=== PATIENT | female | born 1950 | race Caucasian/White ===

== ENCOUNTER → 2017-06-06 10:07 | Outpatient (CLI) | payer MEDICARE, SELFPAY ==
[2017-06-06 12:24] LABS: Absolute Lymphocyte Count 1.12 X10^3/ul (0.83-4.51); Absolute Neutrophil Count 3.4 X10^3/uL (2.0-7.7); Basophil# 0.03 X10^3/uL; Basophil% 0.6 % (0-1); Eosinophil# 0.23 X10^3/uL; Eosinophils% 4.4 % (0-5); Hemoglobin 13.5 g/dl (12.0-15.0); Lymphocyte # 1.12 X10^3/ul (4.0); Lymphocyte % 21.6 % (19-41); Mean Corp Hgb Conc 32.1 g/gl (32-36); Mean Corpuscular Hgb 30.5 pg (27.0-32.0); Mean Corpuscular Volume 94.8 fL (81-99); Mean Platelet Vol. 10.4 fl (6.2-12.0); Monocyte# 0.42 X10^3/uL; Monocyte% 8.1 % (0-10); Neutrophil # 3.38 X10^3/uL (2.7-7.7); Neutrophil % 65.1 % (47-70); Platelet Count 282 K/mm3 (150-450); RBC Distribution Width CV 14.2 % (11.6-14.6); RBC Distribution Width SD 48.2 fl (35.1-43.9); Red Blood Count 4.43 M/mm3 (4.2-5.4); White Blood Count 5.2 K/mm3 (4.4-11.0)
[2017-06-06 12:29] LABS: POSITIVE COUNT NO; POSITIVE DIFFERENTIAL NO; POSITIVE MORPHOLOGY NO
[2017-06-06 14:41] LABS: ALB/GLOB Ratio 1.1 RATIO (0.9-2.4); AST(SGOT) 15 U/L (15-37); Alanine Aminotransfer ALT/SGPT 28 U/L (12-78); Albumin, Serum 4.1 g/dL (3.4-5.0); Alkaline Phosphatase 67 U/L (45-117); Anion Gap 8 (5-15); BUN 17 mg/dL (7-18); BUN/Creat Ratio 16.3 RATIO (10-20); Calcium,Total 9.2 mg/dL (8.5-10.1); Chloride 102 mmol/L (98-107); Creatinine, Serum 1.04 mg/dL (0.55-1.02); EST Glomerular Filtration Rate 56 mL/min (>60); Est Glom Filt Rate - Afr Amer 68 mL/min (>60); Globulin 3.7 g/dL (2.2-4.2); Glucose 127 mg/dL (70-110); Potassium 4.5 mmol/L (3.5-5.1); Protein, Total 7.8 g/dL (6.4-8.2); Sodium Level 139 mmol/L (136-145)
== END ==
PROVIDERS: Family Provider Family Medicine; PCP Family Medicine; Visit Provider Internal Medicine Rheumatology
DX: L40.59 Other psoriatic arthropathy (principal); E03.9 Hypothyroidism, unspecified; G25.81 Restless legs syndrome; C43.62 Malignant melanoma of left upper limb, including shoulder; F32.89 Other specified depressive episodes; Z79.899 Other long term (current) drug therapy
CPT/HCPCS: 36415; 80053; 85025

== ENCOUNTER → 2017-08-29 11:18 | Outpatient (CLI) | payer MEDICARE, SELFPAY ==
[2017-08-29 14:18] LABS: Absolute Lymphocyte Count 1.59 X10^3/ul (0.83-4.51); Absolute Neutrophil Count 3.3 X10^3/uL (2.0-7.7); Basophil# 0.02 X10^3/uL; Basophil% 0.4 % (0-1); Eosinophil# 0.28 X10^3/uL; Eosinophils% 4.9 % (0-5); Hematocrit 42.6 % (37-47); Lymphocyte # 1.59 X10^3/ul (4.0); Lymphocyte % 27.8 % (19-41); Mean Corp Hgb Conc 32.9 g/gl (32-36); Mean Corpuscular Hgb 30.5 pg (27.0-32.0); Mean Corpuscular Volume 92.8 fL (81-99); Mean Platelet Vol. 10.3 fl (6.2-12.0); Monocyte# 0.48 X10^3/uL; Monocyte% 8.4 % (0-10); Neutrophil # 3.33 X10^3/uL (2.7-7.7); Neutrophil % 58.3 % (47-70); POSITIVE COUNT NO; POSITIVE DIFFERENTIAL NO; POSITIVE MORPHOLOGY NO; Platelet Count 290 K/mm3 (150-450); RBC Distribution Width CV 14.1 % (11.6-14.6); RBC Distribution Width SD 47.3 fl (35.1-43.9); Red Blood Count 4.59 M/mm3 (4.2-5.4); White Blood Count 5.7 K/mm3 (4.4-11.0)
[2017-08-29 14:38] LABS: ALB/GLOB Ratio 1.1 RATIO (0.9-2.4); AST(SGOT) 13 U/L (15-37); Alanine Aminotransfer ALT/SGPT 28 U/L (13-56); Albumin, Serum 4.2 g/dL (3.2-5.0); Alkaline Phosphatase 66 U/L (45-117); Anion Gap 6 (5-15); BUN 20 mg/dL (7-18); BUN/Creat Ratio 19.8 RATIO (10-20); Calcium,Total 9.3 mg/dL (8.5-10.1); Chloride 103 mmol/L (98-107); Creatinine, Serum 1.01 mg/dL (0.55-1.02); EST Glomerular Filtration Rate 58 mL/min (>60); Est Glom Filt Rate - Afr Amer 70 mL/min (>60); Globulin 3.9 g/dL (2.2-4.2); Glucose 72 mg/dL (74-106); Potassium 4.3 mmol/L (3.5-5.1); Protein, Total 8.1 g/dL (6.4-8.2); Sodium Level 139 mmol/L (136-145)
== END ==
PROVIDERS: Family Provider Family Medicine; PCP Family Medicine; Visit Provider Internal Medicine Rheumatology
DX: L40.59 Other psoriatic arthropathy (principal); G25.81 Restless legs syndrome; E03.9 Hypothyroidism, unspecified; C43.62 Malignant melanoma of left upper limb, including shoulder; F32.89 Other specified depressive episodes; Z79.899 Other long term (current) drug therapy
CPT/HCPCS: 36415; 80053; 85025

== ENCOUNTER → 2017-09-25 10:21 | Outpatient (CLI) | payer MEDICARE, SELFPAY ==
[2017-09-25 12:25] LABS: Vitamin D,25 Hydroxy 23.8 ng/mL (29.95-100.01)
[2017-09-25 12:37] LABS: Anion Gap 7 (5-15); BUN 22 mg/dL (7-18); BUN/Creat Ratio 22.2 RATIO (10-20); Chloride 104 mmol/L (98-107); Creatinine, Serum 0.99 mg/dL (0.55-1.02); EST Glomerular Filtration Rate 59 mL/min (>60); Est Glom Filt Rate - Afr Amer 72 mL/min (>60); Glucose 122 mg/dL (74-106); Potassium 4.1 mmol/L (3.5-5.1); Sodium Level 139 mmol/L (136-145); T4 Free Direct 1.11 ng/dL (0.76-1.46); Thyroid Stim Hormone (TSH) 1.64 uIU/mL (0.358-3.74)
== END ==
PROVIDERS: Family Provider Family Medicine; PCP Family Medicine; Visit Provider Family Medicine
DX: E03.9 Hypothyroidism, unspecified (principal); E55.9 Vitamin D deficiency, unspecified; R73.01 Impaired fasting glucose
CPT/HCPCS: 36415; 80048; 82306; 84439; 84443

== ENCOUNTER → 2017-12-24 16:45 | Outpatient (CLI) | payer MEDICARE, SELFPAY | PROVIDERS: Family Provider Family Medicine; PCP Family Medicine; Visit Provider Obstetrics & Gynecology | DX: Z12.31 Encounter for screening mammogram for malignant neoplasm of breast (principal) | CPT/HCPCS: 77063; 77067 ==

== ENCOUNTER → 2017-12-26 13:24 | Outpatient (CLI) | payer MEDICARE, SELFPAY ==
[2017-12-26 14:11] LABS: Absolute Lymphocyte Count 1.53 X10^3/ul (0.83-4.51); Absolute Neutrophil Count 2.7 X10^3/uL (2.0-7.7); Basophil# 0.03 X10^3/uL; Basophil% 0.6 % (0-1); Eosinophil# 0.18 X10^3/uL; Eosinophils% 3.7 % (0-5); Hemoglobin 12.9 g/dl (12.0-15.0); Lymphocyte # 1.53 X10^3/ul (4.0); Lymphocyte % 31.8 % (19-41); Mean Corp Hgb Conc 31.5 g/gl (32-36); Mean Corpuscular Hgb 29.9 pg (27.0-32.0); Mean Corpuscular Volume 95.1 fL (81-99); Mean Platelet Vol. 9.8 fl (6.2-12.0); Monocyte% 8.3 % (0-10); Neutrophil # 2.66 X10^3/uL (2.7-7.7); Neutrophil % 55.4 % (47-70); Platelet Count 258 K/mm3 (150-450); RBC Distribution Width CV 14.8 % (11.6-14.6); RBC Distribution Width SD 50.8 fl (35.1-43.9); Red Blood Count 4.31 M/mm3 (4.2-5.4); White Blood Count 4.8 K/mm3 (4.4-11.0)
[2017-12-26 14:14] LABS: POSITIVE COUNT NO; POSITIVE DIFFERENTIAL NO; POSITIVE MORPHOLOGY NO
[2017-12-26 14:39] LABS: ALB/GLOB Ratio 1.1 RATIO (0.9-2.4); AST(SGOT) 16 U/L (15-37); Alanine Aminotransfer ALT/SGPT 28 U/L (13-56); Alkaline Phosphatase 56 U/L (45-117); Anion Gap 5 (5-15); BUN 15 mg/dL (7-18); BUN/Creat Ratio 16.9 RATIO (10-20); Calcium,Total 9.1 mg/dL (8.5-10.1); Chloride 102 mmol/L (98-107); Creatinine, Serum 0.89 mg/dL (0.55-1.02); EST Glomerular Filtration Rate 67 mL/min (>60); Est Glom Filt Rate - Afr Amer 82 mL/min (>60); Globulin 3.6 g/dL (2.2-4.2); Glucose 89 mg/dL (74-106); Protein, Total 7.6 g/dL (6.4-8.2); Sodium Level 140 mmol/L (136-145)
== END ==
PROVIDERS: Family Provider Family Medicine; PCP Family Medicine; Visit Provider Internal Medicine Rheumatology
DX: L40.59 Other psoriatic arthropathy (principal); G25.81 Restless legs syndrome; E03.9 Hypothyroidism, unspecified; C43.62 Malignant melanoma of left upper limb, including shoulder; F32.89 Other specified depressive episodes; Z79.899 Other long term (current) drug therapy
CPT/HCPCS: 36415; 80053; 85025

== ENCOUNTER → 2018-03-20 14:32 | Outpatient (CLI) | payer MEDICARE, SELFPAY ==
[2018-03-20 16:06] LABS: Absolute Lymphocyte Count 1.38 X10^3/ul (0.83-4.51); Basophil# 0.01 X10^3/uL; Basophil% 0.2 % (0-1); Eosinophils% 3.9 % (0-5); Hematocrit 37.8 % (37-47); Hemoglobin 12.5 g/dl (12.0-15.0); Lymphocyte # 1.38 X10^3/ul (4.0); Lymphocyte % 27.1 % (19-41); Mean Corp Hgb Conc 33.1 g/gl (32-36); Mean Corpuscular Hgb 31.4 pg (27.0-32.0); Mean Platelet Vol. 10.4 fl (6.2-12.0); Monocyte# 0.48 X10^3/uL; Monocyte% 9.4 % (0-10); Neutrophil # 3.03 X10^3/uL (2.7-7.7); Neutrophil % 59.4 % (47-70); Platelet Count 256 K/mm3 (150-450); RBC Distribution Width CV 13.9 % (11.6-14.6); RBC Distribution Width SD 45.9 fl (35.1-43.9); Red Blood Count 3.98 M/mm3 (4.2-5.4); White Blood Count 5.1 K/mm3 (4.4-11.0)
[2018-03-20 16:17] LABS: ALB/GLOB Ratio 1.1 RATIO (0.9-2.4); AST(SGOT) 13 U/L (15-37); Alanine Aminotransfer ALT/SGPT 29 U/L (13-56); Albumin, Serum 3.8 g/dL (3.2-5.0); Alkaline Phosphatase 57 U/L (45-117); Anion Gap 6 (5-15); BUN 21 mg/dL (7-18); BUN/Creat Ratio 23.3 RATIO (10-20); Chloride 105 mmol/L (98-107); EST Glomerular Filtration Rate 66 mL/min (>60); Est Glom Filt Rate - Afr Amer 80 mL/min (>60); Globulin 3.6 g/dL (2.2-4.2); Glucose 88 mg/dL (74-106); Potassium 4.2 mmol/L (3.5-5.1); Protein, Total 7.4 g/dL (6.4-8.2); Sodium Level 141 mmol/L (136-145)
[2018-03-20 16:21] LABS: POSITIVE COUNT NO; POSITIVE DIFFERENTIAL NO; POSITIVE MORPHOLOGY NO
== END ==
PROVIDERS: Family Provider Family Medicine; PCP Family Medicine; Referring Provider Internal Medicine Rheumatology; Visit Provider Internal Medicine Rheumatology
DX: L40.59 Other psoriatic arthropathy (principal); C43.62 Malignant melanoma of left upper limb, including shoulder; E03.9 Hypothyroidism, unspecified; G25.81 Restless legs syndrome; M15.9 Polyosteoarthritis, unspecified; F32.89 Other specified depressive episodes; Z79.899 Other long term (current) drug therapy
CPT/HCPCS: 36415; 80053; 85025

== ENCOUNTER → 2018-04-01 11:33 | Outpatient (CLI) | payer MEDICARE, SELFPAY ==
[2018-04-01 16:07] LABS: Vitamin D,25 Hydroxy 34.5 ng/mL (29.95-100.01)
[2018-04-01 16:08] LABS: T4 Free Direct 0.99 ng/dL (0.76-1.46); Thyroid Stim Hormone (TSH) 1.39 uIU/mL (0.358-3.74)
== END ==
PROVIDERS: Family Provider Family Medicine; PCP Family Medicine; Visit Provider Family Medicine
DX: G25.0 Essential tremor (principal); E03.9 Hypothyroidism, unspecified; E55.9 Vitamin D deficiency, unspecified
CPT/HCPCS: 36415; 82306; 84439; 84443

== ENCOUNTER → 2018-06-19 13:32 | Outpatient (CLI) | payer MEDICARE, SELFPAY ==
[2018-06-19 15:48] LABS: Absolute Lymphocyte Count 1.17 X10^3/ul (0.83-4.51); Absolute Neutrophil Count 2.2 X10^3/uL (2.0-7.7); Basophil# 0.01 X10^3/uL; Basophil% 0.3 % (0-1); Eosinophil# 0.18 X10^3/uL; Eosinophils% 4.6 % (0-5); Hematocrit 39.1 % (37-47); Hemoglobin 12.6 g/dl (12.0-15.0); Lymphocyte # 1.17 X10^3/ul (4.0); Lymphocyte % 29.8 % (19-41); Mean Corp Hgb Conc 32.2 g/gl (32-36); Mean Corpuscular Hgb 30.4 pg (27.0-32.0); Mean Corpuscular Volume 94.4 fL (81-99); Mean Platelet Vol. 9.8 fl (6.2-12.0); Monocyte# 0.38 X10^3/uL; Monocyte% 9.7 % (0-10); Neutrophil # 2.18 X10^3/uL (2.7-7.7); Neutrophil % 55.3 % (47-70); Platelet Count 303 K/mm3 (150-450); RBC Distribution Width CV 14.7 % (11.6-14.6); RBC Distribution Width SD 49.8 fl (35.1-43.9); Red Blood Count 4.14 M/mm3 (4.2-5.4); White Blood Count 3.9 K/mm3 (4.4-11.0)
[2018-06-19 15:51] LABS: POSITIVE COUNT NO; POSITIVE DIFFERENTIAL NO; POSITIVE MORPHOLOGY NO
[2018-06-19 16:01] LABS: AST(SGOT) 13 U/L (15-37); Alanine Aminotransfer ALT/SGPT 24 U/L (13-56); Albumin, Serum 3.8 g/dL (3.2-5.0); Alkaline Phosphatase 59 U/L (45-117); Anion Gap 10 (5-15); BUN 17 mg/dL (7-18); BUN/Creat Ratio 19.2 RATIO (10-20); Calcium,Total 9.4 mg/dL (8.5-10.1); Chloride 102 mmol/L (98-107); Creatinine, Serum 0.89 mg/dL (0.55-1.02); EST Glomerular Filtration Rate 67 mL/min (>60); Est Glom Filt Rate - Afr Amer 81 mL/min (>60); Globulin 3.8 g/dL (2.2-4.2); Glucose 60 mg/dL (74-106); Protein, Total 7.6 g/dL (6.4-8.2); Sodium Level 142 mmol/L (136-145)
== END ==
PROVIDERS: Family Provider Family Medicine; PCP Family Medicine; Referring Provider Internal Medicine Rheumatology; Visit Provider Internal Medicine Rheumatology
DX: L40.59 Other psoriatic arthropathy (principal); C43.62 Malignant melanoma of left upper limb, including shoulder; E03.9 Hypothyroidism, unspecified; G25.81 Restless legs syndrome; F32.89 Other specified depressive episodes; Z79.899 Other long term (current) drug therapy; M15.9 Polyosteoarthritis, unspecified
CPT/HCPCS: 36415; 80053; 85025

== ENCOUNTER → 2018-09-16 09:58 | Outpatient (CLI) | payer MEDICARE, SELFPAY ==
[2018-01-08 09:57] VITALS: BMI 28.0
[2018-09-16 12:35] LABS: Absolute Lymphocyte Count 1.17 X10^3/ul (0.83-4.51); Absolute Neutrophil Count 2.2 X10^3/uL (2.0-7.7); Basophil# 0.01 X10^3/uL; Basophil% 0.3 % (0-1); Eosinophil# 0.17 X10^3/uL; Eosinophils% 4.3 % (0-5); Hematocrit 38.7 % (37-47); Hemoglobin 12.5 g/dl (12.0-15.0); Lymphocyte # 1.17 X10^3/ul (4.0); Lymphocyte % 29.5 % (19-41); Mean Corp Hgb Conc 32.3 g/gl (32-36); Mean Corpuscular Volume 92.8 fL (81-99); Mean Platelet Vol. 10.8 fl (6.2-12.0); Monocyte# 0.39 X10^3/uL; Monocyte% 9.8 % (0-10); Neutrophil # 2.22 X10^3/uL (2.7-7.7); Neutrophil % 56.1 % (47-70); Platelet Count 268 K/mm3 (150-450); RBC Distribution Width CV 14.1 % (11.6-14.6); RBC Distribution Width SD 47.2 fl (35.1-43.9); Red Blood Count 4.17 M/mm3 (4.2-5.4)
[2018-09-16 12:42] LABS: POSITIVE COUNT NO; POSITIVE DIFFERENTIAL NO; POSITIVE MORPHOLOGY NO
[2018-09-16 12:57] LABS: ALB/GLOB Ratio 1.2 RATIO (0.9-2.4); AST(SGOT) 16 U/L (15-37); Alanine Aminotransfer ALT/SGPT 24 U/L (13-56); Alkaline Phosphatase 60 U/L (45-117); Anion Gap 7 (5-15); BUN 23 mg/dL (7-18); BUN/Creat Ratio 25.3 RATIO (10-20); Calcium,Total 9.1 mg/dL (8.5-10.1); Chloride 103 mmol/L (98-107); Creatinine, Serum 0.91 mg/dL (0.55-1.02); EST Glomerular Filtration Rate 65 mL/min (>60); Est Glom Filt Rate - Afr Amer 79 mL/min (>60); Globulin 3.3 g/dL (2.2-4.2); Glucose 83 mg/dL (74-106); Protein, Total 7.3 g/dL (6.4-8.2); Sodium Level 140 mmol/L (136-145)
== END ==
PROVIDERS: Family Provider Family Medicine; PCP Family Medicine; Referring Provider Internal Medicine Rheumatology; Visit Provider Internal Medicine Rheumatology
DX: L40.59 Other psoriatic arthropathy (principal); G25.81 Restless legs syndrome; E03.9 Hypothyroidism, unspecified; C43.62 Malignant melanoma of left upper limb, including shoulder; M15.9 Polyosteoarthritis, unspecified; F32.89 Other specified depressive episodes; Z79.899 Other long term (current) drug therapy
CPT/HCPCS: 36415; 80053; 85025

== ENCOUNTER → 2018-10-21 15:09 | Outpatient (CLI) | payer MEDICARE, SELFPAY ==
[2018-10-21 12:05] VITALS: BMI 26.2
[2018-10-21 16:36] LABS: Mucous, Urine 0 SEEN /hpf (<or=2+)
[2018-10-21 17:23] LABS: Color, Urine Yellow (Yellow); Glucose, Dipstick Normal (Normal); Ketone-Dipstick Negative (Negative); Leukocyte Esterase-Dipstick 500 /ul (Negative); Nitrite-Dipstick Negative (Negative); Occult Blood-Urine 250 /ul (Negative); Protein-Dipstick 30 mg/dl (Negative); Urine Bilirubin Dipstick Negative (Negative); Urine Clarity Sl. Cloudy (Clear); Urine Urobilinogen Normal (Normal)
[2018-10-21 17:38] LABS: Bacteria 1+ /hpf (None Seen); Red Blood Cells-Urine 0-5 SEEN /hpf (0-5); Squamous Epithelial Cells - UA 0-5 SEEN /hpf (5-10); White Blood Cells 25-50 SEEN /hpf (0-5)
== END ==
PROVIDERS: Family Provider Family Medicine; PCP Family Medicine; Referring Provider Physician Assistant Surgical; Visit Provider Physician Assistant Surgical
DX: R30.0 Dysuria (principal)
CPT/HCPCS: 81001; 87077; 87086; 87088; 87186

== ENCOUNTER → 2018-12-13 09:24 | Outpatient (CLI) | payer MEDICARE, SELFPAY ==
[2018-10-21 12:05] VITALS: BMI 26.2
[2018-12-13 10:12] LABS: Absolute Lymphocyte Count 1.08 X10^3/uL (0.83-4.51); Absolute Neutrophil Count 2.7 X10^3/uL (2.0-7.7); Basophil# 0.03 X10^3/uL; Basophil% 0.7 % (0-1); Eosinophil# 0.22 X10^3/uL; Eosinophils% 5.1 % (0-5); Hematocrit 41.1 % (37-47); Hemoglobin 13.3 g/dL (12.0-15.0); Lymphocyte # 1.08 X10^3/ul (4.0); Lymphocyte % 24.9 % (19-41); Mean Corp Hgb Conc 32.4 g/dL (32-36); Mean Corpuscular Hgb 30.4 pg (27.0-32.0); Mean Corpuscular Volume 94.1 fL (81-99); Mean Platelet Vol. 9.9 fl (6.2-12.0); Monocyte% 6.9 % (0-10); NRBC Flagged by Analyzer 0 % (0-5); Neutrophil # 2.69 X10^3/uL (2.7-7.7); Neutrophil % 62.2 % (47-70); Platelet Count 227 K/mm3 (150-450); RBC Distribution Width CV 13.6 % (11.6-14.6); RBC Distribution Width SD 46.2 fl (35.1-43.9); Red Blood Count 4.37 M/mm3 (4.2-5.4); White Blood Count 4.3 K/mm3 (4.4-11.0)
[2018-12-13 10:41] LABS: ALB/GLOB Ratio 1.1 RATIO (0.9-2.4); AST(SGOT) 13 U/L (15-37); Alanine Aminotransfer ALT/SGPT 23 U/L (13-56); Albumin, Serum 3.8 g/dL (3.2-5.0); Alkaline Phosphatase 59 U/L (45-117); Anion Gap 4 (5-15); BUN 28 mg/dL (7-18); BUN/Creat Ratio 26.9 RATIO (10-20); Chloride 106 mmol/L (98-107); Creatinine, Serum 1.04 mg/dL (0.55-1.02); EST Glomerular Filtration Rate 56 mL/min (>60); Est Glom Filt Rate - Afr Amer 68 mL/min (>60); Globulin 3.5 g/dL (2.2-4.2); Glucose 119 mg/dL (74-106); Potassium 4.1 mmol/L (3.5-5.1); Protein, Total 7.3 g/dL (6.4-8.2); Sodium Level 140 mmol/L (136-145)
== END ==
PROVIDERS: Family Provider Family Medicine; PCP Family Medicine; Referring Provider Internal Medicine Rheumatology; Visit Provider Internal Medicine Rheumatology
DX: L40.59 Other psoriatic arthropathy (principal); G25.81 Restless legs syndrome; E03.9 Hypothyroidism, unspecified; C43.62 Malignant melanoma of left upper limb, including shoulder; M15.9 Polyosteoarthritis, unspecified; F32.89 Other specified depressive episodes; Z79.899 Other long term (current) drug therapy
CPT/HCPCS: 36415; 80053; 85025

== ENCOUNTER → 2018-12-17 14:04 | Outpatient (CLI) | payer MEDICARE, SELFPAY ==
[2018-12-17 10:02] VITALS: BMI 26.2
== END ==
PROVIDERS: Family Provider Family Medicine; PCP Family Medicine; Referring Provider Nurse Practitioner Family; Visit Provider Nurse Practitioner Family
DX: J02.9 Acute pharyngitis, unspecified (principal)
CPT/HCPCS: 87081

== ENCOUNTER → 2019-01-06 10:13 | Outpatient (CLI) | payer MEDICARE, SELFPAY ==
[2018-12-17 10:02] VITALS: BMI 26.2
--- NOTE | 2019-01-06 10:17 | BI_ITS ---
REPORT MAMMOGRAPHY - BILATERAL SCREENING REASON FOR EXAM: Female, 68 years old. Routine annual screening examination. PERTINENT HISTORY: Non-contributory. TECHNIQUE: Digital bilateral breast sriram (3D mammographic acquisition) in the CC and MLO projections. 2-D mediolateral oblique (MLO) and craniocaudad (CC) views of both breasts were obtained. CAD: Full Field Digital Mammography with Computer Added Detection was performed. COMPARISON: Comparison is made with prior study dated December 24, 2017 and outside examination dated October 29, 2016. FINDINGS: Breast Composition: The breasts are extremely dense, which lowers the sensitivity of mammography. There are no dominant masses or suspicious calcifications. Stable scattered calcifications in both breasts. Stable small benign-appearing bilateral axillary lymph nodes. No other significant abnormalities are identified. There has been no significant change since the prior study. BI/SCREEN MAMM (CAD) W/SRIRAM BILAT IMPRESSION: Stable bilateral screening mammogram. Yearly follow-up mammogram recommended. (A) ASSESSMENT CATEGORY: BIRADS Category 2: Benign. A letter regarding these results will be sent to the patient by the facility within 30 days. Approximately 10% of breast cancers are not detected by mammography. A normal mammogram should not delay biopsy of a clinically suspicious abnormality. [id number] Electronically Signed: Uday Delgado, at 11:23 EDT , Service support ,
== END ==
PROVIDERS: Family Provider Family Medicine; PCP Family Medicine; Referring Provider Nurse Practitioner Women's Health; Visit Provider Nurse Practitioner Women's Health
DX: Z12.31 Encounter for screening mammogram for malignant neoplasm of breast (principal)
CPT/HCPCS: 77063; 77067

== ENCOUNTER → 2019-01-08 10:48 | Outpatient (CLI) | payer MEDICARE, SELFPAY ==
[2018-12-17 10:02] VITALS: BMI 26.2
--- NOTE | 2019-01-08 10:55 | BD_ITS ---
STUDY: DUAL ENERGY X-RAY ABSORPTIOMETRY / DXA REASON FOR EXAM: Female, 68 years old. The patient is postmenopausal. Loss of height. TECHNIQUE: Bone Mineral Density (BMD) measurements of lumbar spine and bilateral hips were obtained. COMPARISON: Comparison is made with prior study dated September 22, 1998. FINDINGS: Lumbar Spine (L1-L4): g/cm2 (1.038) / T-score (-1.2) / Z-score (0.5) Findings are suggestive of osteopenia with a low fracture risk. Left Femur Total: g/cm2 (0.950) / T-score (-0.5) / Z-score (1.0) Left Femoral Neck: g/cm2 (0.921) / T-score (-0.8) / Z-score (0.8) Right Femur Total: g/cm2 (0.935) / T-score (-0.6) / Z-score (0.8) Right Femoral Neck: g/cm2 (0.876) / T-score (-1.2) / Z-score (0.5) The T-Scores on the most recent prior examination were: Lumbar Spine (L1-L4): There has been worsening of bone density since the previous examination. Left Femur Total: which represents a worsening of 6.4%. BD/Dexa Bone Density Study IMPRESSION: The patient is considered osteopenic as outlined below according to World [employer] Organization (WHO) criteria with a low fracture risk. There has been worsening of bone density since the previous examination. Reference Information: The T-score is the number of standard deviations above or below the standard which is normal for young adults at their peak bone mineral density. The World Health Organization (WHO) interprets the T-scores as follows: Above -1 Normal bone density Between -1 and -2.5 Osteopenia Equal to / or below -2.5 Osteoporosis As a practical clinical guideline, osteopenia may be graded as follows: Mild -1 through -1.5 Moderate -1.6 through -2.0 Severe -2.1 through -2.4 The Z-score is the number of standard deviations above or below age-matched controls. A Z-score of less than -1.5 would be considered abnormal. References: 1. NIH Osteoporosis and Related Bone Diseases http://www.osteo.org 2. International Society for Clinical Densitometry http://www.iscd.org 3. National Osteoporosis Foundation http://www.nof.org Electronically Signed: Uday Delgado, at 15:48 EDT , Service support ,
== END ==
PROVIDERS: Family Provider Family Medicine; PCP Family Medicine; Referring Provider Nurse Practitioner Women's Health; Visit Provider Nurse Practitioner Women's Health
DX: Z78.0 Asymptomatic menopausal state (principal); M81.0 Age-related osteoporosis without current pathological fracture
CPT/HCPCS: 77080

== ENCOUNTER → 2019-03-12 12:35 | Outpatient (CLI) | payer MEDICARE, SELFPAY ==
[2019-01-13 13:09] VITALS: BMI 26.2
[2019-03-12 13:56] LABS: Absolute Lymphocyte Count 1.43 X10^3/uL (0.83-4.51); Absolute Neutrophil Count 3.7 X10^3/uL (2.0-7.7); Basophil# 0.04 X10^3/uL; Basophil% 0.7 % (0-1); Eosinophil# 0.21 X10^3/uL; Eosinophils% 3.6 % (0-5); Hematocrit 40.1 % (37-47); Lymphocyte # 1.43 X10^3/ul (4.0); Lymphocyte % 24.7 % (19-41); Mean Corp Hgb Conc 32.4 g/dL (32-36); Mean Corpuscular Hgb 30.9 pg (27.0-32.0); Mean Corpuscular Volume 95.2 fL (81-99); Mean Platelet Vol. 9.9 fl (6.2-12.0); Monocyte# 0.37 X10^3/uL; Monocyte% 6.4 % (0-10); NRBC Flagged by Analyzer 0 % (0-5); Neutrophil # 3.73 X10^3/uL (2.7-7.7); Neutrophil % 64.3 % (47-70); Platelet Count 259 K/mm3 (150-450); RBC Distribution Width CV 14.6 % (11.6-14.6); RBC Distribution Width SD 50.4 fl (35.1-43.9); Red Blood Count 4.21 M/mm3 (4.2-5.4); White Blood Count 5.8 K/mm3 (4.4-11.0)
[2019-03-12 14:13] LABS: ALB/GLOB Ratio 1.1 RATIO (0.9-2.4); AST(SGOT) 15 U/L (15-37); Alanine Aminotransfer ALT/SGPT 27 U/L (13-56); Alkaline Phosphatase 60 U/L (45-117); Anion Gap 7 (5-15); BUN 26 mg/dL (7-18); Calcium,Total 9.4 mg/dL (8.5-10.1); Chloride 103 mmol/L (98-107); Creatinine, Serum 1.04 mg/dL (0.55-1.02); EST Glomerular Filtration Rate 56 mL/min (>60); Est Glom Filt Rate - Afr Amer 68 mL/min (>60); Globulin 3.5 g/dL (2.2-4.2); Glucose 101 mg/dL (74-106); Potassium 4.1 mmol/L (3.5-5.1); Protein, Total 7.5 g/dL (6.4-8.2); Sodium Level 140 mmol/L (136-145)
== END ==
PROVIDERS: Family Provider Family Medicine; PCP Family Medicine; Referring Provider Internal Medicine Rheumatology; Visit Provider Internal Medicine Rheumatology
DX: L40.59 Other psoriatic arthropathy (principal); C43.62 Malignant melanoma of left upper limb, including shoulder; E03.9 Hypothyroidism, unspecified; G25.81 Restless legs syndrome; M15.9 Polyosteoarthritis, unspecified; F32.89 Other specified depressive episodes; Z79.899 Other long term (current) drug therapy
CPT/HCPCS: 36415; 80053; 85025

== ENCOUNTER → 2019-06-11 12:33 | Outpatient (CLI) | payer MEDICARE, SELFPAY ==
[2019-01-13 13:09] VITALS: BMI 26.2
[2019-06-11 14:15] LABS: Absolute Lymphocyte Count 1.34 X10^3/uL (0.83-4.51); Absolute Neutrophil Count 2.4 X10^3/uL (2.0-7.7); Basophil# 0.02 X10^3/uL; Basophil% 0.5 % (0-1); Eosinophils% 4.7 % (0-5); Hematocrit 42.8 % (37-47); Hemoglobin 13.9 g/dL (12.0-15.0); Lymphocyte # 1.34 X10^3/ul (4.0); Lymphocyte % 31.5 % (19-41); Mean Corp Hgb Conc 32.5 g/dL (32-36); Mean Corpuscular Hgb 30.7 pg (27.0-32.0); Mean Corpuscular Volume 94.5 fL (81-99); Mean Platelet Vol. 10.2 fl (6.2-12.0); Monocyte# 0.33 X10^3/uL; Monocyte% 7.8 % (0-10); NRBC Flagged by Analyzer 0 % (0-5); Neutrophil # 2.35 X10^3/uL (2.7-7.7); Neutrophil % 55.3 % (47-70); Platelet Count 258 K/mm3 (150-450); RBC Distribution Width CV 14.5 % (11.6-14.6); RBC Distribution Width SD 49.6 fl (35.1-43.9); Red Blood Count 4.53 M/mm3 (4.2-5.4); White Blood Count 4.3 K/mm3 (4.4-11.0)
[2019-06-11 14:41] LABS: Albumin, Serum 4.1 g/dL (3.2-5.0); BUN 22 mg/dL (7-18); BUN/Creat Ratio 21.4 RATIO (10-20); Creatinine, Serum 1.03 mg/dL (0.55-1.02); EST Glomerular Filtration Rate 56 mL/min (>60); Est Glom Filt Rate - Afr Amer 68 mL/min (>60); Globulin 3.6 g/dL (2.2-4.2); Glucose 85 mg/dL (74-106); Protein, Total 7.7 g/dL (6.4-8.2)
[2019-06-11 14:42] LABS: ALB/GLOB Ratio 1.1 RATIO (0.9-2.4); AST(SGOT) 13 U/L (15-37); Alanine Aminotransfer ALT/SGPT 25 U/L (13-56); Alkaline Phosphatase 59 U/L (45-117); Anion Gap 6 (5-15); Calcium,Total 9.7 mg/dL (8.5-10.1); Chloride 104 mmol/L (98-107); Potassium 3.9 mmol/L (3.5-5.1); Sodium Level 139 mmol/L (136-145); T4 Free Direct 1.04 ng/dL (0.76-1.46); Thyroid Stim Hormone (TSH) 1.52 uIU/mL (0.358-3.74)
== END ==
PROVIDERS: PCP Family Medicine; Referring Provider Family Medicine; Visit Provider Family Medicine
DX: E03.9 Hypothyroidism, unspecified (principal); L40.59 Other psoriatic arthropathy; G25.81 Restless legs syndrome; F32.89 Other specified depressive episodes; C43.62 Malignant melanoma of left upper limb, including shoulder; M15.9 Polyosteoarthritis, unspecified; Z79.899 Other long term (current) drug therapy
CPT/HCPCS: 36415; 80053; 84439; 84443; 85025

== ENCOUNTER → 2019-09-03 12:00 | Outpatient (CLI) | payer MEDICARE, SELFPAY ==
[2019-01-13 13:09] VITALS: BMI 26.2
[2019-09-03 15:22] LABS: Absolute Lymphocyte Count 0.77 X10^3/uL (0.83-4.51); Absolute Neutrophil Count 2.4 X10^3/uL (2.0-7.7); Basophil# 0.03 X10^3/uL; Basophil% 0.8 % (0-1); Eosinophil# 0.26 X10^3/uL; Eosinophils% 6.6 % (0-5); Hematocrit 40.3 % (37-47); Lymphocyte # 0.77 X10^3/ul (4.0); Lymphocyte % 19.5 % (19-41); Mean Corp Hgb Conc 32.3 g/dL (32-36); Mean Corpuscular Hgb 31.2 pg (27.0-32.0); Mean Corpuscular Volume 96.6 fL (81-99); Mean Platelet Vol. 10.4 fl (6.2-12.0); Monocyte# 0.52 X10^3/uL; Monocyte% 13.2 % (0-10); NRBC Flagged by Analyzer 0 % (0-5); Neutrophil # 2.35 X10^3/uL (2.7-7.7); Neutrophil % 59.6 % (47-70); Platelet Count 283 K/mm3 (150-450); RBC Distribution Width CV 14.3 % (11.6-14.6); RBC Distribution Width SD 49.8 fl (35.1-43.9); Red Blood Count 4.17 M/mm3 (4.2-5.4); White Blood Count 3.9 K/mm3 (4.4-11.0)
[2019-09-03 15:48] LABS: ALB/GLOB Ratio 1.1 RATIO (0.9-2.4); AST(SGOT) 16 U/L (15-37); Alanine Aminotransfer ALT/SGPT 30 U/L (13-56); Albumin, Serum 3.9 g/dL (3.2-5.0); Alkaline Phosphatase 61 U/L (45-117); Anion Gap 7 (5-15); BUN 27 mg/dL (7-18); BUN/Creat Ratio 29.9 RATIO (10-20); Calcium,Total 9.3 mg/dL (8.5-10.1); Chloride 104 mmol/L (98-107); EST Glomerular Filtration Rate 66 mL/min (>60); Est Glom Filt Rate - Afr Amer 79 mL/min (>60); Globulin 3.5 g/dL (2.2-4.2); Glucose 86 mg/dL (74-106); Potassium 4.1 mmol/L (3.5-5.1); Protein, Total 7.4 g/dL (6.4-8.2); Sodium Level 137 mmol/L (136-145)
== END ==
PROVIDERS: PCP Family Medicine; Referring Provider Internal Medicine Rheumatology; Visit Provider Internal Medicine Rheumatology
DX: L40.59 Other psoriatic arthropathy (principal); Z79.899 Other long term (current) drug therapy; L40.9 Psoriasis, unspecified; G25.81 Restless legs syndrome; F32.89 Other specified depressive episodes; E03.9 Hypothyroidism, unspecified; C43.62 Malignant melanoma of left upper limb, including shoulder; M15.9 Polyosteoarthritis, unspecified
CPT/HCPCS: 36415; 80053; 85025

== ENCOUNTER → 2019-09-18 11:09 | Outpatient (CLI) | payer MEDICARE, SELFPAY ==
[2019-01-13 13:09] VITALS: BMI 26.2
[2019-09-18 13:07] LABS: Cholesterol 265 mg/dL (200); Glucose 97 mg/dL (74-106); High Density Lipoprotein 83 mg/dL; Triglycerides 101 mg/dL; Very Low Density Lipoprotein 20 mg/dL (5-40)
== END ==
PROVIDERS: PCP Family Medicine; Referring Provider Family Medicine; Visit Provider Family Medicine
DX: R73.01 Impaired fasting glucose (principal); E78.5 Hyperlipidemia, unspecified
CPT/HCPCS: 36415; 80061; 82947; 83036

== ENCOUNTER → 2019-11-24 11:18 | Outpatient (CLI) | payer MEDICARE, SELFPAY ==
[2019-01-13 13:09] VITALS: BMI 26.2
[2019-11-24 15:12] LABS: Absolute Lymphocyte Count 1.12 X10^3/uL (0.83-4.51); Absolute Neutrophil Count 2.2 X10^3/uL (2.0-7.7); Basophil# 0.04 X10^3/uL; Eosinophil# 0.19 X10^3/uL; Eosinophils% 4.9 % (0-5); Hematocrit 39.9 % (37-47); Hemoglobin 12.8 g/dL (12.0-15.0); Lymphocyte # 1.12 X10^3/ul (4.0); Lymphocyte % 28.7 % (19-41); Mean Corp Hgb Conc 32.1 g/dL (32-36); Mean Corpuscular Volume 96.6 fL (81-99); Monocyte# 0.37 X10^3/uL; Monocyte% 9.5 % (0-10); NRBC Flagged by Analyzer 0 % (0-5); Neutrophil # 2.17 X10^3/uL (2.7-7.7); Neutrophil % 55.6 % (47-70); Platelet Count 271 K/mm3 (150-450); RBC Distribution Width CV 13.8 % (11.6-14.6); RBC Distribution Width SD 48.2 fl (35.1-43.9); Red Blood Count 4.13 M/mm3 (4.2-5.4); White Blood Count 3.9 K/mm3 (4.4-11.0)
[2019-11-24 15:41] LABS: ALB/GLOB Ratio 1.2 RATIO (0.9-2.4); AST(SGOT) 18 U/L (15-37); Alanine Aminotransfer ALT/SGPT 31 U/L (13-56); Albumin, Serum 4.1 g/dL (3.2-5.0); Alkaline Phosphatase 58 U/L (45-117); Anion Gap 6 (5-15); BUN 18 mg/dL (7-18); BUN/Creat Ratio 19.4 RATIO (10-20); Calcium,Total 9.1 mg/dL (8.5-10.1); Chloride 100 mmol/L (98-107); Creatinine, Serum 0.93 mg/dL (0.55-1.02); EST Glomerular Filtration Rate 64 mL/min (>60); Est Glom Filt Rate - Afr Amer 77 mL/min (>60); Globulin 3.4 g/dL (2.2-4.2); Glucose 99 mg/dL (74-106); Potassium 4.3 mmol/L (3.5-5.1); Protein, Total 7.5 g/dL (6.4-8.2); Sodium Level 135 mmol/L (136-145)
== END ==
PROVIDERS: PCP Family Medicine; Referring Provider Internal Medicine Rheumatology; Visit Provider Internal Medicine Rheumatology
DX: L40.59 Other psoriatic arthropathy (principal); G25.81 Restless legs syndrome; F32.89 Other specified depressive episodes; E03.9 Hypothyroidism, unspecified; C43.62 Malignant melanoma of left upper limb, including shoulder; M15.9 Polyosteoarthritis, unspecified; Z79.899 Other long term (current) drug therapy
CPT/HCPCS: 36415; 80053; 85025

== ENCOUNTER → 2020-01-11 09:54 | Outpatient (CLI) | payer MEDICARE, SELFPAY ==
[2019-01-13 13:09] VITALS: BMI 26.2
--- NOTE | 2020-01-11 09:55 | BI_ITS ---
MAMMOGRAPHY - BILATERAL SCREENING REASON FOR EXAM: Female, 69 years old. Routine annual screening examination. PERTINENT HISTORY: Non-contributory. TECHNIQUE: Digital bilateral breast sriram (3D mammographic acquisition) in the CC and MLO projections. 2-D mediolateral oblique (MLO) and craniocaudad (CC) views of both breasts were obtained. CAD: Full Field Digital Mammography with Computer Added Detection was performed. COMPARISON: Comparison is made with prior examination dated 01/06/2019 and 12/24/2017. FINDINGS: Breast Composition: The breasts are extremely dense, which lowers the sensitivity of mammography. There are no dominant masses or suspicious calcifications. Stable scattered calcifications in both breasts. No other significant abnormalities are identified. There has been no significant change since the prior study. BI/SCREEN MAMM (CAD) W/SRIRAM BILAT IMPRESSION: Stable bilateral screening mammogram. Yearly follow-up mammogram recommended. (A) ASSESSMENT CATEGORY: BIRADS Category 2: Benign. A letter regarding these results will be sent to the patient by the facility within 30 days. Approximately 10% of breast cancers are not detected by mammography. A normal mammogram should not delay biopsy of a clinically suspicious abnormality. [id number] Electronically Signed: Uday Delgado, at 10:47 EDT , Service support ,
== END ==
PROVIDERS: PCP Family Medicine; Referring Provider Obstetrics & Gynecology; Visit Provider Obstetrics & Gynecology
DX: Z12.31 Encounter for screening mammogram for malignant neoplasm of breast (principal)
CPT/HCPCS: 77063; 77067

== ENCOUNTER → 2020-02-29 07:23 | Outpatient (CLI) | payer MEDICARE, SELFPAY ==
[2020-02-18 10:42] VITALS: BMI 26.2
[2020-02-29 09:48] LABS: Absolute Lymphocyte Count 1.29 X10^3/uL (0.83-4.51); Absolute Neutrophil Count 2.1 X10^3/uL (2.0-7.7); Basophil# 0.03 X10^3/uL; Basophil% 0.7 % (0-1); Eosinophil# 0.24 X10^3/uL; Eosinophils% 5.9 % (0-5); Hematocrit 38.7 % (37-47); Hemoglobin 12.4 g/dL (12.0-15.0); Lymphocyte # 1.29 X10^3/ul (4.0); Lymphocyte % 31.9 % (19-41); Mean Corpuscular Hgb 30.5 pg (27.0-32.0); Mean Corpuscular Volume 95.3 fL (81-99); Mean Platelet Vol. 9.4 fl (6.2-12.0); Monocyte# 0.35 X10^3/uL; Monocyte% 8.6 % (0-10); NRBC Flagged by Analyzer 0 % (0-5); Neutrophil # 2.13 X10^3/uL (2.7-7.7); Neutrophil % 52.7 % (47-70); Platelet Count 226 K/mm3 (150-450); RBC Distribution Width CV 13.9 % (11.6-14.6); RBC Distribution Width SD 49.1 fl (35.1-43.9); Red Blood Count 4.06 M/mm3 (4.2-5.4); White Blood Count 4.1 K/mm3 (4.4-11.0)
[2020-02-29 10:14] LABS: ALB/GLOB Ratio 1.1 RATIO (0.9-2.4); AST(SGOT) 13 U/L (15-37); Alanine Aminotransfer ALT/SGPT 33 U/L (13-56); Albumin, Serum 3.8 g/dL (3.2-5.0); Alkaline Phosphatase 70 U/L (45-117); Anion Gap 7 (5-15); BUN 16 mg/dL (7-18); BUN/Creat Ratio 18.6 RATIO (10-20); Calcium,Total 8.7 mg/dL (8.5-10.1); Chloride 105 mmol/L (98-107); Creatinine, Serum 0.86 mg/dL (0.55-1.02); EST Glomerular Filtration Rate 69 mL/min (>60); Est Glom Filt Rate - Afr Amer 84 mL/min (>60); Globulin 3.4 g/dL (2.2-4.2); Glucose 101 mg/dL (74-106); Potassium 4.1 mmol/L (3.5-5.1); Protein, Total 7.2 g/dL (6.4-8.2); Sodium Level 140 mmol/L (136-145)
== END ==
PROVIDERS: PCP Family Medicine; Referring Provider Internal Medicine Rheumatology; Visit Provider Internal Medicine Rheumatology
DX: L40.59 Other psoriatic arthropathy (principal); M19.041 Primary osteoarthritis, right hand; G25.81 Restless legs syndrome; F32.89 Other specified depressive episodes; E03.9 Hypothyroidism, unspecified; C43.62 Malignant melanoma of left upper limb, including shoulder; Z79.899 Other long term (current) drug therapy
CPT/HCPCS: 36415; 80053; 85025

== ENCOUNTER → 2020-05-24 10:41 | Outpatient (CLI) | payer MEDICARE, SELFPAY ==
[2020-02-18 10:42] VITALS: BMI 26.2
[2020-05-24 12:58] LABS: Vitamin D,25 Hydroxy 41.5 ng/mL
[2020-05-24 13:06] LABS: Cholesterol 264 mg/dL (200); High Density Lipoprotein 92 mg/dL; T4 Free Direct 0.98 ng/dL (0.76-1.46); Triglycerides 105 mg/dL; Very Low Density Lipoprotein 21 mg/dL (5-40)
== END ==
PROVIDERS: PCP Family Medicine; Visit Provider Family Medicine
DX: E03.9 Hypothyroidism, unspecified (principal); E78.5 Hyperlipidemia, unspecified; E55.9 Vitamin D deficiency, unspecified
CPT/HCPCS: 36415; 80061; 82306; 84439; 84443

== ENCOUNTER → 2020-05-26 10:24 | Outpatient (CLI) | payer MEDICARE, SELFPAY ==
[2020-02-18 10:42] VITALS: BMI 26.2
[2020-05-26 12:17] LABS: Absolute Lymphocyte Count 0.99 X10^3/uL (0.83-4.51); Absolute Neutrophil Count 1.9 X10^3/uL (2.0-7.7); Basophil# 0.03 X10^3/uL; Basophil% 0.9 % (0-1); Eosinophil# 0.15 X10^3/uL; Eosinophils% 4.5 % (0-5); Hematocrit 39.3 % (37-47); Hemoglobin 13.1 g/dL (12.0-15.0); Lymphocyte # 0.99 X10^3/ul (4.0); Lymphocyte % 29.6 % (19-41); Mean Corp Hgb Conc 33.3 g/dL (32-36); Mean Corpuscular Hgb 31.2 pg (27.0-32.0); Mean Corpuscular Volume 93.6 fL (81-99); Mean Platelet Vol. 10.5 fl (6.2-12.0); Monocyte# 0.32 X10^3/uL; Monocyte% 9.6 % (0-10); NRBC Flagged by Analyzer 0 % (0-5); Neutrophil # 1.85 X10^3/uL (2.7-7.7); Neutrophil % 55.1 % (47-70); Platelet Count 273 K/mm3 (150-450); RBC Distribution Width CV 13.4 % (11.6-14.6); RBC Distribution Width SD 45.6 fl (35.1-43.9); White Blood Count 3.4 K/mm3 (4.4-11.0)
[2020-05-26 12:31] LABS: ALB/GLOB Ratio 1.2 RATIO (0.9-2.4); AST(SGOT) 17 U/L (15-37); Alanine Aminotransfer ALT/SGPT 35 U/L (13-56); Alkaline Phosphatase 75 U/L (45-117); Anion Gap 3 (5-15); BUN 17 mg/dL (7-18); BUN/Creat Ratio 18.5 RATIO (10-20); Calcium,Total 8.9 mg/dL (8.5-10.1); Chloride 104 mmol/L (98-107); Creatinine, Serum 0.92 mg/dL (0.55-1.02); EST Glomerular Filtration Rate 64 mL/min (>60); Est Glom Filt Rate - Afr Amer 78 mL/min (>60); Globulin 3.3 g/dL (2.2-4.2); Glucose 97 mg/dL (74-106); Protein, Total 7.3 g/dL (6.4-8.2); Sodium Level 136 mmol/L (136-145)
== END ==
PROVIDERS: PCP Family Medicine; Referring Provider Internal Medicine Rheumatology; Visit Provider Internal Medicine Rheumatology
DX: L40.59 Other psoriatic arthropathy (principal); M19.041 Primary osteoarthritis, right hand; G25.81 Restless legs syndrome; E03.9 Hypothyroidism, unspecified; C43.62 Malignant melanoma of left upper limb, including shoulder; F32.89 Other specified depressive episodes; Z79.899 Other long term (current) drug therapy
CPT/HCPCS: 36415; 80053; 85025

== ENCOUNTER → 2020-07-15 16:35 | Outpatient (CLI) | payer MEDICARE, SELFPAY ==
[2020-02-18 10:42] VITALS: BMI 26.2
[2020-07-15 18:09] LABS: ALB/GLOB Ratio 1.3 RATIO (0.9-2.4); AST(SGOT) 19 U/L (15-37); Alanine Aminotransfer ALT/SGPT 41 U/L (13-56); Albumin, Serum 3.9 g/dL (3.2-5.0); Alkaline Phosphatase 72 U/L (45-117); Anion Gap 7 (5-15); BUN 24 mg/dL (7-18); BUN/Creat Ratio 27.1 RATIO (10-20); Calcium,Total 8.9 mg/dL (8.5-10.1); Chloride 105 mmol/L (98-107); Creatinine, Serum 0.89 mg/dL (0.55-1.02); EST Glomerular Filtration Rate 67 mL/min (>60); Est Glom Filt Rate - Afr Amer 81 mL/min (>60); Globulin 3.1 g/dL (2.2-4.2); Glucose 97 mg/dL (74-106); Potassium 3.8 mmol/L (3.5-5.1); Sodium Level 140 mmol/L (136-145)
[2020-07-19 04:07] LABS: Ceruloplasmin 23.5 mg/dL (19.0-39.0)
[2020-07-19 15:11] LABS: Copper, Serum or Plasma 117 ug/dL (80-158)
== END ==
PROVIDERS: PCP Family Medicine; Referring Provider Psychiatry & Neurology Neurology; Visit Provider Psychiatry & Neurology Neurology
DX: G25.0 Essential tremor (principal)
CPT/HCPCS: 36415; 80053; 82140; 82390; 82525

== ENCOUNTER → 2020-08-09 12:48 | Outpatient (CLI) | payer MEDICARE, SELFPAY ==
[2020-02-18 10:42] VITALS: BMI 26.2
[2020-08-09 15:14] LABS: Absolute Lymphocyte Count 0.99 X10^3/uL (0.83-4.51); Absolute Neutrophil Count 2.5 X10^3/uL (2.0-7.7); Basophil# 0.03 X10^3/uL; Basophil% 0.8 % (0-1); Eosinophil# 0.18 X10^3/uL; Eosinophils% 4.5 % (0-5); Hematocrit 39.7 % (37-47); Hemoglobin 12.8 g/dL (12.0-15.0); Lymphocyte # 0.99 X10^3/ul (4.0); Mean Corp Hgb Conc 32.2 g/dL (32-36); Mean Corpuscular Hgb 30.5 pg (27.0-32.0); Mean Corpuscular Volume 94.7 fL (81-99); Mean Platelet Vol. 10.8 fl (6.2-12.0); Monocyte# 0.29 X10^3/uL; Monocyte% 7.3 % (0-10); NRBC Flagged by Analyzer 0 % (0-5); Neutrophil # 2.46 X10^3/uL (2.7-7.7); Neutrophil % 62.1 % (47-70); Platelet Count 270 K/mm3 (150-450); RBC Distribution Width CV 14.2 % (11.6-14.6); RBC Distribution Width SD 48.5 fl (35.1-43.9); Red Blood Count 4.19 M/mm3 (4.2-5.4)
[2020-08-09 15:40] LABS: ALB/GLOB Ratio 1.1 RATIO (0.9-2.4); AST(SGOT) 15 U/L (15-37); Alanine Aminotransfer ALT/SGPT 33 U/L (13-56); Alkaline Phosphatase 80 U/L (45-117); Anion Gap 3 (5-15); BUN 14 mg/dL (7-18); BUN/Creat Ratio 16.4 RATIO (10-20); Chloride 106 mmol/L (98-107); Creatinine, Serum 0.86 mg/dL (0.55-1.02); EST Glomerular Filtration Rate 70 mL/min (>60); Est Glom Filt Rate - Afr Amer 84 mL/min (>60); Globulin 3.5 g/dL (2.2-4.2); Glucose 100 mg/dL (74-106); Potassium 4.1 mmol/L (3.5-5.1); Protein, Total 7.5 g/dL (6.4-8.2); Sodium Level 138 mmol/L (136-145)
== END ==
PROVIDERS: PCP Family Medicine; Referring Provider Internal Medicine Rheumatology; Visit Provider Internal Medicine Rheumatology
DX: L40.59 Other psoriatic arthropathy (principal); L40.9 Psoriasis, unspecified; M19.041 Primary osteoarthritis, right hand; G25.81 Restless legs syndrome; E03.9 Hypothyroidism, unspecified; C43.62 Malignant melanoma of left upper limb, including shoulder; Z79.899 Other long term (current) drug therapy
CPT/HCPCS: 36415; 80053; 85025

== ENCOUNTER → 2020-10-25 13:19 | Outpatient (CLI) | payer MEDICARE, SELFPAY ==
[2020-02-18 10:42] VITALS: BMI 26.2
--- NOTE | 2020-10-25 13:24 | CT_ITS ---
STUDY: CTA OF THE BRAIN REASON FOR EXAM: Female, 70 years old. TINNITIS LEFT EAR RADIATION DOSAGE (If Supplied By Facility): CTDIvol = ( 26.65 ) mGy, DLP = ( 1171.18 ) mGycm TECHNIQUE: CT angiography was performed with a multi-detector CT scanner. Data acquisition was obtained from the skull base through the vertex following intravenous administration of IV 100mL Isovue-370. MIP images were reconstructed from the axial data set. Post-processing of the angiographic images was performed, with multiplanar reformation and 3D reconstruction. Individualized dose optimization techniques were used for this CT. COMPARISON: None. FINDINGS: Normal bilateral petrous carotid arteries. Normal right cavernous carotid artery with a normal supraclinoid bifurcation. Normal left cavernous carotid artery with a normal supraclinoid bifurcation. Normal right A1 segments of the anterior cerebral artery. Normal left A1 segments of the anterior cerebral artery. Normal intact anterior communicating artery (ACOM). Normal bilateral A2 segments of the anterior cerebral arteries. Normal right M1 and M2 segments of the middle cerebral arteries, with a normal M1 bifurcation. Normal left M1 and M2 segments of the middle cerebral arteries, with a normal M1 bifurcation. Normal right posterior communicating artery (PCOM). Normal left posterior communicating artery (PCOM). Normal bilateral vertebral arteries. Normal basilar artery with a normal basilar bifurcation. The visualized bilateral superior cerebellar (SCA) arteries are normal. Normal bilateral P1, P2 and visualized P3 segments of the posterior cerebral arteries. There is no demonstrated aneurysm of the hoh of [place]. There is no demonstrated abnormality of the visualized brain. CT/CTA Head W/WO Contrast IMPRESSION: Normal hoh of [place] without a demonstrated aneurysm or hemodynamically significant stenosis. Electronically Signed: Uday Delgado MD at 14:57 EDT , Service support ,
[2020-10-25 13:41] LABS: CREATININE FINGERSTICK 0.7 mg/dL (0.55-1.02); EGFR FINGERSTICK > 60.0000 mL/min (>60)
== END ==
PROVIDERS: PCP Family Medicine; Referring Provider Otolaryngology; Visit Provider Otolaryngology
DX: H93.A2 Pulsatile tinnitus, left ear (principal)
CPT/HCPCS: 70496; Q9967

== ENCOUNTER → 2020-11-08 13:29 | Outpatient (CLI) | payer MEDICARE, SELFPAY ==
[2020-02-18 10:42] VITALS: BMI 26.2
[2020-11-08 15:28] LABS: Absolute Lymphocyte Count 1.13 X10^3/uL (0.83-4.51); Absolute Neutrophil Count 2.2 X10^3/uL (2.0-7.7); Basophil# 0.02 X10^3/uL; Basophil% 0.5 % (0-1); Eosinophil# 0.07 X10^3/uL; Eosinophils% 1.8 % (0-5); Hematocrit 37.3 % (37-47); Hemoglobin 12.4 g/dL (12.0-15.0); Lymphocyte # 1.13 X10^3/ul (0.83-4.51); Lymphocyte % 29.7 % (19-41); Mean Corp Hgb Conc 33.2 g/dL (32-36); Mean Corpuscular Hgb 31.2 pg (27.0-32.0); Monocyte# 0.35 X10^3/uL; Monocyte% 9.2 % (0-10); NRBC Flagged by Analyzer 0 % (0-5); Neutrophil # 2.23 X10^3/uL (2.7-7.7); Neutrophil % 58.5 % (47-70); Platelet Count 257 K/mm3 (150-450); RBC Distribution Width CV 13.9 % (11.6-14.6); Red Blood Count 3.97 M/mm3 (4.2-5.4); White Blood Count 3.8 K/mm3 (4.4-11.0)
[2020-11-08 15:54] LABS: ALB/GLOB Ratio 1.3 RATIO (0.9-2.4); AST(SGOT) 16 U/L (15-37); Alanine Aminotransfer ALT/SGPT 22 U/L (13-56); Albumin, Serum 4.2 g/dL (3.2-5.0); Alkaline Phosphatase 70 U/L (45-117); Anion Gap 7 (5-15); BUN 19 mg/dL (7-18); BUN/Creat Ratio 20.1 RATIO (10-20); Calcium,Total 9.1 mg/dL (8.5-10.1); Chloride 102 mmol/L (98-107); Creatinine, Serum 0.95 mg/dL (0.55-1.02); EST Glomerular Filtration Rate 62 mL/min (>60); Est Glom Filt Rate - Afr Amer 75 mL/min (>60); Globulin 3.2 g/dL (2.2-4.2); Glucose 123 mg/dL (74-106); Potassium 3.7 mmol/L (3.5-5.1); Protein, Total 7.4 g/dL (6.4-8.2); Sodium Level 136 mmol/L (136-145)
== END ==
PROVIDERS: PCP Family Medicine; Referring Provider Internal Medicine Rheumatology; Visit Provider Internal Medicine Rheumatology
DX: L40.59 Other psoriatic arthropathy (principal); M19.041 Primary osteoarthritis, right hand; M19.042 Primary osteoarthritis, left hand; G25.81 Restless legs syndrome; F32.89 Other specified depressive episodes; E03.9 Hypothyroidism, unspecified; C43.62 Malignant melanoma of left upper limb, including shoulder; Z79.899 Other long term (current) drug therapy
CPT/HCPCS: 36415; 80053; 85025

== ENCOUNTER → 2021-02-01 11:00 | Outpatient (CLI) | payer MEDICARE, SELFPAY ==
[2021-02-01 12:09] LABS: Absolute Lymphocyte Count 1.19 X10^3/uL (0.83-4.51); Absolute Neutrophil Count 2.5 X10^3/uL (2.0-7.7); Basophil# 0.03 X10^3/uL; Basophil% 0.7 % (0-1); Eosinophil# 0.17 X10^3/uL; Hematocrit 40.4 % (37-47); Hemoglobin 13.2 g/dL (12.0-15.0); Lymphocyte # 1.19 X10^3/ul (0.83-4.51); Lymphocyte % 28.1 % (19-41); Mean Corp Hgb Conc 32.7 g/dL (32-36); Mean Corpuscular Hgb 31.2 pg (27.0-32.0); Mean Corpuscular Volume 95.5 fL (81-99); Mean Platelet Vol. 9.9 fl (6.2-12.0); Monocyte# 0.31 X10^3/uL; Monocyte% 7.3 % (0-10); NRBC Flagged by Analyzer 0 % (0-5); Neutrophil # 2.52 X10^3/uL (2.7-7.7); Neutrophil % 59.7 % (47-70); Platelet Count 273 K/mm3 (150-450); RBC Distribution Width CV 14.1 % (11.6-14.6); RBC Distribution Width SD 48.4 fl (35.1-43.9); Red Blood Count 4.23 M/mm3 (4.2-5.4); White Blood Count 4.2 K/mm3 (4.4-11.0)
[2021-02-01 12:46] LABS: ALB/GLOB Ratio 1.1 RATIO (0.9-2.4); AST(SGOT) 13 U/L (15-37); Alanine Aminotransfer ALT/SGPT 24 U/L (13-56); Alkaline Phosphatase 64 U/L (45-117); Anion Gap 3 (5-15); BUN 16 mg/dL (7-18); BUN/Creat Ratio 19.4 RATIO (10-20); Calcium,Total 9.3 mg/dL (8.5-10.1); Chloride 103 mmol/L (98-107); Creatinine, Serum 0.82 mg/dL (0.55-1.02); EST Glomerular Filtration Rate 73 mL/min (>60); Est Glom Filt Rate - Afr Amer 88 mL/min (>60); Globulin 3.6 g/dL (2.2-4.2); Glucose 106 mg/dL (74-106); Protein, Total 7.6 g/dL (6.4-8.2); Sodium Level 136 mmol/L (136-145)
== END ==
PROVIDERS: PCP Family Medicine; Referring Provider Internal Medicine Rheumatology; Visit Provider Internal Medicine Rheumatology
DX: L40.59 Other psoriatic arthropathy (principal); R27.0 Ataxia, unspecified; M19.041 Primary osteoarthritis, right hand; E03.9 Hypothyroidism, unspecified; C43.62 Malignant melanoma of left upper limb, including shoulder; G25.81 Restless legs syndrome; G25.0 Essential tremor; F32.89 Other specified depressive episodes; Z79.899 Other long term (current) drug therapy
CPT/HCPCS: 36415; 80053; 85025

== ENCOUNTER → 2021-02-20 07:38 | Outpatient (CLI) | payer MEDICARE, SELFPAY ==
--- NOTE | 2021-02-20 07:40 | BI_ITS ---
MAMMOGRAPHY - BILATERAL SCREENING REASON FOR EXAM: Female, 70 years old. Routine annual screening examination. PERTINENT HISTORY: Non-contributory. TECHNIQUE: Digital bilateral breast sriram (3D mammographic acquisition) in the CC and MLO projections. 2-D mediolateral oblique (MLO) and craniocaudad (CC) views of both breasts were obtained. CAD: Full Field Digital Mammography with Computer Added Detection was performed. COMPARISON: Comparison is made with prior study 01/11/2020 and 01/06/2019. FINDINGS: Breast Composition: The breasts are extremely dense, which lowers the sensitivity of mammography. There are no dominant masses or suspicious calcifications. Stable scattered bilateral macrocalcifications. No other significant abnormalities are identified. There has been no significant change since the prior study. BI/SCRN MAMM (CAD)W/SRIRAM BILAT IMPRESSION: Stable bilateral screening mammogram. Yearly follow-up mammogram recommended. (A) ASSESSMENT CATEGORY: BIRADS Category 2: Benign. A letter regarding these results will be sent to the patient by the facility within 30 days. Approximately 10% of breast cancers are not detected by mammography. A normal mammogram should not delay biopsy of a clinically suspicious abnormality. [id number] Electronically Signed: Uday Delgado MD at 9:09 EDT , Service support ,
== END ==
PROVIDERS: PCP Family Medicine; Referring Provider Obstetrics & Gynecology; Visit Provider Obstetrics & Gynecology
DX: Z12.31 Encounter for screening mammogram for malignant neoplasm of breast (principal)
CPT/HCPCS: 77063; 77067

== ENCOUNTER → 2021-03-16 09:21 | Outpatient (CLI) | payer MEDICARE, SELFPAY ==
--- NOTE | 2021-03-16 09:26 | BD_ITS ---
STUDY: DUAL ENERGY X-RAY ABSORPTIOMETRY / DXA REASON FOR EXAM: Female, 70 years old. Estrogen deficiency TECHNIQUE: Bone Mineral Density (BMD) measurements of lumbar spine and bilateral hips were obtained. COMPARISON: Comparison is made with prior examination of 01/08/2019. FINDINGS: Lumbar Spine (L1-L4): g/cm2 (0.862) / T-score (-1.7) / Z-score (0.5) Findings are suggestive of osteopenia with a moderate fracture risk. Left Femur Total: g/cm2 (0.824) / T-score (-1.0) / Z-score (0.6) Left Femoral Neck: g/cm2 (0.715) / T-score (-1.2) / Z-score (0.7) Right Femur Total: g/cm2 (0.815) / T-score (-1.0) / Z-score (0.5) Right Femoral Neck: g/cm2 (0.670) / T-score (-1.5) / Z-score (0.3) The T-Scores on the most recent prior examination were: Lumbar Spine (L1-L4): There has been worsening of bone density since the previous examination. Left Femur Total: which represents a worsening of 6.9%. Right Femur Total: which represents a worsening of 6.5%. BD/Dexa Bone Density Study IMPRESSION: The patient is considered osteopenic as outlined below according to World [employer] Organization (WHO) criteria with a moderate fracture risk. There has been worsening of bone density since the previous examination. Reference Information: The T-score is the number of standard deviations above or below the standard which is normal for young adults at their peak bone mineral density. The World Health Organization (WHO) interprets the T-scores as follows: Above -1 Normal bone density Between -1 and -2.5 Osteopenia Equal to / or below -2.5 Osteoporosis As a practical clinical guideline, osteopenia may be graded as follows: Mild -1 through -1.5 Moderate -1.6 through -2.0 Severe -2.1 through -2.4 The Z-score is the number of standard deviations above or below age-matched controls. A Z-score of less than -1.5 would be considered abnormal. References: 1. NIH Osteoporosis and Related Bone Diseases www osteo.org 2. International Society for Clinical Densitometry www iscd.org 3. National Osteoporosis Foundation www nof.org Electronically Signed: Uday Delgado MD at 15:51 EDT , Service support ,
== END ==
PROVIDERS: PCP Family Medicine; Referring Provider Obstetrics & Gynecology; Visit Provider Obstetrics & Gynecology
DX: E28.39 Other primary ovarian failure (principal); M85.80 Other specified disorders of bone density and structure, unspecified site
CPT/HCPCS: 77080

== ENCOUNTER → 2021-05-03 10:54 | Outpatient (CLI) | payer MEDICARE, SELFPAY ==
[2021-05-03 12:14] LABS: Absolute Lymphocyte Count 1.07 X10^3/uL (0.83-4.51); Absolute Neutrophil Count 3.1 X10^3/uL (2.0-7.7); Basophil# 0.04 X10^3/uL; Basophil% 0.8 % (0-1); Eosinophils% 4.1 % (0-5); Hematocrit 38.9 % (37-47); Hemoglobin 13.3 g/dL (12.0-15.0); Lymphocyte # 1.07 X10^3/ul (0.83-4.51); Lymphocyte % 21.8 % (19-41); Mean Corp Hgb Conc 34.2 g/dL (32-36); Mean Corpuscular Volume 93.5 fL (81-99); Monocyte# 0.47 X10^3/uL; Monocyte% 9.6 % (0-10); NRBC Flagged by Analyzer 0 % (0-5); Neutrophil # 3.12 X10^3/uL (2.7-7.7); Neutrophil % 63.5 % (47-70); Platelet Count 272 K/mm3 (150-450); RBC Distribution Width SD 47.8 fl (35.1-43.9); Red Blood Count 4.16 M/mm3 (4.2-5.4); White Blood Count 4.9 K/mm3 (4.4-11.0)
[2021-05-03 12:33] LABS: ALB/GLOB Ratio 1.1 RATIO (0.9-2.4); AST(SGOT) 14 U/L (15-37); Alanine Aminotransfer ALT/SGPT 21 U/L (13-56); Alkaline Phosphatase 68 U/L (45-117); Anion Gap 5 (5-15); BUN 17 mg/dL (7-18); BUN/Creat Ratio 18.1 RATIO (10-20); Calcium,Total 9.3 mg/dL (8.5-10.1); Chloride 104 mmol/L (98-107); Creatinine, Serum 0.94 mg/dL (0.55-1.02); EST Glomerular Filtration Rate 62 mL/min (>60); Est Glom Filt Rate - Afr Amer 75 mL/min (>60); Globulin 3.8 g/dL (2.2-4.2); Glucose 112 mg/dL (74-106); Potassium 4.2 mmol/L (3.5-5.1); Protein, Total 7.8 g/dL (6.4-8.2); Sodium Level 138 mmol/L (136-145)
== END ==
PROVIDERS: PCP Family Medicine; Referring Provider Internal Medicine Rheumatology; Visit Provider Internal Medicine Rheumatology
DX: L40.59 Other psoriatic arthropathy (principal); M19.041 Primary osteoarthritis, right hand; M19.042 Primary osteoarthritis, left hand; G25.81 Restless legs syndrome; F32.89 Other specified depressive episodes; E03.9 Hypothyroidism, unspecified; C43.62 Malignant melanoma of left upper limb, including shoulder; G25.0 Essential tremor; Z79.899 Other long term (current) drug therapy
CPT/HCPCS: 36415; 80053; 85025

== ENCOUNTER 2021-07-27 09:31 | Outpatient (CLI) | payer MEDICARE, SELFPAY ==
[2021-07-27 12:20] LABS: Absolute Lymphocyte Count 0.97 X10^3/uL (0.83-4.51); Absolute Neutrophil Count 1.8 X10^3/uL (2.0-7.7); Basophil# 0.02 X10^3/uL; Basophil% 0.6 % (0-1); Eosinophil# 0.16 X10^3/uL; Hematocrit 38.4 % (37-47); Lymphocyte # 0.97 X10^3/ul (0.83-4.51); Lymphocyte % 30.6 % (19-41); Mean Corp Hgb Conc 33.9 g/dL (32-36); Mean Corpuscular Volume 94.6 fL (81-99); Monocyte# 0.25 X10^3/uL; Monocyte% 7.9 % (0-10); NRBC Flagged by Analyzer 0 % (0-5); Neutrophil # 1.76 X10^3/uL (2.7-7.7); Neutrophil % 55.6 % (47-70); Platelet Count 272 K/mm3 (150-450); RBC Distribution Width CV 13.5 % (11.6-14.6); RBC Distribution Width SD 47.1 fl (35.1-43.9); Red Blood Count 4.06 M/mm3 (4.2-5.4); White Blood Count 3.2 K/mm3 (4.4-11.0)
[2021-07-27 12:46] LABS: ALB/GLOB Ratio 1.2 RATIO (0.9-2.4); AST(SGOT) 13 U/L (15-37); Alanine Aminotransfer ALT/SGPT 23 U/L (13-56); Albumin, Serum 3.8 g/dL (3.2-5.0); Alkaline Phosphatase 57 U/L (45-117); Anion Gap 5 (5-15); BUN 14 mg/dL (7-18); Calcium,Total 9.4 mg/dL (8.5-10.1); Chloride 103 mmol/L (98-107); Creatinine, Serum 0.93 mg/dL (0.55-1.02); EST Glomerular Filtration Rate 63 mL/min (>60); Est Glom Filt Rate - Afr Amer 76 mL/min (>60); Globulin 3.3 g/dL (2.2-4.2); Glucose 102 mg/dL (74-106); Potassium 4.3 mmol/L (3.5-5.1); Protein, Total 7.1 g/dL (6.4-8.2); Sodium Level 137 mmol/L (136-145)
== END 2021-07-27 23:59 | disposition home or self-care (01) ==
PROVIDERS: PCP Family Medicine; Referring Provider Internal Medicine Rheumatology; Visit Provider Internal Medicine Rheumatology
DX: L40.59 Other psoriatic arthropathy (principal); C43.62 Malignant melanoma of left upper limb, including shoulder; M19.041 Primary osteoarthritis, right hand; G25.81 Restless legs syndrome; F32.89 Other specified depressive episodes; E03.9 Hypothyroidism, unspecified; G25.0 Essential tremor; Z79.899 Other long term (current) drug therapy
CPT/HCPCS: 36415; 80053; 85025

== ENCOUNTER → 2021-10-16 | Outpatient (CLI) | payer MEDICARE, SELFPAY ==
[2021-10-16 12:29] LABS: Absolute Lymphocyte Count 0.98 X10^3/uL (0.83-4.51); Absolute Neutrophil Count 1.9 X10^3/uL (2.0-7.7); Basophil# 0.02 X10^3/uL; Basophil% 0.6 % (0-1); Eosinophil# 0.13 X10^3/uL; Eosinophils% 3.9 % (0-5); Hematocrit 38.8 % (37-47); Hemoglobin 12.8 g/dL (12.0-15.0); Lymphocyte # 0.98 X10^3/ul (0.83-4.51); Lymphocyte % 29.3 % (19-41); Mean Corpuscular Hgb 31.4 pg (27.0-32.0); Mean Corpuscular Volume 95.3 fL (81-99); Mean Platelet Vol. 10.2 fl (6.2-12.0); NRBC Flagged by Analyzer 0 % (0-5); Neutrophil % 56.9 % (47-70); Platelet Count 246 K/mm3 (150-450); RBC Distribution Width CV 14.9 % (11.6-14.6); RBC Distribution Width SD 51.6 fl (35.1-43.9); Red Blood Count 4.07 M/mm3 (4.2-5.4); White Blood Count 3.3 K/mm3 (4.4-11.0)
[2021-10-16 12:36] LABS: ALB/GLOB Ratio 1.2 RATIO (0.9-2.4); AST(SGOT) 13 U/L (15-37); Alanine Aminotransfer ALT/SGPT 26 U/L (13-56); Alkaline Phosphatase 52 U/L (45-117); Anion Gap 6 (5-15); BUN 22 mg/dL (7-18); BUN/Creat Ratio 23.5 RATIO (10-20); Calcium,Total 9.2 mg/dL (8.5-10.1); Chloride 101 mmol/L (98-107); Creatinine, Serum 0.94 mg/dL (0.55-1.02); EST Glomerular Filtration Rate 63 mL/min (>60); Est Glom Filt Rate - Afr Amer 76 mL/min (>60); Globulin 3.4 g/dL (2.2-4.2); Glucose 108 mg/dL (74-106); Potassium 4.2 mmol/L (3.5-5.1); Protein, Total 7.4 g/dL (6.4-8.2); Sodium Level 136 mmol/L (136-145)
== END | disposition home or self-care (01) ==
LOC: LAB 09:47 → MTLAB 10:19
PROVIDERS: PCP Family Medicine; Referring Provider Internal Medicine Rheumatology; Visit Provider Internal Medicine Rheumatology
DX: L40.59 Other psoriatic arthropathy (principal); C43.62 Malignant melanoma of left upper limb, including shoulder; L40.9 Psoriasis, unspecified; M19.041 Primary osteoarthritis, right hand; M19.042 Primary osteoarthritis, left hand; G25.81 Restless legs syndrome; F32.89 Other specified depressive episodes; E03.9 Hypothyroidism, unspecified; G25.0 Essential tremor; Z79.899 Other long term (current) drug therapy
CPT/HCPCS: 36415; 80053; 85025

== ENCOUNTER → 2021-12-29 | Outpatient (CLI) | payer MEDICARE, SELFPAY ==
[2021-12-29 12:34] LABS: Absolute Lymphocyte Count 1.09 X10^3/uL (0.83-4.51); Absolute Neutrophil Count 2.5 X10^3/uL (2.0-7.7); Basophil# 0.04 X10^3/uL; Basophil% 0.9 % (0-1); Eosinophil# 0.21 X10^3/uL; Eosinophils% 4.9 % (0-5); Hematocrit 38.1 % (37-47); Hemoglobin 12.7 g/dL (12.0-15.0); Lymphocyte # 1.09 X10^3/ul (0.83-4.51); Lymphocyte % 25.6 % (19-41); Mean Corp Hgb Conc 33.3 g/dL (32-36); Mean Corpuscular Hgb 32.2 pg (27.0-32.0); Mean Corpuscular Volume 96.5 fL (81-99); Mean Platelet Vol. 10.2 fl (6.2-12.0); Monocyte# 0.44 X10^3/uL; Monocyte% 10.3 % (0-10); NRBC Flagged by Analyzer 0 % (0-5); Neutrophil # 2.46 X10^3/uL (2.7-7.7); Neutrophil % 57.8 % (47-70); Platelet Count 243 K/mm3 (150-450); RBC Distribution Width SD 49.1 fl (35.1-43.9); Red Blood Count 3.95 M/mm3 (4.2-5.4); White Blood Count 4.3 K/mm3 (4.4-11.0)
[2021-12-29 13:10] LABS: ALB/GLOB Ratio 1.1 RATIO (0.9-2.4); AST(SGOT) 18 U/L (15-37); Alanine Aminotransfer ALT/SGPT 27 U/L (13-56); Albumin, Serum 3.8 g/dL (3.2-5.0); Alkaline Phosphatase 58 U/L (45-117); Anion Gap 4 (5-15); BUN 17 mg/dL (7-18); BUN/Creat Ratio 21.2 RATIO (10-20); Calcium,Total 9.2 mg/dL (8.5-10.1); Chloride 101 mmol/L (98-107); EST Glomerular Filtration Rate 75 mL/min (>60); Est Glom Filt Rate - Afr Amer 90 mL/min (>60); Globulin 3.6 g/dL (2.2-4.2); Glucose 94 mg/dL (74-106); Potassium 4.3 mmol/L (3.5-5.1); Protein, Total 7.4 g/dL (6.4-8.2); Sodium Level 137 mmol/L (136-145)
== END | disposition home or self-care (01) ==
LOC: MTLAB 10:52
PROVIDERS: PCP Family Medicine; Referring Provider Internal Medicine Rheumatology; Visit Provider Internal Medicine Rheumatology
DX: L40.59 Other psoriatic arthropathy (principal); C43.62 Malignant melanoma of left upper limb, including shoulder; M19.041 Primary osteoarthritis, right hand; G25.81 Restless legs syndrome; F32.89 Other specified depressive episodes; E03.9 Hypothyroidism, unspecified; G25.0 Essential tremor; Z79.899 Other long term (current) drug therapy
CPT/HCPCS: 36415; 80053; 85025

== ENCOUNTER → 2022-02-22 | Outpatient (CLI) | payer MEDICARE, SELFPAY ==
--- NOTE | 2022-02-22 08:35 | BI_ITS ---
MAMMOGRAPHY - BILATERAL SCREENING REASON FOR EXAM: Female, 71 years old. Routine annual screening examination. PERTINENT HISTORY: Sister with breast cancer. TECHNIQUE: Digital bilateral breast sriram (3D mammographic acquisition) in the CC and MLO projections. 2-D mediolateral oblique (MLO) and craniocaudad (CC) views of both breasts were obtained. CAD: Full Field Digital Mammography with Computer Added Detection was performed. COMPARISON: Comparison is made with prior examination dated 02/20/2021 and 01/11/2020. FINDINGS: Breast Composition: The breasts are extremely dense, which lowers the sensitivity of mammography. There are no dominant masses or suspicious calcifications. Stable scattered bilateral calcifications. No other significant abnormalities are identified. There has been no significant change since the prior study. BI/SCRN MAMM (CAD)W/SRIRAM BILAT IMPRESSION: Stable bilateral screening mammogram. Yearly follow-up mammogram recommended. (A) ASSESSMENT CATEGORY: BIRADS Category 2: Benign. A letter regarding these results will be sent to the patient by the facility within 30 days. Approximately 10% of breast cancers are not detected by mammography. A normal mammogram should not delay biopsy of a clinically suspicious abnormality. [id number] Electronically Signed: Uday Delgado MD at 9:12 EDT ,
== END | disposition home or self-care (01) ==
LOC: OPBI 08:34
PROVIDERS: PCP Family Medicine; Visit Provider Obstetrics & Gynecology
DX: Z12.31 Encounter for screening mammogram for malignant neoplasm of breast (principal); Z80.3 Family history of malignant neoplasm of breast
CPT/HCPCS: 77063; 77067

== ENCOUNTER → 2022-03-19 | Outpatient (CLI) | payer MEDICARE, SELFPAY ==
[2022-03-19 13:19] LABS: Vitamin D,25 Hydroxy 49.2 ng/mL
== END | disposition home or self-care (01) ==
LOC: BFHLAB 09:58
PROVIDERS: PCP Family Medicine; Visit Provider Family Medicine
DX: E55.9 Vitamin D deficiency, unspecified (principal)
CPT/HCPCS: 36415; 82306

== ENCOUNTER → 2022-03-23 | Outpatient (CLI) | payer MEDICARE, SELFPAY ==
[2022-03-23 11:56] LABS: Absolute Lymphocyte Count 1.11 X10^3/uL (0.83-4.51); Basophil# 0.03 X10^3/uL; Basophil% 0.4 % (0-1); Eosinophil# 0.21 X10^3/uL; Eosinophils% 3.1 % (0-5); Hematocrit 39.7 % (37-47); Hemoglobin 13.3 g/dL (12.0-15.0); Lymphocyte # 1.11 X10^3/ul (0.83-4.51); Lymphocyte % 16.2 % (19-41); Mean Corp Hgb Conc 33.5 g/dL (32-36); Mean Corpuscular Hgb 31.7 pg (27.0-32.0); Mean Corpuscular Volume 94.7 fL (81-99); Mean Platelet Vol. 9.9 fl (6.2-12.0); Monocyte# 0.53 X10^3/uL; Monocyte% 7.7 % (0-10); NRBC Flagged by Analyzer 0 % (0-5); Neutrophil # 4.98 X10^3/uL (2.7-7.7); Neutrophil % 72.5 % (47-70); Platelet Count 237 K/mm3 (150-450); RBC Distribution Width CV 14.3 % (11.6-14.6); RBC Distribution Width SD 49.1 fl (35.1-43.9); Red Blood Count 4.19 M/mm3 (4.2-5.4); White Blood Count 6.9 K/mm3 (4.4-11.0)
[2022-03-23 12:30] LABS: ALB/GLOB Ratio 1.1 RATIO (0.9-2.4); AST(SGOT) 18 U/L (15-37); Alanine Aminotransfer ALT/SGPT 23 U/L (13-56); Albumin, Serum 4.1 g/dL (3.2-5.0); Alkaline Phosphatase 68 U/L (45-117); Anion Gap 6 (5-15); BUN 20 mg/dL (7-18); BUN/Creat Ratio 21.6 RATIO (10-20); Calcium,Total 9.8 mg/dL (8.5-10.1); Chloride 102 mmol/L (98-107); Creatinine, Serum 0.93 mg/dL (0.55-1.02); EST Glomerular Filtration Rate 63 mL/min (>60); Est Glom Filt Rate - Afr Amer 76 mL/min (>60); Globulin 3.6 g/dL (2.2-4.2); Glucose 111 mg/dL (74-106); Potassium 4.4 mmol/L (3.5-5.1); Protein, Total 7.7 g/dL (6.4-8.2); Sodium Level 138 mmol/L (136-145)
== END | disposition home or self-care (01) ==
LOC: MTLAB 09:36
PROVIDERS: PCP Family Medicine; Referring Provider Internal Medicine Rheumatology; Visit Provider Internal Medicine Rheumatology
DX: L40.59 Other psoriatic arthropathy (principal); C43.62 Malignant melanoma of left upper limb, including shoulder; M19.041 Primary osteoarthritis, right hand; G25.81 Restless legs syndrome; F32.89 Other specified depressive episodes; E03.9 Hypothyroidism, unspecified; G25.0 Essential tremor; Z79.899 Other long term (current) drug therapy
CPT/HCPCS: 36415; 80053; 85025

== ENCOUNTER → 2022-06-15 | Outpatient (CLI) | payer MEDICARE, SELFPAY ==
[2022-06-15 15:14] LABS: Absolute Neutrophil Count 3.1 X10^3/uL (2.0-7.7); Basophil# 0.02 X10^3/uL; Basophil% 0.4 % (0-1); Eosinophil# 0.18 X10^3/uL; Hematocrit 37.9 % (37-47); Hemoglobin 12.3 g/dL (12.0-15.0); Lymphocyte % 19.8 % (19-41); Mean Corp Hgb Conc 32.5 g/dL (32-36); Mean Corpuscular Hgb 31.1 pg (27.0-32.0); Mean Corpuscular Volume 95.7 fL (81-99); Mean Platelet Vol. 11.2 fl (6.2-12.0); Monocyte# 0.34 X10^3/uL; Monocyte% 7.5 % (0-10); NRBC Flagged by Analyzer 0 % (0-5); Neutrophil % 68.1 % (47-70); Platelet Count 260 K/mm3 (150-450); RBC Distribution Width CV 14.5 % (11.6-14.6); RBC Distribution Width SD 50.4 fl (35.1-43.9); Red Blood Count 3.96 M/mm3 (4.2-5.4); White Blood Count 4.6 K/mm3 (4.4-11.0)
[2022-06-15 15:52] LABS: ALB/GLOB Ratio 1.3 RATIO (0.9-2.4); AST(SGOT) 16 U/L (15-37); Alanine Aminotransfer ALT/SGPT 17 U/L (13-56); Albumin, Serum 4.2 g/dL (3.2-5.0); Alkaline Phosphatase 65 U/L (45-117); Anion Gap 7 (5-15); BUN 20 mg/dL (7-18); BUN/Creat Ratio 21.4 RATIO (10-20); Calcium,Total 9.3 mg/dL (8.5-10.1); Chloride 102 mmol/L (98-107); Creatinine, Serum 0.94 mg/dL (0.55-1.02); EST Glomerular Filtration Rate 63 mL/min (>60); Est Glom Filt Rate - Afr Amer 76 mL/min (>60); Globulin 3.2 g/dL (2.2-4.2); Glucose 114 mg/dL (74-106); Potassium 4.5 mmol/L (3.5-5.1); Protein, Total 7.4 g/dL (6.4-8.2); Sodium Level 138 mmol/L (136-145)
== END | disposition home or self-care (01) ==
PROVIDERS: PCP Internal Medicine; Referring Provider Internal Medicine Rheumatology; Visit Provider Internal Medicine Rheumatology
DX: L40.59 Other psoriatic arthropathy (principal); C43.62 Malignant melanoma of left upper limb, including shoulder; M19.041 Primary osteoarthritis, right hand; G25.81 Restless legs syndrome; F32.89 Other specified depressive episodes; E03.9 Hypothyroidism, unspecified; G25.0 Essential tremor; Z79.899 Other long term (current) drug therapy
CPT/HCPCS: 36415; 80053; 85025

== ENCOUNTER → 2022-08-09 | Outpatient (CLI) | payer MEDICARE, SELFPAY ==
[2022-08-09 13:08] LABS: Cholesterol 260 mg/dL (200); High Density Lipoprotein 87 mg/dL; Thyroid Stim Hormone (TSH) 3.01 uIU/mL (0.358-3.74); Triglycerides 139 mg/dL; Very Low Density Lipoprotein 28 mg/dL (5-40)
[2022-08-09 13:20] LABS: Hemoglobin A1c 5.5 % (3.8-5.6)
== END | disposition home or self-care (01) ==
LOC: BIMLAB 09:41
PROVIDERS: PCP Internal Medicine; Visit Provider Internal Medicine
DX: R73.03 Prediabetes (principal); E03.9 Hypothyroidism, unspecified
CPT/HCPCS: 36415; 80061; 83036; 84443

== ENCOUNTER → 2022-09-04 | Outpatient (CLI) | payer MEDICARE, SELFPAY ==
[2022-09-04 15:43] LABS: Absolute Lymphocyte Count 1.16 X10^3/uL (0.83-4.51); Absolute Neutrophil Count 3.4 X10^3/uL (2.0-7.7); Basophil# 0.03 X10^3/uL; Basophil% 0.6 % (0-1); Eosinophil# 0.22 X10^3/uL; Eosinophils% 4.3 % (0-5); Hematocrit 38.9 % (37-47); Hemoglobin 12.8 g/dL (12.0-15.0); Lymphocyte # 1.16 X10^3/ul (0.83-4.51); Lymphocyte % 22.5 % (19-41); Mean Corp Hgb Conc 32.9 g/dL (32-36); Mean Corpuscular Hgb 31.9 pg (27.0-32.0); Mean Platelet Vol. 10.4 fl (6.2-12.0); Monocyte% 5.8 % (0-10); NRBC Flagged by Analyzer 0 % (0-5); Neutrophil # 3.42 X10^3/uL (2.7-7.7); Neutrophil % 66.4 % (47-70); Platelet Count 278 K/mm3 (150-450); RBC Distribution Width CV 14.5 % (11.6-14.6); RBC Distribution Width SD 50.6 fl (35.1-43.9); Red Blood Count 4.01 M/mm3 (4.2-5.4); White Blood Count 5.2 K/mm3 (4.4-11.0)
[2022-09-04 16:31] LABS: ALB/GLOB Ratio 1.2 RATIO (0.9-2.4); AST(SGOT) 17 U/L (15-37); Alanine Aminotransfer ALT/SGPT 31 U/L (13-56); Albumin, Serum 4.1 g/dL (3.2-5.0); Alkaline Phosphatase 70 U/L (45-117); Anion Gap 4 (5-15); BUN 20 mg/dL (7-18); BUN/Creat Ratio 21.2 RATIO (10-20); Calcium,Total 9.6 mg/dL (8.5-10.1); Chloride 100 mmol/L (98-107); Creatinine, Serum 0.94 mg/dL (0.55-1.02); EST Glomerular Filtration Rate 62 mL/min (>60); Est Glom Filt Rate - Afr Amer 75 mL/min (>60); Globulin 3.4 g/dL (2.2-4.2); Glucose 149 mg/dL (74-106); Potassium 3.7 mmol/L (3.5-5.1); Protein, Total 7.5 g/dL (6.4-8.2); Sodium Level 134 mmol/L (136-145)
== END | disposition home or self-care (01) ==
LOC: MTLAB 12:51
PROVIDERS: PCP Internal Medicine; Referring Provider Internal Medicine Rheumatology; Visit Provider Internal Medicine Rheumatology
DX: L40.59 Other psoriatic arthropathy (principal); Z79.891 Long term (current) use of opiate analgesic
CPT/HCPCS: 36415; 80053; 85025

== ENCOUNTER → 2022-11-29 | Outpatient (CLI) | payer MEDICARE, SELFPAY ==
[2022-11-29 12:34] LABS: Absolute Lymphocyte Count 0.91 X10^3/uL (0.83-4.51); Absolute Neutrophil Count 3.1 X10^3/uL (2.0-7.7); Basophil# 0.02 X10^3/uL; Basophil% 0.4 % (0-1); Eosinophil# 0.16 X10^3/uL; Eosinophils% 3.5 % (0-5); Hematocrit 37.7 % (37-47); Hemoglobin 12.5 g/dL (12.0-15.0); Lymphocyte # 0.91 X10^3/ul (0.83-4.51); Lymphocyte % 19.9 % (19-41); Mean Corp Hgb Conc 33.2 g/dL (32-36); Mean Corpuscular Hgb 32.2 pg (27.0-32.0); Mean Corpuscular Volume 97.2 fL (81-99); Mean Platelet Vol. 10.1 fl (6.2-12.0); Monocyte# 0.38 X10^3/uL; Monocyte% 8.3 % (0-10); NRBC Flagged by Analyzer 0 % (0-5); Neutrophil # 3.08 X10^3/uL (2.7-7.7); Neutrophil % 67.5 % (47-70); Platelet Count 271 K/mm3 (150-450); RBC Distribution Width SD 49.4 fl (35.1-43.9); Red Blood Count 3.88 M/mm3 (4.2-5.4); White Blood Count 4.6 K/mm3 (4.4-11.0)
[2022-11-29 13:15] LABS: ALB/GLOB Ratio 1.1 RATIO (0.9-2.4); AST(SGOT) 18 U/L (15-37); Alanine Aminotransfer ALT/SGPT 30 U/L (13-56); Albumin, Serum 3.8 g/dL (3.2-5.0); Alkaline Phosphatase 65 U/L (45-117); Anion Gap 5 (5-15); BUN 21 mg/dL (7-18); BUN/Creat Ratio 21.3 RATIO (10-20); Calcium,Total 9.1 mg/dL (8.5-10.1); Chloride 100 mmol/L (98-107); Creatinine, Serum 0.99 mg/dL (0.55-1.02); EST Glomerular Filtration Rate 59 mL/min (>60); Est Glom Filt Rate - Afr Amer 71 mL/min (>60); Globulin 3.6 g/dL (2.2-4.2); Glucose 120 mg/dL (74-106); Potassium 4.4 mmol/L (3.5-5.1); Protein, Total 7.4 g/dL (6.4-8.2); Sodium Level 132 mmol/L (136-145)
== END | disposition home or self-care (01) ==
LOC: MTLAB 10:05
PROVIDERS: PCP Internal Medicine; Visit Provider Internal Medicine Rheumatology
DX: L40.59 Other psoriatic arthropathy (principal); Z79.899 Other long term (current) drug therapy
CPT/HCPCS: 36415; 80053; 85025

== ENCOUNTER → 2023-02-14 | Outpatient (CLI) | payer MEDICARE, SELFPAY ==
[2023-02-14 12:36] LABS: Absolute Neutrophil Count 2.7 X10^3/uL (2.0-7.7); Basophil# 0.02 X10^3/uL; Basophil% 0.4 % (0-1); Eosinophil# 0.22 X10^3/uL; Eosinophils% 4.9 % (0-5); Hematocrit 39.7 % (37-47); Hemoglobin 13.1 g/dL (12.0-15.0); Lymphocyte % 24.7 % (19-41); Mean Corpuscular Hgb 32.1 pg (27.0-32.0); Mean Corpuscular Volume 97.3 fL (81-99); Mean Platelet Vol. 10.4 fl (6.2-12.0); Monocyte# 0.38 X10^3/uL; Monocyte% 8.5 % (0-10); NRBC Flagged by Analyzer 0 % (0-5); Neutrophil # 2.72 X10^3/uL (2.7-7.7); Neutrophil % 61.3 % (47-70); Platelet Count 267 K/mm3 (150-450); RBC Distribution Width CV 13.6 % (11.6-14.6); RBC Distribution Width SD 48.1 fl (35.1-43.9); Red Blood Count 4.08 M/mm3 (4.2-5.4); White Blood Count 4.5 K/mm3 (4.4-11.0)
[2023-02-14 13:43] LABS: ALB/GLOB Ratio 1.2 RATIO (0.9-2.4); AST(SGOT) 18 U/L (15-37); Alanine Aminotransfer ALT/SGPT 30 U/L (13-56); Albumin, Serum 4.1 g/dL (3.2-5.0); Alkaline Phosphatase 68 U/L (45-117); Anion Gap 5 (5-15); BUN 19 mg/dL (7-18); BUN/Creat Ratio 19.8 RATIO (10-20); Calcium,Total 9.2 mg/dL (8.5-10.1); Chloride 102 mmol/L (98-107); Cholesterol 209 mg/dL (200); Creatinine, Serum 0.96 mg/dL (0.55-1.02); EST Glomerular Filtration Rate 60 mL/min (>60); Est Glom Filt Rate - Afr Amer 73 mL/min (>60); Globulin 3.4 g/dL (2.2-4.2); Glucose 114 mg/dL (74-106); High Density Lipoprotein 105 mg/dL; Protein, Total 7.5 g/dL (6.4-8.2); Sodium Level 135 mmol/L (136-145); Thyroid Stim Hormone (TSH) 3.35 uIU/mL (0.358-3.74); Triglycerides 113 mg/dL; Very Low Density Lipoprotein 23 mg/dL (5-40)
[2023-02-14 19:35] LABS: Vitamin D,25 Hydroxy 47.1 ng/mL
== END | disposition home or self-care (01) ==
LOC: BIMLAB 10:25
PROVIDERS: PCP Internal Medicine; Visit Provider Internal Medicine
DX: L40.50 Arthropathic psoriasis, unspecified (principal); E03.9 Hypothyroidism, unspecified; E78.2 Mixed hyperlipidemia; M85.80 Other specified disorders of bone density and structure, unspecified site; F41.9 Anxiety disorder, unspecified; F32.A Depression, unspecified
CPT/HCPCS: 36415; 80053; 80061; 82306; 84443; 85025

== ENCOUNTER → 2023-02-22 | Outpatient (CLI) | payer MEDICARE, SELFPAY ==
[2023-02-22 12:14] LABS: Absolute Lymphocyte Count 1.05 X10^3/uL (0.83-4.51); Absolute Neutrophil Count 2.1 X10^3/uL (2.0-7.7); Basophil# 0.02 X10^3/uL; Basophil% 0.5 % (0-1); Eosinophil# 0.23 X10^3/uL; Eosinophils% 6.1 % (0-5); Hematocrit 38.1 % (37-47); Hemoglobin 12.2 g/dL (12.0-15.0); Lymphocyte # 1.05 X10^3/ul (0.83-4.51); Lymphocyte % 27.6 % (19-41); Mean Corpuscular Hgb 31.2 pg (27.0-32.0); Mean Corpuscular Volume 97.4 fL (81-99); Mean Platelet Vol. 10.5 fl (6.2-12.0); Monocyte# 0.42 X10^3/uL; Monocyte% 11.1 % (0-10); NRBC Flagged by Analyzer 0 % (0-5); Neutrophil # 2.07 X10^3/uL (2.7-7.7); Neutrophil % 54.4 % (47-70); Platelet Count 228 K/mm3 (150-450); RBC Distribution Width CV 13.9 % (11.6-14.6); RBC Distribution Width SD 48.7 fl (35.1-43.9); Red Blood Count 3.91 M/mm3 (4.2-5.4); White Blood Count 3.8 K/mm3 (4.4-11.0)
[2023-02-22 12:49] LABS: ALB/GLOB Ratio 1.2 RATIO (0.9-2.4); AST(SGOT) 15 U/L (15-37); Alanine Aminotransfer ALT/SGPT 26 U/L (13-56); Albumin, Serum 3.8 g/dL (3.2-5.0); Alkaline Phosphatase 63 U/L (45-117); Anion Gap 4 (5-15); BUN 16 mg/dL (7-18); BUN/Creat Ratio 18.6 RATIO (10-20); Calcium,Total 9.1 mg/dL (8.5-10.1); Chloride 105 mmol/L (98-107); Creatinine, Serum 0.86 mg/dL (0.55-1.02); EST Glomerular Filtration Rate 69 mL/min (>60); Est Glom Filt Rate - Afr Amer 83 mL/min (>60); Globulin 3.1 g/dL (2.2-4.2); Glucose 103 mg/dL (74-106); Potassium 4.6 mmol/L (3.5-5.1); Protein, Total 6.9 g/dL (6.4-8.2); Sodium Level 138 mmol/L (136-145)
== END | disposition home or self-care (01) ==
LOC: MTLAB 10:05
PROVIDERS: PCP Internal Medicine; Referring Provider Internal Medicine Rheumatology; Visit Provider Internal Medicine Rheumatology
DX: L40.59 Other psoriatic arthropathy (principal); Z79.899 Other long term (current) drug therapy
CPT/HCPCS: 36415; 80053; 85025

== ENCOUNTER → 2023-03-19 | Outpatient (CLI) | payer MEDICARE, SELFPAY ==
--- NOTE | 2023-03-19 09:45 | BI_ITS ---
MAMMOGRAPHY - BILATERAL SCREENING REASON FOR EXAM: Female, 72 years old. Routine annual screening examination. PERTINENT HISTORY: Sister with breast cancer. TECHNIQUE: Digital bilateral breast sriram (3D mammographic acquisition) in the CC and MLO projections. 2-D mediolateral oblique (MLO) and craniocaudad (CC) views of both breasts were obtained. CAD: Full Field Digital Mammography with Computer Added Detection was performed. COMPARISON: Comparison is made with prior examination dated February 22, 2022 and February 20, 2021. FINDINGS: Breast Composition: The breasts are extremely dense, which lowers the sensitivity of mammography. There are no dominant masses or suspicious calcifications. Stable scattered bilateral calcifications. No other significant abnormalities are identified. There has been no significant change since the prior study. BI/SCRN MAMM (CAD)W/SRIRAM BILAT IMPRESSION: Stable bilateral screening mammogram. Yearly follow-up mammogram recommended. (A) ASSESSMENT CATEGORY: BIRADS Category 2: Benign. A letter regarding these results will be sent to the patient by the facility within 30 days. Approximately 10% of breast cancers are not detected by mammography. A normal mammogram should not delay biopsy of a clinically suspicious abnormality. [id number] Electronically Signed: Uday Delgado MD at 11:02 EST ,
--- NOTE | 2023-03-19 10:03 | BD_ITS ---
STUDY: DUAL ENERGY X-RAY ABSORPTIOMETRY / DXA REASON FOR EXAM: Female, 72 years old. Estrogen deficiency TECHNIQUE: Bone Mineral Density (BMD) measurements of lumbar spine and bilateral hips were obtained. COMPARISON: Comparison is made with prior study March 16, 2021. FINDINGS: Lumbar Spine (L1-L4): g/cm2 (0.834) / T-score (-1.9) / Z-score (0.4) Findings are suggestive of osteopenia with a moderate fracture risk. Left Femur Total: g/cm2 (0.836) / T-score (-0.9) / Z-score (0.8) Left Femoral Neck: g/cm2 (0.730) / T-score (-1.1) / Z-score (0.9) Right Femur Total: g/cm2 (0.795) / T-score (-1.2) / Z-score (0.5) Right Femoral Neck: g/cm2 (0.681) / T-score (-1.5) / Z-score (0.5) The T-Scores on the most recent prior examination were: Lumbar Spine (L1-L4): There has been worsening of bone density since the previous examination. Left Femur Total: which represents an improvement of 1.4%. Right Femur Total: which represents a worsening of 2.5%. BD/Dexa Bone Density Study IMPRESSION: The patient is considered osteopenic as outlined below according to World [employer] Organization (WHO) criteria with a moderate fracture risk. There has been worsening of bone density since the previous examination. Reference Information: The T-score is the number of standard deviations above or below the standard which is normal for young adults at their peak bone mineral density. The World Health Organization (WHO) interprets the T-scores as follows: Above -1 Normal bone density Between -1 and -2.5 Osteopenia Equal to / or below -2.5 Osteoporosis As a practical clinical guideline, osteopenia may be graded as follows: Mild -1 through -1.5 Moderate -1.6 through -2.0 Severe -2.1 through -2.4 The Z-score is the number of standard deviations above or below age-matched controls. A Z-score of less than -1.5 would be considered abnormal. References: 1. NIH Osteoporosis and Related Bone Diseases www osteo.org 2. International Society for Clinical Densitometry www iscd.org 3. National Osteoporosis Foundation www nof.org Electronically Signed: Uday Delgado MD at 9:57 EST ,
== END | disposition home or self-care (01) ==
LOC: OPBD 09:44
PROVIDERS: PCP Internal Medicine; Referring Provider Nurse Practitioner Women's Health; Visit Provider Nurse Practitioner Women's Health
DX: Z12.31 Encounter for screening mammogram for malignant neoplasm of breast (principal); M85.89 Other specified disorders of bone density and structure, multiple sites
CPT/HCPCS: 77063; 77067; 77080

== ENCOUNTER → 2023-05-16 | Outpatient (CLI) | payer MEDICARE, SELFPAY ==
[2023-05-16 12:33] LABS: Absolute Lymphocyte Count 0.98 X10^3/uL (0.83-4.51); Absolute Neutrophil Count 3.2 X10^3/uL (2.0-7.7); Basophil# 0.04 X10^3/uL; Basophil% 0.8 % (0-1); Eosinophils% 4.1 % (0-5); Hemoglobin 12.9 g/dL (12.0-15.0); Lymphocyte # 0.98 X10^3/ul (0.83-4.51); Lymphocyte % 20.3 % (19-41); Mean Corp Hgb Conc 32.3 g/dL (32-36); Mean Corpuscular Hgb 31.3 pg (27.0-32.0); Mean Corpuscular Volume 97.1 fL (81-99); Monocyte# 0.39 X10^3/uL; Monocyte% 8.1 % (0-10); NRBC Flagged by Analyzer 0 % (0-5); Neutrophil % 66.5 % (47-70); Platelet Count 274 K/mm3 (150-450); RBC Distribution Width CV 14.2 % (11.6-14.6); RBC Distribution Width SD 50.4 fl (35.1-43.9); Red Blood Count 4.12 M/mm3 (4.2-5.4); White Blood Count 4.8 K/mm3 (4.4-11.0)
[2023-05-16 12:51] LABS: ALB/GLOB Ratio 1.2 RATIO (0.9-2.4); AST(SGOT) 19 U/L (15-37); Alanine Aminotransfer ALT/SGPT 26 U/L (13-56); Albumin, Serum 4.1 g/dL (3.2-5.0); Alkaline Phosphatase 76 U/L (45-117); Anion Gap 5 (5-15); BUN 20 mg/dL (7-18); BUN/Creat Ratio 20.4 RATIO (10-20); Calcium,Total 8.3 mg/dL (8.5-10.1); Chloride 107 mmol/L (98-107); Creatinine, Serum 0.98 mg/dL (0.55-1.02); EST Glomerular Filtration Rate 59 mL/min (>60); Est Glom Filt Rate - Afr Amer 72 mL/min (>60); Globulin 3.5 g/dL (2.2-4.2); Glucose 120 mg/dL (74-106); Potassium 4.5 mmol/L (3.5-5.1); Protein, Total 7.6 g/dL (6.4-8.2); Sodium Level 138 mmol/L (136-145)
== END | disposition home or self-care (01) ==
LOC: MTLAB 10:07
PROVIDERS: PCP Internal Medicine; Referring Provider Internal Medicine Rheumatology; Visit Provider Internal Medicine Rheumatology
DX: L40.59 Other psoriatic arthropathy (principal); M19.041 Primary osteoarthritis, right hand; Z79.899 Other long term (current) drug therapy
CPT/HCPCS: 36415; 80053; 85025

== ENCOUNTER → 2023-08-06 | Outpatient (CLI) | payer MEDICARE, SELFPAY ==
[2023-08-06 12:31] LABS: Absolute Lymphocyte Count 1.07 X10^3/uL (0.83-4.51); Absolute Neutrophil Count 2.3 X10^3/uL (2.0-7.7); Basophil# 0.02 X10^3/uL; Basophil% 0.5 % (0-1); Eosinophil# 0.15 X10^3/uL; Eosinophils% 3.9 % (0-5); Hematocrit 38.6 % (37-47); Lymphocyte # 1.07 X10^3/ul (0.83-4.51); Lymphocyte % 27.9 % (19-41); Mean Corp Hgb Conc 33.7 g/dL (32-36); Mean Corpuscular Hgb 31.8 pg (27.0-32.0); Mean Corpuscular Volume 94.4 fL (81-99); Monocyte# 0.32 X10^3/uL; Monocyte% 8.3 % (0-10); NRBC Flagged by Analyzer 0 % (0-5); Neutrophil # 2.27 X10^3/uL (2.7-7.7); Neutrophil % 59.1 % (47-70); Platelet Count 269 K/mm3 (150-450); RBC Distribution Width SD 47.2 fl (35.1-43.9); Red Blood Count 4.09 M/mm3 (4.2-5.4); White Blood Count 3.8 K/mm3 (4.4-11.0)
[2023-08-06 12:54] LABS: ALB/GLOB Ratio 1.2 RATIO (0.9-2.4); AST(SGOT) 17 U/L (15-37); Alanine Aminotransfer ALT/SGPT 27 U/L (13-56); Albumin, Serum 4.2 g/dL (3.2-5.0); Alkaline Phosphatase 42 U/L (45-117); Anion Gap 6 (5-15); BUN 18 mg/dL (7-18); BUN/Creat Ratio 18.8 RATIO (10-20); Calcium,Total 9.1 mg/dL (8.5-10.1); Chloride 103 mmol/L (98-107); Creatinine, Serum 0.96 mg/dL (0.55-1.02); EST Glomerular Filtration Rate 61 mL/min (>60); Est Glom Filt Rate - Afr Amer 73 mL/min (>60); Globulin 3.4 g/dL (2.2-4.2); Glucose 121 mg/dL (74-106); Potassium 4.5 mmol/L (3.5-5.1); Protein, Total 7.6 g/dL (6.4-8.2); Sodium Level 136 mmol/L (136-145)
== END | disposition home or self-care (01) ==
LOC: MTLAB 10:05
PROVIDERS: PCP Internal Medicine; Referring Provider Internal Medicine Rheumatology; Visit Provider Internal Medicine Rheumatology
DX: L40.59 Other psoriatic arthropathy (principal); Z79.899 Other long term (current) drug therapy
CPT/HCPCS: 36415; 80053; 85025

== ENCOUNTER → 2023-10-31 | Outpatient (CLI) | payer MEDICARE, SELFPAY ==
[2023-10-31 15:24] LABS: Absolute Lymphocyte Count 1.06 X10^3/uL (0.83-4.51); Absolute Neutrophil Count 2.4 X10^3/uL (2.0-7.7); Basophil# 0.04 X10^3/uL; Eosinophil# 0.15 X10^3/uL; Eosinophils% 3.7 % (0-5); Hematocrit 38.8 % (37-47); Hemoglobin 12.6 g/dL (12.0-15.0); Lymphocyte # 1.06 X10^3/ul (0.83-4.51); Lymphocyte % 26.1 % (19-41); Mean Corp Hgb Conc 32.5 g/dL (32-36); Mean Corpuscular Volume 98.5 fL (81-99); Mean Platelet Vol. 10.3 fl (6.2-12.0); Monocyte# 0.37 X10^3/uL; Monocyte% 9.1 % (0-10); NRBC Flagged by Analyzer 0 % (0-5); Neutrophil # 2.44 X10^3/uL (2.7-7.7); Neutrophil % 60.1 % (47-70); Platelet Count 250 K/mm3 (150-450); RBC Distribution Width CV 14.4 % (11.6-14.6); RBC Distribution Width SD 51.6 fl (35.1-43.9); Red Blood Count 3.94 M/mm3 (4.2-5.4); White Blood Count 4.1 K/mm3 (4.4-11.0)
[2023-10-31 16:00] LABS: ALB/GLOB Ratio 1.2 RATIO (0.9-2.4); AST(SGOT) 21 U/L (15-37); Alanine Aminotransfer ALT/SGPT 27 U/L (13-56); Albumin, Serum 4.1 g/dL (3.2-5.0); Alkaline Phosphatase 43 U/L (45-117); Anion Gap 6 (5-15); BUN 16 mg/dL (7-18); BUN/Creat Ratio 16.6 RATIO (10-20); Calcium,Total 9.4 mg/dL (8.5-10.1); Chloride 103 mmol/L (98-107); Creatinine, Serum 0.96 mg/dL (0.55-1.02); EST Glomerular Filtration Rate 60 mL/min (>60); Est Glom Filt Rate - Afr Amer 73 mL/min (>60); Globulin 3.5 g/dL (2.2-4.2); Glucose 99 mg/dL (74-106); Potassium 4.1 mmol/L (3.5-5.1); Protein, Total 7.6 g/dL (6.4-8.2); Sodium Level 137 mmol/L (136-145)
== END | disposition home or self-care (01) ==
LOC: BIMLAB 13:27
PROVIDERS: PCP Internal Medicine; Referring Provider Internal Medicine Rheumatology; Visit Provider Internal Medicine
DX: L40.59 Other psoriatic arthropathy (principal); Z79.899 Other long term (current) drug therapy
CPT/HCPCS: 36415; 80053; 85025

== ENCOUNTER → 2024-01-30 | Outpatient (CLI) | payer MEDICARE, SELFPAY ==
[2024-01-30 12:38] LABS: Absolute Lymphocyte Count 0.86 X10^3/uL (0.83-4.51); Absolute Neutrophil Count 2.8 X10^3/uL (2.0-7.7); Basophil# 0.03 X10^3/uL; Basophil% 0.7 % (0-1); Eosinophils% 4.7 % (0-5); Hematocrit 35.7 % (37-47); Hemoglobin 11.7 g/dL (12.0-15.0); Lymphocyte # 0.86 X10^3/ul (0.83-4.51); Mean Corp Hgb Conc 32.8 g/dL (32-36); Mean Corpuscular Hgb 32.1 pg (27.0-32.0); Mean Corpuscular Volume 97.8 fL (81-99); Mean Platelet Vol. 10.1 fl (6.2-12.0); Monocyte# 0.38 X10^3/uL; Monocyte% 8.8 % (0-10); NRBC Flagged by Analyzer 0 % (0-5); Neutrophil # 2.81 X10^3/uL (2.7-7.7); Neutrophil % 65.3 % (47-70); Platelet Count 244 K/mm3 (150-450); RBC Distribution Width CV 14.9 % (11.6-14.6); RBC Distribution Width SD 53.1 fl (35.1-43.9); Red Blood Count 3.65 M/mm3 (4.2-5.4); White Blood Count 4.3 K/mm3 (4.4-11.0)
[2024-01-30 13:00] LABS: ALB/GLOB Ratio 1.1 RATIO (0.9-2.4); AST(SGOT) 18 U/L (15-37); Alanine Aminotransfer ALT/SGPT 17 U/L (13-56); Albumin, Serum 3.9 g/dL (3.2-5.0); Alkaline Phosphatase 42 U/L (45-117); Anion Gap 4 (5-15); BUN 14 mg/dL (7-18); BUN/Creat Ratio 14.8 RATIO (10-20); Calcium,Total 9.2 mg/dL (8.5-10.1); Chloride 103 mmol/L (98-107); Creatinine, Serum 0.95 mg/dL (0.55-1.02); EST Glomerular Filtration Rate 61 mL/min (>60); Est Glom Filt Rate - Afr Amer 74 mL/min (>60); Globulin 3.4 g/dL (2.2-4.2); Glucose 109 mg/dL (74-106); Potassium 4.1 mmol/L (3.5-5.1); Protein, Total 7.3 g/dL (6.4-8.2); Sodium Level 136 mmol/L (136-145)
== END | disposition home or self-care (01) ==
LOC: MTLAB 10:11
PROVIDERS: PCP Internal Medicine; Referring Provider Internal Medicine Rheumatology; Visit Provider Internal Medicine Rheumatology
DX: L40.59 Other psoriatic arthropathy (principal); M19.041 Primary osteoarthritis, right hand; Z79.899 Other long term (current) drug therapy
CPT/HCPCS: 36415; 80053; 85025

== ENCOUNTER → 2024-03-10 | Outpatient (CLI) | payer MEDICARE, SELFPAY ==
[2024-03-10 12:54] LABS: Vitamin D,25 Hydroxy 44.6 ng/mL
[2024-03-10 13:14] LABS: Cholesterol 215 mg/dL (200); High Density Lipoprotein 116 mg/dL; Triglycerides 112 mg/dL; Very Low Density Lipoprotein 22 mg/dL (5-40)
== END | disposition home or self-care (01) ==
LOC: BIMLAB 09:33
PROVIDERS: PCP Internal Medicine; Referring Provider Internal Medicine; Visit Provider Internal Medicine
DX: E78.2 Mixed hyperlipidemia (principal); E03.9 Hypothyroidism, unspecified; M85.80 Other specified disorders of bone density and structure, unspecified site
CPT/HCPCS: 36415; 80061; 82306; 84443

== ENCOUNTER → 2024-03-20 | Outpatient (CLI) | payer MEDICARE, SELFPAY | END | disposition home or self-care (01) | LOC: OPBI 09:07 | PROVIDERS: PCP Internal Medicine; Referring Provider Obstetrics & Gynecology; Visit Provider Obstetrics & Gynecology | DX: Z12.31 Encounter for screening mammogram for malignant neoplasm of breast (principal) | CPT/HCPCS: 77063; 77067 ==

== ENCOUNTER → 2024-04-21 | Outpatient (CLI) | payer MEDICARE, SELFPAY ==
[2024-04-21 12:18] LABS: Absolute Lymphocyte Count 0.81 X10^3/uL (0.83-4.51); Basophil# 0.01 X10^3/uL; Basophil% 0.2 % (0-1); Eosinophil# 0.13 X10^3/uL; Eosinophils% 3.1 % (0-5); Hematocrit 36.7 % (37-47); Hemoglobin 12.2 g/dL (12.0-15.0); Lymphocyte # 0.81 X10^3/ul (0.83-4.51); Lymphocyte % 19.3 % (19-41); Mean Corp Hgb Conc 33.2 g/dL (32-36); Mean Corpuscular Hgb 32.7 pg (27.0-32.0); Mean Corpuscular Volume 98.4 fL (81-99); Mean Platelet Vol. 9.7 fl (6.2-12.0); Monocyte# 0.26 X10^3/uL; Monocyte% 6.2 % (0-10); NRBC Flagged by Analyzer 0 % (0-5); Neutrophil # 2.97 X10^3/uL (2.7-7.7); Platelet Count 237 K/mm3 (150-450); RBC Distribution Width CV 14.2 % (11.6-14.6); RBC Distribution Width SD 51.3 fl (35.1-43.9); Red Blood Count 3.73 M/mm3 (4.2-5.4); White Blood Count 4.2 K/mm3 (4.4-11.0)
[2024-04-21 13:18] LABS: ALB/GLOB Ratio 1.4 RATIO (0.9-2.4); AST(SGOT) 15 U/L (15-37); Alanine Aminotransfer ALT/SGPT 20 U/L (13-56); Albumin, Serum 4.1 g/dL (3.2-5.0); Alkaline Phosphatase 44 U/L (45-117); Anion Gap 8 (5-15); BUN 13 mg/dL (7-18); BUN/Creat Ratio 13.6 RATIO (10-20); Calcium,Total 9.1 mg/dL (8.5-10.1); Chloride 103 mmol/L (98-107); Creatinine, Serum 0.96 mg/dL (0.55-1.02); EST Glomerular Filtration Rate 61 mL/min (>60); Est Glom Filt Rate - Afr Amer 73 mL/min (>60); Glucose 123 mg/dL (74-106); Potassium 4.2 mmol/L (3.5-5.1); Protein, Total 7.1 g/dL (6.4-8.2); Sodium Level 136 mmol/L (136-145)
== END | disposition home or self-care (01) ==
LOC: MTLAB 10:06
PROVIDERS: PCP Internal Medicine; Referring Provider Internal Medicine Rheumatology; Visit Provider Internal Medicine Rheumatology
DX: L40.59 Other psoriatic arthropathy (principal); M19.041 Primary osteoarthritis, right hand; Z79.899 Other long term (current) drug therapy
CPT/HCPCS: 36415; 80053; 85025

== ENCOUNTER → 2024-07-23 | Outpatient (CLI) | payer MEDICARE, SELFPAY ==
[2024-07-23 17:41] LABS: Absolute Lymphocyte Count 1.07 X10^3/uL (0.83-4.51); Absolute Neutrophil Count 3.1 X10^3/uL (2.0-7.7); Basophil# 0.02 X10^3/uL; Basophil% 0.4 % (0-1); Eosinophils% 4.3 % (0-5); Hemoglobin 12.9 g/dL (12.0-15.0); Lymphocyte # 1.07 X10^3/ul (0.83-4.51); Lymphocyte % 22.8 % (19-41); Mean Corp Hgb Conc 33.9 g/dL (32-36); Mean Corpuscular Hgb 32.7 pg (27.0-32.0); Mean Corpuscular Volume 96.4 fL (81-99); Mean Platelet Vol. 9.4 fl (6.2-12.0); Monocyte# 0.34 X10^3/uL; Monocyte% 7.2 % (0-10); NRBC Flagged by Analyzer 0 % (0-5); Neutrophil # 3.05 X10^3/uL (2.7-7.7); Neutrophil % 64.9 % (47-70); Platelet Count 265 K/mm3 (150-450); RBC Distribution Width CV 14.5 % (11.6-14.6); RBC Distribution Width SD 50.7 fl (35.1-43.9); Red Blood Count 3.94 M/mm3 (4.2-5.4); White Blood Count 4.7 K/mm3 (4.4-11.0)
[2024-07-23 20:14] LABS: ALB/GLOB Ratio 1.6 RATIO (0.9-2.4); AST(SGOT) 20 U/L (<=31); Alanine Aminotransfer ALT/SGPT 20 U/L (<=34); Albumin, Serum 4.6 g/dL (3.4-4.8); Alkaline Phosphatase 48 U/L (35-104); Anion Gap 16 (5-15); BUN 22 mg/dL (4-19); BUN/Creat Ratio 26.4 RATIO (10-20); Calcium,Total 9.9 mg/dL (7.6-11.0); Carbon Dioxide 23.4 mmol/L (21.0-32.0); Chloride 99 mmol/L (98-108); Creatinine, Serum 0.84 mg/dL (0.70-1.20); EST Glomerular Filtration Rate 73 (>60); Globulin 2.8 g/dL (2.2-4.2); Glucose 113 mg/dL (70-99); Potassium 3.7 mmol/L (3.3-5.1); Protein, Total 7.3 g/dL (5.9-8.4); Sodium Level 137 mmol/L (133-145); Total Bilirubin 0.19 mg/dL (0.00-1.30)
== END | disposition home or self-care (01) ==
LOC: MTLAB 14:32
PROVIDERS: PCP Internal Medicine; Referring Provider Internal Medicine Rheumatology; Visit Provider Internal Medicine Rheumatology
DX: L40.59 Other psoriatic arthropathy (principal); Z79.899 Other long term (current) drug therapy
CPT/HCPCS: 36415; 80053; 85025

== ENCOUNTER → 2024-10-21 | Outpatient (CLI) | payer MEDICARE, SELFPAY ==
[2024-10-21 16:00] LABS: Absolute Lymphocyte Count 1.06 X10^3/uL (0.83-4.51); Absolute Neutrophil Count 2.5 X10^3/uL (2.0-7.7); Basophil# 0.03 X10^3/uL; Basophil% 0.8 % (0-1); Eosinophil# 0.12 X10^3/uL; Hematocrit 37.5 % (37-47); Hemoglobin 12.5 g/dL (12.0-15.0); Lymphocyte # 1.06 X10^3/ul (0.83-4.51); Lymphocyte % 26.8 % (19-41); Mean Corp Hgb Conc 33.3 g/dL (32-36); Mean Corpuscular Hgb 32.7 pg (27.0-32.0); Mean Corpuscular Volume 98.2 fL (81-99); Mean Platelet Vol. 10.7 fl (6.2-12.0); Monocyte# 0.29 X10^3/uL; Monocyte% 7.3 % (0-10); NRBC Flagged by Analyzer 0.5 % (0-5); Neutrophil # 2.45 X10^3/uL (2.7-7.7); Neutrophil % 61.8 % (47-70); Platelet Count 260 K/mm3 (150-450); RBC Distribution Width CV 14.5 % (11.6-14.6); RBC Distribution Width SD 51.8 fl (35.1-43.9); Red Blood Count 3.82 M/mm3 (4.2-5.4)
[2024-10-21 17:30] LABS: ALB/GLOB Ratio 1.8 RATIO (0.9-2.4); AST(SGOT) 18 U/L (<=31); Alanine Aminotransfer ALT/SGPT 10 U/L (<=34); Albumin, Serum 4.6 g/dL (3.4-4.8); Alkaline Phosphatase 42 U/L (35-104); Anion Gap 12 (5-15); BUN 19 mg/dL (4-19); BUN/Creat Ratio 19.5 RATIO (10-20); Calcium,Total 9.7 mg/dL (7.6-11.0); Carbon Dioxide 24.8 mmol/L (21.0-32.0); Chloride 98 mmol/L (98-108); Creatinine, Serum 0.98 mg/dL (0.70-1.20); EST Glomerular Filtration Rate 60 (>60); Globulin 2.6 g/dL (2.2-4.2); Glucose 122 mg/dL (70-99); Potassium 4.2 mmol/L (3.3-5.1); Protein, Total 7.1 g/dL (5.9-8.4); Sodium Level 136 mmol/L (133-145); Total Bilirubin 0.23 mg/dL (0.00-1.30)
--- OUTSIDE RECORDS SUMMARY | 2024-10-21 21:24 | XMS RPT_ITS | CCD ---
Author Organization [facility] Care Team Providers Care Display And Banner Designer Name Role Phone Talat Forrester MD Unavailable Issac ARROYO, Lynn Concepcion Unavailable System, Provider Not In Primary Care Provider Un available ARIES BARRIOS Attending Un available SYSTEM, PROVIDER NOT IN Primary Care Unavaila Eamon Lopez Primary Care Provider Dr. Eamon Kelly Primary Care Provider Dr. Eamon Kelly Referring Provider Dr. Kiana Giraldo Attending Provider [phone] Dr. Eamon Kelly Referring Provider Dr. Kelley Maldonado Primary Care Provider Dr. Kelley Maldonado Attending Provider [phone] Dr. Kelley Maldonado Referring Provider [phone] Kelley Maldonado MD Primary Care Provider Kelley Maldonado MD Primary Care Provider [phone] Dr. Kelley Maldonado Primary Care Provider Dr. Kelley Maldonado Attending Provider [phone] Dr. Kelley Maldonado Referring Provider [phone] Dr. Kiana Giraldo Attending Provider [phone] Joel MONROY, Kelley Toscano Primary Care Provider Dr. Kelley Maldonado Primary Care Provider Dr. Kelley Maldonado Attending Provider [phone] Dr. Kelley Maldonado Referring Provider [phone] Creola, Kelley Primary Care Unavailable Vellanki, Trudy Attending Unavailable Vellanki, Trudy Referring Unavailable Joel, Kelley Primary Care Unavailable Vellanki, Trudy Referring Unavailable Vellanki, Trudy Attending Unavailable Vellanki, Trudy Referring Unavailable Vellanki, Trudy Attending Unavailable Joel, Kelley Primary Care Unavailable Joel, Kelley Primary Care Unavailable Joel, Kelley Attending Unavailable Joel, Kelley Referring Unavailable MarcanthonyKiana Attending Unavailable Marcanthony, Kiana Referring Unavailable Creola, Kelley Primary Care Unavailable Joel, Kelley Primary Care Unavailable Creola, Kelley Attending Unavailable Joel, Kelley Referring Unavailable Joel, Kelley Primary Care Unavailable Creola, Kelley Attending Unavailable Joel, Kelley Referring Unavailable Richard Moore Attending Unavailable Joel, Kelley Referring Unavailable Creola, Kelley Primary Care Unavailable Creola, Kelley Primary Care Unavailable Creola, Kelley Attending Unavailable Joel, Kelley Referring Unavailable Creola, Kelley Primary Care Unavailable Marcanthony, Kiana Attending Unavailable Joel, Kelley Referring Unavailable Creola, Kelley Primary Care Unavailable Joel, Kelley Attending Unavailable Joel, Kelley Referring Unavailable Creola, Kelley Primary Care Unavailable Vellanki, Trudy Attending Unavailable Vellanki, Trudy Referring Unavailable Joel, Kelley Primary Care Unavailable Creola, Kelley Attending Unavailable Vellanki, Trudy Referring Unavailable Joel MONROY, Dr. Falk Primary Care Provider [phone] Dr. Kelley Maldonado MD Attending Provider Joel MONROY, Dr. Falk Referring Provider Maya MONROY, Dr. Yates Attending Provider Maya MONROY, Dr. Yates Referring Provider Teresa MONROY, Dr. Ramos Attending Provider [phone] OG JOHNSON Attending Unavailable KELLEY MALDONADO Primary Care Unavailable KELLEY MALDONADO Primary Care Unavailable OG JOHNSON Attending Unavailable RYAN CHRISTOPHER Attending Unavailable JOELKELLEY Jackson Primary Care Unavailable OG JOHNSON Attending Unavailable KELLEY MALDONADO Primary Care Unavailable Allergies Allergy Classification Reported Allergen(s) Allergy Type Date of Onset Reaction(s) Facility (12 sources) rOPINIRole Drug Allergy 11-06-2022 Nausea Only [facility] Medications Current Medications Medication Drug Class(es) Dates Sig (Normalized) Sig (Original) atorvastatin 10 mg oral tablet (20 sources) HMG-CoA Reductase Inhibitor Start: 08-09-2022 End: 03-10-2024 take 1 tablet by mouth at bedtime atorvastatin (Lipitor) 10 MG tablet 10 MG ORALLY AT BEDTIME 08/09/2022 Active 12 hr buPROPion hydrochloride 150 mg extended release oral tablet (20 sources) Aminoketone Start: 08-09-2022 End: 08-09-2022 take 1 tablet by mouth twice daily Bupropion Hcl (Wellbutrin Xl) 150 mg tablet extended release 24 hr Discontinued 150 mg PO TWICE A DAY 180 August 09, 2022 9:18am August 09, 2022 1:42pm Start: 08-09-2022 End: 04-14-2024 take 1 tablet by mouth twice daily Bupropion Hcl (Wellbutrin Sr) 150 mg tablet sustained-release 12 hr Active 150 mg PO TWICE A DAY 180 April 14, 2024 11:21am Start: 07-05-2022 End: 08-09-2022 take 1 tablet by mouth once daily Bupropion Hcl (Wellbutrin Xl) 150 mg tablet extended release 24 hr Discontinued 150 mg PO DAILY July 05, 2022 1:00am August 09, 2022 8:59am Start: 02-26-2022 End: 07-05-2022 take 1 tablet by mouth once daily Bupropion Hcl 75 mg tablet Discontinued 75 mg PO DAILY February 26, 2022 12:00am July 05, 2022 10:54am Start: 01-08-2018 End: 02-26-2022 take 1 tablet by mouth once daily in the morning Bupropion Hcl 150 mg tablet extended release 24 hr Discontinued 150 mg PO EVERY MORNING January 08, 2018 12:00am February 26, 2022 8:40am Start: 01-01-2017 take 1 tablet by osiris th once daily WELLBUTRIN SR 150 MG [id number] One tablet by mouth daily BUPROPION HCL [id number] Talat Forrester MD Start: 01-01-2017 take 1 tablet by osiris th once daily WELLBUTRIN SR 150 MG [id number] One tablet by mouth daily BUPROPION HCL [id number] Talat Forrester MD calcium carbonate 1250 mg / cholecalciferol 200 unt oral tablet (9 sources) Vitamin D take 1 tablet by mouth once in the morning, then take 1 tablet by mouth once at mealtime Calcium Carbonate-Vitamin D (Oyster Shell Calcium/D) 500-5 MG-MCG tablet Take 1 tablet by mouth in the morning and 1 tablet in the evening. Take with meals. Active carbidopa 25 mg / levodopa 100 mg oral tablet (16 sources) Aromatic Amino Acid Decarboxylation Inhibitor, Aromatic Amino Acid Start: 2024 End: 2024 carbidopa-levodopa (Sinemet) 25-100 MG tablet Take 1 tablet 4 times daily 360 tablet 1 09/30/2024 Active Start: 03-10-2024 Carbidopa-Levo dopa 25-100 mg tablet Active {tbl} PO March 10, 2024 12:00am Start: 02-06-2024 End: 07-03-2024 carbidopa-levodopa (Sinemet) 25-100 MG tablet Take 1-2 tabs in the evening 60 tablet 2 04/21/2024 07/03/2024 Discontinued (Reorder) Start: 01-28-2023 End: 02-06-2024 take 1 tablet by mouth once daily carbidopa-levodopa (Sinemet) 25-100 MG tablet Indications: Restless legs syndrome Take 1 tablet by mouth Nightly. 30 tablet 3 01/28/2023 02/06/2024 Discontinued chlorhexidine gluconate 1.2 mg/ml mouthwash (1 source) Start: 04-14-2024 take 15 mL by mouth twice daily chlorhexidine (Peridex) 0.12 % solution Use 15 mL in the mouth or throat 2 times daily. 04/14/2024 Active Chlorhexidine Gluconate 0.12 % mouthwash (1 source) Start: 04-14-2024 Chlorhexidine Gluconate 0.12 % mouthwash Active 15 mL BUCCAL TWICE A DAY 300 April 14, 2024 1:00am cholecalciferol 0.125 mg oral capsule (4 sources) Vitamin D Start: 02-14-2023 take 1 capsule by mouth once daily Cholecalciferol (Vitamin D3) 125 mcg (5,000 unit) capsule Active 125 ug PO DAILY February 14, 2023 12:00am 1 ml denosumab 60 mg/ml prefilled syringe (9 sources) RANK Ligand Inhibitor Start: 04-08-2023 denosumab (Prolia) 60 MG/ML solution prefilled syringe 60 mg. 04/08/2023 Active folic acid 1 mg oral tablet (20 sources) Start: 02-21-2021 take 1 tablet by mouth twice daily Folic Acid 1 mg tablet Active 1 mg PO TWICE A DAY February 21, 2021 1:17pm Start: 01-08-2018 End: 02-21-2021 take 1 tablet by mouth once daily Folic Acid 1 mg tablet Discontinued 1 mg PO DAILY January 08, 2018 12:00am February 21, 2021 1:19pm folic acid (FOLV ITE) 1 MG tablet Take 2 mg by mouth daily . 0 Active methotrexate 2.5 mg oral tablet (20 sources) Folate Analog Metabolic Inhibitor Start: 02-21-2021 take 1 tablet by mouth every week Methotrexate Sodium 2.5 mg tablet Active 2.5 mg PO EVERY WEEK February 21, 2021 12:00am 8 tablets Start: 01-08-2018 End: 02-21-2021 Methotrexate 2.5 mg/mL solut ion Discontinued PO January 08, 2018 12:00am February 21, 2021 1:18pm Start: 01-08-2018 End: 02-21-2021 Methotrexate Discontinued PO January 08, 2018 12:00am February 21, 2021 1:18pm Start: 01-01-2017 METHOTREXATE T ABS 2.5mg tabs 7 tabs weekly METHOTREXATE SODIUM TABS [id number] Talat Forrester MD Start: 01-01-2017 METHOTREXATE T ABS 2.5mg tabs 7 tabs weekly METHOTREXATE SODIUM TABS [id number] Talat Forrester MD take 8 tablets by [facility] every week methotrexate (RHEUMATREX) 2.5 MG chemo tablet Take by mouth once a week 8 tab weeekly 0 Active methotrexate (TR EXALL) 2.5 MG tablet Take 20 mg by mouth once a week . 0 Active predniSONE 10 mg oral tablet (20 sources) Start: 01-08-2018 End: 07-03-2024 take 1 tablet by mouth once daily as needed Prednisone 10 mg tablet Active 10 mg PO DAILY as needed January 13, 2019 12:59pm primidone 50 mg oral tablet (20 sources) Anti-epileptic Agent Start: 11-07-2023 End: 12-29-2024 take 4 tablets by mouth twice daily primidone (Mysoline) 50 MG tablet Indications: Essential tremor Take 4 tablets (200 mg) by mouth 2 times daily. 720 tablet 3 09/30/2024 12/29/2024 Active Start: 09-09-2023 End: 12-07-2023 take 2 tablets by mouth once daily in the morning, then take 3 tablets by mouth once daily in the evening primidone (Mysoline) 50 MG tablet Indications: Essential tremor Take 2 or 3 tabs po QAM and take 3 tabs po QPM 540 tablet 3 09/09/2023 11/07/2023 Discontinued (Reorder) Start: 09-05-2022 End: 02-04-2023 take 2 tablets by mouth once daily in the morning, then take 3 tablets by mouth once daily in the evening primidone (Mysoline) 50 MG tablet Indications: Essential tremor Take 2 tabs po QAM and take 3 tabs po QPM 450 tablet 11 09/05/2022 11/06/2022 Discontinued (Reorder) Start: 07-05-2022 take 2 tablets by [facility] twice daily in the morning, then take 3 tablets by mouth in the evening Primidone 50 mg tablet Active 100 mg PO TWICE A DAY July 05, 2022 9:49am 100 in the a.m / 150mg. in evening Start: 02-26-2022 End: 11-06-2022 primidone (Mysoline) 50 MG t ablet Start: 02-26-2022 End: 07-05-2022 take 100 mg by mouth twice daily in the morning, then take 150 mg by mouth in the evening Primidone Active 100 MG PO TWICE A DAY July 05, 2022 9:49am 100 in the a.m / 150mg. in evening Start: 08-21-2021 End: 11-19-2021 take 2 tablets by mouth twice daily primidone (MYSOLINE) 50 MG tablet Take 2 tablets by mouth 2 times daily 360 tablet 3 08/21/2021 11/19/2021 Active Start: 02-21-2021 End: 02-26-2022 take 150 mg by mouth at bedtime Primidone Discontinued 150 MG PO AT BEDTIME February 21, 2021 1:18pm February 26, 2022 8:43am Start: 11-10-2020 take 3 tablets by mo uth twice daily, then take 3 tablets by mouth twice daily primidone (MYSOLINE) 50 MG tablet Take 3 tablets by mouth 2 times daily 3 tab bid 540 tablet 3 11/10/2020 Active Start: 02-18-2020 End: 02-26-2022 take 1 tablet by mouth at bedtime Primidone 250 mg tablet Discontinued 150 mg PO AT BEDTIME February 21, 2021 1:18pm February 26, 2022 8:43am take 3 tablets by mo [facility] twice daily primidone (MYSOLINE) 50 MG tablet Take 150 mg by mouth 2 (two) times a day . 0 Active sertraline 50 mg oral tablet (20 sources) Serotonin Reuptake Inhibitor Start: 09-29-2024 take 1 tablet by mouth once daily sertraline (Zoloft) 50 MG tablet Take 50 mg by mouth daily. 09/29/2024 Active Start: 04-14-2024 take 1 tablet by osiris once daily Sertraline 50 mg tablet Active 50 mg PO DAILY April 14, 2024 11:20am Start: 08-09-2022 End: 08-09-2022 Sertraline 100 mg tablet Discontinued 50 mg PO daily August 09, 2022 8:58am August 09, 2022 9:18am Start: 08-09-2022 End: 08-09-2022 take 50 mg by mouth once daily Sertraline Discontinued 50 MG PO daily August 09, 2022 8:58am August 09, 2022 9:18am Start: 08-09-2022 End: 09-30-2024 sertraline (Zoloft) 25 MG ta blet 08/16/2022 09/30/2024 Discontinued (Dose adjustment) Start: 04-04-2022 End: 08-09-2022 take 1 tablet by mouth once daily Sertraline 100 mg tablet Discontinued 100 mg PO daily April 04, 2022 2:10am August 09, 2022 8:59am Start: 02-26-2022 End: 04-04-2022 take 1 tablet by mouth once daily Sertraline (Zoloft) 50 mg tablet Discontinued 50 mg PO daily February 26, 2022 9:05am April 04, 2022 2:10am levothyroxine sodium 0.088 mg oral tablet (20 sources) l-Thyroxine Start: 07-26-2024 levothyroxine (Synthroid, Levoxyl) 88 MCG tablet Take by mouth every morning (before breakfast). 07/26/2024 Active Start: 03-10-2024 End: 05-13-2024 take 1 tablet by mouth once daily Levothyroxine 88 mcg tablet Active 88 ug PO DAILY May 13, 2024 7:21pm Start: 01-08-2018 End: 06-25-2023 take 1 capsule by mouth once daily Levothyroxine 75 mcg capsule Discontinued 75 ug PO DAILY June 24, 2023 8:44am June 25, 2023 2:21pm Start: 01-01-2017 End: 09-30-2024 take 1 tablet by mouth once daily Levothyroxine 75 mcg tablet Discontinued 75 ug PO DAILY January 03, 2024 9:16am March 10, 2024 1:22pm Start: 01-01-2017 take 1 tablet by osiris once daily LEVO-T 75 MCG TABS One tablet by mouth daily LEVOTHYROXINE SODIUM [id number] Talat Forrester MD Completed/Discontinued Medications Medication Drug Class(es) Dates Sig (Normalized) Sig (Original) acetaminophen 325 mg / HYDROcodone bitartrate 5 mg oral tablet (12 sources) Opioid Agonist Start: 11-20-2014 End: 01-08-2018 Hydrocodone-Acetami nophen 1 TABLET tablet Discontinued 1 - 2 {tbl} PO EVERY 4 HOURS NEEDED as needed for Pain November 20, 2014 12:00am January 08, 2018 9:59am Start: 11-20-2014 End: 01-08-2018 take 1 tablet by mouth every four hours as needed Hydrocodone-Acetaminophen Discontinued 1 - 2 TABLET PO EVERY 4 HOURS NEEDED November 20, 2014 12:00am January 08, 2018 9:59am azithromycin 250 mg oral tablet (4 sources) Macrolide Antimicrobial Start: 11-09-2022 End: 02-14-2023 take 2-5 tablets by mouth once daily Azithromycin 250 mg tablet Discontinued 0 PO .COMPLEX 6 November 09, 2022 12:00am February 14, 2023 9:58am take 500 mg today (day 1), then 250 mg for 4 days (days 2-5) PO Calcium Carbonate-Vitamin D (Oyster Shell Calcium/D) 500-5 MG-MCG tablet (3 sources) End: 07-03-2024 take 1 tablet by mouth once in the morning, then take 1 tablet by mouth once at mealtime Calcium Carbonate-Vitamin D (Oyster Shell Calcium/D) 500-5 MG-MCG tablet Take 1 tablet by mouth in the morning and 1 tablet in the evening. Take with meals. 07/03/2024 Discontinued take 1 tablet by osiris th once in the morning, then take 1 tablet by mouth once at mealtime Calcium Carbonate-Vitamin D (Oyster Gi l Calcium/D) 500-5 MG-MCG tablet Take 1 tablet by mouth in the morning and 1 tablet in the evening. Take with meals. Active cephalexin 500 mg oral capsule (12 sources) Cephalosporin Antibacterial Start: 10-21-2018 End: 10-31-2018 take 1 capsule by mouth every twelve hours Cephalexin 500 mg capsule Discontinued 500 mg PO Q12H 01 03October 21, 2018 12:00am October 30, 2018 12:00am October 31, 2018 12:08am ciprofloxacin 500 mg oral tablet (12 sources) Quinolone Antimicrobial Start: 11-20-2014 End: 01-08-2018 take 1 tablet by mouth twice daily Ciprofloxacin Hcl 500 MG tablet Discontinued 500 mg PO TWICE A DAY November 20, 2014 12:00am January 08, 2018 9:59am citalopram 40 mg oral tablet (7 sources) Serotonin Reuptake Inhibitor CELEXA 40 MG TABS CITALOPRAM HYDROBROMIDE [id number] Mehdi Craft clonazePAM 0.25 mg disintegrating oral tablet (20 sources) Benzodiazepine Start: 09-13-2022 End: 11-06-2022 clonazePAM (KlonoPIN) 0.25 MG disintegrating tablet Indications: Restless legs syndrome Take 1 tablet (0.25 mg) by mouth Nightly for 14 days. Do not start before September 13, 2022. 14 tablet 0 09/13/2022 11/06/2022 Discontinued Start: 08-30-2022 End: 02-14-2023 take 0.5 mg by mouth at bedtime Clonazepam 1 mg tablet Discontinued 0.5 mg PO BEDTIME August 30, 2022 1:28pm February 14, 2023 9:58am Start: 08-30-2022 End: 02-14-2023 take 0.5 mg by mouth at bedtime Clonazepam Discontinue d 0.5 MG PO BEDTIME August 30, 2022 1:28pm February 14, 2023 9:58am Start: 01-08-2018 End: 08-30-2022 take 1 tablet by mouth at bedtime Clonazepam 1 mg tablet Discontinued 1 mg PO BEDTIME August 09, 2022 8:57am August 30, 2022 1:28pm Start: 01-01-2017 CLONAZEPAM 1 M G TBDP Q HS CLONAZEPAM [id number] Talat Forrester MD take 1 tablet by osiris th once daily as needed clonazePAM (KLONOPIN) 1 MG tablet Take 1 mg by mouth nightly as needed. 0 Active CLONAZEPAM 0.5 M G TABS CLONAZEPAM [id number] Mehdi Craft GUAIFENESIN-CODEINE (14 sources) Opioid Agonist End: 07-12-2011 GUAIFENESIN AC 100-10 MG/5ML SYRP GUAIFENESIN-CODEINE [id number] Steven D Ovalle DO End: 07-12-2011 GUAIFENESIN AC 100-10 MG/5ML SYRP GUAIFENESIN- CODEINE [id number] Steven D Ovalle DO End: 07-12-2011 GUAIFENESIN AC 100-10 MG/5ML SYRP GUAIFENESIN- CODEINE [id number] Steven D Ovalle DO GUAIFENESIN AC 1 00-10 MG/5ML SYRP GUAIFENESIN-CODEINE [id number] Mehdi K Luana escitalopram 20 mg oral tablet (20 sources) Serotonin Reuptake Inhibitor Start: 01-08-2018 End: 02-21-2021 take 10 mg by mouth once daily Escitalopram Oxalate 20 mg tablet Discontinued 10 mg PO DAILY January 08, 2018 12:00am February 21, 2021 1:19pm Start: 01-08-2018 End: 02-21-2021 take 10 mg by mouth once daily Escitalopram Oxalate Di scontinued 10 MG PO DAILY January 08, 2018 12:00am February 21, 2021 1:19pm Start: 01-01-2017 End: 02-26-2022 take 1 tablet by mouth once daily Escitalopram Oxalate 20 mg tablet Discontinued 20 mg PO DAILY February 21, 2021 1:17pm February 26, 2022 9:03am 1 1/2 tablets FOLIC [id number] (3 sources) Start: 01-01-2017 take 1 tablet by mouth twice daily FOLIC ACID XTRA TABS One tablet by mouth twice daily FOLIC [id number] Talat Forrester MD FOLIC [id number] (4 sources) Start: 01-01-2017 take 1 tablet by mouth twice daily FOLIC ACID XTRA TABS One tablet by mouth twice daily FOLIC [id number] Talat Forrester MD gadobutrol (GADAVIST) injection 6 mL (1 source) Start: 02-08-2021 End: 02-08-2021 gadobutrol (GADAVIST) injection 6 mL lamoTRIgine 100 mg oral tablet (10 sources) Mood Stabiliz er, Anti-epi leptic Agent Start: 11-07-2023 End: 07-03-2024 take 1 tablet by mouth once daily in the evening lamoTRIgine (LaMICtal) 100 MG tablet Indications: Restless legs syndrome Take 1 tablet (100 mg) by mouth every evening. 90 tablet 3 11/07/2023 07/03/2024 Discontinued (Ineffective) Start: 10-28-2023 End: 11-27-2023 take 2 tablets by mouth once daily lamoTRIgine (LaMICtal) 25 MG tablet Take 2 tablets (50 mg) by mouth Nightly. 60 tablet 1 10/28/2023 11/07/2023 Discontinued Start: 08-26-2023 End: 09-25-2023 take 2 tablets by mouth once daily lamoTRIgine (LaMICtal) 25 MG tablet Take 2 tablets (50 mg) by mouth Nightly. 60 tablet 1 08/26/2023 09/25/2023 Active Start: 08-26-2023 End: 03-10-2024 lamotrigine Discontinued PO 1 time daily August 26, 2023 12:00am March 10, 2024 9:03am lutein 10 mg oral tablet (7 sources) LUTEIN 10 MG TAB S LUTEIN [id number] Mehdi Craft metroNIDAZOLE 500 mg oral tablet (12 sources) Nitroimidazole Antimicrobial Start: 11-21-19 End: 01-09-20 take 1 tablet by mouth every eight hours Metronidazole 500 MG tablet Discontinued 500 mg PO EVERY 8 HOURS November 20, 2014 12:00am January 08, 2018 10:00am NAPROXEN SODIUM TABS (14 sources) Nonsteroidal Anti-inflammatory Drug End: 07-12-19 12 ANAPROX TABS NAPROXEN SODIUM TABS [id number] Steven D Ovalle DO End: 07-12-2011 ANAPROX TABS NAPR OXEN SODIUM TABS [id number] Steven D Ovalle DO ANAPROX TABS NAP ROXEN SODIUM TABS [id number] Steven D Ovalle DO pramipexole dihydrochloride 0.25 mg oral tablet (17 sources) Nonergot Dopamine Agonist Start: 02-14-2023 End: 02-28-2023 Pramipexole 0.25 mg tablet Discontinued mg PO February 14, 2023 12:00am February 28, 2023 8:38am Start: 02-14-2023 End: 02-28-2023 Pramipexole Discontinued MG PO February 14, 2023 12:00am February 28, 2023 8:38am Start: 10-15-2022 End: 02-06-2024 Pramipexole 0.25 mg tablet D iscontinued 0.25 mg PO February 28, 2023 8:38am August 26, 2023 9:54am pramoxine hydrochloride 10 m g/ml / zinc oxide 50 mg/ml rectal cream (7 sources) TRONOLANE 1-5 % CREA PRAMOXINE HCL-ZINC OXIDE [id number] Mehdi Craft TRONOLANE 1-5 % CREA PRAMOXINE HCL-ZINC OXIDE [id number] Mehdi Craft propranolol hydrochloride 60 mg oral tablet (20 sources) beta-Adrenergic Abhishek Start: 05-30-2022 End: 09-30-2025 take 1 tablet by mouth twice daily propranolol (Inderal) 60 MG tablet Indications: Essential tremor Take 1 tablet (60 mg) by mouth 2 times daily. 180 tablet 3 11/07/2023 09/30/2024 Discontinued (Reorder) Start: 02-26-2022 take 1 capsule by mo uth once daily Propranolol 60 mg capsule,extended release 24 hr Active 60 mg PO DAILY February 26, 2022 12:00am Start: 08-21-2021 End: 11-19-2021 take 1 tablet by mouth twice daily propranolol (INDERAL) 60 MG tablet Take 1 tablet by mouth 2 times daily 180 tablet 3 08/21/2021 11/19/2021 Active Start: 02-21-2021 End: 02-26-2022 take 1 tablet by mouth three times daily Propranolol 20 mg tablet Discontinued 20 mg PO THREE TIMES A DAY February 21, 2021 12:00am February 26, 2022 8:41am Start: 01-11-2021 End: 02-10-2021 take 1 tablet by mouth three times daily propranolol (INDERAL) 20 MG tablet Take 1 tablet by mouth 3 times daily 60 tablet 5 01/11/2021 02/10/2021 Active Start: 01-13-2019 End: 02-18-2020 take 1 capsule by mouth once daily Propranolol 60 mg capsule,extended release 24 hr Discontinued 60 mg PO DAILY January 13, 2019 12:00am February 18, 2020 10:40am rOPINIRole 1 mg oral tablet (3 sources) Nonergot Dopamine Agonist Start: 09-05-2022 End: 12-04-2022 take 1 tablet by mouth at bedtime, then take 1 tablet by mouth once daily rOPINIRole (Requip) 1 MG tablet Indications: Restless Leg Syndrome Take 1 or 2 tabs po 90 min prior to bedtime and may take 1 tab po earlier in the day if needed. 270 tablet 2 09/05/2022 11/06/2022 Discontinued topiramate 25 mg oral tablet (13 sources) Start: 02-18-2020 End: 02-21-2021 take 1 tablet by mouth once daily Topiramate (Topamax) 25 mg tablet Discontinued 25 mg PO DAILY February 18, 2020 12:00am February 21, 2021 1:19pm take 1 capsule by mouth twice da roseann topiramate (TOPAMAX) 25 MG capsule Take 25 mg by mouth 2 (two) times a day . 0 Active Problems Active Problems Problem Classification Problem Date Documented Da te Episodic/Chronic Administrative/social admission (2 sources) Persons encountering health services in other specified circumstances; Translations: [Other reasons for seeking consultation] 07-05-2022 Episodic Anxiety disorders (7 sources) Anxiety disorder, unspecified; Translations: [Anxiety state, unspecified] 07-05-2022 Chronic Cataract (3 sources) Unspecified cataract; Translations: [Unspecified cataract] Chronic Diabetes mellitus without complication (12 sources) Prediabetes; Translations: [Prediabetes] 07-04-2022 Episodic Disorders of lipid metabolism (4 sources) Mixed hyperlipidemia; Translations: [Mixed hyperlipidemia] Onset: 03-31-2024 02-14-2023 Chronic Melanomas of skin (7 sources) Malignant melanoma; Translations: [Malignant melanoma of skin, unspecified] 01-10-2011 Chronic Mood disorders (14 sources) Depressive disorder; Translations: [Depression] Chronic Comment on above: switched to zoloft, buproprion. counseling recommended Mood disorders (1 source) Mood disorders; Translations: [Depression, unspecified] Onset: 03-30-2024 Open wounds of head; neck; and trunk (1 source) Facial laceration ; Translations: [Laceration without foreign body of other part of head, initial encounter] Episodic Osteoporosis (1 source) Age-related osteoporosis without current pathological fracture; Translations: [Age-related osteoporosis without current pathological fracture] Onset: 05-15-2024 Chronic Other bone disease and musculoskeletal deformities (14 sources) Osteopenia; Translations: [Other specified disorders of bone density and structure, unspecified site] 02-26-2022 Episodic Other bone disease and musculoskeletal deformities (1 source) Other specified disorders of bone density and structure, multiple sites; Translations: [Other specified disorders of bone density and structure, multiple sites] Onset: 05-15-2024 Episodic Other hereditary and degenerative nervous system conditions (20 sources) Essential tremor; Translations: [Essential tremor] Onset: 07-03-2024 Chronic Other hereditary and degenerative nervous system conditions (7 sources) Essential tremor; Translations: [Essential and other specified forms of tremor] Onset: 07-03-2024 07-05-2022 Chronic Other hereditary and degenerative nervous system conditions (11 sources) Restless legs; Translations: [Restless legs syndrome] Onset: 07-03-2024 Chronic Other hereditary and degenerative nervous system conditions (3 sources) Restless legs syndrome; Translations: [Restless legs syndrome (RLS)] Onset: 07-03-2024 02-14-2023 Chronic Other inflammatory condition of skin (13 sources) Psoriatic arthritis; Translations: [Arthropathic psoriasis, unspecified] 01-13-2019 Chronic Other inflammatory condition of skin (6 sources) Arthropathic psoriasis, unspecified; Translations: [Psoriatic arthropathy] 07-05-2022 Chronic Other inflammatory condition of skin (1 source) Other psoriatic arthropathy; Translations: [Other psoriatic arthropathy] Onset: 08-03-2024 Chronic Other nervous system disorders (1 source) Ataxia; Translations: [Ataxia, unspecified] Episodic Other upper respiratory infections (4 sources) Acute pharyngitis; Translations: [Acute pharyngitis, unspecified] 11-09-2022 Episodic Spondylosis; intervertebral disc disorders; other back problems (1 source) Neck pain; Translations: [Cervicalgia] Episodic Superficial injury; contusion (1 source) Abrasion of oral cavity, initial encounter; Translations: [Abrasion of oral cavity] 04-14-2024 Episodic Thyroid disorders (20 sources) Hypothyroidism; Translations: [Hypothyroidism, unspecified] Onset: 04-14-2024 01-13-2019 Chronic Urinary tract infections (12 sources) Urinary tract infectious disease; Translations: [Urinary tract infection, site not specified] 10-21-2018 Episodic Past or Other Problems Problem Classification Problem Date Documented Da te Episodic/Chronic Moses (7 sources) First degree burn; Translations: [Burn of unspecified body region, unspecified degree] 01-11-2011 Episodic Nutritional deficiencies (3 sources) Iron deficiency; Translations: [Iron deficiency] Onset: 02-06-2024 02-06-2024 Episodic Other and unspecified benign neoplasm (17 sources) Hemangioma of skin; Translations: [Benign neoplasm of skin of other and unspecified parts of face] Onset: 01-11-2011 01-11-2011 Episodic Other and unspecified benign neoplasm (2 sources) Benign neoplasm of skin of other and unspecified parts of face; Translations: [Benign neoplasm of skin of other and unspecified parts of face] 01-11-2011 Episodic Other and unspecified benign neoplasm (2 sources) Benign neoplasm of skin of trunk; Translations: [Other benign neoplasm of skin of trunk] 01-11-2011 Episodic Other bone disease and musculoskeletal deformities (9 sources) Other specified disorders of bone density and structure, unspecified site; Translations: [Disorder of bone and cartilage, unspecified] Onset: 03-10-2024 Episodic Other screening for suspected conditions (not mental disorders or infectious disease) (1 source) Encounter for screening mammogram for malignant neoplasm of breast; Translations: [Encounter for screening mammogram for malignant neoplasm of breast] Onset: 04-13-2024 Episodic Other skin disorders (20 sources) Epidermoid cyst of skin; Translations: [Lentigo] Onset: 01-11-2011 01-01-2017 Episodic Other skin disorders (2 sources) Epidermoid cyst; Translations: [Epidermal cyst] Onset: 02-13-2017 02-13-2017 Episodic Other skin disorders (2 sources) Lentigo; Translations: [Other melanin hyperpigmentation] Onset: 01-11-2011 01-11-2011 Episodic Other skin disorders (2 sources) Senile hyperkeratosis; Translations: [Inflamed seborrheic keratosis] Onset: 01-11-2011 01-11-2011 Episodic Other skin disorders (2 sources) Disorder of sebaceous gland; Translations: [Follicular disorder, unspecified] 01-11-2011 Episodic Results Test Name Value Interpretation Reference Range Facility Office Visiton 09-30-2024 Follow-up visit [id number] Ariadna Lobato 1950 F Date Provider Department Center 09/30/2024 [id number] [facility] None Family History Problem Relation Age of Onset Other Maternal Grandfather Other Mother Family Status - Relation Status Age at Maternal Grandfather Mother Level of Service:36838 [place] OFFICE/OUTPATIENT ESTABLISHED LOW MDM 20 MIN Reason for Visit and Comments: Follow-up [435363] Tremors [290057] Normal [facility] Progress Noteon 09-30-2024 Progress Note Visit type: Established Patient Reason for Visit: Follow-up and Tremors Assessment and Plan 1. Essential tremor 2. Restless legs syndrome Subjective HPI: Tremors began in 2014 Meds-Primidone, TPX, Propranolol, Klonopin (for RLS) Ropinirole caused nausea and she felt weird Pramipexole caused wt gain. Lamictal failed to help Sinemet was never started-ordered 01/2023 Primidone 200mg bid, Propranolol 60mg bid Increase Sinemet 25/100 to 1 tab 4 times daily She reports that 95% of the time she does not have issues with her legs She reports that the tremors have not changed. Worse when stressed. Moreso in the arms. She has noticed that hands are starting to be affected. Tremor in head and legs also Writing is getting harder. No issues with eating, drinking or getting dressed She states that if she can rest her head while sitting the tremors completely stop She exercises multiple times weekly REVIEW OF SYSTEMS: Review of Systems Constitutional: Negative. HENT: Negative. Eyes: Negative. Respiratory: Negative. Cardiovascular: Negative. Gastrointestinal: Negative. Endocrine: Negative. Genitourinary: Negative. Musculoskeletal: Negative. Skin: Negative. Allergic/Immunologic : Negative. Neurological: Positive for tremors. RLS Hematological: Negative. Psychiatric/Behavior al: Negative. Allergies[1] Current Medications[2] Medical History[3] Social History Tobacco Use Smoking status: Never Smokeless tobacco: Never Substance Use Topics Alcohol use: Not Currently Surgical History[4] Family History[5] Objective Vitals: BP 129/81 (BP Location: Right arm, Patient Position: Sitting, BP Cuff Size: Adult) Pulse 60 Ht 5' 2 (1.575 m) Wt 143 lb 3.2 oz (65 kg) BMI 26.19 kg/m? General Appearance: Patient is in no apparent distress. Head is normocephalic, atraumatic Cardiovascular: Regular rate and rhythm. No heart murmurs. No carotid bruit Neurologic: Mentation: Alert and oriented x 3 [address], [address] and time. Speech and Language: Speech and language normal Concentration and Attention: Concentration normal Memory: Memory normal Fund of Knowledge: Fund of knowledge normal Cranial Nerves: II, III, IV, V, , VII, VIII, IX, X, XI, XII examined and were intact. Motor: Strength: Strength 5 out of 5 with normal tone Alternating Movements: Normal Cogwheel Rigidity: None Tone: Tone is normal Tremor / Involuntary Movements: Head titubation, tremors in arms and legs, NOT hands Deep Tendon Reflexes: 1 out of 4 symmetrical in all four limbs. Sensory: Normal sensation upper and lower extremities Coordination: Normal coordination upper and lower extremities Gait and Station: Station is normal. Gait is normal Head titubation is less while walking Data Reviewed and Summarized DIAGNOSTIC TESTING CBC: No results found for: WBC, RBC, HGB, HCT, MCV, MCH, MCHC, RDW, PLT, MPV CMP: No results found for: NA, K, CL, CO2, BUN, CREATININE, AGRATIO, LABGLOM, GLUCOSE, GLU, PROT, CALCIUM, BILITOT, ALKPHOS, AST, ALT BMP: No results found for: NA, K, CL, CO2, BUN, CREATININE, CALCIUM, LABGLOM, GLUCOSE, GLU PT/INR: No results found for: PROTIME, INR PTT: No results found for: APTT, PTT[APTT} FLP: No results found for: CHLPL, TRIG, HDL, LDLCALC, LDLDIRECT TSH: No results found for: TSH VITAMIN B12: No results found for: [id number] No results found for: PHENYTOIN, PHENOBARB, VALPROATE, CBMZ No components found for: TOPIRA @RESULTINGLABINFO@ FERRITIN Date Value Ref Range Status 02/06/2024 108 16 - 288 ng/mL Final No results found for: ANNA, IMMUNOGLOBUL, OLIGOBANDS No results found for: PDY00BP, HEPCAB No results found for: CRP, ANATITER, ANCA FERRITIN: Lab Results Component Value Date FERRITIN 108 02/06/2024 ---- XR CERVICAL SPINE W OBLIQUES FLEXION AND EXTENSION Narrative: Patient Name: ARIADNA LOBATO Diagnostic Radiology ACCESSION EXAM DATE/TIME PROCEDURE ORDERING PROVIDER [id number] 11/16/2021 10:51 EDT CR Spine Cervical Comp RYAN CHRISTOPHER w/ Obliques CPT code 41519 Reason For Exam (CR Spine Cervical Comp w/ Obliques) Cervicalgia Report CLINICAL INFORMATION: Neck pain. Bilateral oblique anterolateral and extension view of the cervical spine are provided. FINDINGS: There is mild anterolisthesis C4 on C5. Disc space narrowing and spurring are most pronounced at C5-6. Vertebral body heights are maintained. There is no subluxation with flexion or extension. Oblique views demonstrate moderate foraminal narrowing on the left at C5-6 and C6-7. Impression: 1. Moderate degenerative changes. 2. No subluxation with flexion or extension. 3. Left-sided foraminal narrowing at C5-6 and C6-7. Report Dictated on --- Final --- Dict (more content not included)... Normal [facility] Absolute neutrophil countOrd ered By: Trudy Trejo on 07-23-2024 Neutrophils (Bld) [#/Vol] 3.1 10*3/uL 2.0-7.7 [facility] Anion gap in Serum or Plasma Ordered By: Trudy Trejo on 07-23-2024 Anion gap [Moles/Vol] 16 mmol/L High 5-15 [facility] BUN/creatinine ratioOrdered By: Trudynadia Trejo on 07-23-2024 Urea nitrogen/Creatinine [Mass ratio] 26.4 mg/mg High 10-20 [facility] Basophil percentageOrdered B y: Trudy Trejo on 07-23-2024 Basophils/100 WBC (Bld) 0.4 % 0-[address] [facility] Bilirubin, totalOrdered By: Trudy Trejo on 07-23-2024 Bilirubin [Mass/Vol] 0.19 mg/dL 0.00-1.30 [facility] CBC W/Diff, Automatedon 07-11 Absolute Lymph 1.07 X10 3/uL Normal 0.83-4.51 [facility] Comment on above: Performed By: #### L 500.4050, L100.0100 #### [facility] [address], [address] Absolute Neut 3.1 X10 3/uL Normal 2.0-7.7 [facility] Comment on above: Performed By: #### L 500.4050, L100.0100 #### [facility] [address] [place], [address] Basophils/100 WBC (Bld) 0.4 % Normal 0-[address] [facility] Comment on above: Performed By: #### L 500.4050, L100.0100 #### [facility] [address] [place], [address] Eosinophils/100 WBC (Bld) 4.3 % Normal 0-5 [facility] Comment on above: Performed By: #### L 500.4050, L100.0100 #### [facility] [address] [place], [address] Erythrocyte distribution width (RBC) [Ratio] 14.5 % Normal 11.6-14.6 [facility] Comment on above: Performed By: #### L 500.4050, L100.0100 #### [facility] [address] [place], [address] Hematocrit (Bld) [Volume fraction] 38.0 % Normal 37-47 [facility] Comment on above: Performed By: #### L 500.4050, L100.0100 #### [facility] [address] [place], [address] Hemoglobin (Bld) [Mass/Vol] 12.9 g/dL Normal 12.0-15.0 [facility] Comment on above: Performed By: #### L 500.4050, L100.0100 #### [facility] [address] [place], [address] IG% 0.400 Normal 0.0-0.9 [facility] Comment on above: Result Comment: IG% - Immature Granulocytes (promyelocytes, myelocytes and metamyelocytes) > 1% indicates that a LEFT SHIFT is Present. Performed By: #### L 500.4050, L100.0100 #### [facility] [address] [place], [address] Lymphocytes/100 WBC (Bld) 22.8 % Normal 19-41 [facility] Comment on above: Performed By: #### L 500.4050, L100.0100 #### [facility] [address] [place], [address] MCH (RBC) [Entitic mass] 32.7 pg High 27.0-32.0 [facility] Comment on above: Performed By: #### L 500.4050, L100.0100 #### [facility] [address] [place], [address] MCHC (RBC) [Mass/Vol] 33.9 g/dL Normal 32-36 [facility] Comment on above: Performed By: #### L 500.4050, L100.0100 #### [facility] [address] [place], [address] MCV (RBC) [Entitic vol] 96.4 fL Normal 81-99 [facility] Comment on above: Performed By: #### L 500.4050, L100.0100 #### [facility] [address] [place], [address] Monocytes/100 WBC (Bld) 7.2 % Normal 0-10 [facility] Comment on above: Performed By: #### L 500.4050, L100.0100 #### [facility] [address] [place], [address] Neutrophils/100 WBC (Bld) 64.9 % Normal 47-70 [facility] Comment on above: Performed By: #### L 500.4050, L100.0100 #### [facility] [address] [place], [address] Nucleated RBC (Bld) [#/Vol] 0 10*3/uL Normal 0-5 [facility] Comment on above: Performed By: #### L 500.4050, L100.0100 #### [facility] [address] [place], [address] Platelet mean volume (Bld) [Entitic vol] 9.4 fL Normal 6.2-12.0 [facility] Comment on above: Performed By: #### L 500.4050, L100.0100 #### [facility] [address] [place], [address] Platelets (Bld) [#/Vol] 265 10*3/uL Normal 150-450 [facility] Comment on above: Performed By: #### L 500.4050, L100.0100 #### [facility] [address] [place], [address] RBC (Bld) [#/Vol] 3.94 10*6/uL Low 4.2-5.4 [facility] Comment on above: Performed By: #### L 500.4050, L100.0100 #### [facility] [address] [place], [address] RDW SD 50.7 fl High 35.1-43.9 [facility] Comment on above: Performed By: #### L 500.4050, L100.0100 #### [facility] [address] [place], [address] WBC (Bld) [#/Vol] 4.7 10*3/uL Normal 4.4-11.0 [facility] Comment on above: Performed By: #### L 500.4050, L100.0100 #### [facility] [address] [place], [address] Carbon dioxide, total [Moles /volume] in Central venous bloodOrdered By: Trudy Trejo on 07-23-2024 CO2 [Moles/Vol] 23.4 mmol/L 21.0-32.0 [facility] Chloride assayOrdered By: Shiva Trejo on 07-23-2024 Chloride [Moles/Vol] 99 mmol/L 98-108 [facility] Comprehensive Metabolic Prof ilon 07-23-2024 Albumin [Mass/Vol] 4.6 g/dL Normal 3.4-4.8 [facility] Comment on above: Performed By: #### L 500.4050, L100.0100 #### [facility] [address] [place], [address] Albumin/Globulin [Mass ratio] 1.6 {ratio} Normal 0.9-2.4 [facility] Comment on above: Performed By: #### L 500.4050, L100.0100 #### [facility] [address] [place], [address] ALK PHOS 48 U/L Normal 35-104 [facility] Comment on above: Performed By: #### L 500.4050, L100.0100 #### [facility] [address] [place], [address] ALT [Catalytic activity/Vol] 20 U/L Normal <=34 [facility] Comment on above: Performed By: #### L 500.4050, L100.0100 #### [facility] [address] [place], [address] AST [Catalytic activity/Vol] 20 U/L Normal <=31 [facility] Comment on above: Performed By: #### L 500.4050, L100.0100 #### [facility] [address] [place], [address] Bilirubin [Mass/Vol] 0.19 mg/dL Normal 0.00-1.30 [facility] Comment on above: Performed By: #### L 500.4050, L100.0100 #### [facility] [address] [place], [address] BUN/CRE 26.4 RATIO High 10-20 [facility] Comment on above: Performed By: #### L 500.4050, L100.0100 #### [facility] [address] [place], [address] Calcium [Mass/Vol] 9.9 mg/dL Normal 7.6-11.0 [facility] Comment on above: Performed By: #### L 500.4050, L100.0100 #### [facility] [address] [place], [address] Chloride [Moles/Vol] 99 mmol/L Normal 98-108 [facility] Comment on above: Performed By: #### L 500.4050, L100.0100 #### [facility] [address] [place], [address] CO2 [Moles/Vol] 23.4 mmol/L Normal 21.0-32.0 [facility] Comment on above: Performed By: #### L 500.4050, L100.0100 #### [facility] [address] [place], [address] Creatinine [Mass/Vol] 0.84 mg/dL Normal 0.70-1.20 [facility] Comment on above: Performed By: #### L 500.4050, L100.0100 #### [facility] [address] [place], [address] GAP 16 High 5-15 [facility] Comment on above: Performed By: #### L 500.4050, L100.0100 #### [facility] [address] [place], [address] GFR/1.73 sq M.predicted among non-blacks MDRD (S/P/Bld) [Vol rate/Area] 73 mL/min/{1.73_m2} Normal >60 [facility] Comment on above: Result Comment: mL/m in/1.73m2 CKD-EPI Creatinine Equation (2020) Performed By: #### L 500.4050, L100.0100 #### [facility] [address] [place], [address] Globulin (S) [Mass/Vol] 2.8 g/dL Normal 2.2-4.2 [facility] Comment on above: Performed By: #### L 500.4050, L100.0100 #### [facility] [address] [place], [address] Glucose [Mass/Vol] 113 mg/dL High 70-99 [facility] Comment on above: Performed By: #### L 500.4050, L100.0100 #### [facility] [address] [place], [address] Potassium [Moles/Vol] 3.7 mmol/L Normal 3.3-5.1 [facility] Comment on above: Performed By: #### L 500.4050, L100.0100 #### [facility] [address] [place], [address] Sodium [Moles/Vol] 137 mmol/L Normal 133-145 [facility] Comment on above: Performed By: #### L 500.4050, L100.0100 #### [facility] [address] [place], [address] T PROT 7.3 g/dL Normal 5.9-8.4 [facility] Comment on above: Performed By: #### L 500.4050, L100.0100 #### [facility] [address] [place], [address] Urea nitrogen [Mass/Vol] 22 mg/dL High 4-19 [facility] Comment on above: Performed By: #### L 500.4050, L100.0100 #### [facility] [address] [place], [address] Eosinophil percentageOrdered By: Trudy Trejo on 07-23-2024 Eosinophils/100 WBC (Bld) 4.3 % 0-5 [facility] Erythrocyte distribution wid th ratioOrdered By: Trudy Trejo on 07-23-2024 Erythrocyte distribution width (RBC) [Ratio] 14.5 % 11.6-14.6 [facility] Erythrocyte distribution wid th standard deviationOrdered By: Trudy Trejo on 07-23-2024 Erythrocyte distribution width (RBC) [Entitic vol] 50.7 fL High 35.1-43.9 [facility] GFR/1.73 sq M.predicted mervat g non-blacks MDRD (S/P/Bld) [Vol rate/Area]Ordered By: Trudy Trejo on 07-23-2024 Estimated GFR (MDRD) Non-Af Amer 73 >60 [facility] Comment on above: mL/min/1.73m2 CKD-EP I Creatinine Equation (2020) Hematocrit Auto (Bld) [Volum e fraction]Ordered By: Trudy Trejo on 07-23-2024 Hematocrit (Bld) [Volume fraction] 38.0 % 37-47 [facility] Hemoglobin measurementOrdere d By: Trudy Trejo on 07-23-2024 Hemoglobin (Bld) [Mass/Vol] 12.9 g/dL 12.0-15.0 [facility] Immature granulocytes/100 WB C Auto (Bld)Ordered By: Trudy Trejo on 07-23-2024 Immature granulocytes/100 WBC (Bld) 0.400 % 0.0-0.9 [facility] Comment on above: IG% - Immature Granu locytes (promyelocytes, myelocytes and metamyelocytes) > 1% indicates that a LEFT SHIFT is Present. Laboratory - Chemistry and C hemistry - challengeOrdered By: Trudy Trejo on 07-23-2024 AST [Catalytic activity/Vol] 20 U/L <32 [facility] Lymphocytes Auto (Unsp spec) [#/Vol]Ordered By: Trudy Trejo on 07-23-2024 Lymphocytes (Bld) [#/Vol] 1.07 10*3/uL 0.83-4.51 [facility] Lymphocytes/100 WBC Auto (Un sp spec)Ordered By: Trudy Trejo on 07-23-2024 Lymphocytes/100 WBC (Bld) 22.8 % 19-41 [facility] MCV (mean corpuscular volume ) determinationOrdered By: Trudy Trejo on 07-23-2024 MCV (RBC) [Entitic vol] 96.4 fL 81-[address] [facility] Mean corpuscular hemoglobin (MCH) determinationOrdered By: Trudy Trejo on 07-23-2024 MCH (RBC) [Entitic mass] 32.7 pg High 27.0-32.0 [facility] Mean corpuscular hemoglobin concentration (MCHC) determinationOrdered By: Trudy Trejo on 07-23-2024 MCHC (RBC) [Mass/Vol] 33.9 g/dL 32-36 [facility] Mean platelet volume determi nationOrdered By: Trudy Trejo on 07-23-2024 Platelet mean volume (Bld) [Entitic vol] 9.4 fL 6.2-12.0 [facility] Monocyte percentageOrdered B y: Trudy Trejo on 07-23-2024 Monocytes/100 WBC (Bld) 7.2 % 0-[address] [facility] Neutrophil percentageOrdered By: Trudy Trejo on 07-23-2024 Neutrophils/100 WBC (Bld) 64.9 % 47-70 [facility] Nucleated red blood cell per centageOrdered By: Trudy Trejo on 07-23-2024 Nucleated RBC/100 WBC (Bld) [Ratio] 0 % 0-5 [facility] Platelet countOrdered By: Shiva Trejo on 07-23-2024 Platelets (Bld) [#/Vol] 265 10*3/uL 150-450 [facility] Potassium (Unsp spec) [Mass/ Vol]Ordered By: Trudy Trejo on 07-23-2024 Potassium [Moles/Vol] 3.7 mmol/L 3.3-5.1 [facility] RBC Auto (Bld) [#/Vol]Ordere d By: Trudy Trejo on 07-23-2024 RBC (Bld) [#/Vol] 3.94 10*6/uL Low 4.2-5.4 [facility] Serum creatinine measurement (mass/volume)Ordered By: Trudy Trejo on 07-23-2024 Creatinine [Mass/Vol] 0.84 mg/dL 0.70-1.20 [facility] Serum globulin measurementOr dered By: Trudy Trejo on 07-23-2024 Globulin (S) [Mass/Vol] 2.8 g/dL 2.2-4.2 [facility] Serum glucose measurement (m ass/volume)Ordered By: Trudy Trejo on 07-23-2024 Glucose [Mass/Vol] 113 mg/dL High 70-99 [facility] Serum or plasma alanine singleton otransferase (ALT) measurementOrdered By: Trudy Trejo on 07-23-2024 ALT [Catalytic activity/Vol] 20 U/L <35 [facility] Serum or plasma albumin jasmine urement (mass/volume)Ordered By: Trudy Trejo on 07-23-2024 Albumin [Mass/Vol] 4.6 g/dL 3.4-4.8 [facility] Serum or plasma albumin/glob ulin mass ratioOrdered By: Trudy Trejo on 07-23-2024 Albumin/Globulin [Mass ratio] 1.6 {ratio} 0.9-2.4 [facility] Serum or plasma alkaline jerome sphatase measurementOrdered By: Trudy Trejo on 07-23-2024 ALP [Catalytic activity/Vol] 48 U/L 35-104 [facility] Serum or plasma calcium jasmine urement (mass/volume)Ordered By: Trudy Trejo on 07-23-2024 Calcium [Mass/Vol] 9.9 mg/dL 7.6-11.0 [facility] Serum or plasma urea nitroge n measurement (mass/volume)Ordered By: Trudy Trejo on 07-23-2024 Urea nitrogen [Mass/Vol] 22 mg/dL High 4-19 [facility] Sodium levelOrdered By: Nickie Trejo on 07-23-2024 Sodium [Moles/Vol] 137 mmol/L 133-145 [facility] Total proteinOrdered By: Che Trejo on 07-23-2024 Protein [Mass/Vol] 7.3 g/dL 5.9-8.4 [facility] White blood cell (WBC) count Ordered By: Trudy Trejo on 07-23-2024 WBC (Bld) [#/Vol] 4.7 10*3/uL 4.4-11.0 [facility] 37on 07-03-2024 37 Continue Primidone 200mg twice daily and Propranolol 60mg twice daily Increase Sinemet 25/100 to 1 tablet 4 times daily Continue with exercise Normal [facility] Office Visiton 07-03-2024 Follow-up visit [id number] Ariadna Lobato 1950 F Date Provider Department Center 07/03/2024 [id number] [facility] TANY[facility] None Family History Problem Relation Age of Onset Other Maternal Grandfather Other Mother Family Status - Relation Status Age at Maternal Grandfather Mother Level of Service:16453 [place] OFFICE/OUTPATIENT ESTABLISHED MOD MDM 30 MIN Reason for Visit and Comments: Follow-up [584495] Tremors [682523] Normal [facility] Progress Noteon 07-03-2024 Progress Note Visit type: Established Patient Reason for Visit: Follow-up and Tremors Assessment and Plan 1. Essential tremor 2. Restless legs syndrome Subjective HPI: Tremors began in 2014 Meds-Primidone, TPX, Propranolol, Klonopin (for RLS) Ropinirole caused nausea and she felt weird Pramipexole caused wt gain. Lamictal Sinemet was never started-ordered 01/2023 visit Increase Primidone to 200mg bid and continue Propranolol 60mg bid Increase Lamictal to 100mg qpm Lamictal stopped last OV due to being ineffective Continue Primidone 200mg bid and Propranolol 60mg bid Add Sinemet 25/100 1-2 tabs in the evening She says the Sinemet is not completely working The dosing in the evening is helping. Dosing at 5pm and 10pm She states that if she is not active during the day she can feel her legs moving. Also if active during the day, when she comes home her legs will start to move She reports that her tremors have not changed. On a stressful day or when doing something she does not want to do, the tremors are worse She attends an exercise class daily REVIEW OF SYSTEMS: Review of Systems Constitutional: Negative. HENT: Negative. Eyes: Negative. Respiratory: Negative. Cardiovascular: Negative. Gastrointestinal: Negative. Endocrine: Negative. Genitourinary: Negative. Musculoskeletal: Negative. Skin: Negative. Allergic/Immunologic : Negative. Neurological: Positive for tremors. RLS Hematological: Negative. Psychiatric/Behavior al: Negative. Allergies Allergen Reactions Ropinirole Nausea Only [place] weird as well as nauseous. Outpatient Medications Prior to Visit Medication Sig Dispense Refill atorvastatin (Lipitor) 10 MG tablet 10 MG ORALLY AT BEDTIME buPROPion SR (Wellbutrin SR) 150 MG 12 hr tablet Take 150 mg by mouth daily. denosumab (Prolia) 60 MG/ML solution prefilled syringe 60 mg. folic acid (Folvite) 1 MG tablet Take by mouth daily. levothyroxine (Synthroid, Levoxyl) 75 MCG tablet Take 75 mcg by mouth daily. methotrexate 2.5 MG tablet Take by mouth. primidone (Mysoline) 50 MG tablet Take 4 tablets (200 mg) by mouth 2 times daily. 720 tablet 3 propranolol (Inderal) 60 MG tablet Take 1 tablet (60 mg) by mouth 2 times daily. 180 tablet 3 sertraline (Zoloft) 25 MG tablet carbidopa-levodopa (Sinemet) 25-100 MG tablet Take 1-2 tabs in the evening 60 tablet 2 Calcium Carbonate-Vitamin D (Oyster Shell Calcium/D) 500-5 MG-MCG tablet Take 1 tablet by mouth in the morning and 1 tablet in the evening. Take with meals. (Patient not taking: Reported on 07/03/2024) lamoTRIgine (LaMICtal) 100 MG tablet Take 1 tablet (100 mg) by mouth every evening. 90 tablet 3 predniSONE (Deltasone) 10 MG tablet Take 10 mg by mouth daily. (Patient not taking: Reported on 07/03/2024) No facility-administere d medications prior to visit. Past Medical History: Diagnosis Date Anxiety Psoriatic arthritis (HCC) Restless leg Restless leg syndrome Thyroid disorder Tremor Social History Tobacco Use Smoking status: Never Smokeless tobacco: Never Substance Use Topics Alcohol use: Not Currently Past Surgical History: Procedure Laterality Date CATARACT EXTRACTION GALLBLADDER SURGERY KNEE SURGERY TOTAL ABDOMINAL HYSTERECTOMY Family History Problem Relation Name Age of Onset Other (79807) Maternal Grandfather Other ([id number]) Mother Objective Vitals: BP 98/65 (BP Location: Right arm, Patient Position: Sitting, BP Cuff Size: Adult) Pulse 61 Ht 5' 2 (1.575 m) Wt 145 lb (65.8 kg) BMI 26.52 kg/m? General Appearance: Patient is in no apparent distress. Head is normocephalic, atraumatic Cardiovascular: Regular rate and rhythm. No heart murmurs. No carotid bruit Neurologic: Mentation: Alert and oriented x 3 [address], [address] and time. Speech and Language: Speech and language normal Concentration and Attention: Concentration normal Memory: Memory normal Fund of Knowledge: Fund of knowledge normal Cranial Nerves: II, III, IV, V, , VII, VIII, IX, X, XI, XII examined and were intact. Motor: Strength: Strength 5 out of 5 with normal tone Alternating Movements: Normal Cogwheel Rigidity: None Tone: Tone is normal Tremor / Involuntary Movements: Head titubation Deep Tendon Reflexes: 1 out of 4 symmetrical in all four limbs. Sensory: Normal sensation upper and lower extremities Coordination: Normal coordination upper and lower extremities Gait and Station: Station is normal. Gait is normal Data Reviewed and Summarized DIAGNOSTIC TESTING CBC: No results found for: WBC, RBC, HGB, HCT, MCV, MCH, MCHC, RDW, PLT, MPV CMP: No results found for: NA, K, CL, CO2, BUN, CREATININE, AGRATIO, LABGLOM, GLUCOSE, GLU, PROT, CALCIUM, BILITOT, ALKPHOS, AST, ALT BMP: No results found for: NA, K, CL, CO2, BUN, CREATININE, CALCIUM, LABGLOM, GLUCOSE, GLU PT/INR: No resul (more content not included)... Normal [facility] Office Visit Reporton 2023 Office Visit Report [facility] [address] [place] [address] OFFICE VISIT Date of Service: 05/11/24 MR#: [id number] Acct: [id number] Patient: ARIADNA LOBATO Rep #: [id number] : 1950 Provider: GILBERTO NURSE Age/Sex: 73/F Location[place] [facility] Status: Signed Intake Vital Signs 04/14/24 09:53 Height 5 ft 3 in Weight: 145 lb BMI 25.7 BP 132/84 H Blood Pressure Location Lt brachial Position Sitting Respiration 14 Pulse 59 L Pulse Source Monitor Temp 97.5 F L Temp Source Temporal Pulse Oximetry (%) 95 Oxygen Delivery Method room air Intake Visit Reasons: PROLIA-$300 Chief Complaint: Annual Allergies No Known Allergies Allergy (Verified 04/14/24 09:47) Have you fallen in the past year?: No Office Procedures Injections Site of injection: Sub-Q Is this a patient provided medication?: No Office Meds Prolia 60 mg/mL subcutaneous syringe Performing Provider: Richard Moore MD Performing Location: [facility] Administered by: Josette Parkinson MA on 05/11/24 12:55 Dose Route Admin Location Dispensed Lot Number Expiration Date NDC Man ufacturer 60 mg subcut left sub Q 1 mL [id number] 09/09/26 80287-088-75 [employer] Assessment and Plan Assessment and Plan (1) Osteopenia: Status: Acute Qualifiers: Osteopenia location: multiple sites Qualified Code(s): M85.89 - Other specified disorders of bone density and structure, multiple sites Orders: Orders Prolia Injection 05/11/24 M81.0 - Age-related osteoporosis without current pathological fracture Clinical Quality Measures Falls Risk Screening/Assistive Devices Have you fallen in the past year?: No 05/12/24 1342 Date Richard Moore MD Cosigner Signature: Date (if applicable) CC: Normal [facility] 36on 05-04-2024 36 Patient has been rescheduled [facility] 36 Lm for patient to call the office back, please let her know that her appointment on 05/22/24 will need to be rescheduled due to provider being out of the office. [facility] Absolute neutrophil countOrd ered By: Trudy Trejo on 04-21-2024 Neutrophils (Bld) [#/Vol] 3.0 10*3/uL 2.0-7.7 [facility] Albumin to globulin ratioOrd ered By: Trudynadia Trejo on 04-21-2024 Albumin/Globulin [Mass ratio] 1.4 {ratio} 0.9-2.4 [facility] Basophil percentageOrdered B y: Trudy Trejo on 04-21-2024 Basophils/100 WBC (Bld) 0.2 % 0-[address] [facility] Bilirubin, totalOrdered By: Trudy Trjeo on 04-21-2024 Bilirubin [Mass/Vol] 0.50 mg/dL 0.20-1.00 [facility] Comment on above: For patients on eltr ombopag therapy, use of Dimension [place] TBIL is not recommended. Blood urea nitrogen (BUN)/cr eatinine ratioOrdered By: Trudy Trejo on 04-21-2024 Urea nitrogen/Creatinine [Mass ratio] 13.6 mg/mg 10-20 [facility] CBC W/Diff, Automatedon 04-12 Absolute Lymph 0.81 X10 3/uL Low 0.83-4.51 [facility] Comment on above: Performed By: #### L 500.4050, L100.0100 #### [facility] [address] [place], [address] Absolute Neut 3.0 X10 3/uL Normal 2.0-7.7 [facility] Comment on above: Performed By: #### L 500.4050, L100.0100 #### [facility] [address] [place], [address] Basophils/100 WBC (Bld) 0.2 % Normal 0-[address] [facility] Comment on above: Performed By: #### L 500.4050, L100.0100 #### [facility] [address] [facility] [place], [address] Eosinophils/100 WBC (Bld) 3.1 % Normal 0-5 [facility] Comment on above: Performed By: #### L 500.4050, L100.0100 #### [facility] [address] [place], [address] Erythrocyte distribution width (RBC) [Ratio] 14.2 % Normal 11.6-14.6 [facility] Comment on above: Performed By: #### L 500.4050, L100.0100 #### [facility] [address] [place], [address] Hematocrit (Bld) [Volume fraction] 36.7 % Low 37-47 [facility] Comment on above: Performed By: #### L 500.4050, L100.0100 #### [facility] [address] [place], [address] Hemoglobin (Bld) [Mass/Vol] 12.2 g/dL Normal 12.0-15.0 [facility] Comment on above: Performed By: #### L 500.4050, L100.0100 #### [facility] [address] [place], [address] IG% 0.200 Normal 0.0-0.9 [facility] Comment on above: Result Comment: IG% - Immature Granulocytes (promyelocytes, myelocytes and metamyelocytes) > 1% indicates that a LEFT SHIFT is Present. Performed By: #### L 500.4050, L100.0100 #### [facility] [address] [place], [address] Lymphocytes/100 WBC (Bld) 19.3 % Normal 19-41 [facility] Comment on above: Performed By: #### L 500.4050, L100.0100 #### [facility] [address] [place], [address] MCH (RBC) [Entitic mass] 32.7 pg High 27.0-32.0 [facility] Comment on above: Performed By: #### L 500.4050, L100.0100 #### [facility] [address] [place], [address] MCHC (RBC) [Mass/Vol] 33.2 g/dL Normal 32-36 [facility] Comment on above: Performed By: #### L 500.4050, L100.0100 #### [facility] [address] [place], [address] MCV (RBC) [Entitic vol] 98.4 fL Normal 81-99 [facility] Comment on above: Performed By: #### L 500.4050, L100.0100 #### [facility] [address] [place], [address] Monocytes/100 WBC (Bld) 6.2 % Normal 0-10 [facility] Comment on above: Performed By: #### L 500.4050, L100.0100 #### [facility] [address] [place], [address] Neutrophils/100 WBC (Bld) 71.0 % High 47-70 [facility] Comment on above: Performed By: #### L 500.4050, L100.0100 #### [facility] [address] [place], [address] Nucleated RBC (Bld) [#/Vol] 0 10*3/uL Normal 0-5 [facility] Comment on above: Performed By: #### L 500.4050, L100.0100 #### [facility] [address] [place], [address] Platelet mean volume (Bld) [Entitic vol] 9.7 fL Normal 6.2-12.0 [facility] Comment on above: Performed By: #### L 500.4050, L100.0100 #### [facility] [address] [place], [address] Platelets (Bld) [#/Vol] 237 10*3/uL Normal 150-450 [facility] Comment on above: Performed By: #### L 500.4050, L100.0100 #### [facility] [address] [place], [address] RBC (Bld) [#/Vol] 3.73 10*6/uL Low 4.2-5.4 [facility] Comment on above: Performed By: #### L 500.4050, L100.0100 #### [facility] [address] [place], [address] RDW SD 51.3 fl High 35.1-43.9 [facility] Comment on above: Performed By: #### L 500.4050, L100.0100 #### [facility] [address] [place], [address] WBC (Bld) [#/Vol] 4.2 10*3/uL Low 4.4-11.0 [facility] Comment on above: Performed By: #### L 500.4050, L100.0100 #### [facility] [address] [place], [address] Carbon dioxide measurementOr dered By: Trudy Trejo on 04-21-2024 CO2 [Moles/Vol] 25.0 mmol/L 21.0-32.0 [facility] Chloride measurementOrdered By: Trudy Trejo on 04-21-2024 Chloride [Moles/Vol] 103 mmol/L 98-107 [facility] Comprehensive Metabolic Prof ilon 04-21-2024 Albumin [Mass/Vol] 4.1 g/dL Normal 3.2-5.0 [facility] Comment on above: Performed By: #### L 500.4050, L100.0100 #### [facility] [address] [place], [address] Albumin/Globulin [Mass ratio] 1.4 {ratio} Normal 0.9-2.4 [facility] Comment on above: Performed By: #### L 500.4050, L100.0100 #### [facility] [address] [place], [address] ALK P 44 U/L Low 45-117 [facility] Comment on above: Performed By: #### L 500.4050, L100.0100 #### [facility] [address] [place], [address] ALT [Catalytic activity/Vol] 20 U/L Normal 13-56 [facility] Comment on above: Performed By: #### L 500.4050, L100.0100 #### [facility] [address] [place], [address] AST [Catalytic activity/Vol] 15 U/L Normal 15-37 [facility] Comment on above: Performed By: #### L 500.4050, L100.0100 #### [facility] [address] [place], [address] Bilirubin [Mass/Vol] 0.50 mg/dL Normal 0.20-1.00 [facility] Comment on above: Result Comment: For patients on eltrombopag therapy, use of Dimension [place] TBIL is not recommended. Performed By: #### L 500.4050, L100.0100 #### [facility] [address] [place], [address] BUN/CRE 13.6 RATIO Normal 10-20 [facility] Comment on above: Performed By: #### L 500.4050, L100.0100 #### [facility] [address] [place], [address] CA,Total 9.1 mg/dL Normal 8.5-10.1 [facility] Comment on above: Performed By: #### L 500.4050, L100.0100 #### [facility] [address] [place], [address] Chloride [Moles/Vol] 103 mmol/L Normal 98-107 [facility] Comment on above: Performed By: #### L 500.4050, L100.0100 #### [facility] [address] [place], [address] CO2 [Moles/Vol] 25.0 mmol/L Normal 21.0-32.0 [facility] Comment on above: Performed By: #### L 500.4050, L100.0100 #### [facility] [address] [place], [address] Creatinine [Mass/Vol] 0.96 mg/dL Normal 0.55-1.02 [facility] Comment on above: Result Comment: The validity of the calculated GFR GFRAA in patients over 70 years has not been determined. Clinical correlation is essential. Performed By: #### L 500.4050, L100.0100 #### [facility] [address] [place], [address] EST GFR - AA 73 mL/min Normal >60 [facility] Comment on above: Result Comment: Afri can Gabonese GFR Calc Performed By: #### L 500.4050, L100.0100 #### [facility] [address] [place], [address] GAP 8 Normal 5-15 [facility] Comment on above: Performed By: #### L 500.4050, L100.0100 #### [facility] [address] [place], [address] GFR/1.73 sq M.predicted among non-blacks MDRD (S/P/Bld) [Vol rate/Area] 61 mL/min/{1.73_m2} Normal >60 [facility] Comment on above: Result Comment: Non- GFR Calc Performed By: #### L 500.4050, L100.0100 #### [facility] [address] [place], [address] Globulin (S) [Mass/Vol] 3.0 g/dL Normal 2.2-4.2 [facility] Comment on above: Performed By: #### L 500.4050, L100.0100 #### [facility] [address] [place], [address] Glucose [Mass/Vol] 123 mg/dL High 74-106 [facility] Comment on above: Result Comment: Fast ing Glucose result from 100 to 125 mg/dL suggests IMPAIRED HOMEOSTASIS per A.D.A. criteria. Performed By: #### L 500.4050, L100.0100 #### [facility] [address] [place], [address] Potassium [Moles/Vol] 4.2 mmol/L Normal 3.5-5.1 [facility] Comment on above: Performed By: #### L 500.4050, L100.0100 #### [facility] [address] [place], [address] Sodium [Moles/Vol] 136 mmol/L Normal 136-145 [facility] Comment on above: Performed By: #### L 500.4050, L100.0100 #### [facility] [address] [place], [address] T PROT 7.1 g/dL Normal 6.4-8.2 [facility] Comment on above: Performed By: #### L 500.4050, L100.0100 #### [facility] [address] [place], [address] Urea nitrogen [Mass/Vol] 13 mg/dL Normal 7-18 [facility] Comment on above: Performed By: #### L 500.4050, L100.0100 #### [facility] [address] [place], [address] Eosinophil percentageOrdered By: Trudy Trejo on 04-21-2024 Eosinophils/100 WBC (Bld) 3.1 % 0-5 [facility] Erythrocyte distribution wid th ratioOrdered By: Trudy Trejo on 04-21-2024 Erythrocyte distribution width (RBC) [Ratio] 14.2 % 11.6-14.6 [facility] Erythrocyte distribution wid th standard deviationOrdered By: Trudynadia Trejo on 04-21-2024 Erythrocyte distribution width (RBC) [Entitic vol] 51.3 fL High 35.1-43.9 [facility] Estimated glomerular filtrat ion rate (GFR) AmericanOrdered By: Trudy Trejo on 04-21-2024 Estimated GFR (MDRD) Amer 73 mL/min >60 [facility] Comment on above: GFR Calc Glomerular filtration rate ( GFR) estimationOrdered By: Trudy Trejo on 04-21-2024 Estimated GFR (MDRD) Non-Af Amer 61 mL/min >60 [facility] Comment on above: Non- GFR Calc Glucose measurementOrdered B y: Trudy Trejo on 04-21-2024 Glucose [Mass/Vol] 123 mg/dL High 74-106 [facility] Comment on above: Fasting Glucose resu lt from 100 to 125 mg/dL suggests IMPAIRED HOMEOSTASIS per A.D.A. criteria. Hematocrit Auto (Bld) [Volum e fraction]Ordered By: Trudy Trejo on 04-21-2024 Hematocrit (Bld) [Volume fraction] 36.7 % Low 37-47 [facility] Hemoglobin measurementOrdere d By: Trudy Trejo on 04-21-2024 Hemoglobin (Bld) [Mass/Vol] 12.2 g/dL 12.0-15.0 [facility] Immature granulocytes/100 WB C Auto (Bld)Ordered By: Trudy Trejo on 04-21-2024 Immature granulocytes/100 WBC (Bld) 0.200 % 0.0-0.9 [facility] Comment on above: IG% - Immature Granu locytes (promyelocytes, myelocytes and metamyelocytes) > 1% indicates that a LEFT SHIFT is Present. Laboratory - Chemistry and C hemistry - challengeOrdered By: Trudy Trejo on 04-21-2024 AST [Catalytic activity/Vol] 15 U/L 15-37 [facility] Lymphocytes Auto (Unsp spec) [#/Vol]Ordered By: Trudy Trejo on 04-21-2024 Lymphocytes (Bld) [#/Vol] 0.81 10*3/uL Low 0.83-4.51 [facility] Lymphocytes/100 WBC Auto (Un sp spec)Ordered By: Trudy Trejo on 04-21-2024 Lymphocytes/100 WBC (Bld) 19.3 % 19-41 [facility] MCV (mean corpuscular volume ) determinationOrdered By: Trudy Trejo on 04-21-2024 MCV (RBC) [Entitic vol] 98.4 fL 81-[address] [facility] Mean corpuscular hemoglobin (MCH) determinationOrdered By: Trudy Trejo on 04-21-2024 MCH (RBC) [Entitic mass] 32.7 pg High 27.0-32.0 [facility] Mean corpuscular hemoglobin concentration (MCHC) determinationOrdered By: Trudy Trejo on 04-21-2024 MCHC (RBC) [Mass/Vol] 33.2 g/dL 32-36 [facility] Mean platelet volume determi nationOrdered By: Trudy Trejo on 04-21-2024 Platelet mean volume (Bld) [Entitic vol] 9.7 fL 6.2-12.0 [facility] Monocyte percentageOrdered B y: Trudy Trejo on 04-21-2024 Monocytes/100 WBC (Bld) 6.2 % 0-[address] [facility] Neutrophil percentageOrdered By: Trudy Trejo on 04-21-2024 Neutrophils/100 WBC (Bld) 71.0 % High 47-70 [facility] Nucleated red blood cell per centageOrdered By: Trudy Trejo on 04-21-2024 Nucleated RBC/100 WBC (Bld) [Ratio] 0 % 0-5 [facility] Platelet countOrdered By: Shiva Trejo on 04-21-2024 Platelets (Bld) [#/Vol] 237 10*3/uL 150-450 [facility] Potassium measurementOrdered By: Trudy Trejo on 04-21-2024 Potassium [Moles/Vol] 4.2 mmol/L 3.5-5.1 [facility] RBC Auto (Bld) [#/Vol]Ordere d By: Trudy Trejo on 04-21-2024 RBC (Bld) [#/Vol] 3.73 10*6/uL Low 4.2-5.4 [facility] Serum anion gap measurementO rdered By: Trudy Trejo on 04-21-2024 Anion gap [Moles/Vol] 8 mmol/L 5-15 [facility] Serum globulin measurementOr dered By: Trudy Trejo on 04-21-2024 Globulin (S) [Mass/Vol] 3.0 g/dL 2.2-4.[address] [facility] Serum or plasma alanine singleton otransferase (ALT) measurementOrdered By: Turdy Trejo on 04-21-2024 ALT [Catalytic activity/Vol] 20 U/L 13-56 [facility] Serum or plasma albumin jasmine urement (mass/volume)Ordered By: Trudy Trejo on 04-21-2024 Albumin [Mass/Vol] 4.1 g/dL 3.2-5.0 [facility] Serum or plasma alkaline jerome sphatase measurementOrdered By: Trudy Trejo on 04-21-2024 ALP [Catalytic activity/Vol] 44 U/L Low 45-117 [facility] Serum or plasma calcium jasmine urement (mass/volume)Ordered By: Trudy Trejo on 04-21-2024 Calcium [Mass/Vol] 9.1 mg/dL 8.5-10.1 [facility] Serum or plasma creatinine m easurement (mass/volume)Ordered By: Trudy Trejo on 04-21-2024 Creatinine [Mass/Vol] 0.96 mg/dL 0.55-1.02 [facility] Comment on above: The validity of the calculated GFR & GFRAA in patients over 70 years has not been determined. Clinical correlation is essential. Serum or plasma urea nitroge n measurement (mass/volume)Ordered By: Trudy Trejo on 04-21-2024 Urea nitrogen [Mass/Vol] 13 mg/dL 7-18 [facility] Sodium levelOrdered By: Nickie Trejo on 04-21-2024 Sodium [Moles/Vol] 136 mmol/L 136-145 [facility] Thyroid Stim Hormone (TSH)on 04-21-2024 TSH 2.990 uIU/mL Normal 0.358-3.740 [facility] Comment on above: Performed By: #### L 500.4050, L100.0100 #### [facility] [address] [place], [address] Total proteinOrdered By: Che Trejo on 04-21-2024 Protein [Mass/Vol] 7.1 g/dL 6.4-8.2 [facility] White blood cell (WBC) count Ordered By: Trudy Trejo on 04-21-2024 WBC (Bld) [#/Vol] 4.2 10*3/uL Low 4.4-11.0 [facility] Internal Medicine Office Vis iton 04-13-2024 Internal Medicine Office Visit [facility] [address] [place], [place] [address] OFFICE VISIT Date of Service: 04/14/24 MR#: [id number] Acct: [id number] Name: ARIADNA LOBATO Rep #: [id number] : 1950 Provider: Dr. Kelley severino MD Age/Sex: 73/F Location[facility] Status: Signed Intake Vital Signs 03/10/24 09:06 03/30/24 09:03 04/14/24 09:53 Height 5 ft 3 in 5 ft 3 in 5 ft 3 in Weight: 145 lb BMI 25.7 BP 132/84 H Blood Pressure Location Lt brachial Position Sitting Respiration 14 Pulse 59 L Pulse Source Monitor Temp 97.5 F L Temp Source Temporal Pulse Oximetry (%) 95 Oxygen Delivery Method room air Intake Visit Reasons: 5 WK FU Sheriffs Required: No Is patient in pain?: No Allergies No Known Allergies Allergy (Verified 04/14/24 09:47) Medications ???Medication ???Instructions ???Recorded ???Confirmed ???Type prednisone 10 mg tablet 10 mg PO DAILY PRN 01/13/19 04/14/24 History folic acid 1 mg tablet 1 mg PO BID 02/21/21 04/14/24 History methotrexate sodium 2.5 mg tablet 2.5 mg PO QWEEK 02/21/21 04/14/24 History propranolol 60 mg capsule,24 60 mg PO DAILY 02/26/22 04/14/24 History hr,extended release primidone 50 mg tablet 100 mg PO BID 07/05/22 04/14/24 History cholecalciferol (vitamin D3) 125 125 mcg PO DAILY 02/14/23 04/14/24 History mcg (5,000 unit) capsule denosumab 60 mg/mL subcutaneous 60 mg subcut [id number] #1 mL 04/08/23 04/14/24 Rx syringe (Prolia) atorvastatin 10 mg tablet (Lipitor) 10 mg PO QHS #90 tabs 03/10/24 04/14/24 Rx carbidopa 25 mg-levodopa 100 mg tab PO 03/10/24 04/14/24 History tablet levothyroxine 88 mcg tablet 88 mcg PO DAILY #30 tabs 03/10/24 04/14/24 Rx bupropion HCl 150 mg tablet,12 hr 150 mg PO BID #180 ea 04/14/24 04/14/24 Rx sustained-release (Wellbutrin SR) chlorhexidine gluconate 0.12 % 15 ml buccal BID #300 mL 04/14/24 04/14/24 Rx mouthwash sertraline 50 mg tablet 50 mg PO DAILY #90 tabs 04/14/24 04/14/24 Rx Have you fallen in the past year?: No Nurse's Note: Needs wellbutrin refilled. States she will need a new script for increased zoloft dose. Is feeling well not having any side effects. 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 She is due for some follow up blood work and is up to date on her screening.??? She isn't due for any immunizations.??? She doesn't smoke and does need refills today.??? She reports she is eating healthy and is trying to stay active.??? She continues to do her exercise classes at [facility], around 4 days per week. She takes her thyroid medication first thing in the morning before anything else.??? She denies any problems with the medication.??? At her last office visit, her dose was increased. She reports that she hasn't noticed any problems with it. The patient is on primidone and propranolol for her essential tremor and sinemet for her RLS. She reports that she follows with Dr. Christopher, neurology, who manages these medications.??? She states her tremors are about the same. She was previously on clonazepam for years, but since it was weaned, she has had trouble with it. She reports her appointment last month had to be rescheduled. She does think the medication is helping some, but she feels it may need to be tweaked a little. The patient follows with rheumatology for psoriatic arthritis.??? She is taking her medications as prescribed without problems.?? (more content not included)... Normal [facility] Entry Level Business Analyst Office Visit Reporton 03-30-2024 Entry Level Business Analyst Office Visit Report [facility] [address], [address] [place] [address] OFFICE VISIT Date of Service: 03/30/24 MR#: [id number] Acct: [id number] Name: ARIADNA LOBATO Rep #: [id number] : 1950 Provider: Dr. Kiana garcia MD Age/Sex: 73/F Location: 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) Chief Complaint: Annual Sheriffs Required: No Is patient in pain?: No Feel stressed/tense/nervo us/anxious/difficult y sleeping: not at all Allergies No Known Allergies Allergy (Verified 03/30/24 09:04) Medications ???Medication ???Instructions ???Recorded ???Confirmed ???Type prednisone 10 mg tablet 10 mg PO DAILY PRN 01/13/19 03/30/24 History folic acid 1 mg tablet 1 mg PO BID 02/21/21 03/30/24 History methotrexate sodium 2.5 mg tablet 2.5 mg PO QWEEK 02/21/21 03/30/24 History propranolol 60 mg capsule,24 60 mg PO DAILY 02/26/22 03/30/24 History hr,extended release primidone 50 mg tablet 100 mg PO BID 07/05/22 03/30/24 History cholecalciferol (vitamin D3) 125 125 mcg PO DAILY 02/14/23 03/30/24 History mcg (5,000 unit) capsule denosumab 60 mg/mL subcutaneous 60 mg subcut [id number] #1 mL 04/08/23 03/30/24 Rx syringe (Prolia) bupropion HCl 150 mg tablet,12 hr 150 mg PO BID #180 ea 09/09/23 03/30/24 Rx sustained-release (Wellbutrin SR) sertraline 25 mg tablet (Zoloft) 25 mg PO DAILY #90 tabs 09/30/23 03/30/24 Rx atorvastatin 10 mg tablet (Lipitor) 10 mg PO QHS #90 tabs 03/10/24 03/30/24 Rx carbidopa 25 mg-levodopa 100 mg tab PO 03/10/24 03/30/24 History tablet levothyroxine 88 mcg tablet 88 mcg PO DAILY #30 tabs 03/10/24 03/30/24 Rx Is last menstrual period known: No Post menopausal: Yes Patient : No : No PFSH Medical History Cataract of right eye Essential tremor Shoulder pain Hypothyroid Psoriatic arthritis Melanoma Surgical History History of ankle surgery S/P left cataract extraction History of cholecystectomy Normal colonoscopy H/O: hysterectomy Family History Father Cancer lung and liver Mother Diabetes History of high cholesterol Daughter Thyroid disorder Sjogren's disease Daughter Thyroid disorder Sandra's Sister Breast cancer Social History household members: other details: daughter lives with her number of children: 3 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 Date Name GA/Weeks Outcome Route Bth Weight Gen Labor Lgth Anesthesia Del [facility] Provider FOB Unknown Ivonne 1978 Unknown Rodolfo 1981 Unknown Elver 1984 HPI Encounter for routine gynecological examination Details: ARIADNA LOBATO is a 73 year old who presents for annual exam. Last PAP: Hyst History of abnormal PAP: Last mammogram: 03/20/2024 - normal, dense breasts History of abnormal mammogram: Colon cancer screening: colonoscopy will be due in 2025 Other preventative health care screenings: Dr. Maldonado - PCP monitors routine labs ROS Const Constitutional: Reports as per HPI; Denies fatigue, increased appetite, poor appetite, weight gain or weight loss Cardio Card: Denies chest pain Resp Resp: Denies cough or dyspnea GI GI: Reports as per HPI; Denies abdominal pain, bloating, constipation, nausea or vomiting : Reports as per HPI, urinary frequency and other; Denies difficulty voiding, dysuria, hematuria, nipple discharge, pelvic pain, prolapse symptoms, urinary incontinence, urinary urgency, vaginal discharge, vaginal dryness, vaginal odor or vaginal pruritus Skin Skin/Breast: Denies changing lesions, breast mass, breast pain, breast skin changes or nipple discharge Psych Psych: Denies anxiety or depression Exam Const General: cooperative, healthy appearing, comfortable, no acute distress, well (more content not included)... Normal [facility] SCRN MAMM (CAD)W/SRIRAM BILATo n 03-20-2024 SCRN MAMM (CAD)W/SRIRAM BILAT [facility] Imaging Services [address] [place], [place] [address] SCRN MAMM (CAD)W/SRIRAM BILAT MR#: [id number] Acct: [id number] Name: ARIADNA LOBATO Rep #: [id number] : 1950 F 73 From: Uday branch MD PCP: Dr. Kelley Maldonado MD Status: REG [facility] Study: SCRN MAMM (CAD)W/SRIRAM BILAT Date of Exam: 01/03 Exam# [id number] Ordering Dr: Kiana Giraldo [id number] MAMMOGRAPHY - BILATERAL SCREENING REASON FOR EXAM: Female, 73 years old. Routine annual screening examination. PERTINENT HISTORY: Sister with breast cancer. TECHNIQUE: Digital bilateral breast sriram (3D mammographic acquisition) in the CC and MLO projections. 2-D mediolateral oblique (MLO) and craniocaudad (CC) views of both breasts were obtained. CAD: Full Field Digital Mammography with Computer Added Detection was performed. COMPARISON: Comparison is made with prior study March 19, 2023 and February 22, 2022. FINDINGS: Breast Composition: The breasts are extremely dense, which lowers the sensitivity of mammography. There are no dominant masses or suspicious calcifications. Stable scattered bilateral calcifications. No other significant abnormalities are identified. There has been no significant change since the prior study. BI/SCRN MAMM (CAD)W/SRIRAM BILAT IMPRESSION: Stable bilateral screening mammogram. Yearly follow-up mammogram recommended. (A) ASSESSMENT CATEGORY: BIRADS Category 2: Benign. A letter regarding these results will be sent to the patient by the facility within 30 days. Approximately 10% of breast cancers are not detected by mammography. A normal mammogram should not delay biopsy of a clinically suspicious abnormality. [id number] Electronically Signed: Uday Delgado MD at 9:52 EST Reading Location ID and State: [facility] / [place] , Service support , CC: Dr. Kelley Maldonado MD; Dr. 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 [place], [place], [id number] (061) Cholesterol in HDL [Mass/Vol] 116 mg/dL Normal [facility] Comment on above: Result Comment: The drugs N-Acetylcysteine and Metamizole may falsely depress this assay. Reference Range HDL <40 mg/dL Low HDL Cholesterol HDL >or= 60 mg/dL High HDL Cholesterol Performed By: #### L 506.1000, L501.9520, L500.4100 #### [facility] [address] [place], [place], [id number] (428) Cholesterol in LDL [Mass/Vol] 77 mg/dL Normal 0-130 [facility] Comment on above: Performed By: #### L 506.1000, L501.9520, L500.4100 #### [facility] [address] [place], [address] Cholesterol in VLDL [Mass/Vol] 22 mg/dL Normal 5-40 [facility] Comment on above: Performed By: #### L 506.1000, L501.9520, L500.4100 #### [facility] [address] [place], [address] Triglyceride [Mass/Vol] 112 mg/dL Normal [facility] Comment on above: Result Comment: The drugs N-Acetylcysteine and Metamizole may falsely depress this assay. Serum Triglycerides Reference Interval Normal <150 mg/dL Borderline high 150 - 199 mg/dL High 200 - 499 mg/dL Very High > or = 500 mg/dL Performed By: #### L 506.1000, L501.9520, L500.4100 #### [facility] [address] [place], [address] Thyroid Stim Hormone (TSH)on 03-10-2024 TSH 4.440 uIU/mL High 0.358-3.740 [facility] Comment on above: Performed By: #### L 506.1000, L501.9520, L500.4100 #### [facility] [address] [place], [address] Vitamin D,25 Hydroxyon 03-10 Vitamin D 25-OH 44.6 ng/mL Normal [facility] Comment on above: Result Comment: Tara min D 25(OH) Status Range Deficiency <20 ng/mL (50nmol/L) Insufficiency 20 - 30 ng/mL (50 - 75 nmol/L) Sufficiency 30 - 100 ng/mL (75 - 250 nmol/L) Toxicity >100 ng/mL (>250 nmol/L) Performed By: #### L 506.1000, L501.9520, L500.4100 #### [facility] [address] [place], [address] Internal Medicine Office Vis itomark 03-09-2024 Internal Medicine Office Visit [facility] [address] [place] [address] OFFICE VISIT Date of Service: 03/10/24 MR#: [id number] Acct: [id number] Name: ARIADNA LOBATO Rep #: [id number] : 1950 Provider: Dr. Kelley severino MD Age/Sex: 73/F Location: [facility] Status: Signed Intake Vital Signs 08/26/23 09:56 03/10/24 09:06 Height 5 ft 3 in 5 ft 3 in Weight: 143 lb BMI 25.3 BP 120/78 Blood Pressure Location Lt brachial Position Sitting Respiration 16 Pulse 72 Pulse Source Monitor Temp 97.2 F L Temp Source Temporal Pulse Oximetry (%) 99 Oxygen Delivery Method room air Intake Visit Reasons: 6 m fu Chief Complaint: 6 M FU Sheriffs Required: No Is patient in pain?: No Allergies No Known Allergies Allergy (Verified 03/10/24 08:59) Medications ???Medication ???Instructions ???Recorded ???Confirmed ???Type prednisone 10 mg tablet 10 mg PO DAILY PRN 01/13/19 03/10/24 History folic acid 1 mg tablet 1 mg PO BID 02/21/21 03/10/24 History methotrexate sodium 2.5 mg tablet 2.5 mg PO QWEEK 02/21/21 03/10/24 History propranolol 60 mg capsule,24 60 mg PO DAILY 02/26/22 03/10/24 History hr,extended release primidone 50 mg tablet 100 mg PO BID 07/05/22 03/10/24 History cholecalciferol (vitamin D3) 125 125 mcg PO DAILY 02/14/23 03/10/24 History mcg (5,000 unit) capsule denosumab 60 mg/mL subcutaneous 60 mg subcut [id number] #1 mL 04/08/23 03/10/24 Rx syringe (Prolia) bupropion HCl 150 mg tablet,12 hr 150 mg PO BID #180 ea 09/09/23 03/10/24 Rx sustained-release (Wellbutrin SR) sertraline 25 mg tablet (Zoloft) 25 mg PO DAILY #90 tabs 09/30/23 03/10/24 Rx levothyroxine 75 mcg tablet 75 mcg PO DAILY #90 tabs 01/03/24 03/10/24 Rx atorvastatin 10 mg tablet (Lipitor) 10 mg PO QHS #90 tabs 03/10/24 03/10/24 Rx carbidopa 25 mg-levodopa 100 mg tab PO 03/10/24 03/10/24 History tablet Have you fallen in the past year?: No Nurse's Note: Needs lipitor refilled. States her mental health needs addressed, has been doing wellbutrin and zoloft, but feels it is not helping. States she has taken 2 antidepressants along w/ it. Feels wellbutrin did help but not much anymore. States she is feeling more anxious and depressed. Thinks this in a general feeling, but daughter recently moved out. States she already got a flu shot w/ covid vaccine at [facility]. 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 She is due for some routine blood work and is up to date on her screening.??? She isn't due for any immunizations.??? She doesn't smoke and does not need refills today.??? She reports she is eating healthy and is trying to stay active.??? She continues to do her exercise classes at [facility], around 4 days per week. She takes her thyroid medication first thing in the morning before anything else.??? She denies any problems with the medication.??? She reports her last thyroid level was in normal range. The patient has a history of prediabetes.??? She is not on any medications.??? She doesn't check her sugars at home, but does try to monitor her carbohydrate and sugar intake. The patient is on primidone and propranolol for her essential tremor and sinemet for her RLS. She reports that she follows with Dr. Christopher, neurology, who manages these medications.??? She states her tremors are about the same. They are still trying to find an appropriate t (more content not included)... Normal [facility] 36on 02-07-2024 36 patient has been notified of providers message [facility] 36 Please let pt know that her blood work is all NORMAL [facility] Office Visiton 02-06-2024 Follow-up visit [id number] Ariadna Lobato 1950 F Date Provider Department Center 02/06/2024 [id number] [facility] None Family History Problem Relation Age of Onset Other Maternal Grandfather Other Mother Family Status - Relation Status Age at Maternal Grandfather Mother Level of Service:[address] [place] OFFICE/OUTPATIENT ESTABLISHED MOD MDM 30 MIN Reason for Visit and Comments: Follow-up [636796] Tremors [[id number]] [facility] PATINSon 02-06-2024 PATINS Continue Primidone 200mg twice daily and Propranolol 60mg twice daily Stop taking Lamictal as it is not helping Start Sinemet (Carbidopa/Levodopa) 25/100 1-2 tabs in the evening If able take 1 tab prior to supper and if needed later in the evening Continue with exercise Normal [facility] Progress Noteon 02-06-2024 Progress Note Visit type: Established Patient Reason for Visit: Follow-up and Tremors Assessment and Plan 1. Essential tremor 2. Restless legs syndrome - Ferritin - Iron and TIBC 3. Iron deficiency - Ferritin - Iron and TIBC Subjective HPI: Tremors began in 2014 Meds-Primidone, TPX, Propranolol, Klonopin (for RLS) Ropinirole caused nausea and she felt weird Pramipexole caused wt gain. Lamictal Sinemet was never started-ordered 01/2023 She went October 2022 to October 2023 without a visit Last visit- Increase Primidone to 200mg bid and continue Propranolol 60mg bid Increase Lamictal to 100mg qpm She says she is able to do anything She states the tremors are all through me If she can keep her head stationary, nothing else moves Tremors do not wake her at night She is able to drive She attends an exercise class 4 times weekly Worse when tired or stressed She does not feel that Lamictal is helping RLS sx began around 8-9pm Does not happen every night She reports issues with balance No falls REVIEW OF SYSTEMS: Review of Systems Constitutional: Negative. HENT: Negative. Eyes: Negative. Respiratory: Negative. Cardiovascular: Negative. Gastrointestinal: Negative. Endocrine: Negative. Genitourinary: Negative. Musculoskeletal: Positive for gait problem. Skin: Negative. Allergic/Immunologic : Negative. Neurological: Positive for tremors. RLS Hematological: Negative. Psychiatric/Behavior al: Negative. Allergies Allergen Reactions Ropinirole Nausea Only [place] weird as well as nauseous. Outpatient Medications Prior to Visit Medication Sig Dispense Refill atorvastatin (Lipitor) 10 MG tablet 10 MG ORALLY AT BEDTIME buPROPion SR (Wellbutrin SR) 150 MG 12 hr tablet Take 150 mg by mouth daily. Calcium Carbonate-Vitamin D (Oyster Shell Calcium/D) 500-5 MG-MCG tablet Take 1 tablet by mouth in the morning and 1 tablet in the evening. Take with meals. denosumab (Prolia) 60 MG/ML solution prefilled syringe 60 mg. folic acid (Folvite) 1 MG tablet Take by mouth daily. lamoTRIgine (LaMICtal) 100 MG tablet Take 1 tablet (100 mg) by mouth every evening. 90 tablet 3 levothyroxine (Synthroid, Levoxyl) 75 MCG tablet Take 75 mcg by mouth daily. methotrexate 2.5 MG tablet Take by mouth. predniSONE (Deltasone) 10 MG tablet Take 10 mg by mouth daily. primidone (Mysoline) 50 MG tablet Take 4 tablets (200 mg) by mouth 2 times daily. 720 tablet 3 propranolol (Inderal) 60 MG tablet Take 1 tablet (60 mg) by mouth 2 times daily. 180 tablet 3 sertraline (Zoloft) 25 MG tablet pramipexole (Mirapex) 0.25 MG tablet TAKE 1 TO 2 TABLETS 1 HOUR PRIOR TO BEDTIME AND MAY TAKE 1 TABLET EARLIER IN THE DAY IF NEEDED DIRECTED 270 tablet 3 carbidopa-levodopa (Sinemet) 25-100 MG tablet Take 1 tablet by mouth Nightly. (Patient not taking: Reported on 11/07/2023) 30 tablet 3 No facility-administere d medications prior to visit. Past Medical History: Diagnosis Date Anxiety Psoriatic arthritis (HCC) Restless leg Restless leg syndrome Thyroid disorder Tremor Social History Tobacco Use Smoking status: Never Smokeless tobacco: Never Substance Use Topics Alcohol use: Not Currently Past Surgical History: Procedure Laterality Date CATARACT EXTRACTION GALLBLADDER SURGERY KNEE SURGERY TOTAL ABDOMINAL HYSTERECTOMY Family History Problem Relation Name Age of Onset Other (26850) Maternal Grandfather Other (74614) Mother Objective Vitals: BP 126/67 (BP Location: Left arm, Patient Position: Sitting, BP Cuff Size: Adult) Pulse 62 Ht 5' 2 (1.575 m) Wt 145 lb 9.6 oz (66 kg) BMI 26.63 kg/m? General Appearance: Patient is in no apparent distress. Head is normocephalic, atraumatic Cardiovascular: Regular rate and rhythm. No heart murmurs. No carotid bruit Neurologic: Mentation: Alert and oriented x 3 to person, place and time. Speech and Language: Speech and language normal Concentration and Attention: Concentration normal Memory: Memory normal Fund of Knowledge: Fund of knowledge normal Cranial Nerves: II, III, IV, V, , VII, VIII, IX, X, XI, XII examined and were intact. Motor: Strength: Strength 5 out of 5 with normal tone Alternating Movements: Normal Cogwheel Rigidity: None Tone: Tone is normal Tremor / Involuntary Movements: Head titubation and bilateral hand tremors with activity Deep Tendon Reflexes: 1 out of 4 symmetrical in all four limbs. Sensory: Normal sensation upper and lower extremities Coordination: Normal coordination upper and lower extremities Gait and Station: Station is normal. Gait is normal Data Reviewed and Summarized DIAGNOSTIC TESTING CBC: No results found for: WBC, RBC, HGB, HCT, MCV, MCH, MCHC, RDW, PLT, MPV CMP: No results found for: NA, K, CL, CO2, BUN, CREATININE, AGRATIO, LABGLOM, GLUCOSE, GLU, PROT, CALCIUM, BILITOT, ALKPHOS, AST, ALT BMP (more content not included)... Normal [facility] CBC W/Diff, Automatedon 01-11 Absolute Lymph 0.86 X10 3/uL Normal 0.83-4.51 [facility] Comment on above: Performed By: #### L 500.4050, L100.0100 #### [facility] [address] [place], [address] Absolute Neut 2.8 X10 3/uL Normal 2.0-7.7 [facility] Comment on above: Performed By: #### L 500.4050, L100.0100 #### [facility] [address] [place], [address] Basophils/100 WBC (Bld) 0.7 % Normal 0-[address] [facility] Comment on above: Performed By: #### L 500.4050, L100.0100 #### [facility] [address] [place], [address] Eosinophils/100 WBC (Bld) 4.7 % Normal 0-5 [facility] Comment on above: Performed By: #### L 500.4050, L100.0100 #### [facility] [address] [place], [address] Erythrocyte distribution width (RBC) [Ratio] 14.9 % High 11.6-14.6 [facility] Comment on above: Performed By: #### L 500.4050, L100.0100 #### [facility] [address] [place], [address] Hematocrit (Bld) [Volume fraction] 35.7 % Low 37-47 [facility] Comment on above: Performed By: #### L 500.4050, L100.0100 #### [facility] [address] [place], [address] Hemoglobin (Bld) [Mass/Vol] 11.7 g/dL Low 12.0-15.0 [facility] Comment on above: Performed By: #### L 500.4050, L100.0100 #### [facility] [address] [place], [address] IG% 0.500 Normal 0.0-0.9 [facility] Comment on above: Result Comment: IG% - Immature Granulocytes (promyelocytes, myelocytes and metamyelocytes) > 1% indicates that a LEFT SHIFT is Present. Performed By: #### L 500.4050, L100.0100 #### [facility] [address] [place], [address] Lymphocytes/100 WBC (Bld) 20.0 % Normal 19-41 [facility] Comment on above: Performed By: #### L 500.4050, L100.0100 #### [facility] [address] [place], [address] MCH (RBC) [Entitic mass] 32.1 pg High 27.0-32.0 [facility] Comment on above: Performed By: #### L 500.4050, L100.0100 #### [facility] [address] [place], [address] MCHC (RBC) [Mass/Vol] 32.8 g/dL Normal 32-36 [facility] Comment on above: Performed By: #### L 500.4050, L100.0100 #### [facility] [address] [place], [address] MCV (RBC) [Entitic vol] 97.8 fL Normal 81-[address] [facility] Comment on above: Performed By: #### L 500.4050, L100.0100 #### [facility] [address] [place], [address] Monocytes/100 WBC (Bld) 8.8 % Normal 0-10 [facility] Comment on above: Performed By: #### L 500.4050, L100.0100 #### [facility] [address] [place], [address] Neutrophils/100 WBC (Bld) 65.3 % Normal 47-70 [facility] Comment on above: Performed By: #### L 500.4050, L100.0100 #### [facility] [address] [place], [address] Nucleated RBC (Bld) [#/Vol] 0 10*3/uL Normal 0-5 [facility] Comment on above: Performed By: #### L 500.4050, L100.0100 #### [facility] [address] [place], [address] Platelet mean volume (Bld) [Entitic vol] 10.1 fL Normal 6.2-12.0 [facility] Comment on above: Performed By: #### L 500.4050, L100.0100 #### [facility] [address] [place], [address] Platelets (Bld) [#/Vol] 244 10*3/uL Normal 150-450 [facility] Comment on above: Performed By: #### L 500.4050, L100.0100 #### [facility] [address] [place], [address] RBC (Bld) [#/Vol] 3.65 10*6/uL Low 4.2-5.4 [facility] Comment on above: Performed By: #### L 500.4050, L100.0100 #### [facility] [address] [place], [address] RDW SD 53.1 fl High 35.1-43.9 [facility] Comment on above: Performed By: #### L 500.4050, L100.0100 #### [facility] [address] [place], [address] WBC (Bld) [#/Vol] 4.3 10*3/uL Low 4.4-11.0 [facility] Comment on above: Performed By: #### L 500.4050, L100.0100 #### [facility] [address] [place], [address] Comprehensive Metabolic Prof ilon 01-30-2024 Albumin [Mass/Vol] 3.9 g/dL Normal 3.2-5.0 [facility] Comment on above: Performed By: #### L 506.1000, L501.9520, L500.4100 #### [facility] [address] [place], [address] Albumin/Globulin [Mass ratio] 1.1 {ratio} Normal 0.9-2.4 [facility] Comment on above: Performed By: #### L 506.1000, L501.9520, L500.4100 #### [facility] [address] [place], [address] ALK P 42 U/L Low 45-117 [facility] Comment on above: Performed By: #### L 506.1000, L501.9520, L500.4100 #### [facility] [address] [place], [address] ALT [Catalytic activity/Vol] 17 U/L Normal 13-56 [facility] Comment on above: Performed By: #### L 506.1000, L501.9520, L500.4100 #### [facility] [address] [place], [address] AST [Catalytic activity/Vol] 18 U/L Normal 15-37 [facility] Comment on above: Performed By: #### L 506.1000, L501.9520, L500.4100 #### [facility] [address] [place], [address] Bilirubin [Mass/Vol] 0.40 mg/dL Normal 0.20-1.00 [facility] Comment on above: Result Comment: For patients on eltrombopag therapy, use of Dimension [place] TBIL is not recommended. Performed By: #### L 506.1000, L501.9520, L500.4100 #### [facility] [address] [place], [address] BUN/CRE 14.8 RATIO Normal 10-20 [facility] Comment on above: Performed By: #### L 506.1000, L501.9520, L500.4100 #### [facility] [address] [place], [address] CA,Total 9.2 mg/dL Normal 8.5-10.1 [facility] Comment on above: Performed By: #### L 506.1000, L501.9520, L500.4100 #### [facility] [address] [place], [address] Chloride [Moles/Vol] 103 mmol/L Normal 98-107 [facility] Comment on above: Performed By: #### L 506.1000, L501.9520, L500.4100 #### [facility] [address] [place], [address] CO2 [Moles/Vol] 29.0 mmol/L Normal 21.0-32.0 [facility] Comment on above: Performed By: #### L 506.1000, L501.9520, L500.4100 #### [facility] [address] [place], [address] Creatinine [Mass/Vol] 0.95 mg/dL Normal 0.55-1.02 [facility] Comment on above: Result Comment: The validity of the calculated GFR GFRAA in patients over 70 years has not been determined. Clinical correlation is essential. Performed By: #### L 506.1000, L501.9520, L500.4100 #### [facility] [address] [place], [address] EST GFR - AA 74 mL/min Normal >60 [facility] Comment on above: Result Comment: Afri can Gabonese GFR Calc Performed By: #### L 506.1000, L501.9520, L500.4100 #### [facility] [address] [place], [address] GAP 4 Low 5-15 [facility] Comment on above: Performed By: #### L 506.1000, L501.9520, L500.4100 #### [facility] [address] [place], [address] GFR/1.73 sq M.predicted among non-blacks MDRD (S/P/Bld) [Vol rate/Area] 61 mL/min/{1.73_m2} Normal >60 [facility] Comment on above: Result Comment: Non- GFR Calc Performed By: #### L 506.1000, L501.9520, L500.4100 #### [facility] [address] [place], [address] Globulin (S) [Mass/Vol] 3.4 g/dL Normal 2.2-4.2 [facility] Comment on above: Performed By: #### L 506.1000, L501.9520, L500.4100 #### [facility] [address] [place], [address] Glucose [Mass/Vol] 109 mg/dL High 74-106 [facility] Comment on above: Result Comment: Fast ing Glucose result from 100 to 125 mg/dL suggests IMPAIRED HOMEOSTASIS per A.D.A. criteria. Performed By: #### L 506.1000, L501.9520, L500.4100 #### [facility] [address] [place], [address] Potassium [Moles/Vol] 4.1 mmol/L Normal 3.5-5.1 [facility] Comment on above: Performed By: #### L 506.1000, L501.9520, L500.4100 #### [facility] [address] [place], [address] Sodium [Moles/Vol] 136 mmol/L Normal 136-145 [facility] Comment on above: Performed By: #### L 506.1000, L501.9520, L500.4100 #### [facility] [address] [place], [address] T PROT 7.3 g/dL Normal 6.4-8.2 [facility] Comment on above: Performed By: #### L 506.1000, L501.9520, L500.4100 #### [facility] [address] [place], [address] Urea nitrogen [Mass/Vol] 14 mg/dL Normal 7-18 [facility] Comment on above: Performed By: #### L 506.1000, L501.9520, L500.4100 #### [facility] [address] [place], [address] Office Visiton 11-07-2023 Follow-up visit [id number] Ariadna Lobato 1950 F Date Provider Department Center 11/07/2023 19089[facility] None Family History Problem Relation Age of Onset Other Maternal Grandfather Other Mother Family Status - Relation Status Age at Maternal Grandfather Mother Level of Service:85962 [place] OFFICE/OUTPATIENT ESTABLISHED MOD MDM 30 MIN Reason for Visit and Comments: Follow-up [458634] Tremors [329129] Normal [facility] Progress Noteon 11-07-2023 Progress Note [facility] [address] [facility] [address] Dept: [phone] Dept Loc: [phone] Visit type: Established Patient Reason for Visit: Follow-up and Tremors Assessment and Plan 1. Essential tremor - propranolol (Inderal) 60 MG tablet; Take 1 tablet (60 mg) by mouth 2 times daily., Starting Peggy 11/07/2023, Until Sat11/06/2024, Normal - primidone (Mysoline) 50 MG tablet; Take 4 tablets (200 mg) by mouth 2 times daily., Starting Peggy 11/07/2023, Until Sat02/05/2024, Normal 2. Restless legs syndrome - lamoTRIgine (LaMICtal) 100 MG tablet; Take 1 tablet (100 mg) by mouth every evening., Starting Peggy 11/07/2023, Until Sat02/05/2024, Normal Subjective HPI: She reports that she has more trouble with tremors when she is less active, but it is better when she is more active. She reports that if her head is stuck in a stationary position, she has head tremor, but otherwise she has no other tremor. Fatigue makes it worse, like after her exercise class. She reports that the RLS is occurring more often and the lamotrigine is no longer working. Her primary doctor is checking her thyroid regularly she reports. REVIEW OF SYSTEMS: Review of Systems Constitutional: Negative for appetite change, chills, diaphoresis, fever and unexpected weight change. HENT: Negative for dental problem and mouth sores. Eyes: Negative for discharge and itching. Respiratory: Negative for chest tightness. Cardiovascular: Negative for chest pain and leg swelling. Gastrointestinal: Negative for rectal pain and vomiting. Endocrine: Negative for polydipsia, polyphagia and polyuria. Genitourinary: Negative for decreased urine volume, flank pain and genital sores. Musculoskeletal: Negative for arthralgias. Skin: Negative for color change. Allergic/Immunologic : Negative for food allergies and immunocompromised state. Neurological: Positive for tremors. Hematological: Negative for adenopathy. Does not bruise/bleed easily. Psychiatric/Behavior al: Positive for sleep disturbance. Negative for agitation, behavioral problems, decreased concentration and suicidal ideas. Allergies Allergen Reactions Ropinirole Nausea Only [place] weird as well as nauseous. Current Outpatient Medications: atorvastatin (Lipitor) 10 MG tablet, 10 MG ORALLY AT BEDTIME, Disp: , Rfl: buPROPion SR (Wellbutrin SR) 150 MG 12 hr tablet, Take 150 mg by mouth daily., Disp: , Rfl: Calcium Carbonate-Vitamin D (Oyster Shell Calcium/D) 500-5 MG-MCG tablet, Take 1 tablet by mouth in the morning and 1 tablet in the evening. Take with meals., Disp: , Rfl: denosumab (Prolia) 60 MG/ML solution prefilled syringe, 60 mg., Disp: , Rfl: folic acid (Folvite) 1 MG tablet, Take by mouth daily., Disp: , Rfl: levothyroxine (Synthroid, Levoxyl) 75 MCG tablet, Take 75 mcg by mouth daily., Disp: , Rfl: methotrexate 2.5 MG tablet, Take by mouth., Disp: , Rfl: pramipexole (Mirapex) 0.25 MG tablet, TAKE 1 TO 2 TABLETS 1 HOUR PRIOR TO BEDTIME AND MAY TAKE 1 TABLET EARLIER IN THE DAY IF NEEDED DIRECTED, Disp: 270 tablet, Rfl: 3 predniSONE (Deltasone) 10 MG tablet, Take 10 mg by mouth daily., Disp: , Rfl: sertraline (Zoloft) 25 MG tablet, , Disp: , Rfl: carbidopa-levodopa (Sinemet) 25-100 MG tablet, Take 1 tablet by mouth Nightly. (Patient not taking: Reported on 11/07/2023), Disp: 30 tablet, Rfl: 3 lamoTRIgine (LaMICtal) 100 MG tablet, Take 1 tablet (100 mg) by mouth every evening., Disp: 90 tablet, Rfl: 3 primidone (Mysoline) 50 MG tablet, Take 4 tablets (200 mg) by mouth 2 times daily., Disp: 720 tablet, Rfl: 3 propranolol (Inderal) 60 MG tablet, Take 1 tablet (60 mg) by mouth 2 times daily., Disp: 180 tablet, Rfl: 3 Past Medical History: Diagnosis Date Anxiety Psoriatic arthritis (HCC) Restless leg Restless leg syndrome Thyroid disorder Tremor Social History Tobacco Use Smoking status: Never Smokeless tobacco: Never Substance Use Topics Alcohol use: Not Currently Past Surgical History: Procedure Laterality Date CATARACT EXTRACTION GALLBLADDER SURGERY KNEE SURGERY TOTAL ABDOMINAL HYSTERECTOMY Family History Problem Relation Name Age of Onset Other (11166) Maternal Grandfather Other (635[address]) Mother Objective Vitals: BP 127/71 (BP Location: Left arm, Patient Position: Sitting, BP Cuff Size: Adult) Pulse 60 Ht 5' 2 (1.575 m) Wt 147 lb 3.2 oz (66.8 kg) BMI 26.92 kg/m? General Appearance: Patient is in no apparent distress. Head is normocephalic, atraumatic Cardiovascular: Regular rate and rhythm. No heart murmurs. No carotid bruit Neurologic: Mentation: Alert and oriented x 3 to [address], [address] and time. Speech and Language: Speech and language normal Concentration and Attention: Concentration normal Memory: Memory normal Fund of Knowledge: Fund of knowledge normal Cranial Nerves: II, III, IV, V, , VII (more content not included)... Normal [facility] CBC W/Diff, Automatedon 06-2 0-2023 Absolute Lymph 1.06 X10 3/uL Normal 0.83-4.51 [facility] Comment on above: Performed By: #### L 500.4050, L100.0100 #### [facility] [address] [place], [address] Absolute Neut 2.4 X10 3/uL Normal 2.0-7.7 [facility] Comment on above: Performed By: #### L 500.4050, L100.0100 #### [facility] [address] [place], [address] Basophils/100 WBC (Bld) 1.0 % Normal 0-[address] [facility] Comment on above: Performed By: #### L 500.4050, L100.0100 #### [facility] [address] [place], [address] Eosinophils/100 WBC (Bld) 3.7 % Normal 0-5 [facility] Comment on above: Performed By: #### L 500.4050, L100.0100 #### [facility] [address] [place], [address] Erythrocyte distribution width (RBC) [Ratio] 14.4 % Normal 11.6-14.6 [facility] Comment on above: Performed By: #### L 500.4050, L100.0100 #### [facility] [address] [place], [address] Hematocrit (Bld) [Volume fraction] 38.8 % Normal 37-47 [facility] Comment on above: Performed By: #### L 500.4050, L100.0100 #### [facility] [address] [place], [address] Hemoglobin (Bld) [Mass/Vol] 12.6 g/dL Normal 12.0-15.0 [facility] Comment on above: Performed By: #### L 500.4050, L100.0100 #### [facility] [address] [place], [address] IG% 0.000 Normal 0.0-0.9 [facility] Comment on above: Result Comment: IG% - Immature Granulocytes (promyelocytes, myelocytes and metamyelocytes) > 1% indicates that a LEFT SHIFT is Present. Performed By: #### L 500.4050, L100.0100 #### [facility] [address] [place], [address] Lymphocytes/100 WBC (Bld) 26.1 % Normal 19-41 [facility] Comment on above: Performed By: #### L 500.4050, L100.0100 #### [facility] [address] [place], [address] MCH (RBC) [Entitic mass] 32.0 pg Normal 27.0-32.0 [facility] Comment on above: Performed By: #### L 500.4050, L100.0100 #### [facility] [address] [place], [address] MCHC (RBC) [Mass/Vol] 32.5 g/dL Normal 32-36 [facility] Comment on above: Performed By: #### L 500.4050, L100.0100 #### [facility] [address] [place], [address] MCV (RBC) [Entitic vol] 98.5 fL Normal 81-99 [facility] Comment on above: Performed By: #### L 500.4050, L100.0100 #### [facility] [address] [place], [address] Monocytes/100 WBC (Bld) 9.1 % Normal 0-10 [facility] Comment on above: Performed By: #### L 500.4050, L100.0100 #### [facility] [address] [place], [address] Neutrophils/100 WBC (Bld) 60.1 % Normal 47-70 [facility] Comment on above: Performed By: #### L 500.4050, L100.0100 #### [facility] [address] [place], [address] Nucleated RBC (Bld) [#/Vol] 0 10*3/uL Normal 0-5 [facility] Comment on above: Performed By: #### L 500.4050, L100.0100 #### [facility] [address] [place], [address] Platelet mean volume (Bld) [Entitic vol] 10.3 fL Normal 6.2-12.0 [facility] Comment on above: Performed By: #### L 500.4050, L100.0100 #### [facility] [address] [place], [address] Platelets (Bld) [#/Vol] 250 10*3/uL Normal 150-450 [facility] Comment on above: Performed By: #### L 500.4050, L100.0100 #### [facility] [address] [place], [address] RBC (Bld) [#/Vol] 3.94 10*6/uL Low 4.2-5.4 [facility] Comment on above: Performed By: #### L 500.4050, L100.0100 #### [facility] [address] [place], [address] RDW SD 51.6 fl High 35.1-43.9 [facility] Comment on above: Performed By: #### L 500.4050, L100.0100 #### [facility] [address] [place], [address] WBC (Bld) [#/Vol] 4.1 10*3/uL Low 4.4-11.0 [facility] Comment on above: Performed By: #### L 500.4050, L100.0100 #### [facility] [address] [place], [address] Comprehensive Metabolic Prof [facility] 10-31-2023 Albumin [Mass/Vol] 4.1 g/dL Normal 3.2-5.0 [facility] Comment on above: Performed By: #### L 500.4050, L100.0100 #### [facility] [address] [place], [address] Albumin/Globulin [Mass ratio] 1.2 {ratio} Normal 0.9-2.4 [facility] Comment on above: Performed By: #### L 500.4050, L100.0100 #### [facility] [address] [place], [address] ALK P 43 U/L Low 45-117 [facility] Comment on above: Performed By: #### L 500.4050, L100.0100 #### [facility] [address] [place], [address] ALT [Catalytic activity/Vol] 27 U/L Normal 13-56 [facility] Comment on above: Performed By: #### L 500.4050, L100.0100 #### [facility] [address] [place], [address] AST [Catalytic activity/Vol] 21 U/L Normal 15-37 [facility] Comment on above: Performed By: #### L 500.4050, L100.0100 #### [facility] [address] [place], [address] Bilirubin [Mass/Vol] 0.40 mg/dL Normal 0.20-1.00 [facility] Comment on above: Result Comment: For patients on eltrombopag therapy, use of Dimension [place] TBIL is not recommended. Performed By: #### L 500.4050, L100.0100 #### [facility] [address] [place], [address] BUN/CRE 16.6 RATIO Normal 10-20 [facility] Comment on above: Performed By: #### L 500.4050, L100.0100 #### [facility] [address] [place], [address] CA,Total 9.4 mg/dL Normal 8.5-10.1 [facility] Comment on above: Performed By: #### L 500.4050, L100.0100 #### [facility] [address] [place], [address] Chloride [Moles/Vol] 103 mmol/L Normal 98-107 [facility] Comment on above: Performed By: #### L 500.4050, L100.0100 #### [facility] [address] [place], [address] CO2 [Moles/Vol] 28.0 mmol/L Normal 21.0-32.0 [facility] Comment on above: Performed By: #### L 500.4050, L100.0100 #### [facility] [address] [place], [address] Creatinine [Mass/Vol] 0.96 mg/dL Normal 0.55-1.02 [facility] Comment on above: Result Comment: The validity of the calculated GFR GFRAA in patients over 70 years has not been determined. Clinical correlation is essential. Performed By: #### L 500.4050, L100.0100 #### [facility] [address] [place], [address] EST GFR - AA 73 mL/min Normal >60 [facility] Comment on above: Result Comment: Afri can Gabonese GFR Calc Performed By: #### L 500.4050, L100.0100 #### [facility] [address] [place], [address] GAP 6 Normal 5-15 [facility] Comment on above: Performed By: #### L 500.4050, L100.0100 #### [facility] [address] [place], [address] GFR/1.73 sq M.predicted among non-blacks MDRD (S/P/Bld) [Vol rate/Area] 60 mL/min/{1.73_m2} Normal >60 [facility] Comment on above: Result Comment: Non- GFR Calc Performed By: #### L 500.4050, L100.0100 #### [facility] [address] [place], [address] Globulin (S) [Mass/Vol] 3.5 g/dL Normal 2.2-4.2 [facility] Comment on above: Performed By: #### L 500.4050, L100.0100 #### [facility] [address] [place], [address] Glucose [Mass/Vol] 99 mg/dL Normal 74-106 [facility] Comment on above: Performed By: #### L 500.4050, L100.0100 #### [facility] [address] [place], [address] Potassium [Moles/Vol] 4.1 mmol/L Normal 3.5-5.1 [facility] Comment on above: Performed By: #### L 500.4050, L100.0100 #### [facility] [address] [place], [address] Sodium [Moles/Vol] 137 mmol/L Normal 136-145 [facility] Comment on above: Performed By: #### L 500.4050, L100.0100 #### [facility] [address] [place], [address] T PROT 7.6 g/dL Normal 6.4-8.2 [facility] Comment on above: Performed By: #### L 500.4050, L100.0100 #### [facility] [address] [place], [address] Urea nitrogen [Mass/Vol] 16 mg/dL Normal 7-18 [facility] Comment on above: Performed By: #### L 500.4050, L100.0100 #### [facility] [address] [place], [address] Office Visit Reporton 2023 Office Visit Report [facility] [address] [place] [address] OFFICE VISIT Date of Service: 10/31/23 MR#: [id number] Acct: [id number] Patient: ARIADNA LOBATO Rep #: [id number] : 1950 Provider: GILBERTO NURSE Age/Sex: 73/F Location[facility] Status: Signed with Addenda ADDENDUM by Dr. Kelley Maldonado MD on 10/31/23 at 1434 Assessment Plan (1) Osteopenia: QUALIFIERS: Osteopenia location: multiple sites Qualified Code(s): M85.89 - Other specified disorders of bone density and structure, multiple sites COMMENT: DEXA 2020 vit d ca 10/31/23 1434 Date Kelley Maldonado MD cc: * Signed Intake Vital Signs 08/26/23 09:56 Height 5 ft 3 in Weight: 146 lb BMI 25.8 BP 118/66 Blood Pressure Location Lt brachial Position Sitting Respiration 16 Pulse 64 Pulse Source Monitor Temp 98.4 F Temp Source Temporal Pulse Oximetry (%) 96 Oxygen Delivery Method room air Intake Visit Reasons: PROLIA Chief Complaint: 6 M FU Allergies No Known Allergies Allergy (Verified 08/26/23 09:54) Office Procedures Injections Procedure performed by: Mark Blue Is this Buy Bill?: Yes Office Meds Prolia 60 mg/mL subcutaneous syringe Performing Provider: Kelley Maldonado MD Performing Location: [facility] Administered by: Jessica Blue MA on 10/31/23 13:50 Dose Route Admin Location Dispensed Lot Number Expiration Date IDC Man ufacturer 60 mg subcut RA 1 mL [id number] 01/10/26 47980-196-17 AMGEN Assessment and Plan Assessment and Plan Orders: Orders Prolia Injection Today M81.0 - Age-related osteoporosis without current pathological fracture 10/31/23 1433 Date Kelley Maldonado MD Cosigner Signature: Date (if applicable) CC: Normal [facility] 36on 10-28-2023 36 Last ov- 11/06/22 Next ov- 11/07/23 Normal [facility] Internal Medicine Office Vis bob 08-22-2023 Internal Medicine Office Visit [facility] [address] [place] [address] [place] [address] OFFICE VISIT Date of Service: 08/26/23 MR#: [id number] Acct: [id number] Name: ARIADNA LOBATO Rep #: [id number] : 1950 Provider: Dr. Kelley severino MD Age/Sex: 72/F Location[place] [email or web address] Status: Signed Intake Vital Signs 02/14/23 10:02 04/08/23 09:29 08/26/23 09:56 Height 5 ft 2 in 5 ft 2 in 5 ft 3 in Weight: 146 lb BMI 25.8 BP 118/66 Blood Pressure Location Lt brachial Position Sitting Respiration 16 Pulse 64 Pulse Source Monitor Temp 98.4 F Temp Source Temporal Pulse Oximetry (%) 96 Oxygen Delivery Method room air Intake Visit Reasons: 6 M FU Chief Complaint: 6 M FU Is patient in pain?: No Allergies No Known Allergies Allergy (Verified 08/26/23 09:54) Medications prednisone 10 mg tablet 10 mg PO DAILY PRN 01/13/19 [History Confirmed 08/26/23] folic acid 1 mg tablet 1 mg PO BID 02/21/21 [History Confirmed 08/26/23] methotrexate sodium 2.5 mg tablet 2.5 mg PO QWEEK 02/21/21 [History Confirmed 08/26/23] propranolol 60 mg capsule,24 hr,extended release 60 mg PO DAILY 02/26/22 [History Confirmed 08/26/23] primidone 50 mg tablet 100 mg PO BID 07/05/22 [History Confirmed 08/26/23] bupropion HCl 150 mg tablet,12 hr sustained-release (Wellbutrin SR) 150 mg PO BID #180 ea 01/16/23 [Rx Confirmed 08/26/23] cholecalciferol (vitamin D3) 125 mcg (5,000 unit) capsule 125 mcg PO DAILY 02/14/23 [History Confirmed 08/26/23] atorvastatin 10 mg tablet (Lipitor) 10 mg PO QHS #30 tabs 03/07/23 [Rx Confirmed 08/26/23] denosumab 60 mg/mL subcutaneous syringe (Prolia) 60 mg subcut [id number] #1 mL 04/08/23 [Rx Confirmed 08/26/23] sertraline 25 mg tablet (Zoloft) 25 mg PO DAILY #90 tabs 04/08/23 [Rx Confirmed 08/26/23] levothyroxine 75 mcg tablet 75 mcg PO DAILY #90 tabs 06/25/23 [Rx Confirmed 08/26/23] lamotrigine PO 1XD 08/26/23 [History Confirmed 08/26/23] Nurse's Note: pt states that Dr. Christopher changed her Pramipexole to Lamotrigine due to med was causing wt gain. PFS Medical History Cataract of right eye Essential tremor Hypothyroid Melanoma Psoriatic arthritis Shoulder pain Surgical History H/O: hysterectomy History of ankle surgery History of cholecystectomy Normal colonoscopy S/P left cataract extraction Family History Father Cancer lung and liver Mother Diabetes History of high cholesterol Daughter Thyroid disorder Sjogren's disease Daughter Thyroid disorder Sandra's Sister Breast cancer Social History (Updated 08/26/23 @ 10:[address] Kelley Maldonado MD) household members: other details: daughter lives with her number of children: 3 current occupational status: retired current occupation: [employer]ing Smoking Status: Never smoker Electronic Cigarette Use: not used alcohol intake: never substance use type: does not use diet: Weight Watchers caffeine: Yes Type: coffee Number of servings: 1 what type of physical activity do you participate in: aerobics frequency: 1-2 times per week seatbelt use: always do you feel safe at home: Yes additional social history: Female Reproductive History Menstrual Ab spontaneous: 1 HPI HPI Chief Complaint: 6 M FU Details: ARIADNA LOBATO, is a 72 F who presents to the office today for a follow up. She is up to date on her routine blood work and screening.??? She isn't due for any immunizations.??? She doesn't smoke and does not need refills today.??? She reports she is eating healthy and is trying to stay active.??? She continues to do her exercise classes at [facility], around 4 days per week. She takes her thyroid medication first thing in the morning before anything else.??? She denies any problems with the medication.??? She reports her last thyroid level was in normal range. The patient has a history of prediabetes.??? She is not on any medications.??? She doesn't check her sugars at home, but does try to monitor her carbohydrate and sugar intake. The patient is on primidone and propranolol for her essential tremor. She was changed from mirapex to lamotrigine due to weight gain for her RLS. She states that does seem to help.??? She reports that she follows with Dr. Christopher, neurology, who manages these medications.??? She will see him again in October. She states overall, she is doing well, but notices her tremors more when she is resting. She states it doesn't prevent her from doing any activities. The patient follows with rheumatology for psoriatic arthritis.??? She is taking her medications as prescribed without problems.??? She states her pain has been well controlled for the most part. She has (more content not included)... Normal [facility] Absolute lymphocyte countOrd ered By: Trudy Trejo on 08-06-2023 Lymphocytes Auto (Unsp spec) [#/Vol] 1.07 10*3/uL 0.83-4.51 [facility] Automated lymphocyte count a s percentage of total leukocytesOrdered By: Trudy Trejo on 08-06-2023 Lymphocytes/100 WBC Auto (Unsp spec) 27.9 % 19-41 [facility] Basophil percentageOrdered B y: Trudy Trejo on 08-06-2023 Basophils/100 WBC (Bld) 0.5 % 0-[address] [facility] Bilirubin [Mass/Vol] 0.40 mg/dL 0.20-1.00 [facility] Comment on above: For patients on eltr ombopag therapy, use of Dimension [place] TBIL is not recommended. Chloride [Moles/Vol] 103 mmol/L 98-107 [facility] Eosinophils/100 WBC (Bld) 3.9 % 0-5 [facility] Glucose [Mass/Vol] 121 mg/dL 74-106 [facility] Comment on above: Fasting Glucose resu lt from 100 to 125 mg/dL suggests IMPAIRED HOMEOSTASIS per A.D.A. criteria. Hemoglobin (Bld) [Mass/Vol] 13.0 g/dL 12.0-15.0 [facility] Monocytes/100 WBC (Bld) 8.3 % 0-[address] [facility] Neutrophils (Bld) [#/Vol] 2.3 10*3/uL 2.0-7.7 [facility] Neutrophils/100 WBC (Bld) 59.1 % 47-70 [facility] Potassium [Moles/Vol] 4.5 mmol/L 3.5-5.1 [facility] Protein [Mass/Vol] 7.6 g/dL 6.4-8.2 [facility] Sodium [Moles/Vol] 136 mmol/L 136-145 [facility] WBC (Bld) [#/Vol] 3.8 10*3/uL 4.4-11.0 [facility] CBC W/Diff, Automatedon 03- Absolute Lymph 1.07 X10 3/uL Normal 0.83-4.51 [facility] Comment on above: Performed By: #### L 500.4050, L100.0100 #### [facility] [address] [place], [address] Absolute Neut 2.3 X10 3/uL Normal 2.0-7.7 [facility] Comment on above: Performed By: #### L 500.4050, L100.0100 #### [facility] [address] [place], [address] Basophils/100 WBC (Bld) 0.5 % Normal 0-[address] [facility] Comment on above: Performed By: #### L 500.4050, L100.0100 #### [facility] [address] [place], [address] Eosinophils/100 WBC (Bld) 3.9 % Normal 0-5 [facility] Comment on above: Performed By: #### L 500.4050, L100.0100 #### [facility] [address] [place], [address] Erythrocyte distribution width (RBC) [Ratio] 14.0 % Normal 11.6-14.6 [facility] Comment on above: Performed By: #### L 500.4050, L100.0100 #### [facility] [address] [place], [address] Hematocrit (Bld) [Volume fraction] 38.6 % Normal 37-47 [facility] Comment on above: Performed By: #### L 500.4050, L100.0100 #### [facility] [address] [place], [address] Hemoglobin (Bld) [Mass/Vol] 13.0 g/dL Normal 12.0-15.0 [facility] Comment on above: Performed By: #### L 500.4050, L100.0100 #### [facility] [address] [place], [address] IG% 0.300 Normal 0.0-0.9 [facility] Comment on above: Result Comment: IG% - Immature Granulocytes (promyelocytes, myelocytes and metamyelocytes) > 1% indicates that a LEFT SHIFT is Present. Performed By: #### L 500.4050, L100.0100 #### [facility] [address] [place], [address] Lymphocytes/100 WBC (Bld) 27.9 % Normal 19-41 [facility] Comment on above: Performed By: #### L 500.4050, L100.0100 #### [facility] [address] [place], [address] MCH (RBC) [Entitic mass] 31.8 pg Normal 27.0-32.0 [facility] Comment on above: Performed By: #### L 500.4050, L100.0100 #### [facility] [address] [place], [address] MCHC (RBC) [Mass/Vol] 33.7 g/dL Normal 32-36 [facility] Comment on above: Performed By: #### L 500.4050, L100.0100 #### [facility] [address] [place], [address] MCV (RBC) [Entitic vol] 94.4 fL Normal 81-99 [facility] Comment on above: Performed By: #### L 500.4050, L100.0100 #### [facility] [address] [place], [address] Monocytes/100 WBC (Bld) 8.3 % Normal 0-10 [facility] Comment on above: Performed By: #### L 500.4050, L100.0100 #### [facility] [address] [place], [address] Neutrophils/100 WBC (Bld) 59.1 % Normal 47-70 [facility] Comment on above: Performed By: #### L 500.4050, L100.0100 #### [facility] [address] [place], [address] Nucleated RBC (Bld) [#/Vol] 0 10*3/uL Normal 0-5 [facility] Comment on above: Performed By: #### L 500.4050, L100.0100 #### [facility] [address] [place], [address] Platelet mean volume (Bld) [Entitic vol] 10.0 fL Normal 6.2-12.0 [facility] Comment on above: Performed By: #### L 500.4050, L100.0100 #### [facility] [address] [place], [address] Platelets (Bld) [#/Vol] 269 10*3/uL Normal 150-450 [facility] Comment on above: Performed By: #### L 500.4050, L100.0100 #### [facility] [address] [place], [address] RBC (Bld) [#/Vol] 4.09 10*6/uL Low 4.2-5.4 [facility] Comment on above: Performed By: #### L 500.4050, L100.0100 #### [facility] [address] [place], [address] RDW SD 47.2 fl High 35.1-43.9 [facility] Comment on above: Performed By: #### L 500.4050, L100.0100 #### [facility] [address] [place], [address] WBC (Bld) [#/Vol] 3.8 10*3/uL Low 4.4-11.0 [facility] Comment on above: Performed By: #### L 500.4050, L100.0100 #### [facility] [address] [place], [address] Comprehensive Metabolic Prof [facility] 08-06-2023 Albumin [Mass/Vol] 4.2 g/dL Normal 3.2-5.0 [facility] Comment on above: Performed By: #### L 500.4050, L100.0100 #### [facility] [address] [place], [address] Albumin/Globulin [Mass ratio] 1.2 {ratio} Normal 0.9-2.4 [facility] Comment on above: Performed By: #### L 500.4050, L100.0100 #### [facility] [address] [place], [address] ALK P 42 U/L Low 45-117 [facility] Comment on above: Performed By: #### L 500.4050, L100.0100 #### [facility] [address] [place], [address] ALT [Catalytic activity/Vol] 27 U/L Normal 13-56 [facility] Comment on above: Performed By: #### L 500.4050, L100.0100 #### [facility] [address] [place], [address] AST [Catalytic activity/Vol] 17 U/L Normal 15-37 [facility] Comment on above: Performed By: #### L 500.4050, L100.0100 #### [facility] [address] [place], [address] Bilirubin [Mass/Vol] 0.40 mg/dL Normal 0.20-1.00 [facility] Comment on above: Result Comment: For patients on eltrombopag therapy, use of Dimension [place] TBIL is not recommended. Performed By: #### L 500.4050, L100.0100 #### [facility] [address] [place], [address] BUN/CRE 18.8 RATIO Normal 10-20 [facility] Comment on above: Performed By: #### L 500.4050, L100.0100 #### [facility] [address] [place], [address] CA,Total 9.1 mg/dL Normal 8.5-10.1 [facility] Comment on above: Performed By: #### L 500.4050, L100.0100 #### [facility] [address] [place], [address] Chloride [Moles/Vol] 103 mmol/L Normal 98-107 [facility] Comment on above: Performed By: #### L 500.4050, L100.0100 #### [facility] [address] [place], [address] CO2 [Moles/Vol] 27.0 mmol/L Normal 21.0-32.0 [facility] Comment on above: Performed By: #### L 500.4050, L100.0100 #### [facility] [address] [place], [address] Creatinine [Mass/Vol] 0.96 mg/dL Normal 0.55-1.02 [facility] Comment on above: Result Comment: The validity of the calculated GFR GFRAA in patients over 70 years has not been determined. Clinical correlation is essential. Performed By: #### L 500.4050, L100.0100 #### [facility] [address] [place], [address] EST GFR - AA 73 mL/min Normal >60 [facility] Comment on above: Result Comment: Afri can Gabonese GFR Calc Performed By: #### L 500.4050, L100.0100 #### [facility] [address] [place], [address] GAP 6 Normal 5-15 [facility] Comment on above: Performed By: #### L 500.4050, L100.0100 #### [facility] [address] [place], [address] GFR/1.73 sq M.predicted among non-blacks MDRD (S/P/Bld) [Vol rate/Area] 61 mL/min/{1.73_m2} Normal >60 [facility] Comment on above: Result Comment: Non- GFR Calc Performed By: #### L 500.4050, L100.0100 #### [facility] [address] [place], [address] Globulin (S) [Mass/Vol] 3.4 g/dL Normal 2.2-4.2 [facility] Comment on above: Performed By: #### L 500.4050, L100.0100 #### [facility] [address] [place], [address] Glucose [Mass/Vol] 121 mg/dL High 74-106 [facility] Comment on above: Result Comment: Fast ing Glucose result from 100 to 125 mg/dL suggests IMPAIRED HOMEOSTASIS per A.D.A. criteria. Performed By: #### L 500.4050, L100.0100 #### [facility] [address] [place], [address] Potassium [Moles/Vol] 4.5 mmol/L Normal 3.5-5.1 [facility] Comment on above: Performed By: #### L 500.4050, L100.0100 #### [facility] [address] [place], [address] Sodium [Moles/Vol] 136 mmol/L Normal 136-145 [facility] Comment on above: Performed By: #### L 500.4050, L100.0100 #### [facility] [address] [place], [address] T PROT 7.6 g/dL Normal 6.4-8.2 [facility] Comment on above: Performed By: #### L 500.4050, L100.0100 #### [facility] [address] [place], [address] Urea nitrogen [Mass/Vol] 18 mg/dL Normal 7-18 [facility] Comment on above: Performed By: #### L 500.4050, L100.0100 #### [facility] [address] [place], [address] Determination of erythrocyte mean corpuscular volume (MCV)Ordered By: Trudy Trejo on 08-06-2023 MCV (RBC) [Entitic vol] 94.4 fL 81-[address] [facility] Erythrocyte distribution wid th ratioOrdered By: Trudy Trejo on 08-06-2023 Erythrocyte distribution width (RBC) [Ratio] 14.0 % 11.6-14.6 [facility] Erythrocyte distribution wid th standard deviationOrdered By: Trudy Trejo on 08-06-2023 Erythrocyte distribution width (RBC) [Entitic vol] 47.2 fL 35.1-43.9 [facility] Hematocrit Auto (Bld) [Volum e fraction]Ordered By: Trudy Trejo on 08-06-2023 Hematocrit (Bld) [Volume fraction] 38.6 % 37-47 [facility] Immature granulocytes/100 WB C Auto (Bld)Ordered By: Trudynadia Trejo on 08-06-2023 Immature granulocytes/100 WBC (Bld) 0.300 % 0.0-0.9 [facility] Comment on above: IG% - Immature Granu locytes (promyelocytes, myelocytes and metamyelocytes) > 1% indicates that a LEFT SHIFT is Present. Laboratory - Chemistry and C hemistry - challengeOrdered By: [facility] Maya on 08-06-2023 Albumin/Globulin [Mass ratio] 1.2 {ratio} 0.9-2.4 [facility] ALP [Catalytic activity/Vol] 42 U/L 45-117 [facility] ALT [Catalytic activity/Vol] 27 U/L 13-56 [facility] CO2 [Moles/Vol] 27.0 mmol/L 21.0-32.0 [facility] Globulin (S) [Mass/Vol] 3.4 g/dL 2.2-4.[address] [facility] Urea nitrogen/Creatinine [Mass ratio] 18.8 mg/mg 10-20 [facility] - Hematology and Cell countsOrdered By: Trudy Trejo on 08-06-2023 MCH (RBC) [Entitic mass] 31.8 pg 27.0-32.0 [facility] MCHC (RBC) [Mass/Vol] 33.7 g/dL 32-36 [facility] Nucleated RBC/100 WBC (Bld) [Ratio] 0 % 0-5 [facility] Platelet mean volume (Bld) [Entitic vol] 10.0 fL 6.2-12.0 [facility] Platelets (Bld) [#/Vol] 269 10*3/uL 150-450 [facility] No Panel InformationOrdered By: Trudy Trejo on 08-06-2023 Estimated GFR (MDRD) Amer 73 mL/min >60 [facility] Comment on above: GFR Calc Estimated GFR (MDRD) Non-Af Amer 61 mL/min >60 [facility] Comment on above: Non- GFR Calc RBC Auto (Bld) [#/Vol]Ordere d By: Trudy Trejo on 08-06-2023 RBC (Bld) [#/Vol] 4.09 10*6/uL 4.2-5.4 [facility] Serum or plasma calcium jasmine urement (mass/volume)Ordered By: Trudy Trejo on 08-06-2023 Calcium [Mass/Vol] 9.1 mg/dL 8.5-10.1 [facility] Serum or plasma creatinine m easurement (mass/volume)Ordered By: Trudy Trejo on 08-06-2023 Creatinine [Mass/Vol] 0.96 mg/dL 0.55-1.02 [facility] Comment on above: The validity of the calculated GFR & GFRAA in patients over 70 years has not been determined. Clinical correlation is essential. Serum or plasma urea nitroge n measurement (mass/volume)Ordered By: Trudy Trejo on 08-06-2023 Urea nitrogen [Mass/Vol] 18 mg/dL 7-18 [facility] Thin prep Papanicolaou smear with manual screeningOrdered By: Trudy Trejo on 08-06-2023 Thin prep Papanicolaou smear with manual screening 4.2 g/dL 3.2-5.0 [facility] Thin prep Papanicolaou smear with manual screening 17 U/L 15-37 [facility] Thin prep Papanicolaou smear with manual screening 6 5-15 [facility] Absolute lymphocyte countOrd ered By: Trudy Trejo on 05-16-2023 Lymphocytes Auto (Unsp spec) [#/Vol] 0.98 10*3/uL 0.83-4.51 [facility] Basophil percentageOrdered B y: Trudy Trejo on 05-16-2023 Basophils/100 WBC (Bld) 0.8 % 0-[address] [facility] Bilirubin [Mass/Vol] 0.50 mg/dL 0.20-1.00 [facility] Comment on above: For patients on eltr ombopag therapy, use of Dimension [place] TBIL is not recommended. Chloride [Moles/Vol] 107 mmol/L 98-107 [facility] Eosinophils/100 WBC (Bld) 4.1 % 0-5 [facility] Glucose [Mass/Vol] 120 mg/dL 74-106 [facility] Comment on above: Fasting Glucose resu lt from 100 to 125 mg/dL suggests IMPAIRED HOMEOSTASIS per A.D.A. criteria. Neutrophils (Bld) [#/Vol] 3.2 10*3/uL 2.0-7.7 [facility] Neutrophils/100 WBC (Bld) 66.5 % 47-70 [facility] Potassium [Moles/Vol] 4.5 mmol/L 3.5-5.1 [facility] Protein [Mass/Vol] 7.6 g/dL 6.4-8.2 [facility] Sodium [Moles/Vol] 138 mmol/L 136-145 [facility] WBC (Bld) [#/Vol] 4.8 10*3/uL 4.4-11.0 [facility] Blood erythrocytes count (nu mber/volume)Ordered By: Trudy Trejo on 05-16-2023 RBC (Bld) [#/Vol] 4.12 10*6/uL 4.2-5.4 [facility] Blood hemoglobin measurement (mass/volume)Ordered By: Trudy Trejo on 05-16-2023 Hemoglobin (Bld) [Mass/Vol] 12.9 g/dL 12.0-15.0 [facility] Blood lymphocytes/100 leukoc ytesOrdered By: Trudy Trejo on 05-16-2023 Lymphocytes/100 WBC (Bld) 20.3 % 19-41 [facility] Blood monocytes/100 leukocyt esOrdered By: Trudy Trejo on 05-16-2023 Monocytes/100 WBC (Bld) 8.1 % 0-10 [facility] Blood platelet mean volumeOr dered By: Trudy Trejo on 05-16-2023 Platelet mean volume (Bld) [Entitic vol] 10.0 fL 6.2-12.0 [facility] Determination of erythrocyte mean corpuscular volume (MCV)Ordered By: Trudy Trejo on 05-16-2023 MCV (RBC) [Entitic vol] 97.1 fL 81-[address] [facility] Hematocrit Auto (Bld) [Volum e fraction]Ordered By: Trudy Trejo on 05-16-2023 Hematocrit (Bld) [Volume fraction] 40.0 % 37-47 [facility] - Chemistry and C hemistry - challengeOrdered By: rTudy Trejo on 05-16-2023 ALP [Catalytic activity/Vol] 76 U/L 45-117 [facility] ALT [Catalytic activity/Vol] 26 U/L 13-56 [facility] CO2 [Moles/Vol] 26.0 mmol/L 21.0-32.0 [facility] Globulin (S) [Mass/Vol] 3.5 g/dL 2.2-4.[address] [facility] Urea nitrogen/Creatinine [Mass ratio] 20.4 mg/mg 10-20 [facility] - Hematology and Cell countsOrdered By: Trudy Trejo on 05-16-2023 Erythrocyte distribution width (RBC) [Entitic vol] 50.4 fL 35.1-43.9 [facility] Erythrocyte distribution width (RBC) [Ratio] 14.2 % 11.6-14.6 [facility] Immature granulocytes/100 WBC (Bld) 0.200 % 0.0-0.9 [facility] Comment on above: IG% - Immature Granu locytes (promyelocytes, myelocytes and metamyelocytes) > 1% indicates that a LEFT SHIFT is Present. MCH (RBC) [Entitic mass] 31.3 pg 27.0-32.0 [facility] Nucleated RBC/100 WBC (Bld) [Ratio] 0 % 0-5 [facility] MCHC Auto (RBC) [Mass/Vol]Or dered By: Trudy Trejo on 05-16-2023 MCHC (RBC) [Mass/Vol] 32.3 g/dL 32-36 [facility] No Panel InformationOrdered By: Trudy Trejo on 05-16-2023 Estimated GFR (MDRD) Amer 72 mL/min >60 [facility] Comment on above: GFR Calc Estimated GFR (MDRD) Non-Af Amer 59 mL/min >60 [facility] Comment on above: Non- GFR Calc Platelets bldOrdered By: Che Trejo on 05-16-2023 Platelets (Bld) [#/Vol] 274 10*3/uL 150-450 [facility] Serum or plasma albumin jasmine urement (mass/volume)Ordered By: Trudy Trejo on 05-16-2023 Albumin [Mass/Vol] 4.1 g/dL 3.2-5.0 [facility] Serum or plasma albumin/glob ulin mass ratioOrdered By: Trudy Trejo on 05-16-2023 Albumin/Globulin [Mass ratio] 1.2 {ratio} 0.9-2.4 [facility] Serum or plasma calcium jasmine urement (mass/volume)Ordered By: Trudy Trejo on 05-16-2023 Calcium [Mass/Vol] 8.3 mg/dL 8.5-10.1 [facility] Serum or plasma creatinine m easurement (mass/volume)Ordered By: Trudy Trejo on 05-16-2023 Creatinine [Mass/Vol] 0.98 mg/dL 0.55-1.02 [facility] Comment on above: The validity of the calculated GFR & GFRAA in patients over 70 years has not been determined. Clinical correlation is essential. Serum or plasma urea nitroge n measurement (mass/volume)Ordered By: Trudy Trejo on 05-16-2023 Urea nitrogen [Mass/Vol] 20 mg/dL 7-18 [facility] Thin prep Papanicolaou smear with manual screeningOrdered By: Trudy Trejo on 05-16-2023 Thin prep Papanicolaou smear with manual screening 19 U/L 15-37 [facility] Thin prep Papanicolaou smear with manual screening 5 5-15 [facility] Absolute lymphocyte countOrd ered By: Trudy Trejo on 02-22-2023 Lymphocytes Auto (Unsp spec) [#/Vol] 1.05 10*3/uL 0.83-4.51 [facility] Basophil percentageOrdered B y: Trudy Trejo on 02-22-2023 Basophils/100 WBC (Bld) 0.5 % 0-[address] [facility] Bilirubin [Mass/Vol] 0.30 mg/dL 0.20-1.00 [facility] Comment on above: For patients on eltr ombopag therapy, use of Dimension [place] TBIL is not recommended. Chloride [Moles/Vol] 105 mmol/L 98-107 [facility] Eosinophils/100 WBC (Bld) 6.1 % 0-5 [facility] Glucose [Mass/Vol] 103 mg/dL 74-106 [facility] Comment on above: Fasting Glucose resu lt from 100 to 125 mg/dL suggests IMPAIRED HOMEOSTASIS per A.D.A. criteria. Neutrophils (Bld) [#/Vol] 2.1 10*3/uL 2.0-7.7 [facility] Neutrophils/100 WBC (Bld) 54.4 % 47-70 [facility] Potassium [Moles/Vol] 4.6 mmol/L 3.5-5.1 [facility] Protein [Mass/Vol] 6.9 g/dL 6.4-8.2 [facility] Sodium [Moles/Vol] 138 mmol/L 136-145 [facility] WBC (Bld) [#/Vol] 3.8 10*3/uL 4.4-11.0 [facility] Blood erythrocytes count (nu mber/volume)Ordered By: Trudy Trejo on 02-22-2023 RBC (Bld) [#/Vol] 3.91 10*6/uL 4.2-5.4 [facility] Blood hemoglobin measurement (mass/volume)Ordered By: Trudy Trejo on 02-22-2023 Hemoglobin (Bld) [Mass/Vol] 12.2 g/dL 12.0-15.0 [facility] Blood lymphocytes/100 leukoc ytesOrdered By: Trudy Trejo on 02-22-2023 Lymphocytes/100 WBC (Bld) 27.6 % 19-41 [facility] Blood monocytes/100 leukocyt esOrdered By: Trudy Trejo on 02-22-2023 Monocytes/100 WBC (Bld) 11.1 % 0-[address] [facility] Blood platelet mean volumeOr dered By: Trudy Trejo on 02-22-2023 Platelet mean volume (Bld) [Entitic vol] 10.5 fL 6.2-12.0 [facility] Determination of erythrocyte mean corpuscular volume (MCV)Ordered By: Trudy Trejo on 02-22-2023 MCV (RBC) [Entitic vol] 97.4 fL 81-[address] [facility] Hematocrit Auto (Bld) [Volum e fraction]Ordered By: Trudy Trejo on 02-22-2023 Hematocrit (Bld) [Volume fraction] 38.1 % 37-47 [facility] Laboratory - Chemistry and C hemistry - challengeOrdered By: Trudynadia Trejo on 02-22-2023 ALP [Catalytic activity/Vol] 63 U/L 45-117 [facility] ALT [Catalytic activity/Vol] 26 U/L 13-56 [facility] CO2 [Moles/Vol] 29.0 mmol/L 21.0-32.0 [facility] Globulin (S) [Mass/Vol] 3.1 g/dL 2.2-4.[address] [facility] Urea nitrogen/Creatinine [Mass ratio] 18.6 mg/mg 10-20 [facility] Laboratory - Hematology and Cell countsOrdered By: [facility] Maya on 02-22-2023 Erythrocyte distribution width (RBC) [Entitic vol] 48.7 fL 35.1-43.9 [facility] Erythrocyte distribution width (RBC) [Ratio] 13.9 % 11.6-14.6 [facility] Immature granulocytes/100 WBC (Bld) 0.300 % 0.0-0.9 [facility] Comment on above: IG% - Immature Granu locytes (promyelocytes, myelocytes and metamyelocytes) > 1% indicates that a LEFT SHIFT is Present. MCH (RBC) [Entitic mass] 31.2 pg 27.0-32.0 [facility] Nucleated RBC/100 WBC (Bld) [Ratio] 0 % 0-5 [facility] MCHC Auto (RBC) [Mass/Vol]Or dered By: Trudynadia Trejo on 02-22-2023 MCHC (RBC) [Mass/Vol] 32.0 g/dL 32-36 [facility] No Panel InformationOrdered By: Trudy Trejo on 02-22-2023 Estimated GFR (MDRD) Amer 83 mL/min >60 [facility] Comment on above: GFR Calc Estimated GFR (MDRD) Non-Af Amer 69 mL/min >60 [facility] Comment on above: Non- GFR Calc Platelets bldOrdered By: Che Trejo on 02-22-2023 Platelets (Bld) [#/Vol] 228 10*3/uL 150-450 [facility] Serum or plasma albumin jasmine urement (mass/volume)Ordered By: Trudy Trejo on 02-22-2023 Albumin [Mass/Vol] 3.8 g/dL 3.2-5.0 [facility] Serum or plasma albumin/glob ulin mass ratioOrdered By: Trudy Trejo on 02-22-2023 Albumin/Globulin [Mass ratio] 1.2 {ratio} 0.9-2.4 [facility] Serum or plasma calcium jasmine urement (mass/volume)Ordered By: Trudy Trejo on 02-22-2023 Calcium [Mass/Vol] 9.1 mg/dL 8.5-10.1 [facility] Serum or plasma creatinine m easurement (mass/volume)Ordered By: Trudy Trejo on 02-22-2023 Creatinine [Mass/Vol] 0.86 mg/dL 0.55-1.02 [facility] Comment on above: The validity of the calculated GFR & GFRAA in patients over 70 years has not been determined. Clinical correlation is essential. Serum or plasma urea nitroge n measurement (mass/volume)Ordered By: Trudy Trejo on 02-22-2023 Urea nitrogen [Mass/Vol] 16 mg/dL 7-18 [facility] Thin prep Papanicolaou smear with manual screeningOrdered By: Trudy Trejo on 02-22-2023 Thin prep Papanicolaou smear with manual screening 15 U/L 15-37 [facility] Thin prep Papanicolaou smear with manual screening 4 5-15 [facility] Absolute lymphocyte countOrd ered By: Kelley Maldonado on 02-14-2023 Lymphocytes Auto (Unsp spec) [#/Vol] 1.10 10*3/uL 0.83-4.51 [facility] Basophil percentageOrdered B y: Kelley Maldonado on 02-14-2023 Basophils/100 WBC (Bld) 0.4 % 0-1 [facility] Bilirubin [Mass/Vol] 0.40 mg/dL 0.20-1.00 [facility] Comment on above: For patients on eltr ombopag therapy, use of Dimension [place] TBIL is not recommended. Chloride [Moles/Vol] 102 mmol/L 98-107 [facility] Cholesterol [Mass/Vol] 209 mg/dL <200 [facility] Comment on above: <200 mg/dL Desirable 200-240 mg/dL Borderline >240 mg/dL High Risk Eosinophils/100 WBC (Bld) 4.9 % 0-5 [facility] Glucose [Mass/Vol] 114 mg/dL 74-106 [facility] Comment on above: Fasting Glucose resu lt from 100 to 125 mg/dL suggests IMPAIRED HOMEOSTASIS per A.D.A. criteria. Neutrophils (Bld) [#/Vol] 2.7 10*3/uL 2.0-7.7 [facility] Neutrophils/100 WBC (Bld) 61.3 % 47-70 [facility] Potassium [Moles/Vol] 4.0 mmol/L 3.5-5.1 [facility] Protein [Mass/Vol] 7.5 g/dL 6.4-8.2 [facility] Sodium [Moles/Vol] 135 mmol/L 136-145 [facility] Triglyceride [Mass/Vol] 113 mg/dL <199 [facility] Comment on above: The drugs N-Acetylcy steine and Metamizole may falsely depress this assay.Serum Triglycerides Reference Interval Normal <150 mg/dL Borderline high 150 - 199 mg/dL High 200 - 499 mg/dL Very High > or = 500 mg/dL WBC (Bld) [#/Vol] 4.5 10*3/uL 4.4-11.0 [facility] Blood erythrocytes count (nu mber/volume)Ordered By: Kelley Maldonado on 02-14-2023 RBC (Bld) [#/Vol] 4.08 10*6/uL 4.2-5.4 [facility] Blood hemoglobin measurement (mass/volume)Ordered By: Kelley Maldonado on 02-14-2023 Hemoglobin (Bld) [Mass/Vol] 13.1 g/dL 12.0-15.0 [facility] Blood lymphocytes/100 leukoc ytesOrdered By: Kelley Maldonado on 02-14-2023 Lymphocytes/100 WBC (Bld) 24.7 % 19-41 [facility] Blood monocytes/100 leukocyt esOrdered By: Kelley Maldonado on 02-14-2023 Monocytes/100 WBC (Bld) 8.5 % 0-[address] [facility] Blood platelet mean volumeOr dered By: Kelley Maldonado on 02-14-2023 Platelet mean volume (Bld) [Entitic vol] 10.4 fL 6.2-12.0 [facility] Determination of erythrocyte mean corpuscular volume (MCV)Ordered By: Kelley Maldonado on 02-14-2023 MCV (RBC) [Entitic vol] 97.3 fL 81-[address] [facility] Hematocrit Auto (Bld) [Volum e fraction]Ordered By: Kelley Maldonado on 02-14-2023 Hematocrit (Bld) [Volume fraction] 39.7 % 37-47 [facility] Laboratory - Chemistry and C hemistry - challengeOrdered By: Kelley Maldonado on 02-14-2023 ALP [Catalytic activity/Vol] 68 U/L 45-117 [facility] ALT [Catalytic activity/Vol] 30 U/L 13-56 [facility] CO2 [Moles/Vol] 28.0 mmol/L 21.0-32.0 [facility] Globulin (S) [Mass/Vol] 3.4 g/dL 2.2-4.[address] [facility] Urea nitrogen/Creatinine [Mass ratio] 19.8 mg/mg 10-20 [facility] Laboratory - Hematology and Cell countsOrdered By: Kelley Maldonado on 02-14-2023 Erythrocyte distribution width (RBC) [Entitic vol] 48.1 fL 35.1-43.9 [facility] Erythrocyte distribution width (RBC) [Ratio] 13.6 % 11.6-14.6 [facility] Immature granulocytes/100 WBC (Bld) 0.200 % 0.0-0.9 [facility] Comment on above: IG% - Immature Granu locytes (promyelocytes, myelocytes and metamyelocytes) > 1% indicates that a LEFT SHIFT is Present. MCH (RBC) [Entitic mass] 32.1 pg 27.0-32.0 [facility] Nucleated RBC/100 WBC (Bld) [Ratio] 0 % 0-5 [facility] Laboratory - Hematology and Cell countson 02-14-2023 HbA1c (Bld) [Mass fraction] 5.6 % 4.2-6.3 [facility] MCHC Auto (RBC) [Mass/Vol]Or dered By: Kelley Maldonado on 02-14-2023 MCHC (RBC) [Mass/Vol] 33.0 g/dL 32-36 [facility] No Panel InformationOrdered By: Kelley Maldonado on 02-14-2023 Vitamin D 25-Hydroxy 47.1 ng/mL [facility] Comment on above: Vitamin D 25(OH) Sta tus Range Deficiency <20 ng/mL (50nmol/L) Insufficiency 20 - 30 ng/mL (50 - 75 nmol/L) Sufficiency 30 - 100 ng/mL (75 - 250 nmol/L) Toxicity >100 ng/mL (>250 nmol/L) Estimated GFR (MDRD) Amer 73 mL/min >60 [facility] Comment on above: GFR Calc Estimated GFR (MDRD) Non-Af Amer 60 mL/min >60 [facility] Comment on above: Non- GFR Calc Thyroid Stimulating Hormone (TSH) 3.35 uIU/mL 0.358-3.74 [facility] Platelets bldOrdered By: Tad Maldonado on 02-14-2023 Platelets (Bld) [#/Vol] 267 10*3/uL 150-450 [facility] Serum or plasma albumin jasmine urement (mass/volume)Ordered By: Kelley Maldonado on 02-14-2023 Albumin [Mass/Vol] 4.1 g/dL 3.2-5.0 [facility] Serum or plasma albumin/glob ulin mass ratioOrdered By: Kelley Maldonado on 02-14-2023 Albumin/Globulin [Mass ratio] 1.2 {ratio} 0.9-2.4 [facility] Serum or plasma calcium jasmine urement (mass/volume)Ordered By: Kelley Maldonado on 02-14-2023 Calcium [Mass/Vol] 9.2 mg/dL 8.5-10.1 [facility] Serum or plasma cholesterol in HDL measurement (mass/volume)Ordered By: Kelley Maldonado on 02-14-2023 Cholesterol in HDL [Mass/Vol] 105 mg/dL >40 [facility] Comment on above: The drugs N-Acetylcy steine and Metamizole may falsely depress this assay. Reference Range HDL <40 mg/dL Low HDL Cholesterol HDL >or= 60 mg/dL High HDL Cholesterol Serum or plasma cholesterol in VLDL measurement (mass/volume)Ordered By: Kelley Maldonado on 02-14-2023 Cholesterol in VLDL [Mass/Vol] 23 mg/dL 5-40 [facility] Serum or plasma creatinine m easurement (mass/volume)Ordered By: Kelley Maldonado on 02-14-2023 Creatinine [Mass/Vol] 0.96 mg/dL 0.55-1.02 [facility] Comment on above: The validity of the calculated GFR & GFRAA in patients over 70 years has not been determined. Clinical correlation is essential. Serum or plasma low density lipoprotein (LDL) cholesterol measurement (mass/volume)Ordered By: Kelley Maldonado on 02-14-2023 Cholesterol in LDL [Mass/Vol] 81 mg/dL 0-130 [facility] Serum or plasma urea nitroge n measurement (mass/volume)Ordered By: Kelley Maldonado on 02-14-2023 Urea nitrogen [Mass/Vol] 19 mg/dL 7-18 [facility] Thin prep Papanicolaou smear with manual screeningOrdered By: Kelley Maldonado on 02-14-2023 Thin prep Papanicolaou smear with manual screening 18 U/L 15-37 [facility] Thin prep Papanicolaou smear with manual screening 5 5-15 [facility] Absolute lymphocyte countOrd ered By: Trudy Trejo on 11-29-2022 Lymphocytes Auto (Unsp spec) [#/Vol] 0.91 10*3/uL 0.83-4.51 [facility] Basophil percentageOrdered B y: Trudy Trejo on 11-29-2022 Basophils/100 WBC (Bld) 0.4 % 0-1 [facility] Bilirubin [Mass/Vol] 0.40 mg/dL 0.20-1.00 [facility] Comment on above: For patients on eltr ombopag therapy, use of Dimension [place] TBIL is not recommended. Chloride [Moles/Vol] 100 mmol/L 98-107 [facility] Eosinophils/100 WBC (Bld) 3.5 % 0-5 [facility] Glucose [Mass/Vol] 120 mg/dL 74-106 [facility] Comment on above: Fasting Glucose resu lt from 100 to 125 mg/dL suggests IMPAIRED HOMEOSTASIS per A.D.A. criteria. Neutrophils (Bld) [#/Vol] 3.1 10*3/uL 2.0-7.7 [facility] Neutrophils/100 WBC (Bld) 67.5 % 47-70 [facility] Potassium [Moles/Vol] 4.4 mmol/L 3.5-5.1 [facility] Protein [Mass/Vol] 7.4 g/dL 6.4-8.2 [facility] Sodium [Moles/Vol] 132 mmol/L 136-145 [facility] WBC (Bld) [#/Vol] 4.6 10*3/uL 4.4-11.0 [facility] Blood erythrocytes count (nu mber/volume)Ordered By: Trudy Trejo on 11-29-2022 RBC (Bld) [#/Vol] 3.88 10*6/uL 4.2-5.4 [facility] Blood hemoglobin measurement (mass/volume)Ordered By: Trudy Trejo on 11-29-2022 Hemoglobin (Bld) [Mass/Vol] 12.5 g/dL 12.0-15.0 [facility] Blood lymphocytes/100 leukoc ytesOrdered By: Trudy Trejo on 11-29-2022 Lymphocytes/100 WBC (Bld) 19.9 % 19-41 [facility] Blood monocytes/100 leukocyt esOrdered By: Trudy Trejo on 11-29-2022 Monocytes/100 WBC (Bld) 8.3 % 0-10 [facility] Blood platelet mean volumeOr dered By: Trudy Trejo on 11-29-2022 Platelet mean volume (Bld) [Entitic vol] 10.1 fL 6.2-12.0 [facility] Determination of erythrocyte mean corpuscular volume (MCV)Ordered By: Trudy Trejo on 11-29-2022 MCV (RBC) [Entitic vol] 97.2 fL 81-[address] [facility] Hematocrit Auto (Bld) [Volum e fraction]Ordered By: rTudy Trejo on 11-29-2022 Hematocrit (Bld) [Volume fraction] 37.7 % 37-47 [facility] Laboratory - Chemistry and C hemistry - challengeOrdered By: [facility] Maya on 11-29-2022 ALP [Catalytic activity/Vol] 65 U/L 45-117 [facility] ALT [Catalytic activity/Vol] 30 U/L 13-56 [facility] CO2 [Moles/Vol] 27.0 mmol/L 21.0-32.0 [facility] Globulin (S) [Mass/Vol] 3.6 g/dL 2.2-4.[address] [facility] Urea nitrogen/Creatinine [Mass ratio] 21.3 mg/mg 10-20 [facility] Laboratory - Hematology and Cell countsOrdered By: Trudy Trejo on 11-29-2022 Erythrocyte distribution width (RBC) [Entitic vol] 49.4 fL 35.1-43.9 [facility] Erythrocyte distribution width (RBC) [Ratio] 14.0 % 11.6-14.6 [facility] Immature granulocytes/100 WBC (Bld) 0.400 % 0.0-0.9 [facility] Comment on above: IG% - Immature Granu locytes (promyelocytes, myelocytes and metamyelocytes) > 1% indicates that a LEFT SHIFT is Present. MCH (RBC) [Entitic mass] 32.2 pg 27.0-32.0 [facility] Nucleated RBC/100 WBC (Bld) [Ratio] 0 % 0-5 [facility] MCHC Auto (RBC) [Mass/Vol]Or dered By: Trudy Trejo on 11-29-2022 MCHC (RBC) [Mass/Vol] 33.2 g/dL 32-36 [facility] No Panel InformationOrdered By: Trudy Trejo on 11-29-2022 Estimated GFR (MDRD) Amer 71 mL/min >60 [facility] Comment on above: GFR Calc Estimated GFR (MDRD) Non-Af Amer 59 mL/min >60 [facility] Comment on above: Non- GFR Calc Platelets bldOrdered By: Che Trejo on 11-29-2022 Platelets (Bld) [#/Vol] 271 10*3/uL 150-450 [facility] Serum or plasma albumin jasmine urement (mass/volume)Ordered By: Trudy Trejo on 11-29-2022 Albumin [Mass/Vol] 3.8 g/dL 3.2-5.0 [facility] Serum or plasma albumin/glob ulin mass ratioOrdered By: Trudy Trejo on 11-29-2022 Albumin/Globulin [Mass ratio] 1.1 {ratio} 0.9-2.4 [facility] Serum or plasma calcium jasmine urement (mass/volume)Ordered By: Trudy Trejo on 11-29-2022 Calcium [Mass/Vol] 9.1 mg/dL 8.5-10.1 [facility] Serum or plasma creatinine m easurement (mass/volume)Ordered By: Trudy Trejo on 11-29-2022 Creatinine [Mass/Vol] 0.99 mg/dL 0.55-1.02 [facility] Comment on above: The validity of the calculated GFR & GFRAA in patients over 70 years has not been determined. Clinical correlation is essential. Serum or plasma urea nitroge n measurement (mass/volume)Ordered By: Trudy Trejo on 11-29-2022 Urea nitrogen [Mass/Vol] 21 mg/dL 7-18 [facility] Thin prep Papanicolaou smear with manual screeningOrdered By: Trudy Trejo on 11-29-2022 Thin prep Papanicolaou smear with manual screening 18 U/L 15-37 [facility] Thin prep Papanicolaou smear with manual screening 5 5-15 [facility] Absolute lymphocyte countOrd ered By: Dr. Trejo on 09-04-2022 Lymphocytes Auto (Unsp spec) [#/Vol] 1.16 10*3/uL 0.83-4.51 [facility] Basophil percentageOrdered B y: Dr. Trejo on 09-04-2022 Basophils/100 WBC (Bld) 0.6 % 0-[address] [facility] Bilirubin [Mass/Vol] 0.40 mg/dL 0.20-1.00 [facility] Comment on above: For patients on eltr ombopag therapy, use of Dimension [place] TBIL is not recommended. Chloride [Moles/Vol] 100 mmol/L 98-107 [facility] Eosinophils/100 WBC (Bld) 4.3 % 0-5 [facility] Glucose [Mass/Vol] 149 mg/dL 74-106 [facility] Comment on above: Fasting Glucose resu lt greater than or equal to 126 mg/dL suggests DIABETES MELLITUS per A.D.A. criteria. Neutrophils (Bld) [#/Vol] 3.4 10*3/uL 2.0-7.7 [facility] Neutrophils/100 WBC (Bld) 66.4 % 47-70 [facility] Potassium [Moles/Vol] 3.7 mmol/L 3.5-5.1 [facility] Protein [Mass/Vol] 7.5 g/dL 6.4-8.2 [facility] Sodium [Moles/Vol] 134 mmol/L 136-145 [facility] WBC (Bld) [#/Vol] 5.2 10*3/uL 4.4-11.0 [facility] Blood erythrocytes count (nu mber/volume)Ordered By: Dr. Trejo on 09-04-2022 RBC (Bld) [#/Vol] 4.01 10*6/uL 4.2-5.4 [facility] Blood hemoglobin measurement (mass/volume)Ordered By: Dr. Trejo on 09-04-2022 Hemoglobin (Bld) [Mass/Vol] 12.8 g/dL 12.0-15.0 [facility] Blood lymphocytes/100 leukoc ytesOrdered By: Dr. Trejo on 09-04-2022 Lymphocytes/100 WBC (Bld) 22.5 % 19-41 [facility] Blood monocytes/100 leukocyt esOrdered By: Dr. Trejo on 09-04-2022 Monocytes/100 WBC (Bld) 5.8 % 0-[address] [facility] Blood platelet mean volumeOr dered By: Dr. Trejo on 09-04-2022 Platelet mean volume (Bld) [Entitic vol] 10.4 fL 6.2-12.0 [facility] Determination of erythrocyte mean corpuscular volume (MCV)Ordered By: Dr. Trejo on 09-04-2022 MCV (RBC) [Entitic vol] 97.0 fL 81-[address] [facility] Hematocrit Auto (Bld) [Volum e fraction]Ordered By: Dr. Trejo on 09-04-2022 Hematocrit (Bld) [Volume fraction] 38.9 % 37-47 [facility] Laboratory - Chemistry and C hemistry - challengeOrdered By: Dr. Trejo on 09-04-2022 ALP [Catalytic activity/Vol] 70 U/L 45-117 [facility] ALT [Catalytic activity/Vol] 31 U/L 13-56 [facility] CO2 [Moles/Vol] 30.0 mmol/L 21.0-32.0 [facility] Globulin (S) [Mass/Vol] 3.4 g/dL 2.2-4.2 [facility] Urea nitrogen/Creatinine [Mass ratio] 21.2 mg/mg 10-20 [facility] Laboratory - Hematology and Cell countsOrdered By: Dr. Trejo on 09-04-2022 Erythrocyte distribution width (RBC) [Entitic vol] 50.6 fL 35.1-43.9 [facility] Erythrocyte distribution width (RBC) [Ratio] 14.5 % 11.6-14.6 [facility] Immature granulocytes/100 WBC (Bld) 0.400 % 0.0-0.9 [facility] Comment on above: IG% - Immature Granu locytes (promyelocytes, myelocytes and metamyelocytes) > 1% indicates that a LEFT SHIFT is Present. MCH (RBC) [Entitic mass] 31.9 pg 27.0-32.0 [facility] Nucleated RBC/100 WBC (Bld) [Ratio] 0 % 0-5 [facility] MCHC Auto (RBC) [Mass/Vol]Or dered By: Dr. Trejo on 09-04-2022 MCHC (RBC) [Mass/Vol] 32.9 g/dL 32-36 [facility] No Panel InformationOrdered By: Dr. Trejo on 09-04-2022 Estimated GFR (MDRD) Amer 75 mL/min >60 [facility] Comment on above: GFR Calc Estimated GFR (MDRD) Non-Af Amer 62 mL/min >60 [facility] Comment on above: Non- GFR Calc Platelets bldOrdered By: Dr. Trejo on 09-04-2022 Platelets (Bld) [#/Vol] 278 10*3/uL 150-450 [facility] Serum or plasma albumin jasmine urement (mass/volume)Ordered By: Dr. Trejo on 09-04-2022 Albumin [Mass/Vol] 4.1 g/dL 3.2-5.0 [facility] Serum or plasma albumin/glob ulin mass ratioOrdered By: Dr. Trejo on 09-04-2022 Albumin/Globulin [Mass ratio] 1.2 {ratio} 0.9-2.4 [facility] Serum or plasma calcium jasmine urement (mass/volume)Ordered By: Dr. Trejo on 09-04-2022 Calcium [Mass/Vol] 9.6 mg/dL 8.5-10.1 [facility] Serum or plasma creatinine m easurement (mass/volume)Ordered By: Dr. Trejo on 09-04-2022 Creatinine [Mass/Vol] 0.94 mg/dL 0.55-1.02 [facility] Comment on above: The validity of the calculated GFR & GFRAA in patients over 70 years has not been determined. Clinical correlation is essential. Serum or plasma urea nitroge n measurement (mass/volume)Ordered By: Dr. Trejo on 09-04-2022 Urea nitrogen [Mass/Vol] 20 mg/dL 7-18 [facility] Thin prep Papanicolaou smear with manual screeningOrdered By: Dr. Trejo on 09-04-2022 Thin prep Papanicolaou smear with manual screening 17 U/L 15-37 [facility] Thin prep Papanicolaou smear with manual screening 4 5-15 [facility] Basophil percentageOrdered B y: Dr. Maldonado on 08-09-2022 Cholesterol [Mass/Vol] 260 mg/dL <200 [facility] Comment on above: <200 mg/dL Desirable 200-240 mg/dL Borderline >240 mg/dL High Risk Triglyceride [Mass/Vol] 139 mg/dL <[address] [facility] Comment on above: The drugs N-Acetylcy steine and Metamizole may falsely depress this assay.Serum Triglycerides Reference Interval Normal <150 mg/dL Borderline high 150 - 199 mg/dL High 200 - 499 mg/dL Very High > or = 500 mg/dL No Panel InformationOrdered By: Dr. Maldonado on 08-09-2022 Thyroid Stimulating Hormone (TSH) 3.01 uIU/mL 0.358-3.74 [facility] Serum or plasma cholesterol in HDL measurement (mass/volume)Ordered By: Dr. Maldonado on 08-09-2022 Cholesterol in HDL [Mass/Vol] 87 mg/dL >40 [facility] Comment on above: The drugs N-Acetylcy steine and Metamizole may falsely depress this assay. Reference Range HDL <40 mg/dL Low HDL Cholesterol HDL >or= 60 mg/dL High HDL Cholesterol Serum or plasma cholesterol in VLDL measurement (mass/volume)Ordered By: Dr. Maldonado on 08-09-2022 Cholesterol in VLDL [Mass/Vol] 28 mg/dL 5-40 [facility] Serum or plasma low density lipoprotein (LDL) cholesterol measurement (mass/volume)Ordered By: Dr. Maldonado on 08-09-2022 Cholesterol in LDL [Mass/Vol] 145 mg/dL 0-130 [facility] Whole blood hemoglobin A1c/t otal hemoglobin ratio (mass fraction)Ordered By: Dr. Maldonado on 08-09-2022 HbA1c (Bld) [Mass fraction] 5.5 % 3.8-5.6 [facility] Comment on above: Normal < 5.7 % Predi abetic 5.7 - 6.4 % Diabetic >or= 6.5 % Please note range changes. Absolute lymphocyte countOrd ered By: Dr. Trejo on 06-15-2022 Lymphocytes Auto (Unsp spec) [#/Vol] 0.90 10*3/uL 0.83-4.51 [facility] Basophil percentageOrdered B y: Dr. Trejo on 06-15-2022 Basophils/100 WBC (Bld) 0.4 % 0-[address] [facility] Bilirubin [Mass/Vol] 0.50 mg/dL 0.20-1.00 [facility] Comment on above: For patients on eltr ombopag therapy, use of Dimension [place] TBIL is not recommended. Chloride [Moles/Vol] 102 mmol/L 98-107 [facility] Eosinophils/100 WBC (Bld) 4.0 % 0-5 [facility] Glucose [Mass/Vol] 114 mg/dL 74-106 [facility] Comment on above: Fasting Glucose resu lt from 100 to 125 mg/dL suggests IMPAIRED HOMEOSTASIS per A.D.A. criteria. Neutrophils (Bld) [#/Vol] 3.1 10*3/uL 2.0-7.7 [facility] Neutrophils/100 WBC (Bld) 68.1 % 47-70 [facility] Potassium [Moles/Vol] 4.5 mmol/L 3.5-5.1 [facility] Protein [Mass/Vol] 7.4 g/dL 6.4-8.2 [facility] Sodium [Moles/Vol] 138 mmol/L 136-145 [facility] WBC (Bld) [#/Vol] 4.6 10*3/uL 4.4-11.0 [facility] Blood erythrocytes count (nu mber/volume)Ordered By: Dr. Trejo on 06-15-2022 RBC (Bld) [#/Vol] 3.96 10*6/uL 4.2-5.4 [facility] Blood hemoglobin measurement (mass/volume)Ordered By: Dr. Trejo on 06-15-2022 Hemoglobin (Bld) [Mass/Vol] 12.3 g/dL 12.0-15.0 [facility] Blood lymphocytes/100 leukoc ytesOrdered By: Dr. Trejo on 06-15-2022 Lymphocytes/100 WBC (Bld) 19.8 % 19-41 [facility] Blood monocytes/100 leukocyt esOrdered By: Dr. Trejo on 06-15-2022 Monocytes/100 WBC (Bld) 7.5 % 0-10 [facility] Blood platelet mean volumeOr dered By: Dr. Trejo on 06-15-2022 Platelet mean volume (Bld) [Entitic vol] 11.2 fL 6.2-12.0 [facility] Determination of erythrocyte mean corpuscular volume (MCV)Ordered By: Dr. Trejo on 06-15-2022 MCV (RBC) [Entitic vol] 95.7 fL 81-[address] [facility] Hematocrit Auto (Bld) [Volum e fraction]Ordered By: Dr. Trejo on 06-15-2022 Hematocrit (Bld) [Volume fraction] 37.9 % 37-47 [facility] Laboratory - Chemistry and C hemistry - challengeOrdered By: Dr. Trejo on 06-15-2022 ALP [Catalytic activity/Vol] 65 U/L 45-117 [facility] ALT [Catalytic activity/Vol] 17 U/L 13-56 [facility] CO2 [Moles/Vol] 29.0 mmol/L 21.0-32.0 [facility] Globulin (S) [Mass/Vol] 3.2 g/dL 2.2-4.[address] [facility] Urea nitrogen/Creatinine [Mass ratio] 21.4 mg/mg 10-20 [facility] Laboratory - Hematology and Cell countsOrdered By: Dr. Trejo on 06-15-2022 Erythrocyte distribution width (RBC) [Entitic vol] 50.4 fL 35.1-43.9 [facility] Erythrocyte distribution width (RBC) [Ratio] 14.5 % 11.6-14.6 [facility] Immature granulocytes/100 WBC (Bld) 0.200 % 0.0-0.9 [facility] Comment on above: IG% - Immature Granu locytes (promyelocytes, myelocytes and metamyelocytes) > 1% indicates that a LEFT SHIFT is Present. MCH (RBC) [Entitic mass] 31.1 pg 27.0-32.0 [facility] Nucleated RBC/100 WBC (Bld) [Ratio] 0 % 0-5 [facility] MCHC Auto (RBC) [Mass/Vol]Or dered By: Dr. Trejo on 06-15-2022 MCHC (RBC) [Mass/Vol] 32.5 g/dL 32-36 [facility] No Panel InformationOrdered By: Dr. Trejo on 06-15-2022 Estimated GFR (MDRD) Amer 76 mL/min >60 [facility] Comment on above: GFR Calc Estimated GFR (MDRD) Non-Af Amer 63 mL/min >60 [facility] Comment on above: Non- GFR Calc Platelets bldOrdered By: Dr. Trejo on 06-15-2022 Platelets (Bld) [#/Vol] 260 10*3/uL 150-450 [facility] Serum or plasma albumin jasmine urement (mass/volume)Ordered By: Dr. Trejo on 06-15-2022 Albumin [Mass/Vol] 4.2 g/dL 3.2-5.0 [facility] Serum or plasma albumin/glob ulin mass ratioOrdered By: Dr. Trejo on 06-15-2022 Albumin/Globulin [Mass ratio] 1.3 {ratio} 0.9-2.4 [facility] Serum or plasma calcium jasmine urement (mass/volume)Ordered By: Dr. Trejo on 06-15-2022 Calcium [Mass/Vol] 9.3 mg/dL 8.5-10.1 [facility] Serum or plasma creatinine m easurement (mass/volume)Ordered By: Dr. Trejo on 06-15-2022 Creatinine [Mass/Vol] 0.94 mg/dL 0.55-1.02 [facility] Comment on above: The validity of the calculated GFR & GFRAA in patients over 70 years has not been determined. Clinical correlation is essential. Serum or plasma urea nitroge n measurement (mass/volume)Ordered By: Dr. Trejo on 06-15-2022 Urea nitrogen [Mass/Vol] 20 mg/dL 7-18 [facility] Thin prep Papanicolaou smear with manual screeningOrdered By: Dr. Trejo on 06-15-2022 Thin prep Papanicolaou smear with manual screening 16 U/L 15-37 [facility] Thin prep Papanicolaou smear with manual screening 7 5-15 [facility] Absolute lymphocyte countOrd ered By: Dr. Trejo on 03-23-2022 Lymphocytes Auto (Unsp spec) [#/Vol] 1.11 10*3/uL 0.83-4.51 [facility] Basophil percentageOrdered B y: Dr. Trejo on 03-23-2022 Basophils/100 WBC (Bld) 0.4 % 0-[address] [facility] Bilirubin [Mass/Vol] 0.60 mg/dL 0.20-1.00 [facility] Comment on above: For patients on eltr ombopag therapy, use of Dimension [place] TBIL is not recommended. Chloride [Moles/Vol] 102 mmol/L 98-107 [facility] Eosinophils/100 WBC (Bld) 3.1 % 0-5 [facility] Glucose [Mass/Vol] 111 mg/dL 74-106 [facility] Comment on above: Fasting Glucose resu lt from 100 to 125 mg/dL suggests IMPAIRED HOMEOSTASIS per A.D.A. criteria. Neutrophils (Bld) [#/Vol] 5.0 10*3/uL 2.0-7.7 [facility] Neutrophils/100 WBC (Bld) 72.5 % 47-70 [facility] Potassium [Moles/Vol] 4.4 mmol/L 3.5-5.1 [facility] Protein [Mass/Vol] 7.7 g/dL 6.4-8.2 [facility] Sodium [Moles/Vol] 138 mmol/L 136-145 [facility] WBC (Bld) [#/Vol] 6.9 10*3/uL 4.4-11.0 [facility] Blood erythrocytes count (nu mber/volume)Ordered By: Dr. Trejo on 03-23-2022 RBC (Bld) [#/Vol] 4.19 10*6/uL 4.2-5.4 [facility] Blood hemoglobin measurement (mass/volume)Ordered By: Dr. Trejo on 03-23-2022 Hemoglobin (Bld) [Mass/Vol] 13.3 g/dL 12.0-15.0 [facility] Blood lymphocytes/100 leukoc ytesOrdered By: Dr. Trejo on 03-23-2022 Lymphocytes/100 WBC (Bld) 16.2 % 19-41 [facility] Blood monocytes/100 leukocyt esOrdered By: Dr. Trejo on 03-23-2022 Monocytes/100 WBC (Bld) 7.7 % 0-[address] [facility] Blood platelet mean volumeOr dered By: Dr. Trejo on 03-23-2022 Platelet mean volume (Bld) [Entitic vol] 9.9 fL 6.2-12.0 [facility] Determination of erythrocyte mean corpuscular volume (MCV)Ordered By: Dr. Trejo on 03-23-2022 MCV (RBC) [Entitic vol] 94.7 fL 81-[address] [facility] Hematocrit Auto (Bld) [Volum e fraction]Ordered By: Dr. Trejo on 03-23-2022 Hematocrit (Bld) [Volume fraction] 39.7 % 37-47 [facility] Laboratory - Chemistry and C hemistry - challengeOrdered By: Dr. Trejo on 03-23-2022 ALP [Catalytic activity/Vol] 68 U/L 45-117 [facility] ALT [Catalytic activity/Vol] 23 U/L 13-56 [facility] CO2 [Moles/Vol] 30.0 mmol/L 21.0-32.0 [facility] Globulin (S) [Mass/Vol] 3.6 g/dL 2.2-4.[address] [facility] Urea nitrogen/Creatinine [Mass ratio] 21.6 mg/mg 10-20 [facility] Laboratory - Hematology and Cell countsOrdered By: Dr. Trejo on 03-23-2022 Erythrocyte distribution width (RBC) [Entitic vol] 49.1 fL 35.1-43.9 [facility] Erythrocyte distribution width (RBC) [Ratio] 14.3 % 11.6-14.6 [facility] Immature granulocytes/100 WBC (Bld) 0.100 % 0.0-0.9 [facility] Comment on above: IG% - Immature Granu locytes (promyelocytes, myelocytes and metamyelocytes) > 1% indicates that a LEFT SHIFT is Present. MCH (RBC) [Entitic mass] 31.7 pg 27.0-32.0 [facility] Nucleated RBC/100 WBC (Bld) [Ratio] 0 % 0-5 [facility] MCHC Auto (RBC) [Mass/Vol]Or dered By: Dr. Trejo on 03-23-2022 MCHC (RBC) [Mass/Vol] 33.5 g/dL 32-36 [facility] No Panel InformationOrdered By: Dr. Trejo on 03-23-2022 Estimated GFR (MDRD) Amer 76 mL/min >60 [facility] Comment on above: GFR Calc Estimated GFR (MDRD) Non-Af Amer 63 mL/min >60 [facility] Comment on above: Non- GFR Calc Platelets bldOrdered By: Dr. Trejo on 03-23-2022 Platelets (Bld) [#/Vol] 237 10*3/uL 150-450 [facility] Serum or plasma albumin jasmine urement (mass/volume)Ordered By: Dr. Trejo on 03-23-2022 Albumin [Mass/Vol] 4.1 g/dL 3.2-5.0 [facility] Serum or plasma albumin/glob ulin mass ratioOrdered By: Dr. Trejo on 03-23-2022 Albumin/Globulin [Mass ratio] 1.1 {ratio} 0.9-2.4 [facility] Serum or plasma calcium jasmine urement (mass/volume)Ordered By: Dr. Trejo on 03-23-2022 Calcium [Mass/Vol] 9.8 mg/dL 8.5-10.1 [facility] Serum or plasma creatinine m easurement (mass/volume)Ordered By: Dr. Trejo on 03-23-2022 Creatinine [Mass/Vol] 0.93 mg/dL 0.55-1.02 [facility] Comment on above: The validity of the calculated GFR & GFRAA in patients over 70 years has not been determined. Clinical correlation is essential. Serum or plasma urea nitroge n measurement (mass/volume)Ordered By: Dr. Trejo on 03-23-2022 Urea nitrogen [Mass/Vol] 20 mg/dL 7-18 [facility] Thin prep Papanicolaou smear with manual screeningOrdered By: Dr. Trejo on 03-23-2022 Thin prep Papanicolaou smear with manual screening 18 U/L 15-37 [facility] Thin prep Papanicolaou smear with manual screening 6 5-15 [facility] No Panel InformationOrdered By: Dr. Kelly on 03-19-2022 Vitamin D 25-Hydroxy 49.2 ng/mL [facility] Comment on above: Vitamin D 25(OH) Sta tus Range Deficiency <20 ng/mL (50nmol/L) Insufficiency 20 - 30 ng/mL (50 - 75 nmol/L) Sufficiency 30 - 100 ng/mL (75 - 250 nmol/L) Toxicity >100 ng/mL (>250 nmol/L) Absolute lymphocyte counton 12-29-2021 Lymphocytes Auto (Unsp spec) [#/Vol] 1.09 10*3/uL 0.83-4.51 [facility] Work Phone: [phone] Basophil percentageon 2021 Basophils/100 WBC (Bld) 0.9 % 0-1 [facility] Work Phone: [phone] Bilirubin [Mass/Vol] 0.40 mg/dL 0.20-1.00 [facility] Work Phone: [phone] Comment on above: For patients on eltr ombopag therapy, use of Dimension [place] TBIL is not recommended. Chloride [Moles/Vol] 101 mmol/L 98-107 [facility] Work Phone: [phone] Eosinophils/100 WBC (Bld) 4.9 % 0-5 [facility] Work Phone: [phone] Glucose [Mass/Vol] 94 mg/dL 74-106 [facility] Work Phone: [phone] Neutrophils (Bld) [#/Vol] 2.5 10*3/uL 2.0-7.7 [facility] Work Phone: [phone] Neutrophils/100 WBC (Bld) 57.8 % 47-70 [facility] Work Phone: [phone] Potassium [Moles/Vol] 4.3 mmol/L 3.5-5.1 [facility] Work Phone: [phone] Protein [Mass/Vol] 7.4 g/dL 6.4-8.2 [facility] Work Phone: [phone] Sodium [Moles/Vol] 137 mmol/L 136-145 [facility] Work Phone: WBC (Bld) [#/Vol] 4.3 10*3/uL 4.4-11.0 [facility] Work Phone: Blood erythrocytes count (nu mber/volume)on 12-29-2021 RBC (Bld) [#/Vol] 3.95 10*6/uL 4.2-5.4 [facility]: Blood hemoglobin measurement (mass/volume)on 12-29-2021 Hemoglobin (Bld) [Mass/Vol] 12.7 g/dL 12.0-15.0 [facility] Work Phone: Blood lymphocytes/100 leukoc yteson 12-29-2021 Lymphocytes/100 WBC (Bld) 25.6 % 19-41 [facility] Work Phone: Blood monocytes/100 leukocyt eson 12-29-2021 Monocytes/100 WBC (Bld) 10.3 % 0-[address] [facility] Work Phone: Blood platelet mean volumeon 12-29-2021 Platelet mean volume (Bld) [Entitic vol] 10.2 fL 6.2-12.0 [facility] Work Phone: Determination of erythrocyte mean corpuscular volume (MCV)on 12-29-2021 MCV (RBC) [Entitic vol] 96.5 fL 81-[address] [facility] Work Phone: Hematocrit Auto (Bld) [Volum e fraction]on 12-29-2021 Hematocrit (Bld) [Volume fraction] 38.1 % 37-47 [facility] Work Phone: Laboratory - Chemistry and C hemistry - challengeon 12-29-2021 ALP [Catalytic activity/Vol] 58 U/L 45-117 [facility] Work Phone: ALT [Catalytic activity/Vol] 27 U/L 13-56 [facility] Work Phone: CO2 [Moles/Vol] 32.0 mmol/L 21.0-32.0 [facility] Work Phone: Globulin (S) [Mass/Vol] 3.6 g/dL 2.2-4.[address] [facility] Work Phone: Urea nitrogen/Creatinine [Mass ratio] 21.2 mg/mg 10-20 [facility] Work Phone: Laboratory - Hematology and Cell countson 12-29-2021 Erythrocyte distribution width (RBC) [Entitic vol] 49.1 fL 35.1-43.9 [facility] Work Phone: Erythrocyte distribution width (RBC) [Ratio] 14.0 % 11.6-14.6 [facility] Work Phone: Immature granulocytes/100 WBC (Bld) 0.500 % 0.0-0.9 [facility] Work Phone: Comment on above: IG% - Immature Granu locytes (promyelocytes, myelocytes and metamyelocytes) > 1% indicates that a LEFT SHIFT is Present. MCH (RBC) [Entitic mass] 32.2 pg 27.0-32.0 [facility] Work Phone: Nucleated RBC/100 WBC (Bld) [Ratio] 0 % 0-5 [facility] Work Phone: MCHC Auto (RBC) [Mass/Vol]on 12-29-2021 MCHC (RBC) [Mass/Vol] 33.3 g/dL 32-36 [facility] Work [facility]: No Panel Informationon 12-29 Estimated GFR (MDRD) Amer 90 mL/min >60 [facility] Work Phone: Comment on above: GFR Calc Estimated GFR (MDRD) Non-Af Amer 75 mL/min >60 [facility] Work Phone: Comment on above: Non- GFR Calc Platelets bldon 12-29-2021 Platelets (Bld) [#/Vol] 243 10*3/uL 150-450 [facility] Work Phone: Serum or plasma albumin jasmine urement (mass/volume)on 12-29-2021 Albumin [Mass/Vol] 3.8 g/dL 3.2-5.0 [facility] Work Phone: Serum or plasma albumin/glob ulin mass ratioon 12-29-2021 Albumin/Globulin [Mass ratio] 1.1 {ratio} 0.9-2.4 [facility] Work Phone: Serum or plasma calcium jasmine urement (mass/volume)on 12-29-2021 Calcium [Mass/Vol] 9.2 mg/dL 8.5-10.1 [facility] Work Phone: Serum or plasma creatinine m easurement (mass/volume)on 12-29-2021 Creatinine [Mass/Vol] 0.80 mg/dL 0.55-1.02 [facility] Work Phone: Comment on above: The validity of the calculated GFR & GFRAA in patients over 70 years has not been determined. Clinical correlation is essential. Serum or plasma urea nitroge n measurement (mass/volume)on 12-29-2021 Urea nitrogen [Mass/Vol] 17 mg/dL 7-18 [facility] Work Phone: Thin prep Papanicolaou smear with manual screeningon 12-29-2021 Thin prep Papanicolaou smear with manual screening 18 U/L 15-37 [facility] Work Phone: Thin prep Papanicolaou smear with manual screening 4 5-15 [facility] Work Phone: CR Spine Cervical 4+ Viewson 11-16-2021 CR Spine Cervical 4+ Views Patient Name: ARIADNA LOBATO Diagnostic Radiology ACCESSION EXAM DATE/TIME PROCEDURE ORDERING PROVIDER [id number] 11/16/2021 10:51 EDT CR Spine Cervical 4+ RYAN CHRISTOPHER CPT code 52881 Reason For Exam (CR Spine Cervical 4+ Views) Cervicalgia Report CERVICAL SPINE SERIES: INDICATION: Neck pain COMPARISON: No prior studies are available for comparative purposes. TECHNIQUE: Four films are submitted for interpretation, including flexion and extension views. FINDINGS: Alignment, curvature and segmentation of the cervical spine are within normal limits. The prevertebral soft tissues are unremarkable. There is 3 mm anterolisthesis at C4-C5. Disc space narrowing is present at C5-C6 with marginal spurring. No instability is seen with flexion or extension AP and open mouth odontoid views are grossly unremarkable. Impression: 3 mm anterolisthesis at C4-C5. No instability with flexion or extension Report Dictated on Final Dictating Physician: DO VEGA ALFRED Signed Date and Time: 11/17/2021 10:18 am Signed by: DO VEGA ALFRED Transcribed Date and Time: 11/17/2021 10:[address] [facility] CR Spine Cervical Comp w/ Ob liques/Flexon 11-16-2021 CR Spine Cervical Comp w/ Obliques/Flex [facility]: [id number] ACCESSION EXAM DATE/TIME PROCEDURE ORDERING PROVIDER [id number] 11/16/2021 10:51 EDT CR Spine Cervical Comp RYAN CHRISTOPHER w/ Obliques CPT code 98929 Reason For Exam (CR Spine Cervical Comp w/ Obliques) Cervicalgia Report CLINICAL INFORMATION: Neck pain. Bilateral oblique anterolateral and extension view of the cervical spine are provided. FINDINGS: There is mild anterolisthesis C4 on C5. Disc space narrowing and spurring are most pronounced at C5-6. Vertebral body heights are maintained. There is no subluxation with flexion or extension. Oblique views demonstrate moderate foraminal narrowing on the left at C5-6 and C6-7. IMPRESSION: 1. Moderate degenerative changes. 2. No subluxation with flexion or extension. 3. Left-sided foraminal narrowing at C5-6 and C6-7. Report Dictated on Final Dictating Physician: MD LIN JEFFREY Signed Date and Time: 11/19/2021 7:44 am Signed by: MD LIN JEFFREY Transcribed Date and Time: 11/19/2021 7:45 Normal [facility] Absolute lymphocyte counton 10-16-2021 Lymphocytes Auto (Unsp spec) [#/Vol] 0.98 10*3/uL 0.83-4.51 [facility] Work Phone: [phone] Basophil percentageon 2021 Basophils/100 WBC (Bld) 0.6 % 0-[address] [facility] Work Phone: [phone] Bilirubin [Mass/Vol] 0.40 mg/dL 0.20-1.00 [facility] Work Phone: Comment on above: For patients on eltr ombopag therapy, use of Dimension [place] TBIL is not recommended. Chloride [Moles/Vol] 101 mmol/L 98-107 [facility] Work Phone: [phone] Eosinophils/100 WBC (Bld) 3.9 % 0-5 [facility] Work Phone: [phone] Glucose [Mass/Vol] 108 mg/dL 74-106 [facility] Work Phone: Comment on above: Fasting Glucose resu lt from 100 to 125 mg/dL suggests IMPAIRED HOMEOSTASIS per A.D.A. criteria. Neutrophils (Bld) [#/Vol] 1.9 10*3/uL 2.0-7.7 [facility] Work Phone: [phone] Neutrophils/100 WBC (Bld) 56.9 % 47-70 [facility] Work Phone: [phone] Potassium [Moles/Vol] 4.2 mmol/L 3.5-5.1 [facility] Work Phone: [phone] Protein [Mass/Vol] 7.4 g/dL 6.4-8.2 [facility] Work Phone: [phone] Sodium [Moles/Vol] 136 mmol/L 136-145 [facility] Work Phone: [phone] WBC (Bld) [#/Vol] 3.3 10*3/uL 4.4-11.0 [facility] Work Phone: Blood erythrocytes count (nu mber/volume)on 10-16-2021 RBC (Bld) [#/Vol] 4.07 10*6/uL 4.2-5.4 [facility] Work Phone: Blood hemoglobin measurement (mass/volume)on 10-16-2021 Hemoglobin (Bld) [Mass/Vol] 12.8 g/dL 12.0-15.0 [facility] Work Phone: Blood lymphocytes/100 leukoc yteson 10-16-2021 Lymphocytes/100 WBC (Bld) 29.3 % 19-41 [facility] Work Phone: Blood monocytes/100 leukocyt eson 10-16-2021 Monocytes/100 WBC (Bld) 9.0 % 0-[address] [facility] Work Phone: Blood platelet mean volumeon 10-16-2021 Platelet mean volume (Bld) [Entitic vol] 10.2 fL 6.2-12.0 [facility] Work Phone: Determination of erythrocyte mean corpuscular volume (MCV)on 10-16-2021 MCV (RBC) [Entitic vol] 95.3 fL 81-[address] [facility] Work Phone: Hematocrit Auto (Bld) [Volum e fraction]on 10-16-2021 Hematocrit (Bld) [Volume fraction] 38.8 % 37-47 [facility] Work Phone: Laboratory - Chemistry and C hemistry - challengeon 10-16-2021 ALP [Catalytic activity/Vol] 52 U/L 45-117 [facility] Work Phone: ALT [Catalytic activity/Vol] 26 U/L 13-56 [facility] Work Phone: CO2 [Moles/Vol] 29.0 mmol/L 21.0-32.0 [facility] Work Phone: Globulin (S) [Mass/Vol] 3.4 g/dL 2.2-4.[address] [facility] Work Phone: Urea nitrogen/Creatinine [Mass ratio] 23.5 mg/mg 10-20 [facility] Work Phone: Laboratory - Hematology and Cell countson 10-16-2021 Erythrocyte distribution width (RBC) [Entitic vol] 51.6 fL 35.1-43.9 [facility] Work Phone: Erythrocyte distribution width (RBC) [Ratio] 14.9 % 11.6-14.6 [facility] Work Phone: Immature granulocytes/100 WBC (Bld) 0.300 % 0.0-0.9 [facility] Work Phone: Comment on above: IG% - Immature Granu locytes (promyelocytes, myelocytes and metamyelocytes) > 1% indicates that a LEFT SHIFT is Present. MCH (RBC) [Entitic mass] 31.4 pg 27.0-32.0 [facility] Work Phone: Nucleated RBC/100 WBC (Bld) [Ratio] 0 % 0-5 [facility] Work Phone: MCHC Auto (RBC) [Mass/Vol]on 10-16-2021 MCHC (RBC) [Mass/Vol] 33.0 g/dL 32-36 [facility] Work Phone: No Panel Informationon 10-16 Estimated GFR (MDRD) Amer 76 mL/min >60 [facility] Work Phone: Comment on above: GFR Calc Estimated GFR (MDRD) Non-Af Amer 63 mL/min >60 [facility] Work Phone: Comment on above: Non- GFR Calc Platelets bldon 10-16-2021 Platelets (Bld) [#/Vol] 246 10*3/uL 150-450 [facility] Work Phone: Serum or plasma albumin jasmine urement (mass/volume)on 10-16-2021 Albumin [Mass/Vol] 4.0 g/dL 3.2-5.0 [facility] Work Phone: Serum or plasma albumin/glob ulin mass ratioon 10-16-2021 Albumin/Globulin [Mass ratio] 1.2 {ratio} 0.9-2.4 [facility] Work Phone: Serum or plasma calcium jasmine urement (mass/volume)on 10-16-2021 Calcium [Mass/Vol] 9.2 mg/dL 8.5-10.1 [facility] Work Phone: Serum or plasma creatinine m easurement (mass/volume)on 10-16-2021 Creatinine [Mass/Vol] 0.94 mg/dL 0.55-1.02 [facility] Work Phone: Comment on above: The validity of the calculated GFR & GFRAA in patients over 70 years has not been determined. Clinical correlation is essential. Serum or plasma urea nitroge n measurement (mass/volume)on 10-16-2021 Urea nitrogen [Mass/Vol] 22 mg/dL 7-18 [facility] Work Phone: Thin prep Papanicolaou smear with manual screeningon 10-16-2021 Thin prep Papanicolaou smear with manual screening 13 U/L 15-37 [facility] Work Phone: Thin prep Papanicolaou smear with manual screening 6 5-15 [facility] Work Phone: Absolute lymphocyte counton 07-27-2021 Lymphocytes Auto (Unsp spec) [#/Vol] 0.97 10*3/uL 0.83-4.51 [facility] Work Phone: Basophil percentageon 2021 Basophils/100 WBC (Bld) 0.6 % 0-[address] [facility] Work Phone: Bilirubin [Mass/Vol] 0.40 mg/dL 0.20-1.00 [facility] Work Phone: Comment on above: For patients on eltr ombopag therapy, use of Dimension [place] TBIL is not recommended. Chloride [Moles/Vol] 103 mmol/L 98-107 [facility]: Eosinophils/100 WBC (Bld) 5.0 % 0-5 [facility] Work Phone: [phone] Glucose [Mass/Vol] 102 mg/dL 74-106 [facility] Work Phone: Comment on above: Fasting Glucose resu lt from 100 to 125 mg/dL suggests IMPAIRED HOMEOSTASIS per A.D.A. criteria. Neutrophils (Bld) [#/Vol] 1.8 10*3/uL 2.0-7.7 [facility] Work Phone: [phone] Neutrophils/100 WBC (Bld) 55.6 % 47-70 [facility] Work Phone: [phone] Potassium [Moles/Vol] 4.3 mmol/L 3.5-5.1 [facility] Work Phone: [phone] Protein [Mass/Vol] 7.1 g/dL 6.4-8.2 [facility] Work Phone: [phone] Sodium [Moles/Vol] 137 mmol/L 136-145 [facility] Work Phone: [phone] WBC (Bld) [#/Vol] 3.2 10*3/uL 4.4-11.0 [facility] Work Phone: [phone] Blood erythrocytes count (nu mber/volume)on 07-27-2021 RBC (Bld) [#/Vol] 4.06 10*6/uL 4.2-5.4 [facility] Work Phone: [phone] Blood hemoglobin measurement (mass/volume)on 07-27-2021 Hemoglobin (Bld) [Mass/Vol] 13.0 g/dL 12.0-15.0 [facility] Work Phone: Blood lymphocytes/100 leukoc yteson 07-27-2021 Lymphocytes/100 WBC (Bld) 30.6 % 19-41 [facility] Work Phone: [phone] Blood monocytes/100 leukocyt eson 07-27-2021 Monocytes/100 WBC (Bld) 7.9 % 0-[address] [facility] Work Phone: Blood platelet mean volumeon 07-27-2021 Platelet mean volume (Bld) [Entitic vol] 10.0 fL 6.2-12.0 [facility] Work Phone: Determination of erythrocyte mean corpuscular volume (MCV)on 07-27-2021 MCV (RBC) [Entitic vol] 94.6 fL 81-[address] [facility] Work Phone: Hematocrit Auto (Bld) [Volum e fraction]on 07-27-2021 Hematocrit (Bld) [Volume fraction] 38.4 % 37-47 [facility] Work Phone: Laboratory - Chemistry and C hemistry - challengeon 07-27-2021 ALP [Catalytic activity/Vol] 57 U/L 45-117 [facility] Work Phone: ALT [Catalytic activity/Vol] 23 U/L 13-56 [facility] Work Phone: CO2 [Moles/Vol] 29.0 mmol/L 21.0-32.0 [facility] Work Phone: Globulin (S) [Mass/Vol] 3.3 g/dL 2.2-4.[address] [facility] Work Phone: Urea nitrogen/Creatinine [Mass ratio] 15.0 mg/mg 10-20 [facility] Work Phone: Laboratory - Hematology and Cell countson 07-27-2021 Erythrocyte distribution width (RBC) [Entitic vol] 47.1 fL 35.1-43.9 [facility] Work Phone: Erythrocyte distribution width (RBC) [Ratio] 13.5 % 11.6-14.6 [facility] Work Phone: Immature granulocytes/100 WBC (Bld) 0.300 % 0.0-0.9 [facility] Work Phone: Comment on above: IG% - Immature Granu locytes (promyelocytes, myelocytes and metamyelocytes) > 1% indicates that a LEFT SHIFT is Present. MCH (RBC) [Entitic mass] 32.0 pg 27.0-32.0 [facility] Work Phone: Nucleated RBC/100 WBC (Bld) [Ratio] 0 % 0-5 [facility] Work Phone: MCHC Auto (RBC) [Mass/Vol]on 07-27-2021 MCHC (RBC) [Mass/Vol] 33.9 g/dL 32-36 [facility] Work Phone: No Panel Informationon 07-27 Estimated GFR (MDRD) Amer 76 mL/min >60 [facility] Work Phone: Comment on above: GFR Calc Estimated GFR (MDRD) Non-Af Amer 63 mL/min >60 [facility] Work Phone: Comment on above: Non- GFR Calc Platelets bldon 07-27-2021 Platelets (Bld) [#/Vol] 272 10*3/uL 150-450 [facility] Work Phone: Serum or plasma albumin jasmine urement (mass/volume)on 07-27-2021 Albumin [Mass/Vol] 3.8 g/dL 3.2-5.0 [facility] Work Phone: Serum or plasma albumin/glob ulin mass ratioon 07-27-2021 Albumin/Globulin [Mass ratio] 1.2 {ratio} 0.9-2.4 [facility] Work Phone: Serum or plasma calcium jasmine urement (mass/volume)on 07-27-2021 Calcium [Mass/Vol] 9.4 mg/dL 8.5-10.1 [facility] Work Phone: Serum or plasma creatinine m easurement (mass/volume)on 07-27-2021 Creatinine [Mass/Vol] 0.93 mg/dL 0.55-1.02 [facility] Work Phone: Comment on above: The validity of the calculated GFR & GFRAA in patients over 70 years has not been determined. Clinical correlation is essential. Serum or plasma urea nitroge n measurement (mass/volume)on 07-27-2021 Urea nitrogen [Mass/Vol] 14 mg/dL 7-18 [facility] Work Phone: Thin prep Papanicolaou smear with manual screeningon 07-27-2021 Thin prep Papanicolaou smear with manual screening 13 U/L 15-37 [facility] Work Phone: Thin prep Papanicolaou smear with manual screening 5 5-15 [facility] Work Phone: Absolute lymphocyte counton 05-03-2021 Lymphocytes Auto (Unsp spec) [#/Vol] 1.07 10*3/uL 0.83-4.51 [facility] Work Phone: Basophil percentageon 2020 Bilirubin [Mass/Vol] 0.50 mg/dL 0.20-1.00 [facility] Work Phone: Comment on above: For patients on eltr ombopag therapy, use of Dimension [place] TBIL is not recommended. Chloride [Moles/Vol] 104 mmol/L 98-107 [facility] Work Phone: Eosinophils/100 WBC (Bld) 4.1 % 0-5 [facility] Work Phone: Glucose [Mass/Vol] 112 mg/dL 74-106 [facility] Work Phone: Comment on above: Fasting Glucose resu lt from 100 to 125 mg/dL suggests IMPAIRED HOMEOSTASIS per A.D.A. criteria.Please note revised GLUCOSE reference range effective 2017. Neutrophils (Bld) [#/Vol] 3.1 10*3/uL 2.0-7.7 [facility] Work Phone: Potassium [Moles/Vol] 4.2 mmol/L 3.5-5.1 [facility] Work Phone: Protein [Mass/Vol] 7.8 g/dL 6.4-8.2 [facility] Work Phone: Sodium [Moles/Vol] 138 mmol/L 136-145 [facility] Work Phone: WBC (Bld) [#/Vol] 4.9 10*3/uL 4.4-11.0 [facility] Work Phone: Blood erythrocytes count (nu mber/volume)on 05-03-2021 RBC (Bld) [#/Vol] 4.16 10*6/uL 4.2-5.4 [facility]: Blood hemoglobin measurement (mass/volume)on 05-03-2021 Hemoglobin (Bld) [Mass/Vol] 13.3 g/dL 12.0-15.0 [facility] Work Phone: Blood lymphocytes/100 leukoc yteson 05-03-2021 Lymphocytes/100 WBC (Bld) 21.8 % 19-41 [facility] Work Phone: Blood monocytes/100 leukocyt eson 05-03-2021 Monocytes/100 WBC (Bld) 9.6 % 0-[address] [facility] Work Phone: Blood platelet mean volumeon 05-03-2021 Platelet mean volume (Bld) [Entitic vol] 10.0 fL 6.2-12.0 [facility] Work Phone: Determination of erythrocyte mean corpuscular volume (MCV)on 05-03-2021 MCV (RBC) [Entitic vol] 93.5 fL 81-[address] [facility] Work Phone: Hematocrit Auto (Bld) [Volum e fraction]on 05-03-2021 Hematocrit (Bld) [Volume fraction] 38.9 % 37-47 [facility] Work Phone: Laboratory - Chemistry and C hemistry - challengeon 05-03-2021 ALP [Catalytic activity/Vol] 68 U/L 45-117 [facility] Work Phone: ALT [Catalytic activity/Vol] 21 U/L 13-56 [facility] Work Phone: CO2 [Moles/Vol] 29.0 mmol/L 21.0-32.0 [facility] Work Phone: Globulin (S) [Mass/Vol] 3.8 g/dL 2.2-4.[address] [facility] Work Phone: Urea nitrogen/Creatinine [Mass ratio] 18.1 mg/mg 10-20 [facility] Work Phone: Laboratory - Hematology and Cell countson 05-03-2021 Basophils/100 WBC (Unsp spec) 0.8 % 0-1 [facility] Work Phone: Erythrocyte distribution width (RBC) [Entitic vol] 47.8 fL 35.1-43.9 [facility] Work Phone: Erythrocyte distribution width (RBC) [Ratio] 14.0 % 11.6-14.6 [facility] Work Phone: Immature granulocytes/100 WBC (Bld) 0.200 % 0.0-0.9 [facility] Work Phone: Comment on above: IG% - Immature Granu locytes (promyelocytes, myelocytes and metamyelocytes) > 1% indicates that a LEFT SHIFT is Present. MCH (RBC) [Entitic mass] 32.0 pg 27.0-32.0 [facility] Work Phone: Neutrophils/100 WBC (Bld) 63.5 % 47-70 [facility] Work Phone: Nucleated RBC/100 WBC (Bld) [Ratio] 0 % 0-5 [facility] Work Phone: MCHC Auto (RBC) [Mass/Vol]on 05-03-2021 MCHC (RBC) [Mass/Vol] 34.2 g/dL 32-36 [facility]: No Panel Informationon 05-03 Estimated GFR (MDRD) Amer 75 mL/min >60 [facility] Work Phone: Comment on above: GFR Calc Estimated GFR (MDRD) Non-Af Amer 62 mL/min >60 [facility] Work Phone: Comment on above: Non- GFR Calc Platelets bldon 05-03-2021 Platelets (Bld) [#/Vol] 272 10*3/uL 150-450 [facility] Work Phone: Serum or plasma albumin jasmine urement (mass/volume)on 05-03-2021 Albumin [Mass/Vol] 4.0 g/dL 3.2-5.0 [facility] Work Phone: Serum or plasma albumin/glob ulin mass ratioon 05-03-2021 Albumin/Globulin [Mass ratio] 1.1 {ratio} 0.9-2.4 [facility] Work Phone: Serum or plasma calcium jasmine urement (mass/volume)on 05-03-2021 Calcium [Mass/Vol] 9.3 mg/dL 8.5-10.1 [facility] Work Phone: Serum or plasma creatinine m easurement (mass/volume)on 05-03-2021 Creatinine [Mass/Vol] 0.94 mg/dL 0.55-1.02 [facility] Work Phone: Comment on above: The validity of the calculated GFR & GFRAA in patients over 70 years has not been determined. Clinical correlation is essential. Serum or plasma urea nitroge n measurement (mass/volume)on 05-03-2021 Urea nitrogen [Mass/Vol] 17 mg/dL 7-18 [facility] Work Phone: Thin prep Papanicolaou smear with manual screeningon 05-03-2021 Thin prep Papanicolaou smear with manual screening 14 U/L 15-37 [facility] Work Phone: Thin prep Papanicolaou smear with manual screening 5 5-15 [facility] Work Phone: MRI Brain w/ + w/o Contrasto n 02-08-2021 MRI Brain w/ + w/o Contrast [facility]: [id number] ACCESSION EXAM DATE/TIME PROCEDURE ORDERING PROVIDER [id number] 02/08/2021 14:59 EDT MRI Brain w/ + w/o RYAN CHRISTOPHER Contrast CPT code 65110 Reason For Exam (MRI Brain w/ + w/o Contrast) Ataxia, unspecified Report Examination: MRI brain with and without contrast Clinical Indication: Ataxia, unspecified Comparison: None Findings: Multiplanar multisequence MRI was obtained through the skull prior to and after administration of 6 mL Gadavist intravenous gadolinium contrast. Sequences included diffusion-weighted, gradient and FLAIR images. Ventricles are normal in size and configuration and are normally positioned on midline. There is mild diffuse cerebral volume loss. Basilar cisterns are patent. There is moderate periventricular and subcortical white matter nonspecific T2 and FLAIR signal hyperintensity. Some foci are perpendicular to the ventricles and corpus callosum which can be seen with demyelinating disease such as MS. No intracranial fluid collection. No visualized mass. No evidence of intracranial hemorrhage. Review of the diffusion-weighted images demonstrate no evidence of acute infarct. Signal changes ocular lenses consistent with prior lens surgery/cataracts. Paranasal sinuses demonstrate mild mucoperiosteal thickening ethmoid sinuses. Post gadolinium contrast-enhanced images demonstrate no evidence of abnormal enhancement. Impression: Mild diffuse cerebral volume loss with moderate nonspecific white matter changes which can be seen with migraine headaches, hypertension, chronic small vessel ischemic disease or demyelination among others. There is no enhancement to suggest active demyelination. Magnetic Resonance Imaging Report Report Dictated on Final Dictated: 02/10/2021 5:34 pm Dictating Physician: MD CALABRESE ANTHONY J Signed Date and Time: 02/10/2021 5:39 pm Signed by: MD CALABRESE ANTHONY J Transcribed Date and Time: 02/10/2021 5:34 Normal [facility] LACERATION REPAIROrdered By: Aries Barrios on 09-28-2020 Aries Barrios MD 09/28/2020 3:37 PM Wound extent: Lac Repair Date/Time: 09/28/2020 3:33 PM Performed by: Aries Barrios MD Authorized by: Aries Barrios MD Verbal consent: obtained Consent given by: patient Relevant documents: Relevent documents present and verified. 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 Body area: head/neck Location details: nose Laceration length: 0.5 cm Foreign bodies: no foreign bodies Tendon involvement: none Nerve involvement: none Vascular damage: no Anesthesia: Anesthetic total: 0 mL Patient sedated: no Repair type: simple Preparation: Patient was prepped and draped in the usual sterile fashion. Hemostasis achieved with: direct pressure Wound exploration: wound explored through full range of motion and entire depth of wound probed and visualized areolar tissue not violated, fascia not violated, no foreign body, no muscle damage, no nerve damage, no tendon damage, no underlying fracture and no vascular damage Debridement: none Degree of undermining: none Skin closure: glue and Steri-Strips Approximation: close Approximation difficulty: simple Patient tolerance: patient tolerated the procedure well with no immediate complications [facility] Office Visit: suture removal on 02-19-2017 Alcoholism counseling (procedure) no Invalid Interpretation Code [facility] [employer] Work Phone: Documentation of current medications (procedure) Done Invalid Interpretation Code [facility] [employer] Work Phone: Fall risk assessment No Invalid Interpretation Code [facility] [employer] Work Phone: Protein mass conc Done Invalid Interpretation Code [facility] [employer] Work Phone: Protein mass conc no Invalid Interpretation Code [facility] [employer] Work Phone: Tobacco smoking status NHIS Never Invalid Interpretation Code [facility] [employer] Work Phone: Tobacco smoking status NHIS Never smoker Invalid Interpretation Code [facility] [employer] Work Phone: Tobacco use [facility] Never smoker Invalid Interpretation Code [facility] [employer] Work Phone: Office Visit: Post Op Excisi on of cyst X2on 02-13-2017 Fall risk assessment No Invalid Interpretation Code [facility] [employer] Work Phone: Protein mass conc Done Invalid Interpretation Code [facility] [employer] Work Phone: Protein mass conc no Invalid Interpretation Code [facility] [employer] Work Phone: Tobacco smoking status NHIS Never Invalid Interpretation Code [facility] [employer] Work Phone: Tobacco smoking status NHIS Never smoker Invalid Interpretation Code [facility] [employer] Work Phone: Office Visit: excision cyst abdomen and upper backon 02-07-2017 Alcoholism counseling (procedure) no Invalid Interpretation Code [facility] [employer] Work Phone: Documentation of current medications (procedure) Done Invalid Interpretation Code [facility] [employer] Work Phone: Fall risk assessment No Invalid Interpretation Code [facility] [employer] Work Phone: Tobacco smoking status NHIS Never Invalid Interpretation Code [facility] [employer] Work Phone: Tobacco use [facility] Never smoker Invalid Interpretation Code [facility] [employer] Work Phone: Office Visiton 01-01-2017 Alcoholism counseling (procedure) no Invalid Interpretation Code [facility] [employer] Work Phone: Documentation of current medications (procedure) Done Invalid Interpretation Code [facility] [employer] Work Phone: Tobacco smoking status NHIS Never Invalid Interpretation Code [facility] [employer] Work Phone: Tobacco use [facility] Never smoker Invalid Interpretation Code [facility] [employer] Work Phone: Vital Signs Date Time Vital Sign Value Performing Clinician Facility 09-30-2024 11:34-0400 Body height 157.5 cm Og Johnson APRN [employer] Work Phone: [email or web address] 09-30-2024 11:34-0400 Body mass index (BMI) [Ratio] 26.19 kg/m2 Og Johnson APRN [employer] Work Phone: [employer] 09-30-2024 11:34-0400 Body weight 64.95 kg Og Alstonlellan COMPUGRAPH OPERATOR - SENIOR SUPPLIER QUALITY ENGINEER Work Phone: [facility] [email or web address] 09-30-2024 11:34-0400 Diastolic blood pressure 81 mm[Hg] Og Alstonlellan COMPUGRAPH OPERATOR - SENIOR SUPPLIER QUALITY ENGINEER Work Phone: [facility] [email or web address] 09-30-2024 11:34-0400 Heart rate 60 /min Og Alstonlellan COMPUGRAPH OPERATOR - SENIOR SUPPLIER QUALITY ENGINEER Work Phone: [facility] [email or web address] 09-30-2024 11:34-0400 Systolic blood pressure 129 mm[Hg] Og Alstonlellan COMPUGRAPH OPERATOR - SENIOR SUPPLIER QUALITY ENGINEER Work Phone: [facility] [email or web address] 07-03-2024 10:49-0500 Body height 157.5 cm Og David COMPUGRAPH OPERATOR - SENIOR SUPPLIER QUALITY ENGINEER Work Phone: [facility] [email or web address] 07-03-2024 10:49-0500 Body mass index (BMI) [Ratio] 26.52 kg/m2 Og Alstonlellan COMPUGRAPH OPERATOR - SENIOR SUPPLIER QUALITY ENGINEER Work Phone: [facility] [email or web address] 07-03-2024 10:49-0500 Body weight 65.77 kg Og Johnson COMPUGRAPH OPERATOR - SENIOR SUPPLIER QUALITY ENGINEER Work Phone: [facility] [email or web address] 07-03-2024 10:49-0500 Diastolic blood pressure 65 mm[Hg] Og David COMPUGRAPH OPERATOR - SENIOR SUPPLIER QUALITY ENGINEER Work Phone: [facility] [email or web address] 07-03-2024 10:49-0500 Heart rate 61 /min Og Alstonlellan COMPUGRAPH OPERATOR - SENIOR SUPPLIER QUALITY ENGINEER Work Phone: [facility] [email or web address] 07-03-2024 10:49-0500 Systolic blood pressure 98 mm[Hg] Og David COMPUGRAPH OPERATOR - SENIOR SUPPLIER QUALITY ENGINEER Work Phone: [facility] [email or web address] 04-14-2024 09:53-0500 Body height 160.[address] Kelley Maldonado MD Work Phone: [facility] 04-14-2024 09:53-0500 Body mass index (BMI) [Ratio] 25.7 kg/m2 Dr. Kelley Maldonado MD Work Phone: [facility] 04-14-2024 09:53-0500 Body temperature 97.5 [degF] Dr. Kelley Maldonado MD Work Phone: [facility] 04-14-2024 09:53-0500 Body weight 65.[address] Kelley Maldonado MD Work Phone: [facility] 04-14-2024 09:53-0500 Diastolic blood pressure 84 mm[Hg] Dr. Kelley Maldonado MD Work Phone: [facility] 04-14-2024 09:53-0500 Heart rate 59 /min Dr. Kelley Maldonado MD Work Phone: [facility] 04-14-2024 09:53-0500 Respiratory rate 14 /min Dr. Kelley Maldonado MD Work Phone: [facility] 04-14-2024 09:53-0500 SaO2% (BldA) [Mass fraction] 95 % Dr. Kelley Maldonado MD Work Phone: [facility] 04-14-2024 09:53-0500 Systolic blood pressure 132 mm[Hg] Dr. Kelley Maldonado MD Work Phone: [facility] 02-06-2024 12:31-0400 Body height 157.5 cm Og Johnson APRN - SENIOR SUPPLIER QUALITY ENGINEER Work Phone: [facility] 02-06-2024 12:31-0400 Body mass index (BMI) [Ratio] 26.63 kg/m2 Og Johnson APRN - SENIOR SUPPLIER QUALITY ENGINEER Work Phone: [facility] 02-06-2024 12:31-0400 Body weight 66.04 kg Og Johnson APRN - SENIOR SUPPLIER QUALITY ENGINEER Work Phone: [facility] 02-06-2024 12:31-0400 Diastolic blood pressure 67 mm[Hg] Ogakhil Johnson COMPUGRAPH OPERATOR - SENIOR SUPPLIER QUALITY ENGINEER Work Phone: [facility] 02-06-2024 12:31-0400 Heart rate 62 /min Og David COMPUGRAPH OPERATOR - SENIOR SUPPLIER QUALITY ENGINEER Work Phone: [facility] 02-06-2024 12:31-0400 Systolic blood pressure 126 mm[Hg] Og David COMPUGRAPH OPERATOR - SENIOR SUPPLIER QUALITY ENGINEER Work Phone: [facility] 11-07-2023 12:59-0400 Body height 157.5 cm Ryan Christopher MD Work Phone: [facility] 11-07-2023 12:59-0400 Body mass index (BMI) [Ratio] 26.92 kg/m2 Ryan Christopher MD Work Phone: [facility] 11-07-2023 12:59-0400 Body weight 66.77 kg Ryan Christopher MD Work Phone: [facility] 11-07-2023 12:59-0400 Diastolic blood pressure 71 mm[Hg] Ryan Christopher MD Work Phone: [facility] 11-07-2023 12:59-0400 Heart rate 60 /min Ryan Christopher MD Work Phone: [facility] 11-07-2023 12:59-0400 Systolic blood pressure 127 mm[Hg] Ryan Christopher MD Work Phone: [facility] 04-08-2023 09:29-0500 Body height 157.[address] Kelley Maldonado Work Phone: [facility] 04-08-2023 09:29-0500 Body mass index (BMI) [Ratio] 26.9 kg/m2 Dr. Kelley Maldonado Work Phone: [facility] 04-08-2023 09:29-0500 Body temperature 97.4 [degF] Dr. Kelley Maldonado Work Phone: [facility] 04-08-2023 09:29-0500 Body weight 66.[address] Kelley Maldonado Work Phone: [facility] 04-08-2023 09:29-0500 Diastolic blood pressure 74 mm[Hg] Dr. Kelley Maldonado Work Phone: [facility] 04-08-2023 09:29-0500 Heart rate 73 /min Dr. Kelley Maldonado Work Phone: [facility] 04-08-2023 09:29-0500 Respiratory rate 14 /min Dr. Kelley Maldonado Work Phone: [facility] 04-08-2023 09:29-0500 SaO2% (BldA) [Mass fraction] 99 % Dr. Kelley Maldonado Work Phone: [facility] 04-08-2023 09:29-0500 Systolic blood pressure 110 mm[Hg] Dr. Kelley Maldonado Work Phone: [facility] 02-28-2023 08:04-0400 Body height 157.[address] Kelley Maldonado Work Phone: [facility] 02-28-2023 08:04-0400 Body mass index (BMI) [Ratio] 26.9 kg/m2 Dr. Kelley Maldonado Work Phone: [facility] 02-28-2023 08:04-0400 Body weight 66.[address] Kelley Maldonado Work Phone: [facility] 02-28-2023 08:04-0400 Diastolic blood pressure 76 mm[Hg] Dr. Kelley Maldonado Work Phone: [facility] 02-28-2023 08:04-0400 Systolic blood pressure 138 mm[Hg] Dr. Kelley Maldonado Work Phone: [facility] 02-14-2023 10:02-0400 Body mass index (BMI) [Ratio] 26.6 kg/m2 Dr. Kelley Maldonado Work Phone: [facility] 02-14-2023 10:02-0400 Body temperature 95 [degF] Dr. Kelley Maldonado Work Phone: [facility] 02-14-2023 10:02-0400 Body weight 65.[address] Kelley Maldonado Work Phone: [facility] 02-14-2023 10:02-0400 Diastolic blood pressure 82 mm[Hg] Dr. Kelley Maldonado Work Phone: [facility] 02-14-2023 10:02-0400 Heart rate 61 /min Dr. Kelley Maldonado Work Phone: [facility] 02-14-2023 10:02-0400 Respiratory rate 18 /min Dr. Kelley Maldonado Work Phone: [facility] 02-14-2023 10:02-0400 SaO2% (BldA) [Mass fraction] 99 % Dr. Kelley Maldonado Work Phone: [facility] 02-14-2023 10:02-0400 Systolic blood pressure 116 mm[Hg] Dr. Kelley Maldonado Work Phone: [facility] 11-06-2022 13:30-0400 Body mass index (BMI) [Ratio] 25.97 kg/m2 Ryan Christopher MD Work Phone: [facility] 11-06-2022 13:30-0400 Body weight 64.41 kg Ryan Christopher MD Work Phone: [facility] 11-06-2022 13:30-0400 Diastolic blood pressure 86 mm[Hg] Ryan Christopher MD Work Phone: [facility] 11-06-2022 13:30-0400 Heart rate 56 /min Ryan Christopher MD Work Phone: [facility] 11-06-2022 13:30-0400 Systolic blood pressure 141 mm[Hg] Ryan Christopher MD Work Phone: [facility] 09-05-2022 10:13-0400 Body height 157.5 cm Ryan Christopher MD Work Phone: [facility] 09-05-2022 10:13-0400 Body mass index (BMI) [Ratio] 25.97 kg/m2 Ryan Christopher MD Work Phone: [facility] 09-05-2022 10:13-0400 Body weight 64.41 kg Ryan Chrisotpher MD Work Phone: [facility] 09-05-2022 10:13-0400 Diastolic blood pressure 70 mm[Hg] Ryan Christopher MD Work Phone: [facility] 09-05-2022 10:13-0400 Heart rate 63 /min Ryan Christopher MD Work Phone: [facility] 09-05-2022 10:13-0400 Systolic blood pressure 127 mm[Hg] Ryan Christopher MD Work Phone: [facility] 08-09-2022 08:59-0400 Body mass index (BMI) [Ratio] 26.2 kg/m2 Dr. Eamon Kelly Work Phone: [facility] 08-09-2022 08:59-0400 Body temperature 96 [degF] Dr. Eamon Kelly Work Phone: [facility] 08-09-2022 08:59-0400 Body weight 64.[address] Eamon Kelly Work Phone: [facility] 08-09-2022 08:59-0400 Diastolic blood pressure 86 mm[Hg] Dr. Eamon Kelly Work Phone: [facility] 08-09-2022 08:59-0400 Heart rate 60 /min Dr. Eamon Kelly Work Phone: [facility] 08-09-2022 08:59-0400 Respiratory rate 18 /min Dr. Eamon Kelly Work Phone: [facility] 08-09-2022 08:59-0400 SaO2% (BldA) [Mass fraction] 99 % Dr. Eamon Kelly Work Phone: [facility] 08-09-2022 08:59-0400 Systolic blood pressure 130 mm[Hg] Dr. Eamon Kelly Work Phone: [facility] [facility] 07-[facility]-2022 11:55-0500 Diastolic blood pressure 86 mm[Hg] Dr. Eamon Kelly Work Phone: [facility] 07-05-2022 11:55-0500 Systolic blood pressure 142 mm[Hg] Dr. Eamon Kelly Work Phone: [facility] 07-05-2022 08:51-0500 Body mass index (BMI) [Ratio] 25.9 kg/m2 Dr. Eamon Kelly Work Phone: [facility] 07-05-2022 08:51-0500 Body temperature 97.1 [degF] Dr. Eamon Kelly Work Phone: [facility] 07-05-2022 08:51-0500 Body weight 64.[address] Eamon Kelly Work Phone: [facility] 07-05-2022 08:51-0500 Heart rate 62 /min Dr. Eamon Kelly Work Phone: [facility] 07-05-2022 08:51-0500 Respiratory rate 18 /min Dr. Eamon Kelly Work Phone: [facility] 07-05-2022 08:51-0500 SaO2% (BldA) [Mass fraction] 99 % Dr. Eamon Kelly Work Phone: [facility] 02-26-2022 08:45-0400 Body height 157.[address] Eamon Kelly Work Phone: [facility] 09-28-2020 15:08-0400 Body height 157.5 cm Aries Barrios MD Work Phone: [facility] 09-28-2020 15:08-0400 Body mass index (BMI) [Ratio] 25.61 kg/m2 Aries Barrios MD Work Phone: [facility] 09-28-2020 15:08-0400 Body temperature 98.49 [degF] Aries Barrios MD Work Phone: [facility] 09-28-2020 15:08-0400 Body weight 63.5 kg Aries Barrios MD Work Phone: [facility] 09-28-2020 15:08-0400 Diastolic blood pressure 92 mm[Hg] Aries Barrios MD Work Phone: [facility] 09-28-2020 15:08-0400 Heart rate 76 /min Aries Barrios MD Work Phone: [facility] 09-28-2020 15:08-0400 Respiratory rate 18 /min Aries Barrios MD Work Phone: [facility] 09-28-2020 15:08-0400 SaO2% (BldA) [Mass fraction] 98 % Aries Barrios MD Work Phone: [facility] 09-28-2020 15:08-0400 Systolic blood pressure 150 mm[Hg] Aries Barrios MD Work Phone: [facility] 01-01-2017 14:48-0400 BMI (Body Mass Index) 31.21 kg/m2 Talat Forrester MD [facility] Work Phone: 01-01-2017 14:48-0400 BP Diastolic 64 mm[Hg] Talat Forrester MD [facility] Work Phone: 01-01-2017 14:48-0400 BP Systolic 100 mm[Hg] Talat Forrester MD [facility] Work Phone: 01-01-2017 14:48-0400 Height 161.29 cm Talat Forrester MD [facility] Work Phone: 01-01-2017 14:48-0400 Pulse (Heart Rate) 70 /min Talat Forrester MD [facility] Work Phone: 01-01-2017 14:48-0400 Respiratory Rate 18 /min Talat Forrester MD [facility] Work Phone: 01-01-2017 14:48-0400 Weight 81.19 kg Talat Forrester MD [facility] Work Phone: 07-12-2011 08:09-0500 Body Temperature 98.1 [degF] Talat Forrester MD [facility] Work Phone: Encounters Encounter Date Encounter Type Care Provider Facility Start: 09-30-2024 End: 09-30-2024 Office outpatient visit 15 minutes Og Johnson APRN - SENIOR SUPPLIER QUALITY ENGINEER Work Phone: [facility] Comment on above: Essential tremor (Pr imary Dx); Restless legs syndrome Start: 09-30-2024 End: 09-30-2024 ambulatory KELLEY MALDONADO [facility] Start: 07-23-2024 End: 07-23-[address] Kelley Maldonado MD Work Phone: [facility] Work Phone: Start: 07-23-2024 End: 07-23-[address] Trudy Trejo MD -[facility] Work Phone: Start: 07-23-2024 End: 07-23-2024 ambulatory Kelley Maldonado Facility:[facility] Start: 07-03-2024 End: 07-03-2024 Office outpatient visit 25 minutes Og Johnson APRN - SENIOR SUPPLIER QUALITY ENGINEER Work Phone: [facility] [place] Comment on above: Essential tremor (Pr imary Dx); Restless legs syndrome Start: 07-03-2024 End: 07-03-2024 ambulatory OG JOHNSON [facility] Start: 05-11-2024 End: 05-11-[address] Richard Moore MD -[facility] Work Phone: Start: 05-11-2024 End: 05-11-2024 ambulatory Richard Moore Facility:[facility] Start: 04-21-2024 End: 04-21-[address] CNP Work Phone: [facility] Start: 04-21-2024 End: 04-21-[address] Trudy Trejo MD -Laboratory, [place] Work Phone: Start: 04-21-2024 End: 04-21-2024 ambulatory Trudy Trejo Facility:[facility] Start: 04-14-2024 End: 04-14-[address] Kelley Maldonado MD -[facility] Work Phone: Start: 04-14-2024 End: 04-14-2024 ambulatory Kelley Maldonado [facility] Start: 03-30-2024 Encounter for gynecological examination (general) (routine) with abnormal findings [facility] Start: 03-30-2024 Encounter for gynecological examination (general) (routine) without abnormal findings [facility] Start: 03-30-2024 End: 03-30-2024 ambulatory Kelley Creola Facility:[facility] Start: 03-20-2024 End: 03-20-2024 ambulatory Kianamike Giraldo Facility:[facility] Start: 03-10-2024 End: 03-10-2024 ambulatory Kelley Joel Facility:[facility] Start: 03-10-2024 End: 03-10-2024 ambulatory Kelley Joel Facility:[facility] Start: 02-06-2024 End: 02-06-2024 Office outpatient visit [address] CNP Work Phone: [facility] Comment on above: Essential tremor (Pr imary Dx); Restless legs syndrome; Iron deficiency Start: 02-06-2024 End: 02-06-2024 ambulatory OG JOHNSON [facility] Start: 01-30-2024 End: 01-30-2024 ambulatory Kelley Creola Facility:[facility] Start: 11-07-2023 End: 11-07-2023 Office outpatient visit 25 minutes Ryan Christopher MD Work Phone: [facility] Comment on above: Essential tremor (Pr imary Dx); Restless legs syndrome Start: 11-07-2023 End: 11-07-2023 ambulatory RYAN CHRISTOPHER [facility] Start: 10-31-2023 End: 10-31-2023 ambulatory Kelley Joel Facility:[facility] Start: 10-31-2023 End: 10-31-2023 ambulatory Kelleykranthi Mosquedalay Facility:[facility] Start: 10-25-2023 Refill Ryan Christopher MD Work Phone: [facility] Start: 09-08-2023 Refill Ryan Christopher MD Work Phone: [facility] Comment on above: Essential tremor Start: 08-26-2023 End: 08-26-2023 ambulatory Kelleykranthi Maldonado Facility:[facility] Start: 08-25-2023 Refill Ryan Christopher MD Work Phone: [facility] Start: 08-06-2023 End: 08-06-[address] Kelley Maldonado Work Phone: [facility] Work Phone: Start: 08-06-2023 End: 08-06-[address] Kelley Maldonado Work Phone: [facility] Work Phone: Start: 08-06-2023 End: 08-06-2023 ambulatory Kelley Maldonado Facility:[facility] Start: 05-16-2023 End: 05-16-[address] Kelley Maldonado Work Phone: [facility] Work Phone: Start: 05-16-2023 End: 05-16-[address] Kelley Maldonado Work Phone: [facility] Work Phone: Start: 04-30-2023 End: 04-30-[address] Kelley Maldonado Work Phone: [facility] Work Phone: Start: 04-12-2023 Lakisha Christopher MD Work Phone: [facility] Comment on above: Restless legs syndro me Start: 04-08-2023 End: 04-08-[address] Kelley Maldonado Work Phone: [facility] Work Phone: Start: 03-19-2023 End: 03-19-[address] Kelley Maldonado Work Phone: [facility] Work Phone: Start: 03-19-2023 End: 03-19-[address] Kelley Maldonado Work Phone: [facility]Outpatient [facility] Densitometry Work Phone: Start: 02-28-2023 End: 02-28-[address] Kelley Maldonado Work Phone: [facility] Start: 02-28-2023 End: 02-28-[address] Kelley Maldonado Work Phone: [facility] Work Phone: Start: 02-22-2023 End: 02-22-[address] Kelley Maldonado Work Phone: [facility] Work Phone: Start: 02-14-2023 End: 02-14-[address] Kelley Maldonado Work Phone: [facility] Work Phone: Start: 11-29-2022 End: 11-29-[address] Kelley Maldonado Work Phone: [facility] Work Phone: Start: 11-06-2022 End: 11-06-2022 Office outpatient visit 25 minutes Ryan Christopher MD Work Phone: [facility] Comment on above: Essential tremor (Pr imary Dx); Restless legs syndrome Start: 10-15-2022 Telephone encounter Ryan laguerre MD Work Phone: [facility] Comment on above: Discuss Medications Start: 09-05-2022 End: 09-05-2022 Office outpatient visit 25 minutes Ryan Christopher MD Work Phone: [facility] Comment on above: Restless legs syndro me (Primary Dx); Essential tremor Start: 09-04-2022 End: 09-04-[address] Eamon Kelly Work Phone: [facility] Work Phone: Start: 09-04-2022 End: 09-04-[address] Eamon Kelly Work Phone: [facility] Start: 08-09-2022 End: 08-09-[address] Eamon Kelly Work Phone: [facility] Work Phone: Start: 08-09-2022 End: 08-09-[address] Eamon Kelly Work Phone: [facility] Start: 07-05-2022 End: 07-05-[address] Eamon Kelly Work Phone: [facility] Start: 06-15-2022 End: 06-15-[address] Eamon Kelly Work Phone: [facility] Work Phone: Start: 06-15-2022 End: 06-15-[address] Eamon Kelly Work Phone: [facility] Start: 03-23-2022 End: 03-23-[address] Eamon Kelly Work Phone: [facility] Work Phone: Start: 03-23-2022 End: 03-23-[address] Eamon Kelly Work Phone: [facility] Start: 03-19-2022 End: 03-19-[address] Eamon Kelly Work Phone: [facility] Work Phone: Start: 03-19-2022 End: 03-19-[address] Eamon Kelly Work Phone: [facility] Start: 02-26-2022 End: 02-26-[address] Eamon Kelly Work Phone: [facility] Start: 02-22-2022 End: 02-22-[address] Eamon Kelly Work Phone: [facility]Outpatient Breast Imaging Start: 12-29-2021 End: 12-29-2021 ambulatory [facility] Work Phone: Start: 12-29-2021 End: 12-29-2021 Patient encounter procedure [facility] Start: 11-16-2021 End: 11-16-2021 Subsequent hospital visit by physician Ryan Christopher MD Work Phone: [facility] Comment on above: Cervicalgia of occip nal-rvgdeab-ljolt region Start: 10-16-2021 End: 10-16-2021 Patient encounter procedure [facility] Start: 07-27-2021 End: 07-27-2021 Patient encounter procedure [facility] Start: 05-03-2021 Patient encounter procedure [facility] Start: 02-08-2021 End: 02-08-2021 Subsequent hospital visit by physician Ryan Christopher MD Work Phone: [address] Comment on above: Ataxia; Essential tremor Start: 09-28-2020 End: 09-28-2020 Emergency department patient visit ARIES BARRIOS [facility] Start: 09-28-2020 End: 09-28-2020 Emergency department patient visit Aries Barrios MD Work Phone: [facility] Emergency Department Procedures Date Procedure Procedure Detail Performing Clinician Start: 03-19-2023 Dual energy X-ray absorptiometry Dr. Kelley Maldonado Work Phone: Start: 03-19-2023 End: 03-19-[address] Kelley Maldonado Work Phone: Start: 02-22-2022 End: 02-22-[address] Eamon Kelly Work Phone: Start: 09-28-2020 Procedure on wound Carlota ett Crescencio Barrios MD Work Phone: Start: 02-07-2017 End: 02-07-2017 Repair intermediate s/a/t/e 2.6-7.5 cm Talat Forrester MD Work Phone: Start: 02-07-2017 End: 02-07-2017 Intmd wnd repair s/tr/ext Talat Forrester MD Work Phone: Plan of Treatment Date Care Activity Detail Author Start: 09-28-2030 DTaP/Tdap/Td vaccine (3 - Td or Tdap) DTaP/Tdap/Td vaccine (3 - Td or Tdap) [facility] Start: 09-28-2030 DTaP/Tdap/Td Vaccine s (3 - Td or Tdap) DTaP/Tdap/Td Vaccines (3 - Td or Tdap) [facility] Start: 04-02-2025 End: 04-02-2025 Patient encounter procedure 04/02/2025 11:30 AM EST Office Visit [facility] [address] [place] [address] Og Johnson APRN - SENIOR SUPPLIER QUALITY ENGINEER [address] [place] [address] [facility] Start: 09-30-2024 End: 09-30-2024 Patient encounter procedure 09/30/2024 11:30 AM EDT Office Visit [facility] [address] [place] [id number] Og Johnson APRN - SENIOR SUPPLIER QUALITY ENGINEER [address] [place] [address] [facility] Start: 2024 RSV Immunization for Adults (1 - 1-dose 75+ series) RSV Immunization for Adults (1 - 1-dose 75+ series) [facility] Start: 05-22-2024 End: 05-22-2024 Patient encounter procedure 05/22/2024 11:00 AM EST Office Visit [facility] [address] [place] [address] Og Johnson APRN - SENIOR SUPPLIER QUALITY ENGINEER [address] [place] [address] [facility] Start: 05-13-2024 Medicare Advantage Annual Wellness Visit Medicare Advantage Annual Wellness Visit [facility] Start: 04-07-2024 End: 04-07-2024 Patient encounter procedure 04/07/2024 11:00 AM EST Office Visit [facility] [address] [place] [address] Og Johnson APRN - SENIOR SUPPLIER QUALITY ENGINEER [address] [place] [address] [facility] Start: 03-19-2024 Screening for malign ant neoplasm of breast Mammogram [facility] Start: 02-06-2024 End: 02-05-2025 Ferritin [Mass/volume] in Serum or Plasma Ferritin Lab Routine Restless legs syndrome Iron deficiency Expected: 02/06/2024 (Approximate), Expires: 02/05/2025 [facility] Work Phone: Comment on above: Expected: 02/06/2024 (Approximate), Expires: 02/05/2025 Start: 02-06-2024 End: 02-05-2025 Iron and Iron binding capacity panel - Serum or Plasma Iron and TIBC Lab Routine Restless legs syndrome Iron deficiency Expected: 02/06/2024 (Approximate), Expires: 02/05/2025 [facility] Comment on above: Expected: 02/06/2024 (Approximate), Expires: 02/05/2025 Start: 02-06-2024 End: 02-06-2024 Patient encounter procedure 02/06/2024 12:30 PM EDT Office Visit [facility] [address] [place] [address] Og Johnson APRN - SENIOR SUPPLIER QUALITY ENGINEER [address] [place] [address] [facility] Start: 01-12-2024 COVID-19 Vaccine ( season) COVID-19 Vaccine ( season) [facility] Start: 01-12-2024 COVID-19 Vaccine ( season) COVID-19 Vaccine ( season) [facility] Start: 01-12-2024 Influenza vaccination [facility] Start: 11-07-2023 End: 11-07-2023 Patient encounter procedure 11/07/2023 1:00 PM EDT Office Visit [facility] [address] [place] [id number] Ryan Christopher MD [address] [facility] [address] [place] [address] [facility] Start: 05-13-2023 Medicare Advantage Annual Wellness Visit Medicare Advantage Annual Wellness Visit [facility] Start: 02-22-2023 Screening for malign ant neoplasm of breast Mammogram [facility] Start: 01-11-2023 COVID-19 Vaccine ( season) COVID-19 Vaccine ( season) [facility] Start: 01-11-2023 Influenza vaccination [facility] Start: 11-06-2022 End: 11-06-2022 Patient encounter procedure 11/06/2022 Office Visit Neurology Ryan Christopher MD [address] [address] [facility] Start: 01-11-2022 Influenza vaccination Flu vaccine (# 1) [facility] Start: 11-22-2021 End: 11-22-2021 Patient encounter procedure 11/22/2021 Office Visit Neurology Ryan Christopher MD [address] [place] [address] [facility] [place] Start: 09-05-2021 Shingles vaccine (3 of 3) Shingles vaccine (3 of 3) [facility] Start: 02-24-2021 End: 02-24-2021 Patient encounter procedure 02/24/2021 Office Visit Neurology Ryan Christopher MD [address] [address] [phone] [facility] [place] Start: 12-29-2019 Pneumococcal Vaccine : 50+ Years (3 of 3 - PCV20 or PCV21) Pneumococcal Vaccine: 50+ Years (3 of 3 - PCV20 or PCV21) [facility] Start: 12-29-2019 Pneumococcal Vaccine : 65+ Years (3 - PPSV23 or PCV20) Pneumococcal Vaccine: 65+ Years (3 - PPSV23 or PCV20) [facility] Start: 12-29-2019 Pneumococcal Vaccine : 65+ Years (3 of 3 - PPSV23 or PCV20) Pneumococcal Vaccine: 65+ Years (3 of 3 - PPSV23 or PCV20) [facility] Start: 09-08-2017 Pneumococcal 65+ yea rs Vaccine (2 - PPSV23 or PCV20) Pneumococcal 65+ years Vaccine (2 - PPSV23 or PCV20) [facility] Start: 09-08-2017 Pneumococcal Vaccine : 65+ Years (#3) Pneumococcal Vaccine: 65+ Years (#3) [facility] Start: 09-08-2017 Pneumococcal Vaccine : 65+ Years (3 - PPSV23 if available, else PCV20) Pneumococcal Vaccine: 65+ Years (3 - PPSV23 if available, else PCV20) [facility] Start: 02-19-2017 End: 02-19-2017 Appointment Appointment [facility] Work Phone: Start: 02-13-2017 End: 02-13-2017 Appointment Appointment [facility] Work Phone: Start: 02-13-2017 End: 02-13-2017 Appointment Appointment [facility] Work Phone: Start: 02-07-2017 End: 02-07-2017 Exc b9 lesion mrgn xcp sk tg t/a/l 1.1-2.0 cm Excision Benign Lesion Trunk/Arm/Leg 1.1-2.0 cm [facility] Work Phone: Start: 02-07-2017 End: 02-07-2017 Appointment Appointment [facility] Work Phone: Start: 02-07-2017 End: 02-07-2017 Exc tr-ext b9+aj 1.1-2 cm Excision Benign Lesion Trunk/Arm/Leg 1.1-2.0 cm [facility] Work Phone: Start: 01-23-2017 End: 01-23-2017 Appointment Appointment [facility] Work Phone: Start: 01-01-2017 End: 01-01-2017 Appointment Appointment [facility] Work Phone: Start: 2014 Pneumococcal 65+ yea rs Vaccine (2 of 2 - PPSV23) Pneumococcal 65+ years Vaccine (2 of 2 - PPSV23) [facility] Work Phone: Start: 03-18-2012 Shingles Vaccine (2 of 3) Shingles Vaccine (2 of 3) [facility] Work Phone: Start: 2009 RSV Immunization age d 60 or older (1 - 1-dose 60+ series) RSV Immunization aged 60 or older (1 - 1-dose 60+ series) [facility] Start: 2004 Screening for osteoporosis DEXA (modify frequency per FRAX score) [facility] Start: 09-21-1999 Screening for malign ant neoplasm of breast Breast cancer screen [facility] Start: 1994 Screening for malign ant neoplasm of colon [facility] Start: 1989 Lipid panel [facility] Start: 1968 Urine screening for protein Diabetes: Urine Protein Screening [facility] Start: 09-21-1967 Diabetes: Estimated Glomerular Filtration Rate for Kidney Health Diabetes: Estimated Glomerular Filtration Rate for Kidney Health [facility] Start: 09-21-1967 Diabetes: Urine Albumin-Creatinine Ratio for Kidney Health Diabetes: Urine Albumin-Creatinine Ratio for Kidney Health [facility] Start: 09-21-1967 Hepatitis C screening [facility] Start: 1961 Depression Monitoring Depression Mon itoring [facility] Start: 1961 Depression Screen Depression Screen [facility] Start: 1961 Depression Screening Depression Scre ening [facility] Start: 09-21-1959 Diabetic foot examination Diabetes: Foot Exam [facility] Start: 09-21-1959 Glaucoma screening Diabetes: R etinopathy Screening [facility] Start: 09-21-1959 Preventive dental service Diabetes: Dental Exam [facility] Start: 1954 COVID-19 Vaccine (1) COVID-19 Vaccin e (1) [facility] Start: 1949 Hemoglobin A1c measurement Diabetes: Hemoglobin A1C [facility] Start: 1949 Hepatitis B Vaccines (1 of 3 - 3-dose series) Hepatitis B Vaccines (1 of 3 - 3-dose series) [facility] Start: 1949 Hepatitis C screening Hepatitis C sc reen [facility] Work Phone: Start: 1949 Lipid panel Lipid Panel [facility] Start: 1949 Medicare Advantage Annual Wellness Visit (AWV) Medicare Advantage Annual Wellness Visit (AWV) [facility] Start: 1949 Screening for malign ant neoplasm of colon [facility] Start: 1949 Screening for osteoporosis Bone Density Scan [facility] Start: 1949 Thyroid stimulating hormone measurement TSH Level [facility] End: 02-08-2021 MRI BRAIN W WO CONTRAST MRI BRAIN W WO CONTRAST Imaging Routine Ataxia Essential tremor 1 Occurrences starting 02/08/2021 until 02/08/2021 [facility] Work Phone: Comment on above: 1 Occurrences starti ng 02/08/2021 until 02/08/2021 MRI BRAIN W WO CONTRAST MRI BRAI N W WO CONTRAST Imaging Routine Ataxia Essential tremor 02/08/2021 2:59 PM EDT [facility] Work Phone: End: 11-16-2021 XR CERVICAL SPINE (4-5 VIEWS) [facility] Work Phone: Comment on above: 1 Occurrences starti ng 11/16/2021 until 11/16/2021 End: 11-16-2021 XR CERVICAL SPINE W OBLIQUES FLEXION AND EXTENSION [facility] Work Phone: Comment on above: 1 Occurrences starti ng 11/16/2021 until 11/16/2021 Immunizations Immunization Date Immunization Notes Care Provider [facility] 02-06-2024 influenza, high dose seasonal, preservative-free Dr. Kelley Maldonado MD Work Phone: [facility] 01-21-2024 Covid (Spikevax) Dr. Kelley Maldonado MD Work Phone: [facility] 09-03-2023 Covid (Spikevax) Dr. Kelley Maldonado MD Work Phone: [facility] 04-23-2023 RSV Adult Recombinan t (Arexvy) Dr. Kelley Maldonado MD Work Phone: [facility] 09-04-2022 Covid Moderna Bivale nt Booster Dr. Kelley Maldonado Work Phone: [facility] 04-10-2022 Covvt Moderna Bivale nt Booster Dr. Kelley Maldonado Work Phone: [facility] 11-14-[address] Eamon Kelly Work Phone: [facility] 08-11-2021 Covvt (Moderna) Dr. Eamon mathew Work Phone: [facility] 07-11-[address] Eamon Kelly Work Phone: [facility] 03-07-2021 [facility] (Moderna) Dr. Eamon mathew Work Phone: [facility] 01-12-2021 Influenza, high dose seasonal Dr. Kelley Maldonado MD Work Phone: [facility] 01-12-2021 influenza, high dose seasonal, preservative-free Dr. Eamon Kelly Work Phone: [facility] 01-12-2021 influenza, injectabl e, quadrivalent, preservative free Dr. Kelley Maldonado Work Phone: [facility] 01-12-2021 influenza virus vaccine, unspecified formulation Ryan Christopher MD Work Phone: [facility] 09-28-2020 tetanus toxoid, redu claude diphtheria toxoid, and acellular pertussis vaccine, adsorbed Aries Barrios MD Work Phone: [facility] 07-21-2020 Covvt (Moderna) Dr. Eamon mathew Work Phone: [facility] 06-23-2020 [facility] (Moderna) Dr. Eamon mathew Work Phone: [facility] 01-28-2019 Influenza, high dose seasonal Dr. Kelley Maldonado MD Work Phone: [facility] 01-28-2019 influenza, high dose seasonal, preservative-free Dr. Eamon Kelly Work Phone: [facility] 03-22-2015 influenza, injectabl e, quadrivalent, preservative free Dr. Kelley Maldonado Work Phone: [facility] 03-22-2015 influenza, seasonal, injectable Dr. Eamon Kelly Work Phone: [facility] 12-28-2014 pneumococcal conjuga te vaccine, [address] Eamon Kelly Work Phone: [facility] 03-31-2014 influenza, injectabl e, quadrivalent, preservative free Dr. Kelley Maldonado Work Phone: [facility] 03-31-2014 influenza, seasonal, injectable Dr. Eamon Kelly Work Phone: [facility] Payers Date Payer Category Payer Self-pay [id number] 2020 Medicare [facility] ADVANTAGE CHOICE PPO [id number] 2020-Present [id number] 2018 Medicare [employer]NA MEDICARE ADVANTAGE [employer] MEDICARE [id number] 2018-Present [address] [address] [place] [address] Medicare HMO [id number] 2018 Medicare HMO [id number] 2014 Medicare [id number] 1950 Unknown [id number] Unknown [id number] Unknown [id number] Unknown [id number] Unknown [id number] Unknown [id number] Unknown [id number] Unknown [id number] Unknown [id number] Unknown [id number] Unknown [id number] Unknown [id number] Unknown [id number] Unknown [id number] Social History Date Type Detail Facility Start: 09-28-2020 End: 08-26-2023 Tobacco smoking status COIS Never smoker [facility] Start: 09-28-2020 End: 11-10-2020 Tobacco use and exposure Never used [facility] Start: 09-28-2020 End: 09-30-2024 Alcohol intake Ex-drinker (finding) [facility] Start: 1950 Sex Assigned At Not on file [facility] Start: 08-26-2022 End: 11-06-2022 Exposure to SARS-CoV-2 (event) Not sure [facility] Start: 01-11-2021 End: 09-05-2022 Alcohol intake Current drinker of alcohol (finding) [facility] Work Phone: Start: 11-10-2020 Alcohol Comment rarely [facility] Work Phone: Start: 02-21-2021 End: 04-30-2023 Tobacco smoking status NHIS Unknown if ever smoked [facility] Start: 1950 Sex Assigned At Female [facility] Start: 09-05-2022 End: 09-30-2024 History of Social function [facility] Start: 09-05-2022 End: 09-30-2024 Tobacco use panel [facility] Start: 12-11-2021 End: 08-03-2024 Sex Female (finding) [facility] Clinical Notes 09-28-2020 to 09-30-2024 FEDE Parker CNP - 09/30/2024 11:30 AM EDTPatient InstructionsFEDE Parker CNP - 07/03/2024 11:00 AM ESTPatient Instructions Note Date & Type Note Facility 09-30-2024 History of Presen t illness Narrative Visit type: Established Patient Reason for Visit: Follow-up and Tremors Assessment and Plan 1. Essential tremor 2. Restless legs syndrome Subjective HPI: Tremors began in 2014 Meds-Primidone, TPX, Propranolol, Klonopin (for RLS) Ropinirole caused nausea and she felt weird Pramipexole caused wt gain. Lamictal failed to help Sinemet was never started-ordered 01/2023 Primidone 200mg bid, Propranolol 60mg bid Increase Sinemet 25/100 to 1 tab 4 times daily She reports that 95% of the time she does not have issues with her legs She reports that the tremors have not changed. Worse when stressed. Moreso in the arms. She has noticed that hands are starting to be affected. Tremor in head and legs also Writing is getting harder. No issues with eating, drinking or getting dressed She states that if she can rest her head while sitting the tremors completely stop She exercises multiple times weekly REVIEW OF SYSTEMS: Review of Systems Constitutional: Negative. HENT: Negative. Eyes: Negative. Respiratory: Negative. Cardiovascular: Negative. Gastrointestinal: Negative. Endocrine: Negative. Genitourinary: Negative. Musculoskeletal: Negative. Skin: Negative. Allergic/Immunologic: Negative. Neurological: Positive for tremors. RLS Hematological: Negative. Psychiatric/Behavioral: Negative. Allergies[1] Current Medications[2] Medical History[3] Social History Tobacco Use Smoking status: Never Smokeless tobacco: Never Substance Use Topics Alcohol use: Not Currently Surgical History[4] Family History[5] Objective Vitals: BP 129/81 (BP Location: Right arm, Patient Position: Sitting, BP Cuff Size: Adult) Pulse 60 Ht 5' 2 (1.575 m) Wt 143 lb 3.2 oz (65 kg) BMI 26.19 kg/m General Appearance: Patient is in no apparent distress. Head is normocephalic, atraumatic Cardiovascular: Regular rate and rhythm. No heart murmurs. No carotid bruit Neurologic: Mentation: Alert and oriented x 3 to person, place and time. Speech and Language: Speech and language normal Concentration and Attention: Concentration normal Memory: Memory normal Fund of Knowledge: Fund of knowledge normal Cranial Nerves: II, III, IV, V, , VII, VIII, IX, X, XI, XII examined and were intact. Motor: Strength: Strength 5 out of 5 with normal tone Alternating Movements: Normal Cogwheel Rigidity: None Tone: Tone is normal Tremor / Involuntary Movements: Head titubation, tremors in arms and legs, NOT hands Deep Tendon Reflexes: 1 out of 4 symmetrical in all four limbs. Sensory: Normal sensation upper and lower extremities Coordination: Normal coordination upper and lower extremities Gait and Station: Station is normal. Gait is normal Head titubation is less while walking Data Reviewed and Summarized DIAGNOSTIC TESTING CBC: No results found for: WBC, RBC, HGB, HCT, MCV, MCH, MCHC, RDW, PLT, MPV CMP: No results found for: NA, K, CL, CO2, BUN, CREATININE, AGRATIO, LABGLOM, GLUCOSE, GLU, PROT, CALCIUM, BILITOT, ALKPHOS, AST, ALT BMP: No results found for: NA, K, CL, CO2, BUN, CREATININE, CALCIUM, LABGLOM, GLUCOSE, GLU PT/INR: No results found for: PROTIME, INR PTT: No results found for: APTT, PTT[APTT} FLP: No results found for: CHLPL, TRIG, HDL, LDLCALC, LDLDIRECT TSH: No results found for: TSH VITAMIN B12: No results found for: [id number] No results found for: PHENYTOIN, PHENOBARB, VALPROATE, CBMZ No components found for: TOPIRA @RESULTINGLABINFO@ FERRITIN Date Value Ref Range Status 02/06/2024 108 16 - 288 ng/mL Final No results found for: ANNA, IMMUNOGLOBUL, OLIGOBANDS No results found for: [id number], HEPCAB No results found for: CRP, ANATITER, ANCA FERRITIN: Lab Results Component Value Date FERRITIN 108 02/06/2024 ---- XR CERVICAL SPINE W OBLIQUES FLEXION AND EXTENSION Narrative: Patient Name: ARIADNA LOBATO Diagnostic Radiology ACCESSION EXAM DATE/TIME PROCEDURE ORDERING PROVIDER [id number] 11/16/2021 10:51 EDT CR Spine Cervical Comp RYAN CHRISTOPHER w/ Obliques CPT code 72786 Reason For Exam (CR Spine Cervical Comp w/ Obliques) Cervicalgia Report CLINICAL INFORMATION: Neck pain. Bilateral oblique anterolateral and extension view of the cervical spine are provided. FINDINGS: There is mild anterolisthesis C4 on C5. Disc space narrowing and spurring are most pronounced at C5-6. Vertebral body heights are maintained. There is no subluxation with flexion or extension. Oblique views demonstrate moderate foraminal narrowing on the left at C5-6 and C6-7. Impression: 1. Moderate degenerative changes. 2. No subluxation with flexion or extension. 3. Left-sided foraminal narrowing at C5-6 and C6-7. Report Dictated on --- Final --- Dictating Physician: MD LIN JEFFREY Signed Date and Time: 11/19/2021 7:44 am Signed by: MD LIN JEFFREY Transcribed Date and Time: 11/19/2021 7:45 @LASTAPPOINTMENTTHISPROV@ IMPRESSION and PLAN: Problem List Items Addressed This Visit None Visit Diagnoses Essential tremor - Primary Restless legs syndrome Continue Primidone 200mg twice daily, Propranolol 60mg twice daily and Sinemet 25/100 1 tab four times daily Continue to stay physically active We did discuss referral to [facility] for DBS. She declines at this time Og Johnson, FEDE - JOSE E I spent 20 minutes caring for this patient today, reviewing labs, records, seeing the patient, documenting in the record and arranging for studies. Electronically signed by @PREMA@ mike @OLENANR@ at @NOWNR@ I, Og Johnson, COMPUGRAPH OPERATOR - SENIOR SUPPLIER QUALITY ENGINEER, furnish ongoing care related to Ariadna arambula, serious and complex condition(s) Tremor. I assume responsibility for the patient's ongoing medical care of this condition. [1] Allergies Allergen Reactions Ropinirole Nausea Only [place] weird as well as nauseous. [2] Current Outpatient Medications: atorvastatin (Lipitor) 10 MG tablet, 10 MG ORALLY AT BEDTIME, Disp: , Rfl: buPROPion SR (Wellbutrin SR) 150 MG 12 hr tablet, Take 150 mg by mouth daily., Disp: , Rfl: carbidopa-levodopa (Sinemet) 25-100 MG tablet, Take 1 tablet 4 times daily, Disp: 360 tablet, Rfl: 1 carbidopa-levodopa (Sinemet) 25-100 MG tablet, Take 1 tab 4 times daily, Disp: 120 tablet, Rfl: 0 chlorhexidine (Peridex) 0.12 % solution, Use 15 mL in the mouth or throat 2 times daily., Disp: , Rfl: denosumab (Prolia) 60 MG/ML solution prefilled syringe, 60 mg., Disp: , Rfl: folic acid (Folvite) 1 MG tablet, Take by mouth daily., Disp: , Rfl: levothyroxine (Synthroid, Levoxyl) 88 MCG tablet, Take by mouth every morning (before breakfast)., Disp: , Rfl: methotrexate 2.5 MG tablet, Take by mouth., Disp: , Rfl: predniSONE (Deltasone) 10 MG tablet, Take 10 mg by mouth Daily as needed., Disp: , Rfl: primidone (Mysoline) 50 MG tablet, Take 4 tablets (200 mg) by mouth 2 times daily., Disp: 720 tablet, Rfl: 3 propranolol (Inderal) 60 MG tablet, Take 1 tablet (60 mg) by mouth 2 times daily., Disp: 180 tablet, Rfl: 3 sertraline (Zoloft) 50 MG tablet, Take 50 mg by mouth daily., Disp: , Rfl: [3] Past Medical History: Diagnosis Date Anxiety Psoriatic arthritis (HCC) Restless leg Restless leg syndrome Thyroid disorder Tremor [4] Past Surgical History: Procedure Laterality Date CATARACT EXTRACTION GALLBLADDER SURGERY KNEE SURGERY TOTAL ABDOMINAL HYSTERECTOMY [5] Family History Problem Relation Name Age of Onset Other ([id number]) Maternal Grandfather Other ([id number]) Mother documented in this encounter [facility] 09-30-2024 Instructions FEDE Parker CNP - 09/30/2024 11:30 AM EDT Continue Primidone 200mg twice daily, Propranolol 60mg twice daily and Sinemet 25/100 1 tab four times daily Continue to stay physically active We did discuss referral to [facility] for DBS. She declines at this time documented in this encounter [facility] 09-30-2024 Note Continue Primidone 2 00mg twice daily, Propranolol 60mg twice daily and Sinemet 25/100 1 tab four times daily Continue to stay physically active We did discuss referral to [facility] for DBS. She declines at this time [facility] 07-03-2024 History of Presen t illness Narrative Visit type: Established Patient Reason for Visit: Follow-up and Tremors Assessment and Plan 1. Essential tremor 2. Restless legs syndrome Subjective HPI: Tremors began in 2014 Meds-Primidone, TPX, Propranolol, Klonopin (for RLS) Ropinirole caused nausea and she felt weird Pramipexole caused wt gain. Lamictal Sinemet was never started-ordered 01/2023 visit Increase Primidone to 200mg bid and continue Propranolol 60mg bid Increase Lamictal to 100mg qpm Lamictal stopped last OV due to being ineffective Continue Primidone 200mg bid and Propranolol 60mg bid Add Sinemet 25/100 1-2 tabs in the evening She says the Sinemet is not completely working The dosing in the evening is helping. Dosing at 5pm and 10pm She states that if she is not active during the day she can feel her legs moving. Also if active during the day, when she comes home her legs will start to move She reports that her tremors have not changed. On a stressful day or when doing something she does not want to do, the tremors are worse She attends an exercise class daily REVIEW OF SYSTEMS: Review of Systems Constitutional: Negative. HENT: Negative. Eyes: Negative. Respiratory: Negative. Cardiovascular: Negative. Gastrointestinal: Negative. Endocrine: Negative. Genitourinary: Negative. Musculoskeletal: Negative. Skin: Negative. Allergic/Immunologic: Negative. Neurological: Positive for tremors. RLS Hematological: Negative. Psychiatric/Behavioral: Negative. Allergies Allergen Reactions Ropinirole Nausea Only [place] weird as well as nauseous. Outpatient Medications Prior to Visit Medication Sig Dispense Refill atorvastatin (Lipitor) 10 MG tablet 10 MG ORALLY AT BEDTIME buPROPion SR (Wellbutrin SR) 150 MG 12 hr tablet Take 150 mg by mouth daily. denosumab (Prolia) 60 MG/ML solution prefilled syringe 60 mg. folic acid (Folvite) 1 MG tablet Take by mouth daily. levothyroxine (Synthroid, Levoxyl) 75 MCG tablet Take 75 mcg by mouth daily. methotrexate 2.5 MG tablet Take by mouth. primidone (Mysoline) 50 MG tablet Take 4 tablets (200 mg) by mouth 2 times daily. 720 tablet 3 propranolol (Inderal) 60 MG tablet Take 1 tablet (60 mg) by mouth 2 times daily. 180 tablet 3 sertraline (Zoloft) 25 MG tablet carbidopa-levodopa (Sinemet) 25-100 MG tablet Take 1-2 tabs in the evening 60 tablet 2 Calcium Carbonate-Vitamin D (Oyster Shell Calcium/D) 500-5 MG-MCG tablet Take 1 tablet by mouth in the morning and 1 tablet in the evening. Take with meals. (Patient not taking: Reported on 07/03/2024) lamoTRIgine (LaMICtal) 100 MG tablet Take 1 tablet (100 mg) by mouth every evening. 90 tablet 3 predniSONE (Deltasone) 10 MG tablet Take 10 mg by mouth daily. (Patient not taking: Reported on 07/03/2024) No facility-administered medications prior to visit. Past Medical History: Diagnosis Date Anxiety Psoriatic arthritis (HCC) Restless leg Restless leg syndrome Thyroid disorder Tremor Social History Tobacco Use Smoking status: Never Smokeless tobacco: Never Substance Use Topics Alcohol use: Not Currently Past Surgical History: Procedure Laterality Date CATARACT EXTRACTION GALLBLADDER SURGERY KNEE SURGERY TOTAL ABDOMINAL HYSTERECTOMY Family History Problem Relation Name Age of Onset Other ([id number]) Maternal Grandfather Other ([phone]) Mother Objective Vitals: BP 98/65 (BP Location: Right arm, Patient Position: Sitting, BP Cuff Size: Adult) Pulse 61 Ht 5' 2 (1.575 m) Wt 145 lb (65.8 kg) BMI 26.52 kg/m General Appearance: Patient is in no apparent distress. Head is normocephalic, atraumatic Cardiovascular: Regular rate and rhythm. No heart murmurs. No carotid bruit Neurologic: Mentation: Alert and oriented x 3 to person, place and time. Speech and Language: Speech and language normal Concentration and Attention: Concentration normal Memory: Memory normal Fund of Knowledge: Fund of knowledge normal Cranial Nerves: II, III, IV, V, , VII, VIII, IX, X, XI, XII examined and were intact. Motor: Strength: Strength 5 out of 5 with normal tone Alternating Movements: Normal Cogwheel Rigidity: None Tone: Tone is normal Tremor / Involuntary Movements: Head titubation Deep Tendon Reflexes: 1 out of 4 symmetrical in all four limbs. Sensory: Normal sensation upper and lower extremities Coordination: Normal coordination upper and lower extremities Gait and Station: Station is normal. Gait is normal Data Reviewed and Summarized DIAGNOSTIC TESTING CBC: No results found for: WBC, RBC, HGB, HCT, MCV, MCH, MCHC, RDW, PLT, MPV CMP: No results found for: NA, K, CL, CO2, BUN, CREATININE, AGRATIO, LABGLOM, GLUCOSE, GLU, PROT, CALCIUM, BILITOT, ALKPHOS, AST, ALT BMP: No results found for: NA, K, CL, CO2, BUN, CREATININE, CALCIUM, LABGLOM, GLUCOSE, GLU PT/INR: No results found for: PROTIME, INR PTT: No results found for: APTT, PTT[APTT} FLP: No results found for: CHLPL, TRIG, HDL, LDLCALC, LDLDIRECT TSH: No results found for: TSH VITAMIN B12: No results found for: [id number] No results found for: PHENYTOIN, PHENOBARB, VALPROATE, CBMZ No components found for: TOPIRA @RESULTINGLABINFO@ FERRITIN Date Value Ref Range Status 02/06/2024 108 16 - 288 ng/mL Final No results found for: ANNA, IMMUNOGLOBUL, OLIGOBANDS No results found for: [id number], HEPCAB No results found for: CRP, ANATITER, ANCA FERRITIN: Lab Results Component Value Date FERRITIN 108 02/06/2024 ---- XR CERVICAL SPINE W OBLIQUES FLEXION AND EXTENSION Narrative: Patient Name: ARIADNA LOBATO Diagnostic Radiology ACCESSION EXAM DATE/TIME PROCEDURE ORDERING PROVIDER [id number] 11/16/2021 10:51 EDT CR Spine Cervical Comp RYAN CHRISTOPHER w/ Obliques CPT code 50602 Reason For Exam (CR Spine Cervical Comp w/ Obliques) Cervicalgia Report CLINICAL INFORMATION: Neck pain. Bilateral oblique anterolateral and extension view of the cervical spine are provided. FINDINGS: There is mild anterolisthesis C4 on C5. Disc space narrowing and spurring are most pronounced at C5-6. Vertebral body heights are maintained. There is no subluxation with flexion or extension. Oblique views demonstrate moderate foraminal narrowing on the left at C5-6 and C6-7. Impression: 1. Moderate degenerative changes. 2. No subluxation with flexion or extension. 3. Left-sided foraminal narrowing at C5-6 and C6-7. Report Dictated on --- Final --- Dictating Physician: MD LIN JEFFREY Signed Date and Time: 11/19/2021 7:44 am Signed by: MD LIN JEFFREY Transcribed Date and Time: 11/19/2021 7:45 @LASTAPPOINTMENTTHISPROV@ IMPRESSION and PLAN: Problem List Items Addressed This Visit None Visit Diagnoses Essential tremor - Primary Restless legs syndrome Continue Primidone 200mg twice daily and Propranolol 60mg twice daily Increase Sinemet 25/100 to 1 tablet 4 times daily Continue with exercise FEDE Sanchez CNP I spent 30 minutes caring for this patient today, reviewing labs, records, seeing the patient, documenting in the record and arranging for studies. Electronically signed by @PREMA@ mike @DARINEL@ at @NOWNR@ documented in this encounter [facility] 07-03-2024 Instructions FEDE Parker CNP - 07/03/2024 11:00 AM EST Continue Primidone 200mg twice daily and Propranolol 60mg twice daily Increase Sinemet 25/100 to 1 tablet 4 times daily Continue with exercise documented in this encounter [facility] 04-14-2024 Evaluation note Diagnosis Onset Date Resolution Essential tremor acute April 14, 2024 9:47am Osteopenia acute April 14, 2024 9:47am Psoriatic arthritis acute Decem royce 2023 9:47am Abrasion of oral cavity noneactive D ecember 2023 9:47am Acquired hypothyroidism noneactive D ecember 2023 9:47am Mixed hyperlipidemia noneactive Dece mber 2023 9:47am RLS (restless legs syndrome) noneactive April 14 9:47am Anxiety and depression noneactive De cember 2023 9:47am Osteopenia acute May 11, 2024 12:49pm [facility] Work Phone: 1(327) 460-987209-26-2024 History of Present illness Narrative* FEDE Parker CNP - 02/06/2024 12:30 PM EDT Visit type: Established Patient Reason for Visit: Follow-up and Tremors Assessment and Plan 1. Essential tremor 2. Restless legs syndrome - Ferritin - Iron and TIBC 3. Iron deficiency - Ferritin - Iron and TIBC Subjective HPI: Tremors began in 2014 Meds-Primidone, TPX, Propranolol, Klonopin (for RLS) Ropinirole caused nausea and she felt weird Pramipexole caused wt gain. Lamictal Sinemet was never started-ordered 01/2023 She went October 2022 to October 2023 without a visit Last visit- Increase Primidone to 200mg bid and continue Propranolol 60mg bid Increase Lamictal to 100mg qpm She says she is able to do anything She states the tremors are all through me If she can keep her head stationary, nothing else moves Tremors do not wake her at night She is able to drive She attends an exercise class 4 times weekly Worse when tired or stressed She does not feel that Lamictal is helping RLS sx began around 8-9pm Does not happen every night She reports issues with balance No falls REVIEW OF SYSTEMS: Review of Systems Constitutional: Negative. HENT: Negative. Eyes: Negative. Respiratory: Negative. Cardiovascular: Negative. Gastrointestinal: Negative. Endocrine: Negative. Genitourinary: Negative. Musculoskeletal: Positive for gait problem. Skin: Negative. Allergic/Immunologic: Negative. Neurological: Positive for tremors. RLS Hematological: Negative. Psychiatric/Behavioral: Negative. Allergies Allergen Reactions Ropinirole Nausea Only [place] weird as well as nauseous. Outpatient Medications Prior to Visit Medication Sig Dispense Refill atorvastatin (Lipitor) 10 MG tablet 10 MG ORALLY AT BEDTIME buPROPion SR (Wellbutrin SR) 150 MG 12 hr tablet Take 150 mg by mouth daily. Calcium Carbonate-Vitamin D (Oyster Shell Calcium/D) 500-5 MG-MCG tablet Take 1 tablet by mouth in the morning and 1 tablet in the evening. Take with meals. denosumab (Prolia) 60 MG/ML solution prefilled syringe 60 mg. folic acid (Folvite) 1 MG tablet Take by mouth daily. lamoTRIgine (LaMICtal) 100 MG tablet Take 1 tablet (100 mg) by mouth every evening. 90 tablet 3 levothyroxine (Synthroid, Levoxyl) 75 MCG tablet Take 75 mcg by mouth daily. methotrexate 2.5 MG tablet Take by mouth. predniSONE (Deltasone) 10 MG tablet Take 10 mg by mouth daily. primidone (Mysoline) 50 MG tablet Take 4 tablets (200 mg) by mouth 2 times daily. 720 tablet 3 propranolol (Inderal) 60 MG tablet Take 1 tablet (60 mg) by mouth 2 times daily. 180 tablet 3 sertraline (Zoloft) 25 MG tablet pramipexole (Mirapex) 0.25 MG tablet TAKE 1 TO 2 TABLETS 1 HOUR PRIOR TO BEDTIME AND MAY TAKE 1 TABLET EARLIER IN THE DAY IF NEEDED DIRECTED 270 tablet 3 carbidopa-levodopa (Sinemet) 25-100 MG tablet Take 1 tablet by mouth Nightly. (Patient not taking: Reported on 11/07/2023) 30 tablet 3 No facility-administered medications prior to visit. Past Medical History: Diagnosis Date Anxiety Psoriatic arthritis (HCC) Restless leg Restless leg syndrome Thyroid disorder Tremor Social History Tobacco Use Smoking status: Never Smokeless tobacco: Never Substance Use Topics Alcohol use: Not Currently Past Surgical History: Procedure Laterality Date CATARACT EXTRACTION GALLBLADDER SURGERY KNEE SURGERY TOTAL ABDOMINAL HYSTERECTOMY Family History Problem Relation Name Age of Onset Other ([id number]) Maternal Grandfather Other ([id number]) Mother Objective Vitals: BP 126/67 (BP Location: Left arm, Patient Position: Sitting, BP Cuff Size: Adult) Pulse 62 Ht 5' 2 (1.575 m) Wt 145 lb 9.6 oz (66 kg) BMI 26.63 kg/m General Appearance: Patient is in no apparent distress. Head is normocephalic, atraumatic Cardiovascular: Regular rate and rhythm. No heart murmurs. No carotid bruit Neurologic: Mentation: Alert and oriented x 3 to person, place and time. Speech and Language: Speech and language normal Concentration and Attention: Concentration normal Memory: Memory normal Fund of Knowledge: Fund of knowledge normal Cranial Nerves: II, III, IV, V, , VII, VIII, IX, X, XI, XII examined and were intact. Motor: Strength: Strength 5 out of 5 with normal tone Alternating Movements: Normal Cogwheel Rigidity: None Tone: Tone is normal Tremor / Involuntary Movements: Head titubation and bilateral hand tremors with activity Deep Tendon Reflexes: 1 out of 4 symmetrical in all four limbs. Sensory: Normal sensation upper and lower extremities Coordination: Normal coordination upper and lower extremities Gait and Station: Station is normal. Gait is normal Data Reviewed and Summarized DIAGNOSTIC TESTING CBC: No results found for: WBC, RBC, HGB, HCT, MCV, MCH, MCHC, RDW, PLT, MPV CMP: No results found for: NA, K, CL, CO2, BUN, CREATININE, AGRATIO, LABGLOM, GLUCOSE, GLU, PROT, CALCIUM, BILITOT, ALKPHOS, AST, ALT BMP: No results found for: NA, K, CL, CO2, BUN, CREATININE, CALCIUM, LABGLOM, GLUCOSE, GLU PT/INR: No results found for: PROTIME, INR PTT: No results found for: APTT, PTT[APTT} FLP: No results found for: CHLPL, TRIG, HDL, LDLCALC, LDLDIRECT TSH: No results found for: TSH VITAMIN B12: No results found for: [id number] No results found for: PHENYTOIN, PHENOBARB, VALPROATE, CBMZ No components found for: TOPIRA @RESULTINGLABINFO@ No results found for: LEVETIRACETA, FERRITIN, CRP, ERVIN, ANCA No results found for: ANNA, IMMUNOGLOBUL, OLIGOBANDS No results found for: [id number], HEPCAB No results found for: CRP, ANATITER, ANCA FERRITIN: No results found for: FERRITIN ---- XR CERVICAL SPINE W OBLIQUES FLEXION AND EXTENSION Narrative: [id number] ACCESSION EXAM DATE/TIME PROCEDURE ORDERING PROVIDER [id number] 11/16/2021 10:51 EDT CR Spine Cervical Comp RYAN CHRISTOPHER w/ Obliques CPT code 20324 Reason For Exam (CR Spine Cervical Comp w/ Obliques) Cervicalgia Report CLINICAL INFORMATION: Neck pain. Bilateral oblique anterolateral and extension view of the cervical spine are provided. FINDINGS: There is mild anterolisthesis C4 on C5. Disc space narrowing and spurring are most pronounced at C5-6. Vertebral body heights are maintained. There is no subluxation with flexion or extension. Oblique views demonstrate moderate foraminal narrowing on the left at C5-6 and C6-7. Impression: 1. Moderate degenerative changes. 2. No subluxation with flexion or extension. 3. Left-sided foraminal narrowing at C5-6 and C6-7. Report Dictated on --- Final --- Dictating Physician: MD LIN JEFFREY Signed Date and Time: 11/19/2021 7:44 am Signed by: MD LIN JEFFREY Transcribed Date and Time: 11/19/2021 7:45 @LASTAPPOINTMENTTHISPROV@ IMPRESSION and PLAN: Problem List Items Addressed This Visit None Visit Diagnoses Essential tremor - Primary Restless legs syndrome Relevant Orders Ferritin Iron and TIBC Iron deficiency Relevant Orders Ferritin Iron and TIBC Continue Primidone 200mg twice daily and Propranolol 60mg twice daily Stop taking Lamictal as it is not helping Start Sinemet (Carbidopa/Levodopa) 25/100 1-2 tabs in the evening If able take 1 tab prior to supper and if needed later in the evening Continue with exercise No problem-specific Assessment & Plan notes found for this encounter. Og Johnson, FEDE - SENIOR SUPPLIER QUALITY ENGINEER I spent 30 minutes caring for this patient today, reviewing labs, records, seeing the patient, documenting in the record and arranging for studies. Electronically signed by @PREMA@ on @TDNR@ at @NOWNR@ documented in this [facility]09-26-2024 Instructions* Patient Instructions* FEDE Parker CNP - 02/06/2024 12:30 PM EDT Continue Primidone 200mg twice daily and Propranolol 60mg twice daily Stop taking Lamictal as it is not helping Start Sinemet (Carbidopa/Levodopa) 1-2 tabs in the evening If able take 1 tab prior to supper and if needed later in the evening Continue with exercise documented in this [facility]06-27-2024 History of Present illness Narrative* Ryan Christopher MD - 11/07/2023 1:00 PM EDT Images from the original note were not included. [facility] [address] [place] [address] [facility] [address] Dept: [phone] Dept Loc: [phone] Visit type: Established Patient Reason for Visit: Follow-up and Tremors Assessment and Plan 1. Essential tremor - propranolol (Inderal) 60 MG tablet; Take 1 tablet (60 mg) by mouth 2 times daily., Starting Sat11/07/2023, Until Sat11/06/2024, Normal - primidone (Mysoline) 50 MG tablet; Take 4 tablets (200 mg) by mouth 2 times daily., Starting Sat11/07/2023, Until Sat02/05/2024, Normal 2. Restless legs syndrome - lamoTRIgine (LaMICtal) 100 MG tablet; Take 1 tablet (100 mg) by mouth every evening., Starting Sat11/07/2023, Until Sat02/05/2024, Normal Subjective HPI: She reports that she has more trouble with tremors when she is less active, but it is better when she is more active. She reports that if her head is stuck in a stationary position, she has head tremor, but otherwise she has no other tremor. Fatigue makes it worse, like after her exercise class. She reports that the RLS is occurring more often and the lamotrigine is no longer working. Her primary doctor is checking her thyroid regularly she reports. REVIEW OF SYSTEMS: Review of Systems Constitutional: Negative for appetite change, chills, diaphoresis, fever and unexpected weight change. HENT: Negative for dental problem and mouth sores. Eyes: Negative for discharge and itching. Respiratory: Negative for chest tightness. Cardiovascular: Negative for chest pain and leg swelling. Gastrointestinal: Negative for rectal pain and vomiting. Endocrine: Negative for polydipsia, polyphagia and polyuria. Genitourinary: Negative for decreased urine volume, flank pain and genital sores. Musculoskeletal: Negative for arthralgias. Skin: Negative for color change. Allergic/Immunologic: Negative for food allergies and immunocompromised state. Neurological: Positive for tremors. Hematological: Negative for adenopathy. Does not bruise/bleed easily. Psychiatric/Behavioral: Positive for sleep disturbance. Negative for agitation, behavioral problems, decreased concentration and suicidal ideas. Allergies Allergen Reactions Ropinirole Nausea Only [place] weird as well as nauseous. Current Outpatient Medications: atorvastatin (Lipitor) 10 MG tablet, 10 MG ORALLY AT BEDTIME, Disp: , Rfl: buPROPion SR (Wellbutrin SR) 150 MG 12 hr tablet, Take 150 mg by mouth daily., Disp: , Rfl: Calcium Carbonate-Vitamin D (Oyster Shell Calcium/D) 500-5 MG-MCG tablet, Take 1 tablet by mouth inthe morning and 1 tablet in the evening. Take with meals., Disp: , Rfl: denosumab (Prolia) 60 MG/ML solution prefilled syringe, 60 mg., Disp: , Rfl: folic acid (Folvite) 1 MG tablet, Take by mouth daily., Disp: , Rfl: levothyroxine (Synthroid, Levoxyl) 75 MCG tablet, Take 75 mcg by mouth daily., Disp: , Rfl: methotrexate 2.5 MG tablet, Take by mouth., Disp: , Rfl: pramipexole (Mirapex) 0.25 MG tablet, TAKE 1 TO 2 TABLETS 1 HOUR PRIOR TO BEDTIME AND MAY TAKE 1 TABLET EARLIER IN THE DAY IF NEEDED DIRECTED, Disp: 270 tablet, Rfl: 3 predniSONE (Deltasone) 10 MG tablet, Take 10 mg by mouth daily., Disp: , Rfl: sertraline (Zoloft) 25 MG tablet, , Disp: , Rfl: carbidopa-levodopa (Sinemet) 25-100 MG tablet, Take 1 tablet by mouth Nightly. (Patient not taking:Reported on 11/07/2023), Disp: 30 tablet, Rfl: 3 lamoTRIgine (LaMICtal) 100 MG tablet, Take 1 tablet (100 mg) by mouth every evening., Disp: 90 tablet, Rfl: 3 primidone (Mysoline) 50 MG tablet, Take 4 tablets (200 mg) by mouth 2 times daily., Disp: 720 tablet, Rfl: 3 propranolol (Inderal) 60 MG tablet, Take 1 tablet (60 mg) by mouth 2 times daily., Disp: 180 tablet, Rfl: 3 Past Medical History: Diagnosis Date Anxiety Psoriatic arthritis (HCC) Restless leg Restless leg syndrome Thyroid disorder Tremor Social History Tobacco Use Smoking status: Never Smokeless tobacco: Never Substance Use Topics Alcohol use: Not Currently Past Surgical History: Procedure Laterality Date CATARACT EXTRACTION GALLBLADDER SURGERY KNEE SURGERY TOTAL ABDOMINAL HYSTERECTOMY Family History Problem Relation Name Age of Onset Other ([id number]) Maternal Grandfather Other ([phone]) Mother Objective Vitals: BP 127/71 (BP Location: Left arm, Patient Position: Sitting, BP Cuff Size: Adult) Pulse 60 Ht 5' 2 (1.575 m) Wt 147 lb 3.2 oz (66.8 kg) BMI 26.92 kg/m General Appearance: Patient is in no apparent distress. Head is normocephalic, atraumatic Cardiovascular: Regular rate and rhythm. No heart murmurs. No carotid bruit Neurologic: Mentation: Alert and oriented x 3 to person, place and time. Speech and Language: Speech and language normal Concentration and Attention: Concentration normal Memory: Memory normal Fund of Knowledge: Fund of knowledge normal Cranial Nerves: II, III, IV, V, , VII, VIII, IX, X, XI, XII examined and were intact. She has prominent head titubation Motor: Strength: Strength 5 out of 5 with normal tone Alternating Movements: Normal Cogwheel Rigidity: None Tone: Tone is normal Tremor / Involuntary Movements: Head titubation and bilateral hand tremors with activity Deep Tendon Reflexes: 1 out of 4 symmetrical in all four limbs. Coordination: Normal coordination upper and lower extremities Gait and Station: Station is normal. Gait is normal Data Reviewed and Summarized DIAGNOSTIC TESTING CBC: No results found for: WBC, RBC, HGB, HCT, MCV, MCH, MCHC, RDW, PLT, MPV CMP: No results found for: NA, K, CL, CO2, BUN, CREATININE, AGRATIO, LABGLOM, GLUCOSE, GLU, PROT, CALCIUM, BILITOT, ALKPHOS, AST, ALT BMP: No results found for: NA, K, CL, CO2, BUN, CREATININE, CALCIUM, LABGLOM, GLUCOSE, GLU PT/INR: No results found for: PROTIME, INR PTT: No results found for: APTT, PTT[APTT} FLP: No results found for: CHLPL, TRIG, HDL, LDLCALC, LDLDIRECT TSH: No results found for: TSH VITAMIN B12: No results found for: [id number] No results found for: PHENYTOIN, PHENOBARB, VALPROATE, CBMZ No components found for: TOPIRA @RESULTINGLABINFO@ No results found for: LEVETIRACETA, FERRITIN, CRP, ERVIN, ANCA No results found for: ANNA, IMMUNOGLOBUL, OLIGOBANDS No results found for: [id number], HEPCAB No results found for: CRP, ANATITER, ANCA FERRITIN: No results found for: FERRITIN ---- XR CERVICAL SPINE W OBLIQUES FLEXION AND EXTENSION Narrative: Patient Name: ARIADNA LOBATO Diagnostic Radiology ACCESSION EXAM DATE/TIME PROCEDURE ORDERING PROVIDER [id number] 11/16/2021 10:51 EDT CR Spine Cervical Comp RYAN CHRISTOPHER w/ Obliques CPT code 81936 Reason For Exam (CR Spine Cervical Comp w/ Obliques) Cervicalgia Report CLINICAL INFORMATION: Neck pain. Bilateral oblique anterolateral and extension view of the cervical spine are provided. FINDINGS: There is mild anterolisthesis C4 on C5. Disc space narrowing and spurring are most pronounced at C5-6. Vertebral body heights are maintained. There is no subluxation with flexion or extension. Oblique views demonstrate moderate foraminal narrowing on the left at C5-6 and C6-7. Impression: 1. Moderate degenerative changes. 2. No subluxation with flexion or extension. 3. Left-sided foraminal narrowing at C5-6 and C6-7. Report Dictated on --- Final --- Dictating Physician: MD LIN JEFFREY Signed Date and Time: 11/19/2021 7:44 am Signed by: MD LIN JEFFREY Transcribed Date and Time: 11/19/2021 7:45 IMPRESSION and PLAN: Diagnosis Plan 1. Essential tremor propranolol (Inderal) 60 MG tablet primidone (Mysoline) 50 MG tablet 2. Restless legs syndrome lamoTRIgine (LaMICtal) 100 MG tablet The pt is to increae the primidone to 200 mg BID. Continue the propranolol Lamotrigine is to be increased to 100 mg QPM. Ryan Christopher MD I spent 30 minutes caring for this patient today, reviewing labs, records, seeing the patient, documenting in the record and arranging for studies. @SIGNATURE@ documented in this [facility]06-17-2024 Telephone encounter Note* Telephone Encounter - Marizol Herrera MA - 10/28/2023 7:25 AM EDT Last ov- 11/06/22 [facility]07[facility]23 [id number] Misc[facility] Notes* Telephone Encounter - Marizol Herrera MA - 10/28/2023 7:25 AM EDT Last ov11/06/22 Next ov11/07/23 documented in this [facility]04-29-2024 Telephone encounter Note* Telephone Encounter - Marizol Herrera MA - 09/09/2023 7:19 AM EDT Last ov11/06/22 Next ov11/07/23 [place] [id number] Miscellaneous Notes* Telephone Encounter - Marizol Herrera MA - 09/09/2023 7:19 AM EDT Last ov- 11/06/22 Next ov-11/07/23 documented in this [facility]04-15-2024 Telephone encounter Note* Telephone Encounter - Surinder So LPN - 08/26/2023 3:38 PM EDT Forwarding to provider for review and advice. LV- 11/06/2022 Next OV- 11/07/2023 [place] [id number] Miscellaneous Notes* Telephone Encounter - Surinder So LPN - 08/26/2023 3:38 PM EDT Forwarding to provider for review and advice. LV- 11/06/2022 Next OV11/07/2023 documented in this [facility]12-01-2023 Telephone encounter Note* Telephone Encounter - Marizol Herrera MA - 04/12/2023 8:02 AM EST Last ov- 11/06/22 Next ov11/07/23 [address]r01-31-1523 Miscellaneous Notes* Telephone Encounter - Marizol Herrera MA - 04/12/2023 8:02 AM EST Last ov- 11/06/22 Next ov11/07/23 documented in this [facility]06-27-2023 History of Present illness Narrative* Ryan Christopher MD - 11/06/2022 1:30 PM EDT Images from the original note were not included. [facility] [address] [facility] [address] Dept: [phone] Dept Loc: [phone] Visit type: Established Patient Reason for Visit: Follow-up, Restless Legs, and Tremors Assessment and Plan 1. Essential tremor 2. Restless legs syndrome Subjective HPI: She reports that she is off of clonazepam. She reports that she is not sleeping well. She is wakingup several times per night. She feels that it is not because of RLS/PLMs. She reports that the pramipexole which I recently sent in. Ropinirole made her nauseous and feel weird. She has tremors today, but her family says that she is usually much better. REVIEW OF SYSTEMS: Review of Systems Constitutional: Negative for appetite change, chills, diaphoresis, fever and unexpected weight change. HENT: Negative for dental problem and mouth sores. Eyes: Negative for discharge and itching. Respiratory: Negative for chest tightness. Cardiovascular: Negative for chest pain and leg swelling. Gastrointestinal: Negative for rectal pain and vomiting. Endocrine: Negative for polydipsia, polyphagia and polyuria. Genitourinary: Negative for decreased urine volume, flank pain and genital sores. Musculoskeletal: Negative for arthralgias. Skin: Negative for color change. Allergic/Immunologic: Negative for food allergies and immunocompromised state. Neurological: Positive for tremors. Hematological: Negative for adenopathy. Does not bruise/bleed easily. Psychiatric/Behavioral: Positive for sleep disturbance. Negative for agitation, behavioral problems, decreased concentration and suicidal ideas. Allergies Allergen Reactions Ropinirole Nausea Only [place] weird as well as nauseous. Current Outpatient Medications: atorvastatin (Lipitor) 10 MG tablet, 10 MG ORALLY AT BEDTIME, Disp: , Rfl: buPROPion SR (Wellbutrin SR) 150 MG 12 hr tablet, Take 150 mg by mouth daily., Disp: , Rfl: folic acid (Folvite) 1 MG tablet, Take by mouth daily., Disp: , Rfl: levothyroxine (Synthroid, Levoxyl) 75 MCG tablet, Take 75 mcg by mouth daily., Disp: , Rfl: methotrexate 2.5 MG tablet, Take by mouth., Disp: , Rfl: pramipexole (Mirapex) 0.25 MG tablet, Take 1 or 2 tabs po one hour prior to bedtime and may take 1 tab earlier in the day if needed, Disp: 90 tablet, Rfl: 2 predniSONE (Deltasone) 10 MG tablet, Take 10 mg by mouth daily., Disp: , Rfl: primidone (Mysoline) 50 MG tablet, Take 2 tabs po QAM and take 3 tabs po QPM, Disp: 450 tablet, Rfl: 11 propranolol (Inderal) 60 MG tablet, Take 1 tablet (60 mg) by mouth 2 times daily., Disp: 180 tablet, Rfl: 3 sertraline (Zoloft) 25 MG tablet, , Disp: , Rfl: Calcium Carbonate-Vitamin D (Oyster Shell Calcium/D) 500-5 MG-MCG tablet, Take 1 tablet by mouth inthe morning and 1 tablet in the evening. Take with meals., Disp: , Rfl: Medication Dispense History (from 11/06/2021 to 11/06/2022) Expand All Collapse All Atorvastatin Calcium Cholestyramine Clobetasol Propionate Escitalopram Oxalate Fluorometholone Folic Acid Levothyroxine Sodium Methotrexate Sodium Pramipexole Dihydrochloride Dispensed Days Supply Quantity Provider Pharmacy pramipexole 0.25 mg tablet 10/18/2022 90 270 tablet Ryan Christopher MD [facility] Mail D... Primidone Dispensed Days Supply Quantity Provider Pharmacy primidone 50 mg tablet 09/05/2022 90 450 tablet Ryan Christopher MD [facility] Mail D... primidone 50 mg tablet 06/27/2022 90 360 tablet [facility] primidone 50 mg tablet 04/15/2022 90 360 tablet Ryan Christopher MD [facility] Mail D... primidone 50 mg tablet 02/06/2022 90 360 tablet Ryan Christopher MD [facility] Mail D... PRIMIDONE 50 MG TABLET 11/23/2021 90 450 each Ryan Christopher MD [facility]/pharmacy #[id number] - W... Propranolol HCl Dispensed Days Supply Quantity Provider Pharmacy propranolol 60 mg tablet 09/05/2022 90 180 tablet Ryan Christopher MD [facility] Mail D... propranolol 60 mg tablet 05/30/2022 90 180 tablet Ryan Christopher MD [facility]... propranolol 60 mg tablet 02/14/2022 90 180 tablet Ryan Christopher MD [facility] Mail D... propranolol 60 mg tablet 12/06/2021 90 180 tablet Ryan Christopher MD [facility] Ma... Sertraline HCl buPROPion HCl clonazePAM Dispensed Days Supply Quantity Provider Pharmacy CLONAZEPAM 0.25 MG ODT 09/13/2022 14 14 each Ryan Christopher MD [facility]/pharmacy #[id number] - W... CLONAZEPAM 1 MG TABLET 08/30/2022 30 15 each Kelley Maldonado MD [facility]/pharmacy #[id number] - W... clonazepam 1 mg tablet 08/01/2022 30 15 tablet [facility] Ma... clonazepam 1 mg tablet 06/27/2022 30 15 tablet [facility] Ma... clonazepam 1 mg tablet 05/30/2022 30 15 tablet [facility] Ma... clonazepam 1 mg tablet 04/29/2022 30 15 tablet [facility] Ma... clonazepam 1 mg tablet 02/08/2022 30 15 tablet [facility] Ma... clonazepam 1 mg tablet 12/06/2021 30 30 tablet [facility] Ma... rOPINIRole HCl Dispensed Days Supply Quantity Provider Pharmacy ropinirole 1 mg tablet 09/05/2022 90 270 tablet Ryan Christopher MD [facility] Mail D... Showing 1-15 of 17 Items View 15 Items of 2 Filled Written Sold ID Drug QTY Days Prescriber RX # Dispenser Refill Daily Dose* Pymt Type [employer] OFF[employer]ARER 09/13/2022 09/05/2022 2 Clonazepam 0.25 Mg Odt 14.00 14 Christiano Lechuga [id number] [place] ([id number]) 0 0.50 [place]ME [place] 08/30/2022 08/30/2022 2 Clonazepam 1 Mg Tablet 15.00 30 Al Fin [id number] [place] ([id number]) 0 1.00 [place] 08/02/2022 02/07/2022 1 Clonazepam 1 Mg Tablet 15.00 30 [facility] [phone] [facility] ([id number]) 4 1.00 [place] 06/28/2022 02/07/2022 1 Clonazepam 1 Mg Tablet 15.00 30 [facility] [phone] [facility] ([id number]) 3 1.00 [place] 05/31/2022 02/07/2022 1 Clonazepam 1 Mg Tablet 15.00 30 [facility] [phone] [facility] ([id number]) 2 1.00 [place]ME [place] 04/30/2022 02/07/2022 1 Clonazepam 1 Mg Tablet 15.00 30 [facility] [phone] [facility] ([id number]) 1 1.00 LME Past Medical History: Diagnosis Date Anxiety Psoriatic arthritis (HCC) Restless leg Thyroid disorder Social History Tobacco Use Smoking status: Never Smokeless tobacco: Never Substance Use Topics Alcohol use: Yes Past Surgical History: Procedure Laterality Date CATARACT EXTRACTION GALLBLADDER SURGERY KNEE SURGERY TOTAL ABDOMINAL HYSTERECTOMY Family History Problem Relation Name Age of Onset Other ([id number]) Maternal Grandfather Other ([id number]) Mother Objective Vitals: BP (!) 141/86 (BP Location: Left arm) Pulse 56 Wt 142 lb (64.4 kg) BMI 25.97 kg/m General Appearance: Patient is in no apparent distress. Head is normocephalic, atraumatic Cardiovascular: Regular rate and rhythm. No heart murmurs. No carotid bruit Neurologic: Mentation: Alert and oriented x 3 to person, place and time. Speech and Language: Speech and language normal Concentration and Attention: Concentration normal Memory: Memory normal Fund of Knowledge: Fund of knowledge normal Cranial Nerves: II, III, IV, V, , VII, VIII, IX, X, XI, XII examined and were intact. Motor: Strength: Strength 5 out of 5 with normal tone Alternating Movements: Normal Cogwheel Rigidity: None Tone: Tone is normal Tremor / Involuntary Movements: Head titubation and bilateral hand tremors with activity Deep Tendon Reflexes: 1 out of 4 symmetrical in all four limbs. Coordination: Normal coordination upper and lower extremities Gait and Station: Station is normal. Gait is normal Data Reviewed and Summarized DIAGNOSTIC TESTING CBC: No results found for: WBC, RBC, HGB, HCT, MCV, MCH, MCHC, RDW, PLT, MPV CMP: No results found for: NA, K, CL, CO2, BUN, CREATININE, AGRATIO, LABGLOM, GLUCOSE, GLU, PROT, CALCIUM, BILITOT, ALKPHOS, AST, ALT BMP: No results found for: NA, K, CL, CO2, BUN, CREATININE, CALCIUM, LABGLOM, GLUCOSE, GLU PT/INR: No results found for: PROTIME, INR PTT: No results found for: APTT, PTT[APTT} FLP: No results found for: CHLPL, TRIG, HDL, LDLCALC, LDLDIRECT TSH: No results found for: TSH VITAMIN B12: No results found for: [id number] No results found for: PHENYTOIN, PHENOBARB, VALPROATE, CBMZ No components found for: TOPIRA @RESULTINGLABINFO@ No results found for: LEVETIRACETA, FERRITIN, CRP, ERVIN, ANCA No results found for: ANNA, IMMUNOGLOBUL, OLIGOBANDS No results found for: [id number], HEPCAB No results found for: CRP, ANATITER, ANCA, ANCA FERRITIN: No results found for: FERRITIN ---- XR CERVICAL SPINE W OBLIQUES FLEXION AND EXTENSION Narrative: Patient Name: ARIADNA LOBATO Diagnostic Radiology ACCESSION EXAM DATE/TIME PROCEDURE ORDERING PROVIDER [id number] 11/16/2021 10:51 EDT CR Spine Cervical Comp RYAN CHRISTOPHER w/ Obliques CPT code 49875 Reason For Exam (CR Spine Cervical Comp w/ Obliques) Cervicalgia Report CLINICAL INFORMATION: Neck pain. Bilateral oblique anterolateral and extension view of the cervical spine are provided. FINDINGS: There is mild anterolisthesis C4 on C5. Disc space narrowing and spurring are most pronounced at C5-6. Vertebral body heights are maintained. There is no subluxation with flexion or extension. Oblique views demonstrate moderate foraminal narrowing on the left at C5-6 and C6-7. Impression: 1. Moderate degenerative changes. 2. No subluxation with flexion or extension. 3. Left-sided foraminal narrowing at C5-6 and C6-7. Report Dictated on --- Final --- Dictating Physician: MD LIN JEFFREY Signed Date and Time: 11/19/2021 7:44 am Signed by: MD LIN JEFFREY Transcribed Date and Time: 11/19/2021 7:45 IMPRESSION and PLAN: Diagnosis Plan 1. Essential tremor 2. Restless legs syndrome The patient and I discussed what to do and decided that she is ok to take 2 or 3 tabs in AM and continue 3 tabs in the PM. Doing well with pramipexole. No problem-specific Assessment & Plan notes found for this encounter. RYAN CHRISTOPHER MD I spent 30 minutes caring for this patient today, reviewing labs, records, seeing the patient, documenting in the record and arranging for studies. @SIGNATURE@ documented [facility] this [id number] Telephone encounter Note* Telephone Encounter - Jaja Gunderson - 10/16/2022 8:12 AM EDT [facility]. [id number] Miscellaneous Notes* Telephone Encounter - Jaja Gunderson - 10/16/2022 8:12 AM EDT Pt notified. * Telephone Encounter - Ryan Christopher MD - 10/15/2022 5:52 PM EDT I sent in a prescription of pramipexole to replace the ropinirole. * Telephone Encounter - Angela Wallis - 10/15/2022 9:04 AM EDT Name of caller: Ariadna Contact phone number: [phone] Relationship to Patient: patient Provider: Candi Practice: Neurology Chief Complaint/Reason for Call: patient called in, on their last appointment on 09/05/22 the provider prescribed rOPINIRole (Requip) 1 MG tablet [[id number]] The patient is experiencing nauseous after an hour after taking this medication. The patient would like to know what the next step should be sothey arent feeling this way. Patient would like a callback at the offices earliest convenience. The new medication needs to be sent to [facility] pharmacy at [address] [facility]. [facility] [address] Store number: [phone] Near the intersection of: [address] Please advise and thank you Best time of day caller can be reached: any Patient advised that office/PCP has 24-48 business hours to return their call: Yes documented in this [facility] [id number] Telephone encounter Note* Telephone Encounter - Ryan Christopher MD - 10/15/2022 5:52 PM EDT I sent in a prescription of pramipexole to replace the ropinirole. [id number] Telephone encounter Note* Telephone Encounter - Angela Wallis - 10/15/2022 9:04 AM EDT Name of caller: Ariadna Contact phone number: [phone] Relationship to Patient: patient Provider: Candi Practice: Neurology Chief Complaint/Reason for Call: patient called in, on their last appointment on 09/05/22 the provider prescribed rOPINIRole (Requip) 1 MG tablet [[id number]] The patient is experiencing nauseous after an hour after taking this medication. The patient would like to know what the next step should be sothey arent feeling this way. Patient would like a callback at the offices earliest convenience. The new medication needs to be sent to [facility] pharmacy at [address] [facility] [address] Store number: [phone] Near the intersection of: [address] Please advise and thank you Best time of day caller can be reached: any Patient advised that office/PCP has 24-48 business hours to return their call: Yes [id number] History of Present illness Narrative* Ryan Christopher MD - 09/05/2022 10:00 AM EDT Images from the original note were not included. [facility] [address] [facility] [address] Dept: [phone] Dept Loc: [phone] Visit type: Established Patient Reason for Visit: Follow-up, Tremors, and Restless Legs Assessment and Plan 1. Restless legs syndrome - rOPINIRole (Requip) 1 MG tablet; Take 1 or 2 tabs po 90 min prior to bedtime and may take 1 tab po earlier in the day if needed., Normal - clonazePAM (KlonoPIN) 0.25 MG disintegrating tablet; Take 1 tablet (0.25 mg) by mouth Nightly for14 days. Do not start before September 13, 2022., Starting Peggy 09/13/2022, Until Peggy 09/27/2022, Normal 2. Essential tremor - propranolol (Inderal) 60 MG tablet; Take 1 tablet (60 mg) by mouth 2 times daily., Starting Sat09/05/2022, Until Sat09/05/2023, Normal - primidone (Mysoline) 50 MG tablet; Take 2 tabs po QAM and take 3 tabs po QPM, Normal Subjective HPI: She is mostly having the tremors in her head and upper torso. Her family says that it is happening nearly constantly. It is no worse than the last visit. She reports that She would like to come off of the clonazepam which was started elsewhere. She is asking for my help on this. It was started for RLS a decade or more ago. REVIEW OF SYSTEMS: Review of Systems Constitutional: Negative for appetite change, chills, diaphoresis, fever and unexpected weight change. HENT: Negative for dental problem and mouth sores. Eyes: Negative for discharge and itching. Respiratory: Negative for chest tightness. Cardiovascular: Negative for chest pain and leg swelling. Gastrointestinal: Negative for rectal pain and vomiting. Endocrine: Negative for polydipsia, polyphagia and polyuria. Genitourinary: Negative for decreased urine volume, flank pain and genital sores. Musculoskeletal: Negative for arthralgias. Skin: Negative for color change. Allergic/Immunologic: Negative for food allergies and immunocompromised state. Neurological: Restless legs syndrome Hematological: Negative for adenopathy. Does not bruise/bleed easily. Psychiatric/Behavioral: Negative for agitation, behavioral problems, decreased concentration, sleepdisturbance and suicidal ideas. No Known Allergies Current Outpatient Medications: atorvastatin (Lipitor) 10 MG tablet, 10 MG ORALLY AT BEDTIME, Disp: , Rfl: buPROPion SR (Wellbutrin SR) 150 MG 12 hr tablet, Take 150 mg by mouth daily., Disp: , Rfl: Calcium Carbonate-Vitamin D (Oyster Shell Calcium/D) 500-5 MG-MCG tablet, Take 1 tablet by mouth inthe morning and 1 tablet in the evening. Take with meals., Disp: , Rfl: clonazePAM (KlonoPIN) 1 MG tablet, Take 0.5 mg by mouth., Disp: , Rfl: folic acid (Folvite) 1 MG tablet, Take by mouth daily., Disp: , Rfl: levothyroxine (Synthroid, Levoxyl) 75 MCG tablet, Take 75 mcg by mouth daily., Disp: , Rfl: methotrexate 2.5 MG tablet, Take by mouth., Disp: , Rfl: predniSONE (Deltasone) 10 MG tablet, Take 10 mg by mouth daily., Disp: , Rfl: primidone (Mysoline) 50 MG tablet, , Disp: , Rfl: sertraline (Zoloft) 25 MG tablet, , Disp: , Rfl: [START ON 09/13/2022] clonazePAM (KlonoPIN) 0.25 MG disintegrating tablet, Take 1 tablet (0.25 mg) bymouth Nightly for 14 days. 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 08/30/2022 08/30/2022 2 Clonazepam 1 Mg Tablet 15.00 30 Al Fin [id number] [place] ([id number]) 0 1.00 LME [place] 08/02/2022 02/07/2022 1 Clonazepam 1 Mg Tablet 15.00 30 Sc Kwong [id number] Bran ([id number]) 4 1.00 [place] 06/28/2022 02/07/2022 1 Clonazepam 1 Mg Tablet 15.00 30 Sc Kwong [id number] Bran ([id number]) 3 1.00 [place] 05/31/2022 02/07/2022 1 Clonazepam 1 Mg Tablet 15.00 30 Sc Kwong [id number] Bran (9851) 2 1.00 [place] 04/30/2022 02/07/2022 1 Clonazepam 1 Mg Tablet 15.00 30 Sc Kwong [id number] Bran (9851) 1 1.00 [place] 02/08/2022 02/07/2022 1 Clonazepam 1 Mg Tablet 15.00 30 Sc Kwong [id number] Bran (9851) 0 1.00 LME [place] Past Medical History: Diagnosis Date Anxiety Psoriatic arthritis (HCC) Restless leg Thyroid disorder Social History Tobacco Use Smoking status: Never Smokeless tobacco: Never Substance Use Topics Alcohol use: Yes Past Surgical History: Procedure Laterality Date CATARACT EXTRACTION GALLBLADDER SURGERY KNEE SURGERY TOTAL ABDOMINAL HYSTERECTOMY Family History Problem Relation Name Age of Onset Other (92561) Maternal Grandfather Other ([id number]) Mother Objective Vitals: BP 127/70 (BP Location: Right arm, Patient Position: Sitting, BP Cuff Size: Adult) Pulse 63 Ht 5' 2 (1.575 m) Wt 142 lb (64.4 kg) BMI 25.97 kg/m General Appearance: Patient is in no apparent distress. Head is normocephalic, atraumatic Cardiovascular: Regular rate and rhythm. No heart murmurs. No carotid bruit Neurologic: Mentation: Alert and oriented x 3 [address], [address] and time. Speech and Language: Speech and language normal Concentration and Attention: Concentration normal Memory: Memory normal Fund of Knowledge: Fund of knowledge normal Cranial Nerves: II, III, IV, V, , VII, VIII, IX, X, XI, XII examined and were intact. Motor: Strength: Strength 5 out of 5 with normal tone Alternating Movements: Normal Cogwheel Rigidity: None Tone: Tone is normal Tremor / Involuntary Movements: Prominent head titubation and voice tremor Deep Tendon Reflexes: 1 out of 4 symmetrical in all four limbs. Coordination: Normal coordination upper and lower extremities Gait and Station: Station is normal. Gait is normal Data Reviewed and Summarized DIAGNOSTIC TESTING CBC: No results found for: WBC, RBC, HGB, HCT, MCV, MCH, MCHC, RDW, PLT, MPV CMP: No results found for: NA, K, CL, CO2, BUN, CREATININE, AGRATIO, LABGLOM, GLUCOSE, GLU, PROT, CALCIUM, BILITOT, ALKPHOS, AST, ALT BMP: No results found for: NA, K, CL, CO2, BUN, CREATININE, CALCIUM, LABGLOM, GLUCOSE, GLU PT/INR: No results found for: PROTIME, INR PTT: No results found for: APTT, PTT[APTT} FLP: No results found for: CHLPL, TRIG, HDL, LDLCALC, LDLDIRECT TSH: No results found for: TSH VITAMIN B12: No results found for: [id number] No results found for: PHENYTOIN, PHENOBARB, VALPROATE, CBMZ No components found for: TOPIRA @RESULTINGLABINFO@ No results found for: LEVETIRACETA, FERRITIN, CRP, ERVIN, ANCA No results found for: ANNA, IMMUNOGLOBUL, OLIGOBANDS No results found for: [id number], HEPCAB No results found for: CRP, ANATITER, ANCA, ANCA FERRITIN: No results found for: FERRITIN ---- XR CERVICAL SPINE W OBLIQUES FLEXION AND EXTENSION Narrative: Patient Name: ARIADNA LOBATO Diagnostic Radiology ACCESSION EXAM DATE/TIME PROCEDURE ORDERING PROVIDER [id number] 11/16/2021 10:51 EDT CR Spine Cervical Comp RYAN CHRISTOPHER w/ Obliques CPT code 85813 Reason For Exam (CR Spine Cervical Comp w/ Obliques) Cervicalgia Report CLINICAL INFORMATION: Neck pain. Bilateral oblique anterolateral and extension view of the cervical spine are provided. FINDINGS: There is mild anterolisthesis C4 on C5. Disc space narrowing and spurring are most pronounced at C5-6. Vertebral body heights are maintained. There is no subluxation with flexion or extension. Oblique views demonstrate moderate foraminal narrowing on the left at C5-6 and C6-7. Impression: 1. Moderate degenerative changes. 2. No subluxation with flexion or extension. 3. Left-sided foraminal narrowing at C5-6 and C6-7. Report Dictated on --- Final --- Dictating Physician: MD LIN JEFFREY Signed Date and Time: 11/19/2021 7:44 am Signed by: MD LIN JEFFREY Transcribed Date and Time: 11/19/2021 7:45 IMPRESSION and PLAN: Diagnosis Plan 1. Restless legs syndrome rOPINIRole (Requip) 1 MG tablet clonazePAM (KlonoPIN) 0.25 MG disintegrating tablet 2. Essential tremor propranolol (Inderal) 60 MG tablet primidone (Mysoline) 50 MG tablet Add ropinirol 1-2 mg po at bedtime and may fab another 1 mg earlier in the day if needed. I will help with the titration off of her clonazepam which was started elsewhere long ago. Continue the primidone and propranolol. No problem-specific Assessment & Plan notes found for this encounter. RAYN CHRISTOPHER MD I spent 30 minutes caring for this patient today, reviewing labs, records, seeing the patient, documenting in the record and arranging for studies. @SIGNATURE@ documented in this [facility]05-19-2021 Emergency department Note* Aries Barrios MD - 09/28/2020 3:16 PM EDT Associated Order(s): Lac Repair ED PROVIDER NOTE [facility] EMERGENCY DEPARTMENT NAME: Ariadna Lobato AGE: 70 y.o. : 1950 VISIT DATE: 09/28/2020 CSN: [id number] PCP: No primary care provider on file. Chief Complaint Patient presents with Facial Injury HPI HPI: 70-year old female not on blood thinners, now presenting for evaluation of facial injury secondary to a shelf falling down on her face from approximately 18 inches above, approximately 2 hours prior to arrival. She reports that the wound on her nose bled significantly, but stopped eventually; she denies any epistaxis, specifying that it was bleeding from the external surface only. No LOC or altered mental status. No focal deficits. No changes in vision. She reports that she did have a mild headache after it happened but that resolved with Tylenol. No neck or back injury. Severity: Moderate, currently improved Location: as above* Radiating to: only as above; otherwise none* Exacerbated by: only as above; otherwise none* Relieved by: Local pressure, time, Tylenol Associated with: only as above; otherwise none* Historian(s) deny any other concerns. No other known/suspected injuries. ROS negative except as above. I have reviewed and agree with the available nursing notes except as otherwise reported. I have reviewed available medical records. REVIEW OF SYSTEMS: Const: Trauma Eyes: No suspected injury No vision change ENT: No suspected injury other than nasal bridge laceration. No malocclusion or trismus No epistasis No other facial pain CV: No syncope Resp: No suspected injury GI: No suspected injury : MSK: Negative except as noted in HPI Skin: No suspected injury except as noted in HPI Neuro: No suspected Head injury No sensory change No new focal weakness Hem: No bleeding/clotting problems Psych: Nl behavior except as otherwise noted PHYSICAL EXAM: Patient Vitals for the past 24 hrs: BP Temp Temp src Pulse Resp SpO2 Height Weight 09/28/20 1508 (!) 150/92 98.5 F (36.9 C) Temporal 76 18 98 % 5' 2 63.5 kg (140 lb) VS Reviewed. Constitutional: Non-toxic Head: Normocephalic Atraumatic other than 0.5 cm nasal bridge laceration. Trace bleeding. No foreign body. No gross contamination. No bony deformity, though there is some soft tissue swelling. Eyes: PERRL EOMi ENT: Mucus membranes moist No epistaxis. No septal hematoma or deviation. No facial bone tenderness Neck: Nl ROM trachea midline Nontender to palpation Cardiovascular: Nl color Respiratory: No resp distress Gastrointestinal: Non-distended Genitourinary: Back NTTP Upper Extremities: No acute injury except as noted Lower Extremities: No acute injury except as noted Neurologic: Alert answers questions appropriately no focal deficits Psych: Appropriate Skin: Warm Dry Nl color No acute/emergency findings unless otherwise specified Past Medical History: Diagnosis Date Anxiety Depression Hypothyroid Tremors of nervous system History reviewed. No pertinent surgical history. History reviewed. No pertinent family history. Social History Socioeconomic History Marital status: Not on file Spouse name: Not on file Number of children: Not on file Years of education: Not on file Highest education level: Not on file Occupational History Not on file Tobacco Use Smoking status: Never Smoker Smokeless tobacco: Never Used Substance and Sexual Activity Alcohol use: Not Currently Drug use: Never Sexual activity: Not on file Other Topics Concern Not on file Social History Narrative Not on file Social Determinants of Health Financial Resource Strain: Difficulty of Paying Living Expenses: Food Insecurity: Worried About Running Out of Food in the Last Year: Ran Out of Food in the Last Year: Transportation Needs: Lack of Transportation (Medical): Lack of Transportation (Non-Medical): Physical Activity: Days of Exercise per Week: Minutes of Exercise per Session: Stress: Feeling of Stress : Social Connections: Frequency of Communication with Friends and Family: Frequency of Social Gatherings with Friends and Family: Attends Mandaeism Services: Active Member of Clubs or Organizations: Attends Club or Organization Meetings: Marital Status: Previous Medications Medication Sig buPROPion (WELLBUTRIN XL) 150 MG 24 hr tablet Take 150 mg by mouth daily . clonazePAM (KLONOPIN) 1 MG tablet Take 1 mg by mouth nightly 1 tablet by mouth at bedtime . escitalopram oxalate (LEXAPRO) 20 MG tablet Take 20 mg by mouth daily . folic acid (FOLVITE) 1 MG tablet Take 2 mg by mouth daily . levothyroxine (SYNTHROID, LEVOTHROID) 75 MCG tablet Take 75 mcg by mouth once daily . methotrexate (TREXALL) 2.5 MG tablet Take 20 mg by mouth once a week . primidone (MYSOLINE) 50 MG tablet Take 150 mg by mouth 2 (two) times a day . topiramate (TOPAMAX) 25 MG capsule Take 25 mg by mouth 2 (two) times a day . No Known Allergies Review of Systems Patient Vitals for the past 24 hrs: BP Temp Temp src Pulse Resp SpO2 Height Weight 09/28/20 1508 (!) 150/92 98.5 F (36.9 C) Temporal 76 18 98 % 5' 2 63.5 kg (140 lb) Physical Exam Laboratory & Radiographic Imaging (if done): No results found for this visit on 09/28/20. No orders to display Wound extent: Lac Repair Date/Time: 09/28/2020 3:33 PM Performed by: Aries Barrios MD Authorized by: Aries Barrios MD Verbal consent: obtained Consent given by: patient Relevant documents: Relevent documents present and verified. 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 Body area: head/neck Location details: nose Laceration length: 0.5 cm Foreign bodies: no foreign bodies Tendon involvement: none Nerve involvement: none Vascular damage: no Anesthesia: Anesthetic total: 0 mL Patient sedated: no Repair type: simple Preparation: Patient was prepped and draped in the usual sterile fashion. Hemostasis achieved with: direct pressure Wound exploration: wound explored through full range of motion and entire depth of wound probed andvisualized areolar tissue not violated, fascia not violated, no foreign body, no muscle damage, no nerve damage, no tendon damage, no underlying fracture and no vascular damage Debridement: none Degree of undermining: none Skin closure: glue and Steri-Strips Approximation: close Approximation difficulty: simple Patient tolerance: patient tolerated the procedure well with no immediate complications MDM Medical Decision Making DDx (including but not limited to): Nasal bridge laceration, not contiguous with the nares. Nasal contusion Nasal fracture unlikely Unknown last tetanus; we agree to update today No indication of: Compartment Syndrome Neuro emergency Vascular emergency Other concurrent injury Other concurrent emergency condition Discharge Considered appropriately wide DDx. At this time, acutely dangerous emergency conditions found to be unlikely based on history, exam, vitals and any testing, except as otherwise specified, and patient is appropriate for outpatient management. Pt will return to the ED if condition is worsening in any way, or if new sx arise. They understand, are appreciative and comfortable with outpatient plan including follow-up and return ED recommendations as discussed. Pt appears nontoxic, well-hydrated and comfortable. The patient has been informed that they may have pre-hypertension or hypertension based on a blood pressure reading in the Emergency Department. I recommend that the patient call the primary care provider listed on their discharge instructions or a physician of their choice as soon as possible to arrange follow-up in the next 4 weeks for further evaluation of possible pre-hypertension or hypertension. . Clinical Impression: 1. Facial laceration, initial encounter ED Disposition ED Disposition Condition Comment Discharge Stable Ariadna Lobato discharged to home/self care in stable condition. Follow-up Information 1. your regular primary care provider, or a primary care (or urgent care) clinic of your choice. Why: For recheck, to make sure that you are improving Contact information for after-discharge care Follow-up information has not been specified. 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 Denies any LOC. Denies any bloodthinners documented in this [id number] Hospital Discharge instructions * Instructions* Aries Barrios MD - 09/28/2020 If unable to follow-up with the physician/clinic recommended above, please see an Urgent Care Clinic for re-evaluation within the same number of days. Return to the nearest emergency department at any time if there is: any new, returning or worsening symptoms Another injury Separation of any repaired wound or significant bleeding New / increased / spreading redness or swelling New / increased pus or drainage Pale, numb or increasingly painful compared with the other side severe headache change in vision or loss of vision Change in speech, balance or coordination Numbness or weakness in one side of your body or the other new or changing rash fever > 100.4 (or feeling like there is a high fever if you don't have a thermometer) uncontrollable shaking chills difficulty following up as recommended or any other concerns about your condition or treatment. best regards, Aries Barrios MD * Attachments The following attachments cannot be sent through Care Everywhere. * Lacerations: Adhesives (Greek) [facility]* Diagnosis Facial laceration, initial encounter- Primary [facility]* Diagnosis Ataxia Lack of coordination Essential tremor Essential and other specified forms of tremor documented in this encounter [facility] Work Phone: Evaluation noteNo assessment information available [facility] Work Phone: Evaluation note* Diagnosis Cervicalgia of [id number] region documented in this encounter [facility] Work Phone: Evaluation note* Diagnosis Onset Date Resolution Status Depression acute Osteopenia acute [id number] noneactive Encounter for routine gynecological examination noneactive [facility] Work Phone: Evaluation note* Diagnosis Onset Date Resolution Status Essential tremor acute Prediabetes acute Psoriatic arthritis acute Acquired hypothyroidism none active Establishing care with new doctor, encounter for noneactive Anxiety and depression nonea ctive Essential tremor acute Prediabetes acute Psoriatic arthritis acute Acquired hypothyroidism none active Anxiety and depression nonea ctive [facility] Work Phone: Evaluation note* Diagnosis Restless legs syndrome- Primary Restless legs syndrome (RLS) Essential tremor [facility] Diagnosis Essential tremor- Primary Restless legs syndrome Restless legs syndrome (RLS) [facility]* Diagnosis Onset Date Resolution Status Essential tremor acute Prediabetes acute Psoriatic arthritis acute Acquired hypothyroidism none active Mixed hyperlipidemia noneact yanni RLS (restless legs syndrome) noneactive Anxiety and depression nonea ctive Depression acute Osteopenia acute [id number] noneactive [facility] Work Phone: Evaluation note* Diagnosis Restless legs syndrome Restless legs syndrome (RLS) [facility]* Diagnosis Onset Date Resolution Status Essential tremor acute Prediabetes acute Psoriatic arthritis acute Acquired hypothyroidism none active Mixed hyperlipidemia noneact yanni RLS (restless legs syndrome) noneactive Anxiety and depression nonea ctive Depression acute Osteopenia acute [id number] noneactive Osteopenia acute Osteopenia acute [facility] Work Phone: Evaluation note* Diagnosis Onset Date Resolution Status Osteopenia acute [facility] Work Phone: Evaluation note* Diagnosis Essential tremor [facility]* Diagnosis Restless legs syndrome- Primary Restless legs syndrome (RLS) [facility]* Diagnosis Essential tremor- Primary Restless legs syndrome Restless legs syndrome (RLS) [facility]* Diagnosis Essential tremor- Primary Restless legs syndrome Restless legs syndrome (RLS) Iron deficiency Disorders of iron metabolism documented in this encounter [facility] note* Diagnosis Essential tremor- Primary Restless legs syndrome Restless legs syndrome (RLS) documented in this encounter [facility] for referral (narrative)No reason for referral information availableWSt. [facility] Work Phone: Advance Directives No Advanced Directives Records FoundDocuments on File Type Date Recorded Patient L D Rn Expl anation Advance Directives and Livin g Will 09/28/2020 3:51 PM Advance Directive Response Recorded Date/ Time Living Will No November 20, 2014 2:47pm Power of Senior Application Programmer No November 20 5 2:47pm Documents on File Type Date Recorded Patient L D Rn Expl anation ACP-Advance Directive 02/08/2021 12:00 AM Advance Directive Response Recorded Date/ Time Living Will No November 20, 2014 1:47pm Power of Senior Application Programmer No November 20 5 1:47pm Advance Directive Response Recorded Date/ Time Living Will No August 09, 2022 10:14am Power of Senior Application Programmer No August 09 10:14am Advance Directive Response Recorded Date/ Time Living Will No August 09, 2022 9:14am Power of Senior Application Programmer No August 09 9:14am Documents on File Type Date Recorded Patient L D Rn Expl anation Power of Senior Application Programmer 02/06/2024 12:34 PM [facility] [place] [facility] POA Advance Directives and Living Will 02/06/2024 12:31 PM Living Will Declaration Advance Directive Response Recorded Date/ Time Living Will No August 09, 2022 10:14am Do you have a Healthcare Power of Senior Application Programmer? No August 09, 2022 10:14am Summary Purpose Family History No Family History Records Found Relationship Condition Age at Onset Recorded Date/T katja father Malignant neoplasm Unknown mother Diabetes mellitus Unknown History of high cholesterol Unknown daughter Disorder of thyroid Unknown Lupus erythematosus Unknown Relationship Condition Age at Onset Recorded Date/T katja father Malignant neoplasm Unknown mother Diabetes mellitus Unknown History of high cholesterol Unknown daughter Disorder of thyroid Unknown Lupus erythematosus Unknown sister Malignant neoplasm of breast Unknown Relationship Condition Age at Onset Recorded Date/T katja father Malignant neoplasm Unknown mother Diabetes mellitus Unknown History of high cholesterol Unknown daughter Disorder of thyroid Unknown Sjogren's syndrome Unknown sister Malignant neoplasm of breast Unknown Reason for Referral Status Reason Specialty Diagnoses / Procedures Referre d By Contact Referred To Contact Open Radiology Diagnoses Ataxia Essential tremor Procedures MRI BRAIN W WO CONTRAST Ryan Christopher MD [address] [place] [id number] Chief Complaint and Reason for Visit Chief Complaint S/O- ARTHRITIS/PAIN- COPY PCP S/O- ARTHRITIS/PAIN- COPY PCP Chief Complaint S/O- ARTHRITIS/PAIN- COPY PCP Chief Complaint S/O- PAIN- COPY PCP Chief Complaint S/O- PAIN- COPY PCP SCREENING 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 CARE, 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) , Osteopenia, Medicare pt SCREENING Reason for Visit Essential tremor Prediabetes Psoriatic arthritis Acquired hypothyroidism Mixed hyperlipidemia RLS (restless legs syndrome) Anxiety and depression Depression Osteopenia [id number] Chief Complaint 6 M FU S/O- PAIN- COPY PCP 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) , Osteopenia, Medicare pt SCREENING FOLLOW UP FROM BONE DENSITY SCAN PROLIA SHOT S/O- PAIN- COPY PCP Reason for Visit Essential tremor Prediabetes Psoriatic arthritis Acquired hypothyroidism Mixed hyperlipidemia RLS (restless legs syndrome) Anxiety and depression Depression Osteopenia [id number] Osteopenia Osteopenia Chief Complaint PROLIA SHOT S/O- PAIN- COPY PCP S/O- PAIN- COPY PCP Reason for Visit Osteopenia Chief Complaint Admit Date 5 WK FU April 14, 2024 9 :47am S/O- PAIN- COPY PCP April 21, 2024 10:04am PROLIA-$[email or web address] May 11, 2024 12:49pm Reason for Visit Admit Date Essential tremor April 14, 2024 9 :47am Osteopenia April 14, 2024 9 :47am Psoriatic arthritis April 14, 2024 9 :47am Abrasion of oral cavity April 14 9:47am Acquired hypothyroidism April 14 9:47am Mixed hyperlipidemia April 14, 2024 9:47am RLS (restless legs syndrome) April 9:47am Anxiety and depression April 14 9:47am Osteopenia May 11, 2024 12:49pm Additional Source Comments Reason for Visit (unrecogniz ed section and content) Reason Comments Facial Injury Reason Comments Follow-up Tremors Restless Legs Reason Comments Follow-up Restless Legs Tremors Reason Comments Med Refill Reason Onset Date Comments Med Refill 08/25/2023 Reason Onset Date Comments Med Refill 09/08/2023 Reason Onset Date Comments Med Refill 10/25/2023 Reason Onset Date Comments Discuss Medications 10/15/2022 Reason Comments Follow-up Tremors Reason Onset Date Comments Med Refill 04/20/2024 INFORMATION SOURCE (unrecogn ized section and content) DATE CREATED AUTHOR 10/05/2020 [facility] DATE CREATED AUTHOR AUTHOR'S ORGANIZ ATION 02/13/2021 [email or web address] DATE CREATED AUTHOR AUTHOR'S ORGANIZ ATION 11/29/2021 [facility] DATE CREATED AUTHOR AUTHOR'S ORGANIZ ATION 08/04/2024 [facility] DATE CREATED AUTHOR AUTHOR'S ORGANIZ ATION 10/07/2024 [email or web address] Goals (unrecognized section and content) Goals may be documented in a n alternate sectionGoals may be documented in an alternate sectionGoals may be documented in an alternate sectionGoals may be documented in an alternate sectionGoals may be documented in an alternate sectionGoals may be documented in an alternate sectionGoals may be documented in an alternate sectionGoals may be documented in an alternate sectionGoals may be documented in an alternate sectionGoals may be documented in an alternate sectionGoals may be documented in an alternate sectionGoals may be documented in an alternate section Care Teams (unrecognized sec tion and content) Display And Banner Designer Relationship Specialty Start Date End Date Robin Eamon [place] [address] [place] [address] PCP - General Family Medicine 11/10/20 Team Status: Active Member Role Status Dates Dr. Eamon Kelly MD Family Provider Active Dr. Kelley Maldonado MD Primary Care Provider Active Team Status: Inactive Member Role Status Dates Dr. Eamon Kelly MD Primary Care Provider, Referring Provider Active Dr. Kiana Giraldo MD Attending Provider Active Team Status: Inactive Member Role Status Dates Dr. Eamon Kelly MD Primary Care Provider, Attending Provider Active Team Status: Inactive Member Role Status Dates Dr. Eamon Kelly MD Primary Care Provider Active Dr. Trudy Trejo MD Attending Provider, Referring Provider Active Team Status: Inactive Member Role Status Dates Dr. Kelley Maldonado MD Primary Care Provider Active Dr. Trudy Trejo MD Attending Provider, Referring Provider Active Team Status: Inactive Member Role Status Dates Dr. Eamon Kelly MD Referring Provider Active Dr. Kelley Maldonado MD Primary Care Provider, Attendi ng Provider Active Team Status: Inactive Member Role Status Dates Dr. Kelley Maldnoado MD Primary Care Pro vider, Attending Provider, Referring Provider Active Team Status: Inactive Member Role Status Dates Dr. Kelley Maldonado MD Primary Care Provider, Attendi ng Provider Active Display And Banner Designer Relationship Specialty Start Date End Date Kelley Maldonado MD [address] [place] [address] PCP - General 09/05/22 Display And Banner Designer Relationship Specialty Start Date End Date Kelley Maldonado MD [address] [place], [place] [id number] PCP - General 09/05/22 Team Status: Inactive Member Role Status Dates Dr. Kiana Giraldo MD Attending Provider Active Dr. Kelley Maldonado MD Primary Care Provider, Referri ng Provider Active Team Status: Inactive Member Role Status Dates Dr. Kelley Maldonado MD Primary Care Provider Active Beverly Cooper SHIPPING SPECIALIST, SHIPPING SPECIALIST-C Attending Provider, Referring Provider Active Team Status: Inactive Member Role Status Dates Dr. Kelley Maldonado MD Primary Care Provider Active Dr. Trudy Trejo MD Attending Provider Active Display And Banner Designer Relationship Specialty Start Date End Date Kelley Maldonado MD [address] [place] [address] PCP - General 09/05/22 Display And Banner Designer Relationship Specialty Start Date End Date Kelley Maldonado MD [address] [place] [address] PCP - General 09/05/22 Display And Banner Designer Relationship Specialty Start Date End Date Kelley Maldonado MD [address] [place] [address] PCP - General 09/05/22 Display And Banner Designer Relationship Specialty Start Date End Date Kelley Maldonado MD [address] [place] [address] PCP - General 09/05/22 Display And Banner Designer Relationship Specialty Start Date End Date Kelley Maldonado MD [address] [place] [address] PCP - General 09/05/22 Display And Banner Designer Relationship Specialty Start Date End Date Kelley Maldonado MD [address] [place] [address] PCP - General 09/05/22 Display And Banner Designer Relationship Specialty Start Date End Date Kelley Maldonado MD [address] [place] [address] PCP - General 09/05/22 Display And Banner Designer Relationship Specialty Start Date End Date Kelley Maldonado MD [address] [place] [address] PCP - General 09/05/22 Team Status: Inactive Member Role Status Dates Dr. Kelley Maldonaod MD Primary Care Provider Active Start: April 14, 2024 End: April 14, 2024 Dr. Kelley Maldonado MD Attending Provider Active Start: April 14, 2024 End: April 14, 2024 Dr. Kelley Maldonado MD Referring Provider Active Start: April 14, 2024 End: April 14, 2024 Team Status: Inactive Member Role Status Dates Dr. Kelley Maldonado MD Primary Care Provider Active Start: April 21, 2024 End: April 21, 2024 Dr. Trudy Trejo MD Attending Provider Active Start: April 21, 2024 End: April 21, 2024 Dr. Trudy Trejo MD Referring Provider Active Start: April 21, 2024 End: April 21, 2024 Team Status: Inactive Member Role Status Dates Dr. Kelley Maldonado MD Primary Care Provider Active Start: May 11, 2024 End: May 11, 2024 Dr. Kelley Maldonado MD Referring Provider Active Start: May 11, 2024 End: May 11, 2024 Dr. Richard Moore MD Attending Provider Active Start: May 11, 2024 End: May 11, 2024 Team Status: Inactive Member Role Status Dates Dr. Kelley Maldonado MD Primary Care Provider Active Start: July 23, 2024 End: July 23, 2024 Dr. Trudy Trejo MD Attending Provider Active Start: July 23, 2024 End: July 23, 2024 Dr. Trudy Trejo MD Referring Provider Active Start: July 23, 2024 End: July 23, 2024 FOR RECORDS PERTAINING TO PATIENTS WHO ARE OR HAVE BEEN ENROLLED IN A CHEMICAL DEPENDENCY/SUBSTANCEABUSE PROGRAM, SOME INFORMATION MAY BE OMITTED. This clinical summary was aggregated from multiple sources. Caution should be exercised in using it in the provision of clinical care. This summary normalizes information from multiple sources, and as a consequence, information in this document may materially change the coding, format and clinical context of patient data. In addition, data may be omitted in some cases. CLINICAL DECISIONS SHOULD BE BASED ON THE PRIMARY CLINICAL RECORDS. [facility] provides no warranty or guarantee of the accuracy or completeness of information in this document.
[2024-10-22 21:30] LABS: Hemoglobin A1c 5.9 % (<=5.6)
[2024-10-22 21:47] LABS: Vitamin B12 296 pg/mL (180-914); Vitamin D,25 Hydroxy 49.2 ng/mL (30-100)
== END | disposition home or self-care (01) ==
LOC: MTLAB 12:45
PROVIDERS: PCP Internal Medicine; Referring Provider Internal Medicine Rheumatology; Visit Provider Internal Medicine Rheumatology
DX: L40.59 Other psoriatic arthropathy (principal); Z79.899 Other long term (current) drug therapy; E55.9 Vitamin D deficiency, unspecified; R73.09 Other abnormal glucose; R53.83 Other fatigue
CPT/HCPCS: 36415; 80053; 82306; 82607; 83036; 84443; 85025

== ENCOUNTER → 2025-01-19 | Outpatient (CLI) | payer MEDICARE, SELFPAY ==
[2025-01-19 15:26] LABS: Hematocrit 38.2 % (37-47); Hemoglobin 12.6 g/dL (12.0-15.0); Immature Granulocytes Count 0.010 X10^3/uL (0.0-0.0); Mean Corp Hgb Conc 33.0 g/dL (32-36); Mean Corpuscular Volume 98.5 fL (81-99); Mean Platelet Vol. 10.3 fl (6.2-12.0); NRBC Flagged by Analyzer 0 % (0-5); Platelet Count 250 K/mm3 (150-450); RBC Distribution Width CV 14.2 % (11.6-14.6); RBC Distribution Width SD 50.6 fl (35.1-43.9); Red Blood Count 3.88 M/mm3 (4.2-5.4); White Blood Count 4.3 K/mm3 (4.4-11.0)
[2025-01-19 18:01] LABS: AST(SGOT) 18 U/L (<=31); Alanine Aminotransfer ALT/SGPT 7 U/L (<=34); Albumin, Serum 4.7 g/dL (3.4-4.8); Alkaline Phosphatase 48 U/L (35-104); Anion Gap 13 (5-15); BUN 18 mg/dL (4-19); BUN/Creat Ratio 18.5 RATIO (10-20); Calcium,Total 9.4 mg/dL (7.6-11.0); Carbon Dioxide 25.1 mmol/L (21.0-32.0); Chloride 101 mmol/L (98-108); Globulin 2.7 g/dL (2.2-4.2); Glucose 119 mg/dL (70-99); Potassium 4.3 mmol/L (3.3-5.1)
--- OUTSIDE RECORDS SUMMARY | 2025-01-19 22:09 | XMS RPT_ITS | CCD ---
Author Organization [facility] Care Team Providers Care Shaper Machine Hand Name Role Phone Usama MONROY, Talat Shoemaker Unavailable Lynn Davenport PA-C Unavailable System, Provider Not In Primary Care Provider Un available ARIES BARRIOS Attending Un available SYSTEM, PROVIDER NOT IN Primary Care Unavaila Eamon Lopez Primary Care Provider Dr. Eamon Kelly Primary Care Provider Dr. Eamon Kelly Referring Provider Dr. Kiana Giraldo Attending Provider [phone] Dr. Eamon Kelly Referring Provider Dr. Kelley Maldonado Primary Care Provider Dr. Kelley Maldonado Attending Provider [phone] Kelley Maldonado Referring Provider [phone] Kelley Maldonado MD Primary Care Provider Kelley Maldonado MD Primary Care Provider Dr. Kelley Maldonado Primary Care Provider Dr. Kelley Maldonado Attending Provider [phone] Dr. Kelley Maldonado Referring Provider [phone] Dr. Kiana Giraldo Attending Provider [phone] Kelley Maldonado MD Primary Care Provider Dr. Kelley Maldonado Primary Care Provider Dr. Kelley Maldonado Attending Provider [phone] Dr. Kelley Maldonado Referring Provider [phone] Joel MONROY, Dr. Falk Primary Care Provider [phone] Joel MONROY, Dr. Falk Attending Provider Joel MONROY, Dr. Falk Referring Provider Maya MONROY, Dr. Yates Attending Provider Maya MONROY, Dr. Yates Referring Provider Teresa MONROY, Dr. Ramos Attending Provider [phone] OG JOHNSON Attending Unavailable JOEL, KELLEY Primary Care Unavailable JOEL, KELLEY Primary Care Unavailable OG JOHNSON Attending Unavailable RYAN CHRISTOPHER Attending Unavailable JOEL, KELLEY Primary Care Unavailable OG JOHNSON Attending Unavailable JOEL, KELLEY Primary Care Unavailable Joel MONROY, Dr. Falk Primary Care Provider [phone] Maya MONROY, Dr. Yates Attending Provider Maya MONROY, Dr. Yates Referring Provider Joel MONROY, Dr. Falk Attending Provider Joel MNOROY, Dr. Falk Referring Provider [place], Kelley Referring Unavailable [place], Kelley Attending Unavailable [place], Kelley Primary Care Unavailable Joel, Kelley Referring Unavailable Joel, Kelley Attending Unavailable [place], Kelley Primary Care Unavailable Vellanki, Trudy Attending Unavailable Vellanki, Trudy Referring Unavailable [place], Kelley Primary Care Unavailable Vellanki, Trudy Referring Unavailable Vellanki, Trudy Attending Unavailable Joel, Kelley Primary Care Unavailable Vellanki, Trudy Referring Unavailable Vellanki, Trudy Attending Unavailable Joel, Kelley Primary Care Unavailable [place], Kelley Referring Unavailable [place], Kelley Primary Care Unavailable [place], Kelley Attending Unavailable [place], Kelley Primary Care Unavailable Kiana Giraldo Referring Unavailable Kiana Giraldo Attending Unavailable Vellanki, Trudy Referring Unavailable Trudy Trejo Attending Unavailable Joel, Kelley Primary Care Unavailable [place], Kelley Referring Unavailable [place], Kelley Primary Care Unavailable Richard Moore Attending Unavailable Joel, Kelley Referring Unavailable [place] Kelley Attending Unavailable Joel, Kelley Primary Care Unavailable Joel, Kelley Referring Unavailable Joel, Kelley Primary Care Unavailable Kiana Giraldo Attending Unavailable Allergies Allergy Classification Reported Allergen(s) Allergy Type Date of Onset Reaction(s) Facility (12 sources) rOPINIRole Drug Allergy 11-06-2022 Nausea Only [facility] Medications Current Medications Medication Drug Class(es) Dates Sig (Normalized) Sig (Original) calcium carbonate 1250 mg / cholecalciferol 200 unt oral tablet (9 sources) Vitamin D take 1 tablet by mouth once in the morning, then take 1 tablet by mouth once at mealtime Calcium Carbonate-Vitam in D (Oyster Shell Calcium/D) 500-5 MG-MCG tablet Take 1 tablet by mouth in the morning and 1 tablet in the evening. Take with meals. Active carbidopa 25 mg / levodopa 100 mg oral tablet (20 sources) Aromatic Amino Acid Decarboxylation Inhibitor, Aromatic Amino Acid Start: 10-22-2024 Carbidopa-Levod opa 25-100 mg tablet Active {tbl} PO .qid October 22, 2024 10:05am Start: 07-03-2024 End: 09-30-2024 carbidopa-levodopa (Sinemet) 25-100 MG tablet Take 1 tablet 4 times daily 360 tablet 1 09/30/2024 Active Start: 03-10-2024 End: 10-22-2024 Carbidopa-Levodopa 25-100 mg tablet Discontinued {tbl} PO March 10, 2024 12:00am October 22, 2024 10:05am Start: 03-10-2024 Carbidopa-Levo dopa 25-100 mg tablet [...] 04/14/2024 Active Chlorhexidine Gluconate 0.12 % mouthwash (3 sources) Start: 04-14-2024 Chlorhexidine Gluconate 0.12 % mouthwash Active 15 mL BUCCAL TWICE A DAY April 14, 2024 1:00am cholecalciferol 0.125 mg oral capsule (6 sources) Vitamin D Start: 02-14-2023 take 1 capsule by mouth once daily Cholecalciferol (Vitamin D3) 125 mcg (5,000 unit) capsule Active 125 ug PO DAILY February 14, 2023 12:00am 1 ml denosumab 60 mg/ml prefilled syringe (11 sources) RANK Ligand Inhibitor Start: 04-08-2023 Denosumab (Prolia) 60 mg/mL syringe Active 60 mg SC every 6 months April 08, 2023 1:00am folic acid 1 mg oral tablet (20 [...] 2021 12:00am 8 tablets Start: 01-08-2018 End: 10-12-2021 Methotrexate 2.5 mg/mL solut ion Discontinued PO January 08, 2018 12:00am February 21, 2021 1:18pm Start: 01-08-2018 End: 02-21-2021 Methotrexate Discontinued PO January 08, 2018 12:00am February 21, 2021 1:18pm Start: 01-01-2017 METHOTREXATE T ABS 2.5mg tabs 7 tabs weekly METHOTREXATE SODIUM TABS [id number] Talat Forrester MD Start: 01-01-2017 METHOTREXATE T ABS 2.5mg tabs 7 tabs weekly METHOTREXATE SODIUM TABS [id number] Talat Forrester MD take 8 tablets by mo [facility] every week methotrexate (RHEUMATREX) 2.5 MG chemo [...] (Reorder) Start: 07-05-2022 take 2 tablets by mo uth twice daily in the morning, then take 3 tablets by mouth in the evening Primidone 50 mg tablet Active 100 mg PO TWICE A DAY July 05, 2022 9:49am 100 in the a.m / 150mg. in evening Start: 02-26-2022 End: 11-06-2022 take 1 tablet by mouth twice daily Primidone 50 mg tablet Discontinued 100 mg PO TWICE A DAY February 26, 2022 12:00am July 05, 2022 9:50am Start: 02-26-2022 End: 07-05-2022 take 100 mg [...] 2022 8:43am take 3 tablets by mo uth twice daily primidone (MYSOLINE) 50 MG tablet Take 150 mg by mouth 2 (two) times a day . 0 Active sertraline 100 mg oral tablet (20 sources) Serotonin Reuptake Inhibitor Start: 10-22-2024 take 1 tablet by mouth once daily Sertraline 100 mg tablet Active 100 mg PO DAILY 90 October 22, 2024 12:38pm Start: 04-14-2024 End: 10-22-2024 take 1 tablet by mouth once daily Sertraline 50 mg tablet Discontinued 50 mg PO DAILY September 28, 2024 1:18pm October 22, 2024 12:39pm Start: 08-09-2022 End: 08-09-2022 Sertraline 100 mg tablet Discontinued 50 mg PO daily August 09, 2022 8:58am August 09, 2022 9:18am Start: 08-09-2022 End: 08-09-2022 take 50 mg by mouth once daily Sertraline Discontinued 50 MG PO daily August 09, 2022 8:58am August 09, 2022 9:18am Start: 08-09-2022 End: 09-30-2024 take 1 tablet by mouth once daily Sertraline (Zoloft) 25 mg tablet Discontinued 25 mg PO DAILY September 30, 2023 7:40am April 14, 2024 11:35am Start: 04-04-2022 End: 08-09-2022 take 1 tablet [...] mg oral tablet (20 sources) l-Thyroxine Start: 03-10-2024 End: 10-22-2024 take 1 tablet by mouth once daily Levothyroxine 88 mcg tablet Active 88 ug PO DAILY October 22, 2024 12:38pm Start: 01-08-2018 End: 06-25-2023 take 1 capsule [...] 1 tablet by osiris th once daily LEVO-T 75 MCG TABS One tablet by mouth daily LEVOTHYROXINE SODIUM [id number] Talat Forrester MD Completed/Discontinued Medications Medication Drug Class(es) Dates Sig (Normalized) Sig (Original) acetaminophen 325 mg / HYDROcodone bitartrate 5 mg oral tablet (14 sources) Opioid Agonist Start: 11-20-2014 End: 01-08-2018 [...] 20, 2014 12:00am January 08, 2018 9:59am atorvastatin 10 mg oral tablet (20 sources) HMG-CoA Reductase Inhibitor Start: 08-09-2022 End: 09-07-2024 take 1 tablet by mouth at bedtime Atorvastatin (Lipitor) 10 mg tablet Discontinued 10 mg PO AT BEDTIME 90 September 09, 2023 7:42am March 10, 2024 10:34am azithromycin 250 mg oral tablet (6 sources) Macrolide Antimicrobial Start: 11-09-2022 End: 02-14-2023 take 2-5 tablets by mouth once daily Azithromycin 250 mg tablet Discontinued 0 PO .COMPLEX 6 November 09, 2022 12:00am February 14, 2023 9:58am take 500 mg today (day 1), then 250 mg for 4 days (days 2-5) PO 12 hr buPROPion hydrochloride 150 mg extended release oral tablet (20 sources) Aminoketone Start: 08-09-2022 End: 08-09-2022 take 1 tablet by mouth twice daily Bupropion Hcl (Wellbutrin Xl) 150 mg tablet extended release 24 hr Discontinued 150 mg PO TWICE A DAY August 09, 2022 9:18am August 09, 2022 1:42pm Start: 08-09-2022 End: 10-22-2024 take 1 tablet by mouth twice daily Bupropion Hcl (Wellbutrin Sr) 150 mg tablet sustained-release 12 hr Discontinued 150 mg PO TWICE A DAY September 09, 2023 7:42am April 14, 2024 11:35am Start: 07-05-2022 End: 08-09-2022 take 1 tablet [...] th once daily WELLBUTRIN SR 150 MG [id number] One tablet by mouth daily BUPROPION HCL [id number] Talat Forrester MD Start: 01-01-2017 take 1 tablet by osiris th once daily WELLBUTRIN SR 150 MG [id number] One tablet by mouth daily BUPROPION HCL [id number] Talat Forrester MD Calcium Carbonate-Vitamin D (Oyster Shell Calcium/D) 500-5 [...] meals. Active cephalexin 500 mg oral capsule (14 sources) Cephalosporin Antibacterial Start: 10-21-2018 End: 10-31-2018 take 1 capsule by mouth every twelve hours Cephalexin 500 mg capsule Discontinued 500 mg PO Q12H 20 October 21, 2018 12:00am October 30, 2018 12:00am October 31, 2018 12:08am ciprofloxacin 500 mg oral tablet (14 sources) Quinolone Antimicrobial Start: 11-20-2014 End: 01-08-2018 take 1 tablet by mouth twice daily Ciprofloxacin Hcl 500 MG tablet Discontinued 500 mg PO TWICE A DAY November 20, 2014 12:00am January 08, 2018 9:59am citalopram 40 mg oral tablet (7 sources) Serotonin Reuptake Inhibitor CELEXA 40 MG TABS CITALOPRAM HYDROBROMIDE [id number] Mehdi Craft clonazePAM 0.25 mg disintegrating oral [...] 1 M G TBDP Q HS CLONAZEPAM [id number] Talat Forrester MD take 1 tablet by osiris th once daily as needed clonazePAM (KLONOPIN) 1 MG tablet Take 1 mg by mouth nightly as needed. 0 Active CLONAZEPAM 0.5 M G TABS CLONAZEPAM [id number] Mehdi Craft GUAIFENESIN-CODEINE (14 sources) Opioid Agonist End: 07-12-2011 GUAIFENESIN AC 100-10 MG/5ML SYRP GUAIFENESIN-CODEINE [id number] Steven D Ovalle DO End: 07-12-2011 GUAIFENESIN AC 100-10 MG/5ML SYRP GUAIFENESIN- CODEINE [id number] Steven D Ovalle DO End: 07-12-2011 GUAIFENESIN AC 100-10 MG/5ML SYRP GUAIFENESIN- CODEINE [id number] Steven Zavaletamudez DO GUAIFENESIN AC 1 00-10 MG/5ML SYRP GUAIFENESIN-CODEINE [id number] Mehdi Craft escitalopram 20 mg oral tablet (20 sources) [...] 26, 2022 9:03am 1 1/2 tablets FOLIC [id number] (3 sources) Start: 01-01-2017 take 1 tablet by mouth twice daily FOLIC ACID XTRA TABS One tablet by mouth twice daily FOLIC [id number] Talat Forrester MD FOLIC [id number] (4 sources) Start: 01-01-2017 take 1 tablet by mouth twice daily FOLIC ACID XTRA TABS One tablet by mouth twice daily FOLIC [id number] Talat Forrester MD gadobutrol (GADAVIST) injection 6 mL (1 source) Start: 02-08-2021 End: 02-08-2021 gadobutrol (GADAVIST) injection 6 mL lamoTRIgine 100 mg oral tablet (12 sources) Mood Stabiliz er, Anti-epi leptic Agent [...] sources) LUTEIN 10 MG TAB S LUTEIN [id number] Mehdi Craft metroNIDAZOLE 500 mg oral tablet (14 sources) Nitroimidazole Antimicrobial Start: 11-21-19 End: 01-09-20 take 1 tablet by mouth every eight hours Metronidazole 500 MG tablet Discontinued 500 mg PO EVERY 8 HOURS November 20, 2014 12:00am January 08, 2018 10:00am NAPROXEN SODIUM TABS (14 sources) Nonsteroidal Anti-inflammatory Drug End: 07-12-19 12 ANAPROX TABS NAPROXEN SODIUM TABS [id number] Steven D Ovalle DO End: 07-12-2011 ANAPROX TABS NAPR OXEN SODIUM TABS [id number] Steven D Ovalle DO ANAPROX TABS NAP ROXEN SODIUM TABS [id number] Steven D Ovalle DO pramipexole dihydrochloride 0.25 mg oral tablet (20 sources) Nonergot Dopamine Agonist Start: 02-14-2023 End: [...] TRONOLANE 1-5 % CREA PRAMOXINE HCL-ZINC OXIDE [id number] Mehdi Craft TRONOLANE 1-5 % CREA PRAMOXINE HCL-ZINC OXIDE [id number] Mehdi Craft propranolol hydrochloride 60 mg oral tablet (20 sources) beta-Adrenergic Abhishek Start: 05-30-2022 End: 09-30-2025 take 1 tablet by mouth twice daily propranolol (Inderal) 60 MG tablet Indications: Essential tremor Take 1 tablet (60 mg) by mouth 2 times daily. 180 tablet 3 11/07/2023 09/30/2024 Discontinued (Reorder) Start: 02-26-2022 take 1 capsule by [facility] once daily Propranolol 60 mg capsule,extended release [...] 11/06/2022 Discontinued topiramate 25 mg oral tablet (15 sources) Start: 02-18-2020 End: 02-21-2021 take 1 [...] for seeking consultation] 07-05-2022 Episodic Anxiety disorders (9 sources) Anxiety disorder, unspecified; Translations: [Anxiety state, unspecified] 07-05-2022 Chronic Cataract (3 sources) Unspecified cataract; Translations: [Unspecified cataract] Chronic Diabetes mellitus without complication (15 sources) Prediabetes; Translations: [Prediabetes] Onset: 10-22-2024 07-04-2022 Episodic Disorders of lipid metabolism (6 sources) Mixed hyperlipidemia; Translations: [Mixed hyperlipidemia] Onset: 03-31-2024 02-14-2023 Chronic Malaise and fatigue (3 sources) Fatigue; Translations: [Other fatigue] Onset: 10-22-2024 10-22-2024 Episodic Melanomas of skin (7 sources) Malignant melanoma; Translations: [Malignant melanoma of skin, unspecified] 01-10-2011 Chronic Mood disorders (16 sources) Depressive disorder; Translations: [Depression] Chronic Comment on above: switched to zoloft, buproprion. counseling recommended Mood disorders (1 source) Mood disorders; Translations: [Depression, unspecified] Onset: 03-30-2024 Nutritional deficiencies (1 source) Vitamin D deficiency, unspecified; Translations: [Vitamin D deficiency, unspecified] Onset: 10-22-2024 Chronic Open wounds of head; neck; and trunk (1 source) Facial laceration ; Translations: [Laceration without foreign body of other part of head, initial encounter] Episodic Osteoporosis (1 source) Age-related osteoporosis without current pathological fracture; Translations: [Age-related osteoporosis without current pathological fracture] Onset: 10-22-2024 Chronic Other bone disease and musculoskeletal deformities (18 sources) Osteopenia; Translations: [Other specified disorders of bone density and structure, unspecified site] 02-26-2022 Episodic Other hereditary and degenerative nervous system conditions (20 sources) Essential tremor; Translations: [Essential tremor] Onset: 07-03-2024 Chronic Other hereditary and degenerative nervous system conditions (7 sources) Essential tremor; Translations: [Essential and other specified forms of tremor] Onset: 07-03-2024 07-05-2022 Chronic Other hereditary and degenerative nervous system conditions (13 sources) Restless legs; Translations: [Restless legs syndrome] Onset: 07-03-2024 Chronic Other hereditary and degenerative nervous system conditions (3 sources) Restless legs syndrome; Translations: [Restless legs syndrome (RLS)] Onset: 07-03-2024 02-14-2023 Chronic Other inflammatory condition of skin (17 sources) Psoriatic arthritis; Translations: [Arthropathic psoriasis, unspecified] 01-13-2019 Chronic Other inflammatory condition of skin (6 sources) Arthropathic psoriasis, unspecified; Translations: [Psoriatic arthropathy] 07-05-2022 Chronic Other inflammatory condition of skin (1 source) Other psoriatic arthropathy; Translations: [Other psoriatic arthropathy] Onset: 10-28-2024 Chronic Other nervous system disorders (1 source) Ataxia; Translations: [Ataxia, unspecified] Episodic Other upper respiratory infections (6 sources) Acute pharyngitis; Translations: [Acute pharyngitis, unspecified] 11-09-2022 Episodic Spondylosis; intervertebral disc disorders; other back problems (1 source) Neck pain; Translations: [Cervicalgia] Episodic Superficial injury; contusion (1 source) Abrasion of oral cavity, initial encounter; Translations: [Abrasion of oral cavity] 04-14-2024 Episodic Thyroid disorders (20 sources) Hypothyroidism; Translations: [Hypothyroidism, unspecified] Onset: 04-14-2024 01-13-2019 Chronic Urinary tract infections (14 sources) Urinary tract infectious disease; Translations: [Urinary [...] and cartilage, unspecified] Onset: 03-10-2024 Episodic Other bone disease and musculoskeletal deformities (1 source) Other specified disorders of bone density and structure, multiple sites; Translations: [Other specified disorders of bone density and structure, multiple sites] Onset: 05-15-2024 Episodic Other screening for suspected conditions (not [...] Test Name Value Interpretation Reference Range Facility Hemoglobin A1con 10-22-2024 HbA1c (Bld) [Mass fraction] 5.9 % High <=5.6 [facility] Comment on above: Result Comment: Norm al < 5.7 % Prediabetic 5.7 - 6.4 % Diabetic >or= 6.5 % Please note range changes. Performed By: #### L 506.1001, L501.9520, L503.0106, L501.9985 ####[facility] [address] [place], [address] Thyroid Stim Hormone (TSH)on 10-22-2024 TSH 2.630 uIU/mL Normal 0.300-4.200 [facility] Comment on above: Performed By: #### L 506.1001, L501.9520, L503.0106, L501.9985 ####[facility] [address] [place], [address] Vitamin B12on 10-22-2024 Cobalamin (Vitamin B12) [Mass/Vol] 296 pg/mL Normal 180-914 [facility] Comment on above: Performed By: #### L 506.1001, L501.9520, L503.0106, L501.9985 ####[facility] [address] [place], [address] Vitamin D,25 Hydroxyon 10-22 Vitamin D 25-OH 49.2 ng/mL Normal 30-100 [facility] Comment on above: Result Comment: Tara min D Status Deficiency: <20 ng/mL (50nmol/L) Insufficiency: 20-30 ng/mL (50-75 nmol/L) Sufficiency: 30-100 ng/mL (75-250 nmol/L) Toxicity: >100 ng/mL (>250 nmol/L) Performed By: #### L 506.1001, L501.9520, L503.0106, L501.9985 ####[facility] [address] [place], [address] Absolute lymphocyte countOrd ered By: Trudy Trejo on 10-21-2024 Lymphocytes Auto (Unsp spec) [#/Vol] 1.06 10*3/uL 0.83-4.51 [facility] Absolute neutrophil countOrd ered By: Trudy Trejo on 10-21-2024 Neutrophils (Bld) [#/Vol] 2.5 10*3/uL 2.0-7.7 [facility] Anion gap in Serum or Plasma Ordered By: Trudy Trejo on 10-21-2024 Anion gap [Moles/Vol] 12 mmol/L 5-15 [facility] Automated blood erythrocyte countOrdered By: Trudy Trejo on 10-21-2024 RBC (Bld) [#/Vol] 3.82 10*6/uL Low 4.2-5.4 [facility] Comment on above: Performed By: #### L 100.0100, L500.4050 ####[facility] [address], [address] Automated blood hematocrit ( percentage)Ordered By: Trudy Trejo on 10-21-2024 Hematocrit (Bld) [Volume fraction] 37.5 % Normal 37-47 [facility] Comment on above: Performed By: #### L 100.0100, L500.4050 ####[facility] [address] [place], [address] Automated lymphocyte count a s percentage of total leukocytesOrdered By: Trudy Trejo on 10-21-2024 Lymphocytes/100 WBC Auto (Unsp spec) 26.8 % - [facility] BUN/creatinine ratioOrdered By: Trudy Elizaldekeesha on 10-21-2024 Urea nitrogen/Creatinine [Mass ratio] 19.5 mg/mg 10-20 [facility] Basophil percentageOrdered B y: Trudy Elizaldekeesha on 10-21-2024 Basophils/100 WBC (Bld) 0.8 % Normal 0-1 [facility] Comment on above: Performed By: #### L 100.0100, L500.4050 ####[facility] [address] [place], [address] Bilirubin, totalOrdered By: Trudy Campbellorquidea on 10-21-2024 Bilirubin [Mass/Vol] 0.23 mg/dL 0.00-1.30 [facility] CBC W/Diff, Automatedon 10-11 Absolute Lymph 1.06 X10 3/uL Normal 0.83-4.51 [facility] Comment on above: Performed By: #### L 100.0100, L500.4050 ####[facility] [address] [place], [address] Absolute Neut 2.5 X10 3/uL Normal 2.0-7.7 [facility] Comment on above: Performed By: #### L 100.0100, L500.4050 ####[facility] [address] [place], [address] IG% 0.300 Normal 0.0-0.9 [facility] Comment on above: Result Comment: IG% - Immature Granulocytes (promyelocytes, myelocytes and metamyelocytes) > 1% indicates that a LEFT SHIFT is Present. Performed By: #### L 100.0100, L500.4050 ####[facility] [address] [place], [address] Lymphocytes/100 WBC (Bld) 26.8 % Normal [facility] Comment on above: Performed By: #### L 100.0100, L500.4050 ####[facility] [address] [place], [address] Nucleated RBC (Bld) [#/Vol] 0.5 10*3/uL Normal 0-5 [facility] Comment on above: Performed By: #### L 100.0100, L500.4050 ####[facility] [address] [place], [address] RDW SD 51.8 fl High 35.1-43.9 [facility] Comment on above: Performed By: #### L 100.0100, L500.4050 ####[facility] [address] [place], [address] Carbon dioxide, total [Moles /volume] in Central venous bloodOrdered By: Trudy Trejo on 10-21-2024 CO2 [Moles/Vol] 24.8 mmol/L 21.0-32.0 [facility] Chloride assayOrdered By: Shiva Trejo on 10-21-2024 Chloride [Moles/Vol] 98 mmol/L 98-108 [facility] Comprehensive Metabolic Prof ilon 10-21-2024 Albumin [Mass/Vol] 4.6 g/dL Normal 3.4-4.8 [facility] Comment on above: Performed By: #### L 100.0100, L500.4050 ####[facility] [address] [place], [address] Albumin/Globulin [Mass ratio] 1.8 {ratio} Normal 0.9-2.4 [facility] Comment on above: Performed By: #### L 100.0100, L500.4050 ####[facility] [address] [place], [address] ALK PHOS 42 U/L Normal 35-104 [facility] Comment on above: Performed By: #### L 100.0100, L500.4050 ####[facility] [address] [place], [address] ALT [Catalytic activity/Vol] 10 U/L Normal <=34 [facility] Comment on above: Performed By: #### L 100.0100, L500.4050 ####[facility] [address] [place], [address] AST [Catalytic activity/Vol] 18 U/L Normal <=31 [facility] Comment on above: Performed By: #### L 100.0100, L500.4050 ####[facility] [address] [place], [address] Bilirubin [Mass/Vol] 0.23 mg/dL Normal 0.00-1.30 [facility] Comment on above: Performed By: #### L 100.0100, L500.4050 ####[facility] [address] [place], [address] BUN/CRE 19.5 RATIO Normal 10-20 [facility] Comment on above: Performed By: #### L 100.0100, L500.4050 ####[facility] [address] [place], [address] Calcium [Mass/Vol] 9.7 mg/dL Normal 7.6-11.0 [facility] Comment on above: Performed By: #### L 100.0100, L500.4050 ####[facility] [address] [place], [address] Chloride [Moles/Vol] 98 mmol/L Normal 98-108 [facility] Comment on above: Performed By: #### L 100.0100, L500.4050 ####[facility] [address] [place], [address] CO2 [Moles/Vol] 24.8 mmol/L Normal 21.0-32.0 [facility] Comment on above: Performed By: #### L 100.0100, L500.4050 ####[facility] [address] [place], [address] Creatinine [Mass/Vol] 0.98 mg/dL Normal 0.70-1.20 [facility] Comment on above: Performed By: #### L 100.0100, L500.4050 ####[facility] [address] [place], [address] GAP 12 Normal 5-15 [facility] Comment on above: Performed By: #### L 100.0100, L500.4050 ####[facility] [address] [place], [address] GFR/1.73 sq M.predicted among non-blacks MDRD (S/P/Bld) [Vol rate/Area] 60 mL/min/{1.73_m2} Normal >60 [facility] Comment on above: Result Comment: mL/m in/1.73m2 CKD-EPI Creatinine Equation (2020) Performed By: #### L 100.0100, L500.4050 ####[facility] [address] [place], [address] Globulin (S) [Mass/Vol] 2.6 g/dL Normal 2.2-4.2 [facility] Comment on above: Performed By: #### L 100.0100, L500.4050 ####[facility] [address] [place], [address] Glucose [Mass/Vol] 122 mg/dL High 70-99 [facility] Comment on above: Performed By: #### L 100.0100, L500.4050 ####[facility] [address] [place], [address] Potassium [Moles/Vol] 4.2 mmol/L Normal 3.3-5.1 [facility] Comment on above: Performed By: #### L 100.0100, L500.4050 ####[facility] [address] [place], [address] Sodium [Moles/Vol] 136 mmol/L Normal 133-145 [facility] Comment on above: Performed By: #### L 100.0100, L500.4050 ####[facility] [address] [place], [address] T PROT 7.1 g/dL Normal 5.9-8.4 [facility] Comment on above: Performed By: #### L 100.0100, L500.4050 ####[facility] [address] [place], [address] Urea nitrogen [Mass/Vol] 19 mg/dL Normal 4-19 [facility] Comment on above: Performed By: #### L 100.0100, L500.4050 ####[facility] [address] [place], [address] Eosinophil percentageOrdered By: Trudy Trejo on 10-21-2024 Eosinophils/100 WBC (Bld) 3.0 % Normal 0-5 [facility] Comment on above: Performed By: #### L 100.0100, L500.4050 ####[facility] [address] [place], [address] Erythrocyte distribution wid th ratioOrdered By: Trudy Terjo on 10-21-2024 Erythrocyte distribution width (RBC) [Ratio] 14.5 % Normal 11.6-14.6 [facility] Comment on above: Performed By: #### L 100.0100, L500.4050 ####[facility] [address] [place], [address] Erythrocyte distribution wid th standard deviationOrdered By: Trudy Trejo on 10-21-2024 Erythrocyte distribution width (RBC) [Ratio] 51.8 fl High 35.1-43.9 [facility] Glomerular filtration rate ( GFR) estimation/1.73 sq m using serum, plasma, or whole bOrdered By: Trudy Trejo on 10-21-2024 GFR/1.73 sq M.predicted among non-blacks MDRD (S/P/Bld) [Vol rate/Area] 60 mL/min/{1.73_m2} >60 [facility] Comment on above: mL/min/1.73m2 CKD-EP I Creatinine Equation (2020) Hemoglobin A1c percentageOrd ered By: Kelley Maldonado on 10-21-2024 HbA1c (Bld) [Mass fraction] 5.9 % High <5.7 [facility] Comment on above: Normal < 5.7 % Predi abetic 5.7 - 6.4 % Diabetic >or= 6.5 % Please note range changes. Hemoglobin measurementOrdere d By: Trudy Trejo on 10-21-2024 Hemoglobin (Bld) [Mass/Vol] 12.5 g/dL Normal 12.0-15.0 [facility] Comment on above: Performed By: #### L 100.0100, L500.4050 ####[facility] [address] [place], [address] Immature granulocytes/100 WB C Auto (Bld)Ordered By: Trudy Trejo on 10-21-2024 Immature granulocytes/100 WBC (Bld) 0.300 % 0.0-0.9 [facility] Comment on above: IG% - Immature Granu locytes (promyelocytes, myelocytes and metamyelocytes) > 1% indicates that a LEFT SHIFT is Present. Internal Medicine Office Vis iton 10-21-2024 Internal Medicine Office Visit [facility] [address] [place] [address] [place] [address] OFFICE VISIT Date of Service: 10/22/24 MR#: [id number] Acct: [id number] Name: ARIADNA LOBATO Rep #: [id number] : 1950 Provider: Dr. 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 Is patient in pain?: No Allergies No Known Allergies Allergy (Verified 10/22/24 09:55) Medications ???Medication ???Instructions ???Recorded ???Confirmed ???Type prednisone 10 mg tablet 10 mg PO DAILY PRN 01/13/19 History folic acid 1 mg tablet 1 mg PO BID 02/21/21 10/22/24 Hist ory methotrexate sodium 2.5 mg tablet 2.5 mg PO QWEEK 02/21/21 10/22/24 History propranolol 60 mg capsule,24 60 mg PO DAILY 02/26/22 10/22/24 H istory hr,extended release primidone 50 mg tablet 100 mg PO BID 07/05/22 10/22/24 Hi story cholecalciferol (vitamin D3) 125 125 mcg PO DAILY 02/14/23 10/22/24 History mcg (5,000 unit) capsule denosumab 60 mg/mL subcutaneous 60 mg subcut [id number] #1 mL 10/22/24 Rx syringe (Prolia) chlorhexidine gluconate 0.12 % 15 ml buccal BID #300 mL 04/14/24 10/22/24 Rx mouthwash atorvastatin 10 mg tablet (Lipitor) 10 mg PO QHS #90 tabs 09/07/24 10/22/24 Rx bupropion HCl 150 mg tablet,12 hr 150 mg PO BID #180 ea 10/22/24 Rx sustained-release (Wellbutrin SR) carbidopa 25 mg-levodopa 100 mg tab PO .qid 10/22/24 10/22/24 Hist ory tablet levothyroxine 88 mcg tablet 88 mcg PO DAILY #90 tabs 10/22/24 10/22/24 Rx sertraline 100 mg tablet 100 mg PO DAILY #90 tabs 10/22/24 10/22/24 Rx Have you fallen in the past year?: No Nurse's Note: Pt has had increased fatigue that has been ongoing for about 3 months and is becoming more noticeable. Pt is averaging 5 hours per night. Pt awakens frequently, and is unable to get back to sleep most of the time due to overthinking. Pt states she never got more than 5 hours of sleep but was always able to go back to sleep and feel mostly rested upon awakening. Pt states moodwise she has had more blah for about 3 months also. Pt states she is trying to sell her house which may add some more stress. Needs wellbutrin, and synthroid refilled. Pt states that she has several times throughout the day where she feels like she has to take a deep breath, feels like this happens when she doesn't want to do something but still needs to. Pt states it happens when driving or sitting also. Denies SOB on exertion. Has also been going on for about 3 months. [facility] Medical History Cataract of right eye Essential tremor Shoulder pain Hypothyroid Psoriatic arthritis Melanoma Surgical History History of ankle surgery S/P left cataract extraction History of cholecystectomy Normal colonoscopy H/O: hysterectomy Family History Father Cancer lung and liver Mother Diabetes History of high cholesterol Daughter Thyroid disorder Sjogren's disease Daughter Thyroid disorder Sandra's Sister Breast cancer Social History household members: none number of children: 3 current occupational status: [...] Female Reproductive History Menstrual Ab spontaneous: 1 Questionnaire PQH-9 BMS Over the last 2 weeks, how often have you been bothered by any of the following problems? 1. Little interest or pleasure in doing things: nearly every day 2. Feeling down, depressed, or hopeless: nearly every day 3. Trouble falling or staying asleep, or sleeping too much: nearly every day 4. Feeling tired or having little energy: nearly every day 5. Poor appetite or overeating: not at all 6. Feeling bad about yourself - or that you are a failure or have let yourself and your family down: not at all 7. Trouble concentrating on things, such as reading the news (more content not included)... Normal [facility] - Chemistry and C hemistry - challengeOrdered By: Trudy Trejo on 10-21-2024 AST [Catalytic activity/Vol] 18 U/L <32 [facility] MCV (mean corpuscular volume ) determinationOrdered By: Trudy Trejo on 10-21-2024 MCV (RBC) [Entitic vol] 98.2 fL Normal 81-99 [facility] Comment on above: Performed By: #### L 100.0100, L500.4050 ####[facility] [address] [place], [address] Mean corpuscular hemoglobin (MCH) determinationOrdered By: Trudy Trejo on 10-21-2024 MCH (RBC) [Entitic mass] 32.7 pg High 27.0-32.0 [facility] Comment on above: Performed By: #### L 100.0100, L500.4050 ####[facility] [address] [place], [address] Mean corpuscular hemoglobin concentration (MCHC) determinationOrdered By: Trudy Trejo on 10-21-2024 MCHC (RBC) [Mass/Vol] 33.3 g/dL Normal 32-36 [facility] Comment on above: Performed By: #### L 100.0100, L500.4050 ####[facility] [address], [address] Mean platelet volume determi nationOrdered By: Trudy Trejo on 10-21-2024 Platelet mean volume (Bld) [Entitic vol] 10.7 fL Normal 6.2-12.0 [facility] Comment on above: Performed By: #### L 100.0100, L500.4050 ####[facility] [address] [place], [address] Monocyte percentageOrdered B y: Trudy Trejo on 10-21-2024 Monocytes/100 WBC (Bld) 7.3 % Normal 0-10 [facility] Comment on above: Performed By: #### L 100.0100, L500.4050 ####[facility] [address] [place], [address] Neutrophil percentageOrdered By: Trudy Trejo on 10-21-2024 Neutrophils/100 WBC (Bld) 61.8 % Normal 47-70 [facility] Comment on above: Performed By: #### L 100.0100, L500.4050 ####[facility] [address] [place], [address] Nucleated red blood cell per centageOrdered By: Trudy Trejo on 10-21-2024 Nucleated RBC/100 WBC (Bld) [Ratio] 0.5 % 0-5 [facility] Platelet countOrdered By: Shiva Trejo on 10-21-2024 Platelets (Bld) [#/Vol] 260 10*3/uL Normal 150-450 [facility] Comment on above: Performed By: #### L 100.0100, L500.4050 ####[facility] [address] [place], [address] Potassium measurement (mass/ volume)Ordered By: Trudy Trejo on 10-21-2024 Potassium (Unsp spec) [Mass/Vol] 4.2 mmol/L 3.3-5.1 [facility] Serum creatinine measurement (mass/volume)Ordered By: Trudy Trejo on 10-21-2024 Creatinine [Mass/Vol] 0.98 mg/dL 0.70-1.20 [facility] Serum globulin measurementOr dered By: Trudy Trejo on 10-21-2024 Globulin (S) [Mass/Vol] 2.6 g/dL 2.2-4.2 [facility] Serum glucose measurement (m ass/volume)Ordered By: Trudy Trejo on 10-21-2024 Glucose [Mass/Vol] 122 mg/dL High 70-99 [facility] Serum or plasma alanine singleton otransferase (ALT) measurementOrdered By: Trudy Trejo on 10-21-2024 ALT [Catalytic activity/Vol] 10 U/L <35 [facility] Serum or plasma albumin jasmine urement (mass/volume)Ordered By: Trudy Trejo on 10-21-2024 Albumin [Mass/Vol] 4.6 g/dL 3.4-4.8 [facility] Serum or plasma albumin/glob ulin mass ratioOrdered By: Trudy Trejo on 10-21-2024 Albumin/Globulin [Mass ratio] 1.8 {ratio} 0.9-2.4 [facility] Serum or plasma alkaline jerome sphatase measurementOrdered By: Trudy Trejo on 10-21-2024 ALP [Catalytic activity/Vol] 42 U/L 35-104 [facility] Serum or plasma calcium jasmine urement (mass/volume)Ordered By: Trudy Trejo on 10-21-2024 Calcium [Mass/Vol] 9.7 mg/dL 7.6-11.0 [facility] Serum or plasma urea nitroge n measurement (mass/volume)Ordered By: Trudy Trejo on 10-21-2024 Urea nitrogen [Mass/Vol] 19 mg/dL 4-19 [facility] Sodium levelOrdered By: Nickie Trejo on 10-21-2024 Sodium [Moles/Vol] 136 mmol/L 133-145 [facility] TSH DL <= 0.005 mIU/L QnOrde red By: Kelley Maldonado on 10-21-2024 TSH Qn 2.630 uIU/mL 0.300-4.200 [facility] Total proteinOrdered By: Che Trejo on 10-21-2024 Protein [Mass/Vol] 7.1 g/dL 5.9-8.4 [facility] Vitamin B12 ser/plasOrdered By: Kelley Maldonado on 10-21-2024 Cobalamin (Vitamin B12) [Mass/Vol] 296 pg/mL 180-914 [facility] White blood cell (WBC) count Ordered By: Trudy Trejo on 10-21-2024 WBC (Bld) [#/Vol] 4.0 10*3/uL Low 4.4-11.0 [facility] Comment on above: Performed By: #### L 100.0100, L500.4050 ####[facility] [address] [place], [address] Office Visiton 09-30-2024 Follow-up visit [id number] Ariadna Lobato 1950 F Date Provider Department Center 09/30/2024 [id number] [facility] None Family History Problem Relation Age of Onset Other Maternal Grandfather Other Mother Family Status - Relation Status Age at Maternal Grandfather Mother Level of Service:39780 [place] OFFICE/OUTPATIENT ESTABLISHED LOW MDM 20 MIN Reason for Visit and Comments: Follow-up [322447] Tremors [786407] Normal [facility] Progress Noteon 09-30-2024 Progress Note Visit type: [...] TSH VITAMIN B12: No results found for: COVHIIJD92 No results found for: PHENYTOIN, PHENOBARB, VALPROATE, CBMZ No components found for: TOPIRA @RESULTINGLABINFO@ FERRITIN Date Value Ref Range Status 02/06/2024 108 16 - 288 ng/mL Final No results found for: ANNA, IMMUNOGLOBUL, OLIGOBANDS No results found for: QVC29XL, HEPCAB No results found for: CRP, ANATITER, ANCA FERRITIN: Lab Results Component Value Date FERRITIN 108 02/06/2024 ---- XR CERVICAL SPINE W OBLIQUES FLEXION AND EXTENSION Narrative: Patient Name: ARIADNA LOBATO Diagnostic Radiology ACCESSION EXAM DATE/TIME PROCEDURE ORDERING PROVIDER [id number] 11/16/2021 10:51 EDT CR Spine Cervical Comp RYAN CHRISTOPHER w/ Obliques CPT code 00134 Reason For Exam (CR Spine Cervical Comp [...] --- Dict (more content not included)... Normal [facility] Absolute lymphocyte countOrd ered By: Trudy Trejo on 07-23-2024 Lymphocytes Auto (Unsp spec) [#/Vol] 1.07 10*3/uL 0.83-4.51 [facility] Absolute neutrophil countOrd ered By: Trudy Trejo on 07-23-2024 Neutrophils (Bld) [#/Vol] 3.1 10*3/uL 2.0-7.7 [facility] Anion gap in Serum or Plasma Ordered By: Trudy Trejo on 07-23-2024 Anion gap [Moles/Vol] 16 mmol/L High 5-15 [facility] Automated lymphocyte count a s percentage of total leukocytesOrdered By: Trudy Trejo on 07-23-2024 Lymphocytes/100 WBC Auto (Unsp spec) 22.8 % 19-41 [facility] BUN/creatinine ratioOrdered By: Trudy Trejo on 07-23-2024 Urea nitrogen/Creatinine [Mass ratio] 26.4 mg/mg High 10-20 [facility] Basophil percentageOrdered B y: Trudy Trejo on 07-23-2024 Basophils/100 WBC (Bld) 0.4 % 0-1 [facility] Bilirubin, totalOrdered By: Trudy Trejo on 07-23-2024 Bilirubin [Mass/Vol] 0.19 mg/dL 0.00-1.30 [facility] CBC W/Diff, Automatedon 07-11 Absolute Lymph 1.07 X10 3/uL Normal 0.83-4.51 [facility] Comment on above: Performed By: #### L 500.4050, L100.0100 ####[facility] [address] [place], [address] Absolute Neut 3.1 X10 3/uL Normal 2.0-7.7 [facility] Comment on above: Performed By: #### L 500.4050, L100.0100 ####[facility] [address] [place], [address] Basophils/100 WBC (Bld) 0.4 % Normal 0-1 [facility] Comment on above: Performed By: #### L 500.4050, L100.0100 ####[facility] [address] [place], [address] Eosinophils/100 WBC (Bld) 4.3 % Normal 0-5 [facility] Comment on above: Performed By: #### L 500.4050, L100.0100 ####[facility] [address] [place], [address] Erythrocyte distribution width (RBC) [Ratio] 14.5 % Normal 11.6-14.6 [facility] Comment on above: Performed By: #### L 500.4050, L100.0100 ####[facility] [address] [place], [address] Hematocrit (Bld) [Volume fraction] 38.0 % Normal 37-47 [facility] Comment on above: Performed By: #### L 500.4050, L100.0100 ####[facility] [address] [place], [address] Hemoglobin (Bld) [Mass/Vol] 12.9 g/dL Normal 12.0-15.0 [facility] Comment on above: Performed By: #### L 500.4050, L100.0100 ####[facility] [address] [place], [address] IG% 0.400 Normal 0.0-0.9 [facility] Comment on above: Result Comment: IG% - Immature Granulocytes (promyelocytes, myelocytes and metamyelocytes) > 1% indicates that a LEFT SHIFT is Present. Performed By: #### L 500.4050, L100.0100 ####[facility] [address] [place], [address] Lymphocytes/100 WBC (Bld) 22.8 % Normal 19-41 [facility] Comment on above: Performed By: #### L 500.4050, L100.0100 ####[facility] [address] [place], [address] MCH (RBC) [Entitic mass] 32.7 pg High 27.0-32.0 [facility] Comment on above: Performed By: #### L 500.4050, L100.0100 ####[facility] [address] [place], [address] MCHC (RBC) [Mass/Vol] 33.9 g/dL Normal 32-36 [facility] Comment on above: Performed By: #### L 500.4050, L100.0100 ####[facility] [address] [place], [address] MCV (RBC) [Entitic vol] 96.4 fL Normal 81-99 [facility] Comment on above: Performed By: #### L 500.4050, L100.0100 ####[facility] [address] [place], [address] Monocytes/100 WBC (Bld) 7.2 % Normal 0-10 [facility] Comment on above: Performed By: #### L 500.4050, L100.0100 ####[facility] [address] [place], [address] Neutrophils/100 WBC (Bld) 64.9 % Normal 47-70 [facility] Comment on above: Performed By: #### L 500.4050, L100.0100 ####[facility] [address] [place], [address] Nucleated RBC (Bld) [#/Vol] 0 10*3/uL Normal 0-5 [facility] Comment on above: Performed By: #### L 500.4050, L100.0100 ####[facility] [address] [place], [address] Platelet mean volume (Bld) [Entitic vol] 9.4 fL Normal 6.2-12.0 [facility] Comment on above: Performed By: #### L 500.4050, L100.0100 ####[facility] [address] [place], [address] Platelets (Bld) [#/Vol] 265 10*3/uL Normal 150-450 [facility] Comment on above: Performed By: #### L 500.4050, L100.0100 ####[facility] [address] [place], [address] RBC (Bld) [#/Vol] 3.94 10*6/uL Low 4.2-5.4 [facility] Comment on above: Performed By: #### L 500.4050, L100.0100 ####[facility] [address] [place], [address] RDW SD 50.7 fl High 35.1-43.9 [facility] Comment on above: Performed By: #### L 500.4050, L100.0100 ####[facility] [address] [place], [address] WBC (Bld) [#/Vol] 4.7 10*3/uL Normal 4.4-11.0 [facility] Comment on above: Performed By: #### L 500.4050, L100.0100 ####[facility] [address] [place], [address] Carbon dioxide, total [Moles /volume] in Central venous bloodOrdered By: Trudy Trejo on 07-23-2024 CO2 [Moles/Vol] 23.4 mmol/L 21.0-32.0 [facility] Chloride assayOrdered By: Shiva Trejo on 07-23-2024 Chloride [Moles/Vol] 99 mmol/L 98-108 [facility] Comprehensive Metabolic Prof ilon 07-23-2024 Albumin [Mass/Vol] 4.6 g/dL Normal 3.4-4.8 [facility] Comment on above: Performed By: #### L 500.4050, L100.0100 ####[facility] [address] [place], [address] Albumin/Globulin [Mass ratio] 1.6 {ratio} Normal 0.9-2.4 [facility] Comment on above: Performed By: #### L 500.4050, L100.0100 ####[facility] [address] [place], [address] ALK PHOS 48 U/L Normal 35-104 [facility] Comment on above: Performed By: #### L 500.4050, L100.0100 ####[facility] [address] [place], [address] ALT [Catalytic activity/Vol] 20 U/L Normal <=34 [facility] Comment on above: Performed By: #### L 500.4050, L100.0100 ####[facility] [address] [place], [address] AST [Catalytic activity/Vol] 20 U/L Normal <=31 [facility] Comment on above: Performed By: #### L 500.4050, L100.0100 ####[facility] [address] [place], [address] Bilirubin [Mass/Vol] 0.19 mg/dL Normal 0.00-1.30 [facility] Comment on above: Performed By: #### L 500.4050, L100.0100 ####[facility] [address] [place], [address] BUN/CRE 26.4 RATIO High 10-20 [facility] Comment on above: Performed By: #### L 500.4050, L100.0100 ####[facility] [address] [place], [address] Calcium [Mass/Vol] 9.9 mg/dL Normal 7.6-11.0 [facility] Comment on above: Performed By: #### L 500.4050, L100.0100 ####[facility] [address] [place], [address] Chloride [Moles/Vol] 99 mmol/L Normal 98-108 [facility] Comment on above: Performed By: #### L 500.4050, L100.0100 ####[facility] [address] [place], [address] CO2 [Moles/Vol] 23.4 mmol/L Normal 21.0-32.0 [facility] Comment on above: Performed By: #### L 500.4050, L100.0100 ####[facility] [address] [place], [address] Creatinine [Mass/Vol] 0.84 mg/dL Normal 0.70-1.20 [facility] Comment on above: Performed By: #### L 500.4050, L100.0100 ####[facility] [address] [place], [address] GAP 16 High 5-15 [facility] Comment on above: Performed By: #### L 500.4050, L100.0100 ####[facility] [address] [place], [address] GFR/1.73 sq M.predicted among non-blacks MDRD (S/P/Bld) [Vol rate/Area] 73 mL/min/{1.73_m2} Normal >60 [facility] Comment on above: Result Comment: mL/m in/1.73m2 CKD-EPI Creatinine Equation (2020) Performed By: #### L 500.4050, L100.0100 ####[facility] [address] [place], [address] Globulin (S) [Mass/Vol] 2.8 g/dL Normal 2.2-4.2 [facility] Comment on above: Performed By: #### L 500.4050, L100.0100 ####[facility] [address] [place], [address] Glucose [Mass/Vol] 113 mg/dL High 70-99 [facility] Comment on above: Performed By: #### L 500.4050, L100.0100 ####[facility] [address] [place], [address] Potassium [Moles/Vol] 3.7 mmol/L Normal 3.3-5.1 [facility] Comment on above: Performed By: #### L 500.4050, L100.0100 ####[facility] [address] [place], [address] Sodium [Moles/Vol] 137 mmol/L Normal 133-145 [facility] Comment on above: Performed By: #### L 500.4050, L100.0100 ####[facility] [address] [place], [address] T PROT 7.3 g/dL Normal 5.9-8.4 [facility] Comment on above: Performed By: #### L 500.4050, L100.0100 ####[facility] [address] [place], [address] Urea nitrogen [Mass/Vol] 22 mg/dL High 4-19 [facility] Comment on above: Performed By: #### L 500.4050, L100.0100 ####[facility] [address] [place], [address] Eosinophil percentageOrdered By: Trudy Trejo on 07-23-2024 Eosinophils/100 WBC (Bld) 4.3 % 0-5 [facility] Erythrocyte distribution wid th ratioOrdered By: Trudy Trejo on 07-23-2024 Erythrocyte distribution width (RBC) [Ratio] 14.5 % 11.6-14.6 [facility] Erythrocyte distribution wid th standard deviationOrdered By: Trudy Trejo on 07-23-2024 Erythrocyte distribution width (RBC) [Entitic vol] 50.7 fL High 35.1-43.9 [facility] Erythrocyte distribution width (RBC) [Ratio] 50.7 fl High 35.1-43.9 [facility] GFR/1.73 sq M.predicted mervat g non-blacks MDRD (S/P/Bld) [Vol rate/Area]Ordered By: Trudy Trejo on 07-23-2024 Estimated GFR (MDRD) Non-Af Amer 73 >60 [facility] Comment on above: mL/min/1.73m2 CKD-EP I Creatinine Equation (2020) Glomerular filtration rate ( GFR) estimation/1.73 sq m using serum, plasma, or whole bOrdered By: Trudy Trejo on 07-23-2024 GFR/1.73 sq M.predicted among non-blacks MDRD (S/P/Bld) [Vol rate/Area] 73 mL/min/{1.73_m2} >60 [facility] Comment on above: mL/min/1.73m2 CKD-EP I Creatinine Equation (2020) Hematocrit Auto (Bld) [Volum e fraction]Ordered By: Trudy Trejo on 07-23-2024 Hematocrit (Bld) [Volume fraction] 38.0 % 37-47 [facility] Hemoglobin measurementOrdere d By: Trudy Trejo on 07-23-2024 Hemoglobin (Bld) [Mass/Vol] 12.9 g/dL 12.0-15.0 [facility] Immature granulocytes/100 WB C Auto (Bld)Ordered By: Trudy Trejo on 07-23-2024 Immature granulocytes/100 WBC (Bld) 0.400 % 0.0-0.9 [facility] Comment on above: IG% - Immature Granu locytes (promyelocytes, myelocytes and metamyelocytes) > 1% indicates that a LEFT SHIFT is Present. Laboratory - Chemistry and C hemistry - challengeOrdered By: Trudy Trejo on 07-23-2024 AST [Catalytic activity/Vol] 20 U/L <32 [facility] Lymphocytes Auto (Unsp spec) [#/Vol]Ordered By: Trudy Trejo on 07-23-2024 Lymphocytes (Bld) [#/Vol] 1.07 10*3/uL 0.83-4.51 [facility] Lymphocytes/100 WBC Auto (Un sp spec)Ordered By: Trudy Trejo on 07-23-2024 Lymphocytes/100 WBC (Bld) 22.8 % 19-41 [facility] MCV (mean corpuscular volume ) determinationOrdered By: Trudy Trejo on 07-23-2024 MCV (RBC) [Entitic vol] 96.4 fL 81-99 [facility] Mean corpuscular hemoglobin (MCH) determinationOrdered By: Trudy Trejo on 07-23-2024 MCH (RBC) [Entitic mass] 32.7 pg High 27.0-32.0 [facility] Mean corpuscular hemoglobin concentration (MCHC) determinationOrdered By: Trudy Trejo on 07-23-2024 MCHC (RBC) [Mass/Vol] 33.9 g/dL 32-36 [facility] Mean platelet volume determi nationOrdered By: Trudy Trejo on 07-23-2024 Platelet mean volume (Bld) [Entitic vol] 9.4 fL 6.2-12.0 [facility] Monocyte percentageOrdered B y: Trudy Trejo on 07-23-2024 Monocytes/100 WBC (Bld) 7.2 % 0-10 [facility] Neutrophil percentageOrdered By: Trudy Trejo on 07-23-2024 Neutrophils/100 WBC (Bld) 64.9 % 47-70 [facility] Nucleated red blood cell per centageOrdered By: Trudy Trejo on 07-23-2024 Nucleated RBC/100 WBC (Bld) [Ratio] 0 % 0-5 [facility] Platelet countOrdered By: Shiva Trejo on 07-23-2024 Platelets (Bld) [#/Vol] 265 10*3/uL 150-450 [facility] Potassium (Unsp spec) [Mass/ Vol]Ordered By: Trudy Trejo on 07-23-2024 Potassium [Moles/Vol] 3.7 mmol/L 3.3-5.1 [facility] Potassium measurement (mass/ volume)Ordered By: Trudy Trejo on 07-23-2024 Potassium (Unsp spec) [Mass/Vol] 3.7 mmol/L 3.3-5.1 [facility] RBC Auto (Bld) [#/Vol]Ordere d By: Trudy Trejo on 07-23-2024 RBC (Bld) [#/Vol] 3.94 10*6/uL Low 4.2-5.4 [facility] Serum creatinine measurement (mass/volume)Ordered By: Trudy Trejo on 07-23-2024 Creatinine [Mass/Vol] 0.84 mg/dL 0.70-1.20 [facility] Serum globulin measurementOr dered By: Trudy Trejo on 07-23-2024 Globulin (S) [Mass/Vol] 2.8 g/dL 2.2-4.2 [facility] Serum glucose measurement (m ass/volume)Ordered By: Trudy Trejo on 07-23-2024 Glucose [Mass/Vol] 113 mg/dL High 70-99 [facility] Serum or plasma alanine singleton otransferase (ALT) measurementOrdered By: Trudy Trejo on 07-23-2024 ALT [Catalytic activity/Vol] 20 U/L <35 [facility] Serum or plasma albumin jasmine urement (mass/volume)Ordered By: Trudy Trejo on 07-23-2024 Albumin [Mass/Vol] 4.6 g/dL 3.4-4.8 [facility] Serum or plasma albumin/glob ulin mass ratioOrdered By: Trudy Trejo on 07-23-2024 Albumin/Globulin [Mass ratio] 1.6 {ratio} 0.9-2.4 [facility] Serum or plasma alkaline jerome sphatase measurementOrdered By: Trudy Trejo on 07-23-2024 ALP [Catalytic activity/Vol] 48 U/L 35-104 [facility] Serum or plasma calcium jasmine urement (mass/volume)Ordered By: Trudy Trejo on 07-23-2024 Calcium [Mass/Vol] 9.9 mg/dL 7.6-11.0 [facility] Serum or plasma urea nitroge n measurement (mass/volume)Ordered By: Trudy Trejo on 07-23-2024 Urea nitrogen [Mass/Vol] 22 mg/dL High 4-19 [facility] Sodium levelOrdered By: Nickie Trejo on 07-23-2024 Sodium [Moles/Vol] 137 mmol/L 133-145 [facility] Total proteinOrdered By: Che Trejo on 07-23-2024 Protein [Mass/Vol] 7.3 g/dL 5.9-8.4 [facility] White blood cell (WBC) count Ordered By: Trudy Trejo on 07-23-2024 WBC (Bld) [#/Vol] 4.7 10*3/uL 4.4-11.0 [facility] 37on 07-03-2024 37 Continue Primidone 200mg twice daily and Propranolol 60mg twice daily Increase Sinemet 25/100 to 1 tablet 4 times daily Continue with exercise Normal [facility] Office Visiton 07-03-2024 Follow-up visit [id number] Ariadna Lobato 1950 F Date Provider Department Center 07/03/2024 [id number][facility] None Family History Problem Relation Age of Onset Other Maternal Grandfather Other Mother Family Status - Relation Status Age at Maternal Grandfather Mother Level of Service:04011 [place] OFFICE/OUTPATIENT ESTABLISHED MOD MDM 30 MIN Reason for Visit and Comments: Follow-up [858905] Tremors [654964] Normal [facility] Progress Noteon 07-03-2024 Progress Note Visit type: [...] Negative. Allergies Allergen Reactions Ropinirole Nausea Only [place] weird as well as nauseous. Outpatient Medications [...] Problem Relation Name Age of Onset Other (08969) Maternal Grandfather Other (99459) Mother Objective Vitals: BP 98/65 (BP Location: [...] No resul (more content not included)... Normal [facility] Office Visit Reporton 2023 Office Visit Report [facility] [address] [place] [address] OFFICE VISIT Date of Service: 05/11/24 MR#: [id number] Acct: [id number] Patient: ARIADNA LOBATO Rep #: [id number] : 1950 Provider: GILBERTO NURSE Age/Sex: 73/F Location: [facility] Status: Signed Intake Vital Signs 04/14/24 09:53 [...] Performing Provider: Richard Moore MD Performing Location: [facility] Administered by: Josette Parkinson MA on 05/11/24 12:55 Dose Route Admin Location Dispensed Lot Number Expiration Date NDC Man ufacturer 60 mg subcut left sub Q 1 mL [id number] 09/09/26 24509-940-42 [employer] Assessment and Plan Assessment and Plan [...] Cosigner Signature: Date (if applicable) CC: Normal [facility] 36on 05-04-2024 36 Patient has been rescheduled [facility] 36 Lm for patient to call the office back, please let her know that her appointment on 05/22/24 will need to be rescheduled due to provider being out of the office. Normal [facility] Absolute neutrophil countOrd ered By: Truyd Trejo on 04-21-2024 Neutrophils (Bld) [#/Vol] 3.0 10*3/uL 2.0-7.7 [facility] Albumin to globulin ratioOrd ered By: Trudy Trejo on 04-21-2024 Albumin/Globulin [Mass ratio] 1.4 {ratio} 0.9-2.4 [facility] Basophil percentageOrdered B y: Trudy Trejo on 04-21-2024 Basophils/100 WBC (Bld) 0.2 % 0-1 [facility] Bilirubin, totalOrdered By: Trudy Trejo on 04-21-2024 Bilirubin [Mass/Vol] 0.50 mg/dL 0.20-1.00 [facility] Comment on above: For patients on eltr ombopag therapy, use of Dimension Gregory TBIL is not recommended. Blood urea nitrogen (BUN)/cr eatinine ratioOrdered By: Trudy Trejo on 04-21-2024 Urea nitrogen/Creatinine [Mass ratio] 13.6 mg/mg 10-20 [facility] CBC W/Diff, Automatedon 04-12 Absolute Lymph 0.81 X10 3/uL Low 0.83-4.51 [facility] Comment on above: Performed By: #### L 500.4050, L100.0100 #### [facility] [address] [facility] [place], [address] Absolute Neut 3.0 X10 3/uL Normal 2.0-7.7 [facility] Comment on above: Performed By: #### L 500.4050, L100.0100 #### [facility] [address] [place], [address] Basophils/100 WBC (Bld) 0.2 % Normal 0-1 [facility] Comment on above: Performed By: #### L 500.4050, L100.0100 #### [facility] [address] [place], [address] Eosinophils/100 WBC (Bld) 3.1 % Normal 0-5 [facility] Comment on above: Performed By: #### L 500.4050, L100.0100 #### [facility] [address] [place], [address] Erythrocyte distribution width (RBC) [Ratio] 14.2 % Normal 11.6-14.6 [facility] Comment on above: Performed By: #### L 500.4050, L100.0100 #### [facility] [address] [place], [address] Hematocrit (Bld) [Volume fraction] 36.7 % Low 37-47 [facility] Comment on above: Performed By: #### L 500.4050, L100.0100 #### [facility] [address] [place], [address] Hemoglobin (Bld) [Mass/Vol] 12.2 g/dL Normal 12.0-15.0 [facility] Comment on above: Performed By: #### L 500.4050, L100.0100 #### [facility] [address] [place], [address] IG% 0.200 Normal 0.0-0.9 [facility] Comment on above: Result Comment: IG% - Immature Granulocytes (promyelocytes, myelocytes and metamyelocytes) > 1% indicates that a LEFT SHIFT is Present. Performed By: #### L 500.4050, L100.0100 #### [facility] [address] [place], [address] Lymphocytes/100 WBC (Bld) 19.3 % Normal 19-41 [facility] Comment on above: Performed By: #### L 500.4050, L100.0100 #### [facility] [address] [place], [address] MCH (RBC) [Entitic mass] 32.7 pg High 27.0-32.0 [facility] Comment on above: Performed By: #### L 500.4050, L100.0100 #### [facility] [address] [place], [address] MCHC (RBC) [Mass/Vol] 33.2 g/dL Normal 32-36 [facility] Comment on above: Performed By: #### L 500.4050, L100.0100 #### [facility] [address] [place], [address] MCV (RBC) [Entitic vol] 98.4 fL Normal 81-99 [facility] Comment on above: Performed By: #### L 500.4050, L100.0100 #### [facility] [address] [place], [address] Monocytes/100 WBC (Bld) 6.2 % Normal 0-10 [facility] Comment on above: Performed By: #### L 500.4050, L100.0100 #### [facility] [address] [place], [address] Neutrophils/100 WBC (Bld) 71.0 % High 47-70 [facility] Comment on above: Performed By: #### L 500.4050, L100.0100 #### [facility] [address] [place], [address] Nucleated RBC (Bld) [#/Vol] 0 10*3/uL Normal 0-5 [facility] Comment on above: Performed By: #### L 500.4050, L100.0100 #### [facility] [address] [place], [address] Platelet mean volume (Bld) [Entitic vol] 9.7 fL Normal 6.2-12.0 [facility] Comment on above: Performed By: #### L 500.4050, L100.0100 #### [facility] [address] [place], [address] Platelets (Bld) [#/Vol] 237 10*3/uL Normal 150-450 [facility] Comment on above: Performed By: #### L 500.4050, L100.0100 #### [facility] [address] [place], [address] RBC (Bld) [#/Vol] 3.73 10*6/uL Low 4.2-5.4 [facility] Comment on above: Performed By: #### L 500.4050, L100.0100 #### [facility] [address] [place], [address] RDW SD 51.3 fl High 35.1-43.9 [facility] Comment on above: Performed By: #### L 500.4050, L100.0100 #### [facility] [address] [place], [address] WBC (Bld) [#/Vol] 4.2 10*3/uL Low 4.4-11.0 [facility] Comment on above: Performed By: #### L 500.4050, L100.0100 #### [facility] [address] [place], [address] Carbon dioxide measurementOr dered By: Trudy Trejo on 04-21-2024 CO2 [Moles/Vol] 25.0 mmol/L 21.0-32.0 [facility] Chloride measurementOrdered By: Trudy Trejo on 04-21-2024 Chloride [Moles/Vol] 103 mmol/L 98-107 [facility] Comprehensive Metabolic Prof ilon 04-21-2024 Albumin [Mass/Vol] 4.1 g/dL Normal 3.2-5.0 [facility] Comment on above: Performed By: #### L 500.4050, L100.0100 #### [facility] [address] [place], [address] Albumin/Globulin [Mass ratio] 1.4 {ratio} Normal 0.9-2.4 [facility] Comment on above: Performed By: #### L 500.4050, L100.0100 #### [facility] [address] [place], [address] ALK P 44 U/L Low 45-117 [facility] Comment on above: Performed By: #### L 500.4050, L100.0100 #### [facility] [address] [place], [address] ALT [Catalytic activity/Vol] 20 U/L Normal 13-56 [facility] Comment on above: Performed By: #### L 500.4050, L100.0100 #### [facility] [address] [place], [address] AST [Catalytic activity/Vol] 15 U/L Normal 15-37 [facility] Comment on above: Performed By: #### L 500.4050, L100.0100 #### [facility] [address] [place], [address] Bilirubin [Mass/Vol] 0.50 mg/dL Normal 0.20-1.00 [facility] Comment on above: Result Comment: For patients on eltrombopag therapy, use of Dimension Gregory TBIL is not recommended. Performed By: #### L 500.4050, L100.0100 #### [facility] [address] [place], [address] BUN/CRE 13.6 RATIO Normal 10-20 [facility] Comment on above: Performed By: #### L 500.4050, L100.0100 #### [facility] [address] [place], [address] CA,Total 9.1 mg/dL Normal 8.5-10.1 [facility] Comment on above: Performed By: #### L 500.4050, L100.0100 #### [facility] [address] [place], [address] Chloride [Moles/Vol] 103 mmol/L Normal 98-107 [facility] Comment on above: Performed By: #### L 500.4050, L100.0100 #### [facility] [address] [place], [address] CO2 [Moles/Vol] 25.0 mmol/L Normal 21.0-32.0 [facility] Comment on above: Performed By: #### L 500.4050, L100.0100 #### [facility] [address] [place], [address] Creatinine [Mass/Vol] 0.96 mg/dL Normal 0.55-1.02 [facility] Comment on above: Result Comment: The validity of the calculated GFR GFRAA in patients over 70 years has not been determined. Clinical correlation is essential. Performed By: #### L 500.4050, L100.0100 #### [facility] [address] [place], [address] EST GFR - AA 73 mL/min Normal >60 [facility] Comment on above: Result Comment: Afri can Latvian GFR Calc Performed By: #### L 500.4050, L100.0100 #### [facility] [address] [place], [address] GAP 8 Normal 5-15 [facility] Comment on above: Performed By: #### L 500.4050, L100.0100 #### [facility] [address] [place], [address] GFR/1.73 sq M.predicted among non-blacks MDRD (S/P/Bld) [Vol rate/Area] 61 mL/min/{1.73_m2} Normal >60 [facility] Comment on above: Result Comment: Non- GFR Calc Performed By: #### L 500.4050, L100.0100 #### [facility] [address] [place], [address] Globulin (S) [Mass/Vol] 3.0 g/dL Normal 2.2-4.2 [facility] Comment on above: Performed By: #### L 500.4050, L100.0100 #### [facility] [address] [place], [address] Glucose [Mass/Vol] 123 mg/dL High 74-106 [facility] Comment on above: Result Comment: Fast ing Glucose result from 100 to 125 mg/dL suggests IMPAIRED HOMEOSTASIS per A.D.A. criteria. Performed By: #### L 500.4050, L100.0100 #### [facility] [address] [place], [address] Potassium [Moles/Vol] 4.2 mmol/L Normal 3.5-5.1 [facility] Comment on above: Performed By: #### L 500.4050, L100.0100 #### [facility] [address] [place], [address] Sodium [Moles/Vol] 136 mmol/L Normal 136-145 [facility] Comment on above: Performed By: #### L 500.4050, L100.0100 #### [facility] [address] [place], [address] T PROT 7.1 g/dL Normal 6.4-8.2 [facility] Comment on above: Performed By: #### L 500.4050, L100.0100 #### [facility] [address] [place], [address] Urea nitrogen [Mass/Vol] 13 mg/dL Normal 7-18 [facility] Comment on above: Performed By: #### L 500.4050, L100.0100 #### [facility] [address] [place], [address] Eosinophil percentageOrdered By: Trudy Trejo on 04-21-2024 Eosinophils/100 WBC (Bld) 3.1 % 0-5 [facility] Erythrocyte distribution wid th ratioOrdered By: Trudy Trejo on 04-21-2024 Erythrocyte distribution width (RBC) [Ratio] 14.2 % 11.6-14.6 [facility] Erythrocyte distribution wid th standard deviationOrdered By: Trudy Trejo on 04-21-2024 Erythrocyte distribution width (RBC) [Entitic vol] 51.3 fL High 35.1-43.9 [facility] Estimated glomerular filtrat ion rate (GFR) AmericanOrdered By: Trudy Trejo on 04-21-2024 Estimated GFR (MDRD) Amer 73 mL/min >60 [facility] Comment on above: GFR Calc Glomerular filtration rate ( GFR) estimationOrdered By: Trudy Trejo on 04-21-2024 Estimated GFR (MDRD) Non-Af Amer 61 mL/min >60 [facility] Comment on above: Non- GFR Calc Glucose measurementOrdered B y: Trudy Trejo on 04-21-2024 Glucose [Mass/Vol] 123 mg/dL High 74-106 [facility] Comment on above: Fasting Glucose resu lt from 100 to 125 mg/dL suggests IMPAIRED HOMEOSTASIS per A.D.A. criteria. Hematocrit Auto (Bld) [Volum e fraction]Ordered By: Trudy Trejo on 04-21-2024 Hematocrit (Bld) [Volume fraction] 36.7 % Low 37-47 [facility] Hemoglobin measurementOrdere d By: rTudy Trejo on 04-21-2024 Hemoglobin (Bld) [Mass/Vol] 12.2 g/dL 12.0-15.0 [facility] Immature granulocytes/100 WB C Auto (Bld)Ordered By: Trudy Trejo on 04-21-2024 Immature granulocytes/100 WBC (Bld) 0.200 % 0.0-0.9 [facility] Comment on above: IG% - Immature Granu locytes (promyelocytes, myelocytes and metamyelocytes) > 1% indicates that a LEFT SHIFT is Present. Laboratory - Chemistry and C hemistry - challengeOrdered By: Trudy Trejo on 04-21-2024 AST [Catalytic activity/Vol] 15 U/L 15-37 [facility] Lymphocytes Auto (Unsp spec) [#/Vol]Ordered By: Trudy Trejo on 04-21-2024 Lymphocytes (Bld) [#/Vol] 0.81 10*3/uL Low 0.83-4.51 [facility] Lymphocytes/100 WBC Auto (Un sp spec)Ordered By: Trudy Trejo on 04-21-2024 Lymphocytes/100 WBC (Bld) 19.3 % 19-41 [facility] MCV (mean corpuscular volume ) determinationOrdered By: Trudy Trejo on 04-21-2024 MCV (RBC) [Entitic vol] 98.4 fL 81-99 [facility] Mean corpuscular hemoglobin (MCH) determinationOrdered By: Trudy Trejo on 04-21-2024 MCH (RBC) [Entitic mass] 32.7 pg High 27.0-32.0 [facility] Mean corpuscular hemoglobin concentration (MCHC) determinationOrdered By: Trudy Trejo on 04-21-2024 MCHC (RBC) [Mass/Vol] 33.2 g/dL 32-36 [facility] Mean platelet volume determi nationOrdered By: Trudy Trejo on 04-21-2024 Platelet mean volume (Bld) [Entitic vol] 9.7 fL 6.2-12.0 [facility] Monocyte percentageOrdered B y: Trudy Trejo on 04-21-2024 Monocytes/100 WBC (Bld) 6.2 % 0-10 [facility] Neutrophil percentageOrdered By: Trudy Trejo on 04-21-2024 Neutrophils/100 WBC (Bld) 71.0 % High 47-70 [facility] Nucleated red blood cell per centageOrdered By: Trudy Trejo on 04-21-2024 Nucleated RBC/100 WBC (Bld) [Ratio] 0 % 0-5 [facility] Platelet countOrdered By: Shiva Trejo on 04-21-2024 Platelets (Bld) [#/Vol] 237 10*3/uL 150-450 [facility] Potassium measurementOrdered By: Trudy Trejo on 04-21-2024 Potassium [Moles/Vol] 4.2 mmol/L 3.5-5.1 [facility] RBC Auto (Bld) [#/Vol]Ordere d By: Trudy Trejo on 04-21-2024 RBC (Bld) [#/Vol] 3.73 10*6/uL Low 4.2-5.4 [facility] Serum anion gap measurementO rdered By: Trudy Trejo on 04-21-2024 Anion gap [Moles/Vol] 8 mmol/L 5-15 [facility] Serum globulin measurementOr dered By: Trudy Trejo on 04-21-2024 Globulin (S) [Mass/Vol] 3.0 g/dL 2.2-4.2 [facility] Serum or plasma alanine singleton otransferase (ALT) measurementOrdered By: Trudy Trejo on 04-21-2024 ALT [Catalytic activity/Vol] 20 U/L 13-56 [facility] Serum or plasma albumin jasmine urement (mass/volume)Ordered By: Trudy Trejo on 04-21-2024 Albumin [Mass/Vol] 4.1 g/dL 3.2-5.0 [facility] Serum or plasma alkaline jerome sphatase measurementOrdered By: Trudy Trejo on 04-21-2024 ALP [Catalytic activity/Vol] 44 U/L Low 45-117 [facility] Serum or plasma calcium jasmine urement (mass/volume)Ordered By: Trudy Trejo on 04-21-2024 Calcium [Mass/Vol] 9.1 mg/dL 8.5-10.1 [facility] Serum or plasma creatinine m easurement (mass/volume)Ordered By: Trudy Trejo on 04-21-2024 Creatinine [Mass/Vol] 0.96 mg/dL 0.55-1.02 [facility] Comment on above: The validity of the calculated GFR & GFRAA in patients over 70 years has not been determined. Clinical correlation is essential. Serum or plasma urea nitroge n measurement (mass/volume)Ordered By: Trudy Trejo on 04-21-2024 Urea nitrogen [Mass/Vol] 13 mg/dL 7-18 [facility] Sodium levelOrdered By: Nickie Trejo on 04-21-2024 Sodium [Moles/Vol] 136 mmol/L 136-145 [facility] Thyroid Stim Hormone (TSH)on 04-21-2024 TSH 2.990 uIU/mL Normal 0.358-3.740 [facility] Comment on above: Performed By: #### L 501.9546 #### [facility] [address] [place], [address] Total proteinOrdered By: Che Trejo on 04-21-2024 Protein [Mass/Vol] 7.1 g/dL 6.4-8.2 [facility] White blood cell (WBC) count Ordered By: Trudy Trejo on 04-21-2024 WBC (Bld) [#/Vol] 4.2 10*3/uL Low 4.4-11.0 [facility] Internal Medicine Office Vis iton 04-13-2024 Internal Medicine Office Visit [facility] [place], [place] [address] OFFICE VISIT Date of Service: 04/14/24 MR#: [id number] Acct: [id number] Name: ARIADNA LOBATO Rep #: [id number] : 1950 Provider: Dr. Kelley severino MD Age/Sex: 73/F Location: [facility] Status: Signed Intake Vital Signs 03/10/24 09:06 [...] air Intake Visit Reasons: 5 WK FU Precast Molder Required: No Is patient in pain?: No [...] denosumab 60 mg/mL subcutaneous 60 mg subcut [id number] #1 mL 04/08/23 04/14/24 Rx syringe (Prolia) [...] feeling well not having any side effects. [facility] Medical History Cataract of right eye Essential [...] continues to do her exercise classes at [facility], around 4 days per week. [...] without problems.?? (more content not included)... Normal [facility] Knot Bumper Office Visit Reporton 03-30-2024 Knot Bumper Office Visit Report [facility] [address], [address] [place] [address] OFFICE VISIT Date of Service: 03/30/24 MR#: [id number] Acct: [id number] Name: ARIADNA LOBATO Rep #: [id number] : 1950 Provider: Dr. 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) Chief Complaint: Annual Precast Molder Required: No Is patient in pain?: No [...] denosumab 60 mg/mL subcutaneous 60 mg subcut [id number] #1 mL 04/08/23 03/30/24 Rx syringe (Prolia) bupropion HCl 150 mg tablet,12 hr 150 mg PO BID #180 ea 09/09/23 03/30/24 Rx sustained-release (Wellbutrin SR) sertraline 25 mg tablet (Zoloft) 25 mg PO DAILY #90 tabs 09/30/23 03/30/24 Rx atorvastatin 10 mg tablet (Lipitor) 10 mg PO QHS #90 tabs 03/10/24 03/30/24 Rx carbidopa 25 mg-levodopa 100 mg tab PO 10/29/24 11/18/24 History tablet levothyroxine 88 mcg tablet 88 [...] Date Name GA/Weeks Outcome Route Bth Weight Infant Gen Labor Lgth Anesthesia [facility] Provider FOB Unknown Ivonne 1979 [...] distress, well (more content not included)... Normal [facility] SCRN MAMM (CAD)W/SRIRAM BILATo n 03-20-2024 SCRN MAMM (CAD)W/SRIRAM BILAT [facility] Imaging [facility] [address] [place], [place] [id number] SCRN MAMM (CAD)W/SRIRAM BILAT MR#: [id number] Acct: [id number] Name: ARIADNA LOBATO Rep #: [id number] : 1950 F 73 From: Uday branch MD PCP: Dr. Kelley Maldonado MD Status: [facility] Study: SCRN MAMM (CAD)W/SRIRAM BILAT Date of Exam: 01/03 Exam# [id number] Ordering Dr: Kiana Giraldo [id number] MAMMOGRAPHY - BILATERAL SCREENING REASON FOR EXAM: [...] delay biopsy of a clinically suspicious abnormality. [id number] Electronically Signed: Uday Delgado MD at 9:52 EST Reading Location ID and State: [facility] / [place] , Service support , CC: Dr. Kelley Maldonado MD; Dr. Kiana Giraldo MD Administrative Dietitian: Signed Normal [facility] Lipid Profileon 03-10-2024 Cholesterol [Mass/Vol] 215 mg/dL High 200 [facility] Comment on above: Result Comment: <200 mg/dL Desirable 200-240 mg/dL Borderline >240 mg/dL High Risk Performed By: #### L 506.1000, L501.9520, L500.4100 #### [facility] [address] [place], [place], [id number] ([phone]) Cholesterol in HDL [Mass/Vol] 116 mg/dL Normal [facility] Comment on above: Result Comment: The drugs N-Acetylcysteine and Metamizole may falsely depress this assay. Reference Range HDL <40 mg/dL Low HDL Cholesterol HDL >or= 60 mg/dL High HDL Cholesterol Performed By: #### L 506.1000, L501.9520, L500.4100 #### [facility] [address] [place], [place], [id number] ([phone]) Cholesterol in LDL [Mass/Vol] 77 mg/dL Normal 0-130 [facility] Comment on above: Performed By: #### L 506.1000, L501.9520, L500.4100 #### [facility] [address] [place], [address] Cholesterol in VLDL [Mass/Vol] 22 mg/dL Normal 5-40 [facility] Comment on above: Performed By: #### L 506.1000, L501.9520, L500.4100 #### [facility] [address] [place], [address] Triglyceride [Mass/Vol] 112 mg/dL Normal [facility] Comment on above: Result Comment: The drugs N-Acetylcysteine and Metamizole may falsely depress this assay. Serum Triglycerides Reference Interval Normal <150 mg/dL Borderline high 150 - 199 mg/dL High 200 - 499 mg/dL Very High > or = 500 mg/dL Performed By: #### L 506.1000, L501.9520, L500.4100 #### [facility] [address] [place], [address] Thyroid Stim Hormone (TSH)on 03-10-2024 TSH 4.440 uIU/mL High 0.358-3.740 [facility] Comment on above: Performed By: #### L 506.1000, L501.9520, L500.4100 #### [facility] [address] [place], [address] Vitamin D,25 Hydroxyon 03-10 Vitamin D 25-OH 44.6 ng/mL Normal [facility] Comment on above: Result Comment: Tara min D 25(OH) Status Range Deficiency <20 ng/mL (50nmol/L) Insufficiency 20 - 30 ng/mL (50 - 75 nmol/L) Sufficiency 30 - 100 ng/mL (75 - 250 nmol/L) Toxicity >100 ng/mL (>250 nmol/L) Performed By: #### L 506.1000, L501.9520, L500.4100 #### [facility] [address] [place], [address] Internal Medicine Office Vis itomark 03-09-2024 Internal Medicine Office Visit [facility] [address] [place] [address] [place] [address] OFFICE VISIT Date of Service: 03/10/24 MR#: [id number] Acct: [id number] Name: ARIADNA LOBATO Rep #: [id number] 30 : 1950 Provider: Dr. Kelley severino MD Age/Sex: 73/F Location: [facility] Status: Signed Intake Vital Signs 08/26/23 09:56 [...] m fu Chief Complaint: 6 M FU Precast Molder Required: No Is patient in pain?: No [...] denosumab 60 mg/mL subcutaneous 60 mg subcut [id number] #1 mL 04/08/23 03/10/24 Rx syringe (Prolia) [...] a flu shot w/ covid vaccine at [place]. [facility] Medical History Cataract of right eye Essential [...] continues to do her exercise classes at [facility], around 4 days per week. [...] appropriate t (more content not included)... Normal [facility] 36on 02-07-2024 36 patient has been notified of providers message [facility] 36 Please let pt know that her blood work is all NORMAL [facility] Office Visiton 02-06-2024 Follow-up visit [id number] Ariadna Lobato 1950 F Date Provider Department Center 02/06/2024 OG PRINCE [facility] None Family History Problem Relation Age of Onset Other Maternal Grandfather Other Mother Family Status - Relation Status Age at Maternal Grandfather Mother Level of Service:33867 [place] OFFICE/OUTPATIENT ESTABLISHED MOD MDM 30 MIN Reason for Visit and Comments: Follow-up [441709] Tremors [968560] [facility] PATINSon 02-06-2024 PATINS Continue Primidone 200mg twice daily and Propranolol 60mg twice daily Stop taking Lamictal as it is not helping Start Sinemet (Carbidopa/Levodopa) 25/100 1-2 tabs in the evening If able take 1 tab prior to supper and if needed later in the evening Continue with exercise Normal [facility] Progress Noteon 02-06-2024 Progress Note Visit type: [...] Negative. Allergies Allergen Reactions Ropinirole Nausea Only [place] weird as well as nauseous. Outpatient Medications [...] Problem Relation Name Age of Onset Other (41034) Maternal Grandfather Other (50715) Mother Objective Vitals: BP 126/67 (BP Location: [...] ALT BMP (more content not included)... Normal [facility] CBC W/Diff, Automatedon 01-11 Absolute Lymph 0.86 X10 3/uL Normal 0.83-4.51 [facility] Comment on above: Performed By: #### L 500.4050, L100.0100 #### [facility] [address] [place], [address] Absolute Neut 2.8 X10 3/uL Normal 2.0-7.7 [facility] Comment on above: Performed By: #### L 500.4050, L100.0100 #### [facility] [address] [place], [address] Basophils/100 WBC (Bld) 0.7 % Normal 0-1 [facility] Comment on above: Performed By: #### L 500.4050, L100.0100 #### [facility] [address] [place], [address] Eosinophils/100 WBC (Bld) 4.7 % Normal 0-5 [facility] Comment on above: Performed By: #### L 500.4050, L100.0100 #### [facility] [address] [place], [address] Erythrocyte distribution width (RBC) [Ratio] 14.9 % High 11.6-14.6 [facility] Comment on above: Performed By: #### L 500.4050, L100.0100 #### [facility] [address] [place], [address] Hematocrit (Bld) [Volume fraction] 35.7 % Low 37-47 [facility] Comment on above: Performed By: #### L 500.4050, L100.0100 #### [facility] [address] [place], [address] Hemoglobin (Bld) [Mass/Vol] 11.7 g/dL Low 12.0-15.0 [facility] Comment on above: Performed By: #### L 500.4050, L100.0100 #### [facility] [address] [place], [address] IG% 0.500 Normal 0.0-0.9 [facility] Comment on above: Result Comment: IG% - Immature Granulocytes (promyelocytes, myelocytes and metamyelocytes) > 1% indicates that a LEFT SHIFT is Present. Performed By: #### L 500.4050, L100.0100 #### [facility] [address] [place], [address] Lymphocytes/100 WBC (Bld) 20.0 % Normal 19-41 [facility] Comment on above: Performed By: #### L 500.4050, L100.0100 #### [facility] [address] [place], [address] MCH (RBC) [Entitic mass] 32.1 pg High 27.0-32.0 [facility] Comment on above: Performed By: #### L 500.4050, L100.0100 #### [facility] [address] [place], [address] MCHC (RBC) [Mass/Vol] 32.8 g/dL Normal 32-36 [facility] Comment on above: Performed By: #### L 500.4050, L100.0100 #### [facility] [address] [place], [address] MCV (RBC) [Entitic vol] 97.8 fL Normal 81-99 [facility] Comment on above: Performed By: #### L 500.4050, L100.0100 #### [facility] [address] [place], [address] Monocytes/100 WBC (Bld) 8.8 % Normal 0-10 [facility] Comment on above: Performed By: #### L 500.4050, L100.0100 #### [facility] [address] [place], [address] Neutrophils/100 WBC (Bld) 65.3 % Normal 47-70 [facility] Comment on above: Performed By: #### L 500.4050, L100.0100 #### [facility] [address] [place], [address] Nucleated RBC (Bld) [#/Vol] 0 10*3/uL Normal 0-5 [facility] Comment on above: Performed By: #### L 500.4050, L100.0100 #### [facility] [address] [place], [address] Platelet mean volume (Bld) [Entitic vol] 10.1 fL Normal 6.2-12.0 [facility] Comment on above: Performed By: #### L 500.4050, L100.0100 #### [facility] [address] [place], [address] Platelets (Bld) [#/Vol] 244 10*3/uL Normal 150-450 [facility] Comment on above: Performed By: #### L 500.4050, L100.0100 #### [facility] [address] [place], [address] RBC (Bld) [#/Vol] 3.65 10*6/uL Low 4.2-5.4 [facility] Comment on above: Performed By: #### L 500.4050, L100.0100 #### [facility] [address] [place], [address] RDW SD 53.1 fl High 35.1-43.9 [facility] Comment on above: Performed By: #### L 500.4050, L100.0100 #### [facility] [address] [place], [address] WBC (Bld) [#/Vol] 4.3 10*3/uL Low 4.4-11.0 [facility] Comment on above: Performed By: #### L 500.4050, L100.0100 #### [facility] [address] [place], [address] Comprehensive Metabolic Prof ilon 01-30-2024 Albumin [Mass/Vol] 3.9 g/dL Normal 3.2-5.0 [facility] Comment on above: Performed By: #### L 500.4050, L100.0100 #### [facility] [address] [place], [address] Albumin/Globulin [Mass ratio] 1.1 {ratio} Normal 0.9-2.4 [facility] Comment on above: Performed By: #### L 500.4050, L100.0100 #### [facility] [address] [place], [address] ALK P 42 U/L Low 45-117 [facility] Comment on above: Performed By: #### L 500.4050, L100.0100 #### [facility] [address] [place], [address] ALT [Catalytic activity/Vol] 17 U/L Normal 13-56 [facility] Comment on above: Performed By: #### L 500.4050, L100.0100 #### [facility] [address] [place], [address] AST [Catalytic activity/Vol] 18 U/L Normal 15-37 [facility] Comment on above: Performed By: #### L 500.4050, L100.0100 #### [facility] [address] [place], [address] Bilirubin [Mass/Vol] 0.40 mg/dL Normal 0.20-1.00 [facility] Comment on above: Result Comment: For patients on eltrombopag therapy, use of Dimension Gregory TBIL is not recommended. Performed By: #### L 500.4050, L100.0100 #### [facility] [address] [place], [address] BUN/CRE 14.8 RATIO Normal 10-20 [facility] Comment on above: Performed By: #### L 500.4050, L100.0100 #### [facility] [address] [place], [address] CA,Total 9.2 mg/dL Normal 8.5-10.1 [facility] Comment on above: Performed By: #### L 500.4050, L100.0100 #### [facility] [address] [place], [address] Chloride [Moles/Vol] 103 mmol/L Normal 98-107 [facility] Comment on above: Performed By: #### L 500.4050, L100.0100 #### [facility] [address] [place], [address] CO2 [Moles/Vol] 29.0 mmol/L Normal 21.0-32.0 [facility] Comment on above: Performed By: #### L 500.4050, L100.0100 #### [facility] [address] [place], [address] Creatinine [Mass/Vol] 0.95 mg/dL Normal 0.55-1.02 [facility] Comment on above: Result Comment: The validity of the calculated GFR GFRAA in patients over 70 years has not been determined. Clinical correlation is essential. Performed By: #### L 500.4050, L100.0100 #### [facility] [address] [place], [address] EST GFR - AA 74 mL/min Normal >60 [facility] Comment on above: Result Comment: Afri can Latvian GFR Calc Performed By: #### L 500.4050, L100.0100 #### [facility] [address] [place], [address] GAP 4 Low 5-15 [facility] Comment on above: Performed By: #### L 500.4050, L100.0100 #### [facility] [address] [place], [address] GFR/1.73 sq M.predicted among non-blacks MDRD (S/P/Bld) [Vol rate/Area] 61 mL/min/{1.73_m2} Normal >60 [facility] Comment on above: Result Comment: Non- GFR Calc Performed By: #### L 500.4050, L100.0100 #### [facility] [address] [place], [address] Globulin (S) [Mass/Vol] 3.4 g/dL Normal 2.2-4.2 [facility] Comment on above: Performed By: #### L 500.4050, L100.0100 #### [facility] [address] [place], [address] Glucose [Mass/Vol] 109 mg/dL High 74-106 [facility] Comment on above: Result Comment: Fast ing Glucose result from 100 to 125 mg/dL suggests IMPAIRED HOMEOSTASIS per A.D.A. criteria. Performed By: #### L 500.4050, L100.0100 #### [facility] [address] [place], [address] Potassium [Moles/Vol] 4.1 mmol/L Normal 3.5-5.1 [facility] Comment on above: Performed By: #### L 500.4050, L100.0100 #### [facility] [address] [place], [address] Sodium [Moles/Vol] 136 mmol/L Normal 136-145 [facility] Comment on above: Performed By: #### L 500.4050, L100.0100 #### [facility] [address] [place], [address] T PROT 7.3 g/dL Normal 6.4-8.2 [facility] Comment on above: Performed By: #### L 500.4050, L100.0100 #### [facility] [address] [place], [address] Urea nitrogen [Mass/Vol] 14 mg/dL Normal 7-18 [facility] Comment on above: Performed By: #### L 500.4050, L100.0100 #### [facility] [address] [place], [address] Office Visiton 11-07-2023 Follow-up visit [id number] Ariadna Lobato 1950 F Date Provider Department Center 11/07/2023 RYAN VIZCAINO [facility] None Family History Problem Relation Age of Onset Other Maternal Grandfather Other Mother Family Status - Relation Status Age at Maternal Grandfather Mother Level of Service:23173 [place] OFFICE/OUTPATIENT ESTABLISHED MOD MDM 30 MIN Reason for Visit and Comments: Follow-up [142072] Tremors [491311] Normal [facility] Progress Noteon 11-07-2023 Progress Note [facility] [address] [place] [address] [facility] [address] Dept: [phone] Dept Loc: [phone] Visit type: Established Patient Reason for Visit: [...] ideas. Allergies Allergen Reactions Ropinirole Nausea Only [place] weird as well as nauseous. Current Outpatient [...] Problem Relation Name Age of Onset Other (88234) Maternal Grandfather Other ([address]61) Mother Objective Vitals: BP 127/71 (BP Location: [...] , VII (more content not included)... Normal [facility] 36on 10-28-2023 36 Last ov- 11/06/22 Next ov- 11/07/23 Normal [facility] Absolute lymphocyte countOrd ered By: Trudy Trejo on 08-06-2023 Lymphocytes Auto (Unsp spec) [#/Vol] 1.07 10*3/uL 0.83-4.51 [facility] Automated lymphocyte count a s percentage of total leukocytesOrdered By: Trudy Trejo on 08-06-2023 Lymphocytes/100 WBC Auto (Unsp spec) 27.9 % 19-41 [facility] Basophil percentageOrdered B y: Trudy Trejo on 08-06-2023 Basophils/100 WBC (Bld) 0.5 % 0-1 [facility] Bilirubin [Mass/Vol] 0.40 mg/dL 0.20-1.00 [facility] Comment on above: For patients on eltr ombopag therapy, use of Dimension Gregory TBIL is not recommended. Chloride [Moles/Vol] 103 mmol/L 98-107 [facility] Eosinophils/100 WBC (Bld) 3.9 % 0-5 [facility] Glucose [Mass/Vol] 121 mg/dL 74-106 [facility] Comment on above: Fasting Glucose resu lt from 100 to 125 mg/dL suggests IMPAIRED HOMEOSTASIS per A.D.A. criteria. Hemoglobin (Bld) [Mass/Vol] 13.0 g/dL 12.0-15.0 [facility] Monocytes/100 WBC (Bld) 8.3 % 0-10 [facility] Neutrophils (Bld) [#/Vol] 2.3 10*3/uL 2.0-7.7 [facility] Neutrophils/100 WBC (Bld) 59.1 % 47-70 [facility] Potassium [Moles/Vol] 4.5 mmol/L 3.5-5.1 [facility] Protein [Mass/Vol] 7.6 g/dL 6.4-8.2 [facility] Sodium [Moles/Vol] 136 mmol/L 136-145 [facility] WBC (Bld) [#/Vol] 3.8 10*3/uL 4.4-11.0 [facility] Determination of erythrocyte mean corpuscular volume (MCV)Ordered By: Trudy Trejo on 08-06-2023 MCV (RBC) [Entitic vol] 94.4 fL 81-99 [facility] Erythrocyte distribution wid th ratioOrdered By: Trudy Trejo on 08-06-2023 Erythrocyte distribution width (RBC) [Ratio] 14.0 % 11.6-14.6 [facility] Erythrocyte distribution wid th standard deviationOrdered By: Trudy Trejo on 08-06-2023 Erythrocyte distribution width (RBC) [Entitic vol] 47.2 fL 35.1-43.9 [facility] Hematocrit Auto (Bld) [Volum e fraction]Ordered By: Trudy Trejo on 08-06-2023 Hematocrit (Bld) [Volume fraction] 38.6 % 37-47 [facility] Immature granulocytes/100 WB C Auto (Bld)Ordered By: Trudy Trejo on 08-06-2023 Immature granulocytes/100 WBC (Bld) 0.300 % 0.0-0.9 [facility] Comment on above: IG% - Immature Granu locytes (promyelocytes, myelocytes and metamyelocytes) > 1% indicates that a LEFT SHIFT is Present. Laboratory - Chemistry and C hemistry - challengeOrdered By: Trudy Trejo on 08-06-2023 Albumin/Globulin [Mass ratio] 1.2 {ratio} 0.9-2.4 [facility] ALP [Catalytic activity/Vol] 42 U/L 45-117 [facility] ALT [Catalytic activity/Vol] 27 U/L 13-56 [facility] CO2 [Moles/Vol] 27.0 mmol/L 21.0-32.0 [facility] Globulin (S) [Mass/Vol] 3.4 g/dL 2.2-4.2 [facility] Urea nitrogen/Creatinine [Mass ratio] 18.8 mg/mg 10-20 [facility] - Hematology and Cell countsOrdered By: Trudy Trejo on 08-06-2023 MCH (RBC) [Entitic mass] 31.8 pg 27.0-32.0 [facility] MCHC (RBC) [Mass/Vol] 33.7 g/dL 32-36 [facility] Nucleated RBC/100 WBC (Bld) [Ratio] 0 % 0-5 [facility] Platelet mean volume (Bld) [Entitic vol] 10.0 fL 6.2-12.0 [facility] Platelets (Bld) [#/Vol] 269 10*3/uL 150-450 [facility] No Panel InformationOrdered By: Trudy Trejo on 08-06-2023 Estimated GFR (MDRD) Amer 73 mL/min >60 [facility] Comment on above: GFR Calc Estimated GFR (MDRD) Non-Af Amer 61 mL/min >60 [facility] Comment on above: Non- GFR Calc RBC Auto (Bld) [#/Vol]Ordere d By: Trudy Trejo on 08-06-2023 RBC (Bld) [#/Vol] 4.09 10*6/uL 4.2-5.4 [facility] Serum or plasma calcium jasmine urement (mass/volume)Ordered By: Trudy Trejo on 08-06-2023 Calcium [Mass/Vol] 9.1 mg/dL 8.5-10.1 [facility] Serum or plasma creatinine m easurement (mass/volume)Ordered By: Trudy Trejo on 08-06-2023 Creatinine [Mass/Vol] 0.96 mg/dL 0.55-1.02 [facility] Comment on above: The validity of the calculated GFR & GFRAA in patients over 70 years has not been determined. Clinical correlation is essential. Serum or plasma urea nitroge n measurement (mass/volume)Ordered By: Trudy Trejo on 08-06-2023 Urea nitrogen [Mass/Vol] 18 mg/dL 7-18 [facility] Thin prep Papanicolaou smear with manual screeningOrdered By: Trudy Trejo on 08-06-2023 Thin prep Papanicolaou smear with manual screening 4.2 g/dL 3.2-5.0 [facility] Thin prep Papanicolaou smear with manual screening 17 U/L 15-37 [facility] Thin prep Papanicolaou smear with manual screening 6 5-15 [facility] Absolute lymphocyte countOrd ered By: Trudy Trejo on 05-16-2023 Lymphocytes Auto (Unsp spec) [#/Vol] 0.98 10*3/uL 0.83-4.51 [facility] Basophil percentageOrdered B y: Trudy Trejo on 05-16-2023 Basophils/100 WBC (Bld) 0.8 % 0-1 [facility] Bilirubin [Mass/Vol] 0.50 mg/dL 0.20-1.00 [facility] Comment on above: For patients on eltr ombopag therapy, use of Dimension Gregory TBIL is not recommended. Chloride [Moles/Vol] 107 mmol/L 98-107 [facility] Eosinophils/100 WBC (Bld) 4.1 % 0-5 [facility] Glucose [Mass/Vol] 120 mg/dL 74-106 [facility] Comment on above: Fasting Glucose resu lt from 100 to 125 mg/dL suggests IMPAIRED HOMEOSTASIS per A.D.A. criteria. Neutrophils (Bld) [#/Vol] 3.2 10*3/uL 2.0-7.7 [facility] Neutrophils/100 WBC (Bld) 66.5 % 47-70 [facility] Potassium [Moles/Vol] 4.5 mmol/L 3.5-5.1 [facility] Protein [Mass/Vol] 7.6 g/dL 6.4-8.2 [facility] Sodium [Moles/Vol] 138 mmol/L 136-145 [facility] WBC (Bld) [#/Vol] 4.8 10*3/uL 4.4-11.0 [facility] Blood erythrocytes count (nu mber/volume)Ordered By: Trudy Trejo on 05-16-2023 RBC (Bld) [#/Vol] 4.12 10*6/uL 4.2-5.4 [facility] Blood hemoglobin measurement (mass/volume)Ordered By: Trudy Trejo on 05-16-2023 Hemoglobin (Bld) [Mass/Vol] 12.9 g/dL 12.0-15.0 [facility] Blood lymphocytes/100 leukoc ytesOrdered By: Trudy Trejo on 05-16-2023 Lymphocytes/100 WBC (Bld) 20.3 % 19-41 [facility] Blood monocytes/100 leukocyt esOrdered By: Trudy Trejo on 05-16-2023 Monocytes/100 WBC (Bld) 8.1 % 0-10 [facility] Blood platelet mean volumeOr dered By: Trudy Trejo on 05-16-2023 Platelet mean volume (Bld) [Entitic vol] 10.0 fL 6.2-12.0 [facility] Determination of erythrocyte mean corpuscular volume (MCV)Ordered By: Trudy Trejo on 05-16-2023 MCV (RBC) [Entitic vol] 97.1 fL 81-99 [facility] Hematocrit Auto (Bld) [Volum e fraction]Ordered By: Trudy Trejo on 05-16-2023 Hematocrit (Bld) [Volume fraction] 40.0 % 37-47 [facility] - Chemistry and C hemistry - challengeOrdered By: Trudy Trejo on 05-16-2023 ALP [Catalytic activity/Vol] 76 U/L 45-117 [facility] ALT [Catalytic activity/Vol] 26 U/L 13-56 [facility] CO2 [Moles/Vol] 26.0 mmol/L 21.0-32.0 [facility] Globulin (S) [Mass/Vol] 3.5 g/dL 2.2-4.2 [facility] Urea nitrogen/Creatinine [Mass ratio] 20.4 mg/mg 10-20 [facility] - Hematology and Cell countsOrdered By: Trudy Trejo on 05-16-2023 Erythrocyte distribution width (RBC) [Entitic vol] 50.4 fL 35.1-43.9 [facility] Erythrocyte distribution width (RBC) [Ratio] 14.2 % 11.6-14.6 [facility] Immature granulocytes/100 WBC (Bld) 0.200 % 0.0-0.9 [facility] Comment on above: IG% - Immature Granu locytes (promyelocytes, myelocytes and metamyelocytes) > 1% indicates that a LEFT SHIFT is Present. MCH (RBC) [Entitic mass] 31.3 pg 27.0-32.0 [facility] Nucleated RBC/100 WBC (Bld) [Ratio] 0 % 0-5 [facility] MCHC Auto (RBC) [Mass/Vol]Or dered By: Trudy Trejo on 05-16-2023 MCHC (RBC) [Mass/Vol] 32.3 g/dL 32-36 [facility] No Panel InformationOrdered By: Trudy Trejo on 05-16-2023 Estimated GFR (MDRD) Amer 72 mL/min >60 [facility] Comment on above: GFR Calc Estimated GFR (MDRD) Non-Af Amer 59 mL/min >60 [facility] Comment on above: Non- GFR Calc Platelets bldOrdered By: Che Trejo on 05-16-2023 Platelets (Bld) [#/Vol] 274 10*3/uL 150-450 [facility] Serum or plasma albumin jasmine urement (mass/volume)Ordered By: Trudy Trejo on 05-16-2023 Albumin [Mass/Vol] 4.1 g/dL 3.2-5.0 [facility] Serum or plasma albumin/glob ulin mass ratioOrdered By: Trudy Trejo on 05-16-2023 Albumin/Globulin [Mass ratio] 1.2 {ratio} 0.9-2.4 [facility] Serum or plasma calcium jasmine urement (mass/volume)Ordered By: Trudy Trejo on 05-16-2023 Calcium [Mass/Vol] 8.3 mg/dL 8.5-10.1 [facility] Serum or plasma creatinine m easurement (mass/volume)Ordered By: Trudy Trejo on 05-16-2023 Creatinine [Mass/Vol] 0.98 mg/dL 0.55-1.02 [facility] Comment on above: The validity of the calculated GFR & GFRAA in patients over 70 years has not been determined. Clinical correlation is essential. Serum or plasma urea nitroge n measurement (mass/volume)Ordered By: Trudy Trejo on 05-16-2023 Urea nitrogen [Mass/Vol] 20 mg/dL 7-18 [facility] Thin prep Papanicolaou smear with manual screeningOrdered By: Trudy Trejo on 05-16-2023 Thin prep Papanicolaou smear with manual screening 19 U/L 15-37 [facility] Thin prep Papanicolaou smear with manual screening 5 5-15 [facility] Absolute lymphocyte countOrd ered By: Trudy Trejo on 02-22-2023 Lymphocytes Auto (Unsp spec) [#/Vol] 1.05 10*3/uL 0.83-4.51 [facility] Basophil percentageOrdered B y: Trudy Trejo on 02-22-2023 Basophils/100 WBC (Bld) 0.5 % 0-1 [facility] Bilirubin [Mass/Vol] 0.30 mg/dL 0.20-1.00 [facility] Comment on above: For patients on eltr ombopag therapy, use of Dimension Gregory TBIL is not recommended. Chloride [Moles/Vol] 105 mmol/L 98-107 [facility] Eosinophils/100 WBC (Bld) 6.1 % 0-5 [facility] Glucose [Mass/Vol] 103 mg/dL 74-106 [facility] Comment on above: Fasting Glucose resu lt from 100 to 125 mg/dL suggests IMPAIRED HOMEOSTASIS per A.D.A. criteria. Neutrophils (Bld) [#/Vol] 2.1 10*3/uL 2.0-7.7 [facility] Neutrophils/100 WBC (Bld) 54.4 % 47-70 [facility] Potassium [Moles/Vol] 4.6 mmol/L 3.5-5.1 [facility] Protein [Mass/Vol] 6.9 g/dL 6.4-8.2 [facility] Sodium [Moles/Vol] 138 mmol/L 136-145 [facility] WBC (Bld) [#/Vol] 3.8 10*3/uL 4.4-11.0 [facility] Blood erythrocytes count (nu mber/volume)Ordered By: Trudy Trejo on 02-22-2023 RBC (Bld) [#/Vol] 3.91 10*6/uL 4.2-5.4 [facility] Blood hemoglobin measurement (mass/volume)Ordered By: Trudy Trejo on 02-22-2023 Hemoglobin (Bld) [Mass/Vol] 12.2 g/dL 12.0-15.0 [facility] Blood lymphocytes/100 leukoc ytesOrdered By: Trudy Trejo on 02-22-2023 Lymphocytes/100 WBC (Bld) 27.6 % 19-41 [facility] Blood monocytes/100 leukocyt esOrdered By: Trudynadia Trejo on 02-22-2023 Monocytes/100 WBC (Bld) 11.1 % 0-10 [facility] Blood platelet mean volumeOr dered By: Trudynadia Trejo on 02-22-2023 Platelet mean volume (Bld) [Entitic vol] 10.5 fL 6.2-12.0 [facility] Determination of erythrocyte mean corpuscular volume (MCV)Ordered By: Trudynadia Trejo on 02-22-2023 MCV (RBC) [Entitic vol] 97.4 fL 81-99 [facility] Hematocrit Auto (Bld) [Volum e fraction]Ordered By: Truyd Trejo on 02-22-2023 Hematocrit (Bld) [Volume fraction] 38.1 % 37-47 [facility] - Chemistry and C hemistry - challengeOrdered By: Trudy Trejo on 02-22-2023 ALP [Catalytic activity/Vol] 63 U/L 45-117 [facility] ALT [Catalytic activity/Vol] 26 U/L 13-56 [facility] CO2 [Moles/Vol] 29.0 mmol/L 21.0-32.0 [facility] Globulin (S) [Mass/Vol] 3.1 g/dL 2.2-4.2 [facility] Urea nitrogen/Creatinine [Mass ratio] 18.6 mg/mg 10-20 [facility] - Hematology and Cell countsOrdered By: Trudynadia Trejo on 02-22-2023 Erythrocyte distribution width (RBC) [Entitic vol] 48.7 fL 35.1-43.9 [facility] Erythrocyte distribution width (RBC) [Ratio] 13.9 % 11.6-14.6 [facility] Immature granulocytes/100 WBC (Bld) 0.300 % 0.0-0.9 [facility] Comment on above: IG% - Immature Granu locytes (promyelocytes, myelocytes and metamyelocytes) > 1% indicates that a LEFT SHIFT is Present. MCH (RBC) [Entitic mass] 31.2 pg 27.0-32.0 [facility] Nucleated RBC/100 WBC (Bld) [Ratio] 0 % 0-5 [facility] MCHC Auto (RBC) [Mass/Vol]Or dered By: Trudy Trejo on 02-22-2023 MCHC (RBC) [Mass/Vol] 32.0 g/dL 32-36 [facility] No Panel InformationOrdered By: Trudy Trejo on 02-22-2023 Estimated GFR (MDRD) Amer 83 mL/min >60 [facility] Comment on above: GFR Calc Estimated GFR (MDRD) Non-Af Amer 69 mL/min >60 [facility] Comment on above: Non- GFR Calc Platelets bldOrdered By: Che Trejo on 02-22-2023 Platelets (Bld) [#/Vol] 228 10*3/uL 150-450 [facility] Serum or plasma albumin jasmine urement (mass/volume)Ordered By: Trudy Trejo on 02-22-2023 Albumin [Mass/Vol] 3.8 g/dL 3.2-5.0 [facility] Serum or plasma albumin/glob ulin mass ratioOrdered By: Trudy Trejo on 02-22-2023 Albumin/Globulin [Mass ratio] 1.2 {ratio} 0.9-2.4 [facility] Serum or plasma calcium jasmine urement (mass/volume)Ordered By: Trudy Trejo on 02-22-2023 Calcium [Mass/Vol] 9.1 mg/dL 8.5-10.1 [facility] Serum or plasma creatinine m easurement (mass/volume)Ordered By: Trudy Trejo on 02-22-2023 Creatinine [Mass/Vol] 0.86 mg/dL 0.55-1.02 [facility] Comment on above: The validity of the calculated GFR & GFRAA in patients over 70 years has not been determined. Clinical correlation is essential. Serum or plasma urea nitroge n measurement (mass/volume)Ordered By: Trudy Trejo on 02-22-2023 Urea nitrogen [Mass/Vol] 16 mg/dL 7-18 [facility] Thin prep Papanicolaou smear with manual screeningOrdered By: Trudy Trejo on 02-22-2023 Thin prep Papanicolaou smear with manual screening 15 U/L 15-37 [facility] Thin prep Papanicolaou smear with manual screening 4 5-15 [facility] Absolute lymphocyte countOrd ered By: Kelley Maldonado on 02-14-2023 Lymphocytes Auto (Unsp spec) [#/Vol] 1.10 10*3/uL 0.83-4.51 [facility] Basophil percentageOrdered B y: Kelley Maldonado on 02-14-2023 Basophils/100 WBC (Bld) 0.4 % 0-1 [facility] Bilirubin [Mass/Vol] 0.40 mg/dL 0.20-1.00 [facility] Comment on above: For patients on eltr ombopag therapy, use of Dimension Gregory TBIL is not recommended. Chloride [Moles/Vol] 102 mmol/L 98-107 [facility] Cholesterol [Mass/Vol] 209 mg/dL <200 [facility] Comment on above: <200 mg/dL Desirable 200-240 mg/dL Borderline >240 mg/dL High Risk Eosinophils/100 WBC (Bld) 4.9 % 0-5 [facility] Glucose [Mass/Vol] 114 mg/dL 74-106 [facility] Comment on above: Fasting Glucose resu lt from 100 to 125 mg/dL suggests IMPAIRED HOMEOSTASIS per A.D.A. criteria. Neutrophils (Bld) [#/Vol] 2.7 10*3/uL 2.0-7.7 [facility] Neutrophils/100 WBC (Bld) 61.3 % 47-70 [facility] Potassium [Moles/Vol] 4.0 mmol/L 3.5-5.1 [facility] Protein [Mass/Vol] 7.5 g/dL 6.4-8.2 [facility] Sodium [Moles/Vol] 135 mmol/L 136-145 [facility] Triglyceride [Mass/Vol] 113 mg/dL <199 [facility] Comment on above: The drugs N-Acetylcy steine and Metamizole may falsely depress this assay.Serum Triglycerides Reference Interval Normal <150 mg/dL Borderline high 150 - 199 mg/dL High 200 - 499 mg/dL Very High > or = 500 mg/dL WBC (Bld) [#/Vol] 4.5 10*3/uL 4.4-11.0 [facility] Blood erythrocytes count (nu mber/volume)Ordered By: Kelley Maldonado on 02-14-2023 RBC (Bld) [#/Vol] 4.08 10*6/uL 4.2-5.4 [facility] Blood hemoglobin measurement (mass/volume)Ordered By: Kelley Maldonado on 02-14-2023 Hemoglobin (Bld) [Mass/Vol] 13.1 g/dL 12.0-15.0 [facility] Blood lymphocytes/100 leukoc ytesOrdered By: Kelley Maldonado on 02-14-2023 Lymphocytes/100 WBC (Bld) 24.7 % 19-41 [facility] Blood monocytes/100 leukocyt esOrdered By: Kelley Maldonado on 02-14-2023 Monocytes/100 WBC (Bld) 8.5 % 0-10 [facility] Blood platelet mean volumeOr dered By: Kelley Maldonado on 02-14-2023 Platelet mean volume (Bld) [Entitic vol] 10.4 fL 6.2-12.0 [facility] Determination of erythrocyte mean corpuscular volume (MCV)Ordered By: Kelley Maldonado on 02-14-2023 MCV (RBC) [Entitic vol] 97.3 fL 81-99 [facility] Hematocrit Auto (Bld) [Volum e fraction]Ordered By: Kleley Maldonado on 02-14-2023 Hematocrit (Bld) [Volume fraction] 39.7 % 37-47 [facility] - Chemistry and C hemistry - challengeOrdered By: Kelley Maldonado on 02-14-2023 ALP [Catalytic activity/Vol] 68 U/L 45-117 [facility] ALT [Catalytic activity/Vol] 30 U/L 13-56 [facility] CO2 [Moles/Vol] 28.0 mmol/L 21.0-32.0 [facility] Globulin (S) [Mass/Vol] 3.4 g/dL 2.2-4.2 [facility] Urea nitrogen/Creatinine [Mass ratio] 19.8 mg/mg 10-20 [facility] - Hematology and Cell countsOrdered By: Kelley Maldonado on 02-14-2023 Erythrocyte distribution width (RBC) [Entitic vol] 48.1 fL 35.1-43.9 [facility] Erythrocyte distribution width (RBC) [Ratio] 13.6 % 11.6-14.6 [facility] Immature granulocytes/100 WBC (Bld) 0.200 % 0.0-0.9 [facility] Comment on above: IG% - Immature Granu locytes (promyelocytes, myelocytes and metamyelocytes) > 1% indicates that a LEFT SHIFT is Present. MCH (RBC) [Entitic mass] 32.1 pg 27.0-32.0 [facility] Nucleated RBC/100 WBC (Bld) [Ratio] 0 % 0-5 [facility] - Hematology and Cell countson 02-14-2023 HbA1c (Bld) [Mass fraction] 5.6 % 4.2-6.3 [facility] MCHC Auto (RBC) [Mass/Vol]Or dered By: Kelley Maldonado on 02-14-2023 MCHC (RBC) [Mass/Vol] 33.0 g/dL 32-36 [facility] No Panel InformationOrdered By: Kelley Maldonado on 02-14-2023 Vitamin D 25-Hydroxy 47.1 ng/mL [facility] Comment on above: Vitamin D 25(OH) Sta tus Range Deficiency <20 ng/mL (50nmol/L) Insufficiency 20 - 30 ng/mL (50 - 75 nmol/L) Sufficiency 30 - 100 ng/mL (75 - 250 nmol/L) Toxicity >100 ng/mL (>250 nmol/L) Estimated GFR (MDRD) Amer 73 mL/min >60 [facility] Comment on above: GFR Calc Estimated GFR (MDRD) Non-Af Amer 60 mL/min >60 [facility] Comment on above: Non- GFR Calc Thyroid Stimulating Hormone (TSH) 3.35 uIU/mL 0.358-3.74 [facility] Platelets bldOrdered By: Tad Maldonado on 02-14-2023 Platelets (Bld) [#/Vol] 267 10*3/uL 150-450 [facility] Serum or plasma albumin jasmine urement (mass/volume)Ordered By: Kelley Maldonado on 02-14-2023 Albumin [Mass/Vol] 4.1 g/dL 3.2-5.0 [facility] Serum or plasma albumin/glob ulin mass ratioOrdered By: Kelley Maldonado on 02-14-2023 Albumin/Globulin [Mass ratio] 1.2 {ratio} 0.9-2.4 [facility] Serum or plasma calcium jasmine urement (mass/volume)Ordered By: Kelley Maldonado on 02-14-2023 Calcium [Mass/Vol] 9.2 mg/dL 8.5-10.1 [facility] Serum or plasma cholesterol in HDL measurement (mass/volume)Ordered By: Kelley Maldonado on 02-14-2023 Cholesterol in HDL [Mass/Vol] 105 mg/dL >40 [facility] Comment on above: The drugs N-Acetylcy steine and Metamizole may falsely depress this assay. Reference Range HDL <40 mg/dL Low HDL Cholesterol HDL >or= 60 mg/dL High HDL Cholesterol Serum or plasma cholesterol in VLDL measurement (mass/volume)Ordered By: Kelley Maldonado on 02-14-2023 Cholesterol in VLDL [Mass/Vol] 23 mg/dL 5-40 [facility] Serum or plasma creatinine m easurement (mass/volume)Ordered By: Kelley Maldonado on 02-14-2023 Creatinine [Mass/Vol] 0.96 mg/dL 0.55-1.02 [facility] Comment on above: The validity of the calculated GFR & GFRAA in patients over 70 years has not been determined. Clinical correlation is essential. Serum or plasma low density lipoprotein (LDL) cholesterol measurement (mass/volume)Ordered By: Kelley Maldonado on 02-14-2023 Cholesterol in LDL [Mass/Vol] 81 mg/dL 0-130 [facility] Serum or plasma urea nitroge n measurement (mass/volume)Ordered By: Kelley Maldonado on 02-14-2023 Urea nitrogen [Mass/Vol] 19 mg/dL 7-18 [facility] Thin prep Papanicolaou smear with manual screeningOrdered By: Kelley Maldonado on 02-14-2023 Thin prep Papanicolaou smear with manual screening 18 U/L 15-37 [facility] Thin prep Papanicolaou smear with manual screening 5 5-15 [facility] Absolute lymphocyte countOrd ered By: Trudy Trejo on 11-29-2022 Lymphocytes Auto (Unsp spec) [#/Vol] 0.91 10*3/uL 0.83-4.51 [facility] Basophil percentageOrdered B y: Trudy Trejo on 11-29-2022 Basophils/100 WBC (Bld) 0.4 % 0-1 [facility] Bilirubin [Mass/Vol] 0.40 mg/dL 0.20-1.00 [facility] Comment on above: For patients on eltr ombopag therapy, use of Dimension Gregory TBIL is not recommended. Chloride [Moles/Vol] 100 mmol/L 98-107 [facility] Eosinophils/100 WBC (Bld) 3.5 % 0-5 [facility] Glucose [Mass/Vol] 120 mg/dL 74-106 [facility] Comment on above: Fasting Glucose resu lt from 100 to 125 mg/dL suggests IMPAIRED HOMEOSTASIS per A.D.A. criteria. Neutrophils (Bld) [#/Vol] 3.1 10*3/uL 2.0-7.7 [facility] Neutrophils/100 WBC (Bld) 67.5 % 47-70 [facility] Potassium [Moles/Vol] 4.4 mmol/L 3.5-5.1 [facility] Protein [Mass/Vol] 7.4 g/dL 6.4-8.2 [facility] Sodium [Moles/Vol] 132 mmol/L 136-145 [facility] WBC (Bld) [#/Vol] 4.6 10*3/uL 4.4-11.0 [facility] Blood erythrocytes count (nu mber/volume)Ordered By: Trudy Trejo on 11-29-2022 RBC (Bld) [#/Vol] 3.88 10*6/uL 4.2-5.4 [facility] Blood hemoglobin measurement (mass/volume)Ordered By: Trudy Trejo on 11-29-2022 Hemoglobin (Bld) [Mass/Vol] 12.5 g/dL 12.0-15.0 [facility] Blood lymphocytes/100 leukoc ytesOrdered By: Trudynadia Trejo on 11-29-2022 Lymphocytes/100 WBC (Bld) 19.9 % 19-41 [facility] Blood monocytes/100 leukocyt esOrdered By: Trudynadia Trejo on 11-29-2022 Monocytes/100 WBC (Bld) 8.3 % 0-10 [facility] Blood platelet mean volumeOr dered By: Trudy Trejo on 11-29-2022 Platelet mean volume (Bld) [Entitic vol] 10.1 fL 6.2-12.0 [facility] Determination of erythrocyte mean corpuscular volume (MCV)Ordered By: Trudy Trejo on 11-29-2022 MCV (RBC) [Entitic vol] 97.2 fL 81-99 [facility] Hematocrit Auto (Bld) [Volum e fraction]Ordered By: Trudy Trejo on 11-29-2022 Hematocrit (Bld) [Volume fraction] 37.7 % 37-47 [facility] - Chemistry and C hemistry - challengeOrdered By: Trudy Trejo on 11-29-2022 ALP [Catalytic activity/Vol] 65 U/L 45-117 [facility] ALT [Catalytic activity/Vol] 30 U/L 13-56 [facility] CO2 [Moles/Vol] 27.0 mmol/L 21.0-32.0 [facility] Globulin (S) [Mass/Vol] 3.6 g/dL 2.2-4.2 [facility] Urea nitrogen/Creatinine [Mass ratio] 21.3 mg/mg 10-20 [facility] - Hematology and Cell countsOrdered By: Trudy Trejo on 11-29-2022 Erythrocyte distribution width (RBC) [Entitic vol] 49.4 fL 35.1-43.9 [facility] Erythrocyte distribution width (RBC) [Ratio] 14.0 % 11.6-14.6 [facility] Immature granulocytes/100 WBC (Bld) 0.400 % 0.0-0.9 [facility] Comment on above: IG% - Immature Granu locytes (promyelocytes, myelocytes and metamyelocytes) > 1% indicates that a LEFT SHIFT is Present. MCH (RBC) [Entitic mass] 32.2 pg 27.0-32.0 [facility] Nucleated RBC/100 WBC (Bld) [Ratio] 0 % 0-5 [facility] MCHC Auto (RBC) [Mass/Vol]Or dered By: Trudy Trejo on 11-29-2022 MCHC (RBC) [Mass/Vol] 33.2 g/dL 32-36 [facility] No Panel InformationOrdered By: Trudy Trejo on 11-29-2022 Estimated GFR (MDRD) Amer 71 mL/min >60 [facility] Comment on above: GFR Calc Estimated GFR (MDRD) Non-Af Amer 59 mL/min >60 [facility] Comment on above: Non- GFR Calc Platelets bldOrdered By: Che Trejo on 11-29-2022 Platelets (Bld) [#/Vol] 271 10*3/uL 150-450 [facility] Serum or plasma albumin jasmine urement (mass/volume)Ordered By: Trudy Trejo on 11-29-2022 Albumin [Mass/Vol] 3.8 g/dL 3.2-5.0 [facility] Serum or plasma albumin/glob ulin mass ratioOrdered By: Trudy Trejo on 11-29-2022 Albumin/Globulin [Mass ratio] 1.1 {ratio} 0.9-2.4 [facility] Serum or plasma calcium jasmine urement (mass/volume)Ordered By: Trudy Trejo on 11-29-2022 Calcium [Mass/Vol] 9.1 mg/dL 8.5-10.1 [facility] Serum or plasma creatinine m easurement (mass/volume)Ordered By: Trudy Trejo on 11-29-2022 Creatinine [Mass/Vol] 0.99 mg/dL 0.55-1.02 [facility] Comment on above: The validity of the calculated GFR & GFRAA in patients over 70 years has not been determined. Clinical correlation is essential. Serum or plasma urea nitroge n measurement (mass/volume)Ordered By: Trudy Trejo on 11-29-2022 Urea nitrogen [Mass/Vol] 21 mg/dL 7-18 [facility] Thin prep Papanicolaou smear with manual screeningOrdered By: Trudy Trejo on 11-29-2022 Thin prep Papanicolaou smear with manual screening 18 U/L 15-37 [facility] Thin prep Papanicolaou smear with manual screening 5 5-15 [facility] Absolute lymphocyte countOrd ered By: Dr. Trejo on 09-04-2022 Lymphocytes Auto (Unsp spec) [#/Vol] 1.16 10*3/uL 0.83-4.51 [facility] Basophil percentageOrdered B y: Dr. Trejo on 09-04-2022 Basophils/100 WBC (Bld) 0.6 % 0-1 [facility] Bilirubin [Mass/Vol] 0.40 mg/dL 0.20-1.00 [facility] Comment on above: For patients on eltr ombopag therapy, use of Dimension Gregory TBIL is not recommended. Chloride [Moles/Vol] 100 mmol/L 98-107 [facility] Eosinophils/100 WBC (Bld) 4.3 % 0-5 [facility] Glucose [Mass/Vol] 149 mg/dL 74-106 [facility] Comment on above: Fasting Glucose resu lt greater than or equal to 126 mg/dL suggests DIABETES MELLITUS per A.D.A. criteria. Neutrophils (Bld) [#/Vol] 3.4 10*3/uL 2.0-7.7 [facility] Neutrophils/100 WBC (Bld) 66.4 % 47-70 [facility] Potassium [Moles/Vol] 3.7 mmol/L 3.5-5.1 [facility] Protein [Mass/Vol] 7.5 g/dL 6.4-8.2 [facility] Sodium [Moles/Vol] 134 mmol/L 136-145 [facility] WBC (Bld) [#/Vol] 5.2 10*3/uL 4.4-11.0 [facility] Blood erythrocytes count (nu mber/volume)Ordered By: Dr. Trejo on 09-04-2022 RBC (Bld) [#/Vol] 4.01 10*6/uL 4.2-5.4 [facility] Blood hemoglobin measurement (mass/volume)Ordered By: Dr. Trejo on 09-04-2022 Hemoglobin (Bld) [Mass/Vol] 12.8 g/dL 12.0-15.0 [facility] Blood lymphocytes/100 leukoc ytesOrdered By: Dr. Trejo on 09-04-2022 Lymphocytes/100 WBC (Bld) 22.5 % 19-41 [facility] Blood monocytes/100 leukocyt esOrdered By: Dr. Trejo on 09-04-2022 Monocytes/100 WBC (Bld) 5.8 % 0-10 [facility] Blood platelet mean volumeOr dered By: Dr. Trejo on 09-04-2022 Platelet mean volume (Bld) [Entitic vol] 10.4 fL 6.2-12.0 [facility] Determination of erythrocyte mean corpuscular volume (MCV)Ordered By: Dr. Trejo on 09-04-2022 MCV (RBC) [Entitic vol] 97.0 fL 81-99 [facility] Hematocrit Auto (Bld) [Volum e fraction]Ordered By: Dr. Trejo on 09-04-2022 Hematocrit (Bld) [Volume fraction] 38.9 % 37-47 [facility] - Chemistry and C hemistry - challengeOrdered By: Dr. Trejo on 09-04-2022 ALP [Catalytic activity/Vol] 70 U/L 45-117 [facility] ALT [Catalytic activity/Vol] 31 U/L 13-56 [facility] CO2 [Moles/Vol] 30.0 mmol/L 21.0-32.0 [facility] Globulin (S) [Mass/Vol] 3.4 g/dL 2.2-4.2 [facility] Urea nitrogen/Creatinine [Mass ratio] 21.2 mg/mg 10-20 [facility] - Hematology and Cell countsOrdered By: Dr. Trejo on 09-04-2022 Erythrocyte distribution width (RBC) [Entitic vol] 50.6 fL 35.1-43.9 [facility] Erythrocyte distribution width (RBC) [Ratio] 14.5 % 11.6-14.6 [facility] Immature granulocytes/100 WBC (Bld) 0.400 % 0.0-0.9 [facility] Comment on above: IG% - Immature Granu locytes (promyelocytes, myelocytes and metamyelocytes) > 1% indicates that a LEFT SHIFT is Present. MCH (RBC) [Entitic mass] 31.9 pg 27.0-32.0 [facility] Nucleated RBC/100 WBC (Bld) [Ratio] 0 % 0-5 [facility] MCHC Auto (RBC) [Mass/Vol]Or dered By: Dr. Trejo on 09-04-2022 MCHC (RBC) [Mass/Vol] 32.9 g/dL 32-36 [facility] No Panel InformationOrdered By: Dr. Trejo on 09-04-2022 Estimated GFR (MDRD) Amer 75 mL/min >60 [facility] Comment on above: GFR Calc Estimated GFR (MDRD) Non-Af Amer 62 mL/min >60 [facility] Comment on above: Non- GFR Calc Platelets bldOrdered By: Dr. Trejo on 09-04-2022 Platelets (Bld) [#/Vol] 278 10*3/uL 150-450 [facility] Serum or plasma albumin jasmine urement (mass/volume)Ordered By: Dr. Trejo on 09-04-2022 Albumin [Mass/Vol] 4.1 g/dL 3.2-5.0 [facility] Serum or plasma albumin/glob ulin mass ratioOrdered By: Dr. Trejo on 09-04-2022 Albumin/Globulin [Mass ratio] 1.2 {ratio} 0.9-2.4 [facility] Serum or plasma calcium jasmine urement (mass/volume)Ordered By: Dr. Trejo on 09-04-2022 Calcium [Mass/Vol] 9.6 mg/dL 8.5-10.1 [facility] Serum or plasma creatinine m easurement (mass/volume)Ordered By: Dr. Trejo on 09-04-2022 Creatinine [Mass/Vol] 0.94 mg/dL 0.55-1.02 [facility] Comment on above: The validity of the calculated GFR & GFRAA in patients over 70 years has not been determined. Clinical correlation is essential. Serum or plasma urea nitroge n measurement (mass/volume)Ordered By: Dr. Trejo on 09-04-2022 Urea nitrogen [Mass/Vol] 20 mg/dL 7-18 [facility] Thin prep Papanicolaou smear with manual screeningOrdered By: Dr. Trejo on 09-04-2022 Thin prep Papanicolaou smear with manual screening 17 U/L 15-37 [facility] Thin prep Papanicolaou smear with manual screening 4 5-15 [facility] Basophil percentageOrdered B y: Dr. Maldonado on 08-09-2022 Cholesterol [Mass/Vol] 260 mg/dL <200 [facility] Comment on above: <200 mg/dL Desirable 200-240 mg/dL Borderline >240 mg/dL High Risk Triglyceride [Mass/Vol] 139 mg/dL <199 [facility] Comment on above: The drugs N-Acetylcy steine and Metamizole may falsely depress this assay.Serum Triglycerides Reference Interval Normal <150 mg/dL Borderline high 150 - 199 mg/dL High 200 - 499 mg/dL Very High > or = 500 mg/dL No Panel InformationOrdered By: Dr. Maldonado on 08-09-2022 Thyroid Stimulating Hormone (TSH) 3.01 uIU/mL 0.358-3.74 [facility] Serum or plasma cholesterol in HDL measurement (mass/volume)Ordered By: Dr. Maldonado on 08-09-2022 Cholesterol in HDL [Mass/Vol] 87 mg/dL >40 [facility] Comment on above: The drugs N-Acetylcy steine and Metamizole may falsely depress this assay. Reference Range HDL <40 mg/dL Low HDL Cholesterol HDL >or= 60 mg/dL High HDL Cholesterol Serum or plasma cholesterol in VLDL measurement (mass/volume)Ordered By: Dr. Maldonado on 08-09-2022 Cholesterol in VLDL [Mass/Vol] 28 mg/dL 5-40 [facility] Serum or plasma low density lipoprotein (LDL) cholesterol measurement (mass/volume)Ordered By: Dr. Maldonado on 08-09-2022 Cholesterol in LDL [Mass/Vol] 145 mg/dL 0-130 [facility] Whole blood hemoglobin A1c/t otal hemoglobin ratio (mass fraction)Ordered By: Dr. Maldonado on 08-09-2022 HbA1c (Bld) [Mass fraction] 5.5 % 3.8-5.6 [facility] Comment on above: Normal < 5.7 % Predi abetic 5.7 - 6.4 % Diabetic >or= 6.5 % Please note range changes. Absolute lymphocyte countOrd ered By: Dr. Trejo on 06-15-2022 Lymphocytes Auto (Unsp spec) [#/Vol] 0.90 10*3/uL 0.83-4.51 [facility] Basophil percentageOrdered B y: Dr. Trejo on 06-15-2022 Basophils/100 WBC (Bld) 0.4 % 0-1 [facility] Bilirubin [Mass/Vol] 0.50 mg/dL 0.20-1.00 [facility] Comment on above: For patients on eltr ombopag therapy, use of Dimension Gregory TBIL is not recommended. Chloride [Moles/Vol] 102 mmol/L 98-107 [facility] Eosinophils/100 WBC (Bld) 4.0 % 0-5 [facility] Glucose [Mass/Vol] 114 mg/dL 74-106 [facility] Comment on above: Fasting Glucose resu lt from 100 to 125 mg/dL suggests IMPAIRED HOMEOSTASIS per A.D.A. criteria. Neutrophils (Bld) [#/Vol] 3.1 10*3/uL 2.0-7.7 [facility] Neutrophils/100 WBC (Bld) 68.1 % 47-70 [facility] Potassium [Moles/Vol] 4.5 mmol/L 3.5-5.1 [facility] Protein [Mass/Vol] 7.4 g/dL 6.4-8.2 [facility] Sodium [Moles/Vol] 138 mmol/L 136-145 [facility] WBC (Bld) [#/Vol] 4.6 10*3/uL 4.4-11.0 [facility] Blood erythrocytes count (nu mber/volume)Ordered By: Dr. Trejo on 06-15-2022 RBC (Bld) [#/Vol] 3.96 10*6/uL 4.2-5.4 [facility] Blood hemoglobin measurement (mass/volume)Ordered By: Dr. Trejo on 06-15-2022 Hemoglobin (Bld) [Mass/Vol] 12.3 g/dL 12.0-15.0 [facility] Blood lymphocytes/100 leukoc ytesOrdered By: Dr. Trejo on 06-15-2022 Lymphocytes/100 WBC (Bld) 19.8 % 19-41 [facility] Blood monocytes/100 leukocyt esOrdered By: Dr. Trejo on 06-15-2022 Monocytes/100 WBC (Bld) 7.5 % 0-10 [facility] Blood platelet mean volumeOr dered By: Dr. Trejo on 06-15-2022 Platelet mean volume (Bld) [Entitic vol] 11.2 fL 6.2-12.0 [facility] Determination of erythrocyte mean corpuscular volume (MCV)Ordered By: Dr. Trejo on 06-15-2022 MCV (RBC) [Entitic vol] 95.7 fL 81-99 [facility] Hematocrit Auto (Bld) [Volum e fraction]Ordered By: Dr. Trejo on 06-15-2022 Hematocrit (Bld) [Volume fraction] 37.9 % 37-47 [facility] - Chemistry and C hemistry - challengeOrdered By: Dr. Trejo on 06-15-2022 ALP [Catalytic activity/Vol] 65 U/L 45-117 [facility] ALT [Catalytic activity/Vol] 17 U/L 13-56 [facility] CO2 [Moles/Vol] 29.0 mmol/L 21.0-32.0 [facility] Globulin (S) [Mass/Vol] 3.2 g/dL 2.2-4.2 [facility] Urea nitrogen/Creatinine [Mass ratio] 21.4 mg/mg 10-20 [facility] - Hematology and Cell countsOrdered By: Dr. Trejo on 06-15-2022 Erythrocyte distribution width (RBC) [Entitic vol] 50.4 fL 35.1-43.9 [facility] Erythrocyte distribution width (RBC) [Ratio] 14.5 % 11.6-14.6 [facility] Immature granulocytes/100 WBC (Bld) 0.200 % 0.0-0.9 [facility] Comment on above: IG% - Immature Granu locytes (promyelocytes, myelocytes and metamyelocytes) > 1% indicates that a LEFT SHIFT is Present. MCH (RBC) [Entitic mass] 31.1 pg 27.0-32.0 [facility] Nucleated RBC/100 WBC (Bld) [Ratio] 0 % 0-5 [facility] MCHC Auto (RBC) [Mass/Vol]Or dered By: Dr. Trejo on 06-15-2022 MCHC (RBC) [Mass/Vol] 32.5 g/dL 32-36 [facility] No Panel InformationOrdered By: Dr. Trejo on 06-15-2022 Estimated GFR (MDRD) Amer 76 mL/min >60 [facility] Comment on above: GFR Calc Estimated GFR (MDRD) Non-Af Amer 63 mL/min >60 [facility] Comment on above: Non- GFR Calc Platelets bldOrdered By: Dr. Trejo on 06-15-2022 Platelets (Bld) [#/Vol] 260 10*3/uL 150-450 [facility] Serum or plasma albumin jasmine urement (mass/volume)Ordered By: Dr. Trejo on 06-15-2022 Albumin [Mass/Vol] 4.2 g/dL 3.2-5.0 [facility] Serum or plasma albumin/glob ulin mass ratioOrdered By: Dr. Trejo on 06-15-2022 Albumin/Globulin [Mass ratio] 1.3 {ratio} 0.9-2.4 [facility] Serum or plasma calcium jasmine urement (mass/volume)Ordered By: Dr. Trejo on 06-15-2022 Calcium [Mass/Vol] 9.3 mg/dL 8.5-10.1 [facility] Serum or plasma creatinine m easurement (mass/volume)Ordered By: Dr. Trejo on 06-15-2022 Creatinine [Mass/Vol] 0.94 mg/dL 0.55-1.02 [facility] Comment on above: The validity of the calculated GFR & GFRAA in patients over 70 years has not been determined. Clinical correlation is essential. Serum or plasma urea nitroge n measurement (mass/volume)Ordered By: Dr. Trejo on 06-15-2022 Urea nitrogen [Mass/Vol] 20 mg/dL 7-18 [facility] Thin prep Papanicolaou smear with manual screeningOrdered By: Dr. Trejo on 06-15-2022 Thin prep Papanicolaou smear with manual screening 16 U/L 15-37 [facility] Thin prep Papanicolaou smear with manual screening 7 5-15 [facility] Absolute lymphocyte countOrd ered By: Dr. Trejo on 03-23-2022 Lymphocytes Auto (Unsp spec) [#/Vol] 1.11 10*3/uL 0.83-4.51 [facility] Basophil percentageOrdered B y: Dr. Trejo on 03-23-2022 Basophils/100 WBC (Bld) 0.4 % 0-1 [facility] Bilirubin [Mass/Vol] 0.60 mg/dL 0.20-1.00 [facility] Comment on above: For patients on eltr ombopag therapy, use of Dimension Gregory TBIL is not recommended. Chloride [Moles/Vol] 102 mmol/L 98-107 [facility] Eosinophils/100 WBC (Bld) 3.1 % 0-5 [facility] Glucose [Mass/Vol] 111 mg/dL 74-106 [facility] Comment on above: Fasting Glucose resu lt from 100 to 125 mg/dL suggests IMPAIRED HOMEOSTASIS per A.D.A. criteria. Neutrophils (Bld) [#/Vol] 5.0 10*3/uL 2.0-7.7 [facility] Neutrophils/100 WBC (Bld) 72.5 % 47-70 [facility] Potassium [Moles/Vol] 4.4 mmol/L 3.5-5.1 [facility] Protein [Mass/Vol] 7.7 g/dL 6.4-8.2 [facility] Sodium [Moles/Vol] 138 mmol/L 136-145 [facility] WBC (Bld) [#/Vol] 6.9 10*3/uL 4.4-11.0 [facility] Blood erythrocytes count (nu mber/volume)Ordered By: Dr. Trejo on 03-23-2022 RBC (Bld) [#/Vol] 4.19 10*6/uL 4.2-5.4 [facility] Blood hemoglobin measurement (mass/volume)Ordered By: Dr. Trejo on 03-23-2022 Hemoglobin (Bld) [Mass/Vol] 13.3 g/dL 12.0-15.0 [facility] Blood lymphocytes/100 leukoc ytesOrdered By: Dr. Trejo on 03-23-2022 Lymphocytes/100 WBC (Bld) 16.2 % 19-41 [facility] Blood monocytes/100 leukocyt esOrdered By: Dr. Trejo on 03-23-2022 Monocytes/100 WBC (Bld) 7.7 % 0-10 [facility] Blood platelet mean volumeOr dered By: Dr. Trejo on 03-23-2022 Platelet mean volume (Bld) [Entitic vol] 9.9 fL 6.2-12.0 [facility] Determination of erythrocyte mean corpuscular volume (MCV)Ordered By: Dr. Trejo on 03-23-2022 MCV (RBC) [Entitic vol] 94.7 fL 81-99 [facility] Hematocrit Auto (Bld) [Volum e fraction]Ordered By: Dr. Trejo on 03-23-2022 Hematocrit (Bld) [Volume fraction] 39.7 % 37-47 [facility] Laboratory - Chemistry and C hemistry - challengeOrdered By: Dr. Trejo on 03-23-2022 ALP [Catalytic activity/Vol] 68 U/L 45-117 [facility] ALT [Catalytic activity/Vol] 23 U/L 13-56 [facility] CO2 [Moles/Vol] 30.0 mmol/L 21.0-32.0 [facility] Globulin (S) [Mass/Vol] 3.6 g/dL 2.2-4.2 [facility] Urea nitrogen/Creatinine [Mass ratio] 21.6 mg/mg 10-20 [facility] Laboratory - Hematology and Cell countsOrdered By: Dr. Trejo on 03-23-2022 Erythrocyte distribution width (RBC) [Entitic vol] 49.1 fL 35.1-43.9 [facility] Erythrocyte distribution width (RBC) [Ratio] 14.3 % 11.6-14.6 [facility] Immature granulocytes/100 WBC (Bld) 0.100 % 0.0-0.9 [facility] Comment on above: IG% - Immature Granu locytes (promyelocytes, myelocytes and metamyelocytes) > 1% indicates that a LEFT SHIFT is Present. MCH (RBC) [Entitic mass] 31.7 pg 27.0-32.0 [facility] Nucleated RBC/100 WBC (Bld) [Ratio] 0 % 0-5 [facility] MCHC Auto (RBC) [Mass/Vol]Or dered By: Dr. Trejo on 03-23-2022 MCHC (RBC) [Mass/Vol] 33.5 g/dL 32-36 [facility] No Panel InformationOrdered By: Dr. Trejo on 03-23-2022 Estimated GFR (MDRD) Amer 76 mL/min >60 [facility] Comment on above: GFR Calc Estimated GFR (MDRD) Non-Af Amer 63 mL/min >60 [facility] Comment on above: Non- GFR Calc Platelets bldOrdered By: Dr. Trejo on 03-23-2022 Platelets (Bld) [#/Vol] 237 10*3/uL 150-450 [facility] Serum or plasma albumin jasmine urement (mass/volume)Ordered By: Dr. Trejo on 03-23-2022 Albumin [Mass/Vol] 4.1 g/dL 3.2-5.0 [facility] Serum or plasma albumin/glob ulin mass ratioOrdered By: Dr. Trejo on 03-23-2022 Albumin/Globulin [Mass ratio] 1.1 {ratio} 0.9-2.4 [facility] Serum or plasma calcium jasmine urement (mass/volume)Ordered By: Dr. Trejo on 03-23-2022 Calcium [Mass/Vol] 9.8 mg/dL 8.5-10.1 [facility] Serum or plasma creatinine m easurement (mass/volume)Ordered By: Dr. Trejo on 03-23-2022 Creatinine [Mass/Vol] 0.93 mg/dL 0.55-1.02 [facility] Comment on above: The validity of the calculated GFR & GFRAA in patients over 70 years has not been determined. Clinical correlation is essential. Serum or plasma urea nitroge n measurement (mass/volume)Ordered By: Dr. Trejo on 03-23-2022 Urea nitrogen [Mass/Vol] 20 mg/dL 7-18 [facility] Thin prep Papanicolaou smear with manual screeningOrdered By: Dr. Trejo on 03-23-2022 Thin prep Papanicolaou smear with manual screening 18 U/L 15-37 [facility] Thin prep Papanicolaou smear with manual screening 6 5-15 [facility] No Panel InformationOrdered By: Dr. Kelly on 03-19-2022 Vitamin D 25-Hydroxy 49.2 ng/mL [facility] Comment on above: Vitamin D 25(OH) Sta tus Range Deficiency <20 ng/mL (50nmol/L) Insufficiency 20 - 30 ng/mL (50 - 75 nmol/L) Sufficiency 30 - 100 ng/mL (75 - 250 nmol/L) Toxicity >100 ng/mL (>250 nmol/L) Absolute lymphocyte counton 12-29-2021 Lymphocytes Auto (Unsp spec) [#/Vol] 1.09 10*3/uL 0.83-4.51 [facility] Work Phone: Basophil percentageon 2021 Basophils/100 WBC (Bld) 0.9 % 0-1 [facility] Work Phone: Bilirubin [Mass/Vol] 0.40 mg/dL 0.20-1.00 [facility] Work Phone: Comment on above: For patients on eltr ombopag therapy, use of Dimension Gregory TBIL is not recommended. Chloride [Moles/Vol] 101 mmol/L 98-107 [facility] Work Phone: Eosinophils/100 WBC (Bld) 4.9 % 0-5 [facility] Work Phone: Glucose [Mass/Vol] 94 mg/dL 74-106 [facility] Work Phone: Neutrophils (Bld) [#/Vol] 2.5 10*3/uL 2.0-7.7 [facility] Work Phone: Neutrophils/100 WBC (Bld) 57.8 % 47-70 [facility] Work Phone: Potassium [Moles/Vol] 4.3 mmol/L 3.5-5.1 [facility] Work Phone: [phone] Protein [Mass/Vol] 7.4 g/dL 6.4-8.2 [facility]: Sodium [Moles/Vol] 137 mmol/L 136-145 [facility] Work Phone: [phone] WBC (Bld) [#/Vol] 4.3 10*3/uL 4.4-11.0 [facility] Work Phone: [phone] Blood erythrocytes count (nu mber/volume)on 12-29-2021 RBC (Bld) [#/Vol] 3.95 10*6/uL 4.2-5.4 [facility]: [phone] Blood hemoglobin measurement (mass/volume)on 12-29-2021 Hemoglobin (Bld) [Mass/Vol] 12.7 g/dL 12.0-15.0 [facility] Work Phone: Blood lymphocytes/100 leukoc yteson 12-29-2021 Lymphocytes/100 WBC (Bld) 25.6 % 19-41 [facility] Work Phone: Blood monocytes/100 leukocyt eson 12-29-2021 Monocytes/100 WBC (Bld) 10.3 % 0-10 [facility] Work Phone: Blood platelet mean volumeon 08-19-2022 Platelet mean volume (Bld) [Entitic vol] 10.2 fL 6.2-12.0 [facility] Work Phone: Determination of erythrocyte mean corpuscular volume (MCV)on 12-29-2021 MCV (RBC) [Entitic vol] 96.5 fL 81-99 [facility] Work Phone: Hematocrit Auto (Bld) [Volum e fraction]on 12-29-2021 Hematocrit (Bld) [Volume fraction] 38.1 % 37-47 [facility] Work Phone: Laboratory - Chemistry and C hemistry - challengeon 12-29-2021 ALP [Catalytic activity/Vol] 58 U/L 45-117 [facility] Work Phone: ALT [Catalytic activity/Vol] 27 U/L 13-56 [facility] Work Phone: CO2 [Moles/Vol] 32.0 mmol/L 21.0-32.0 [facility] Work Phone: Globulin (S) [Mass/Vol] 3.6 g/dL 2.2-4.2 [facility] Work Phone: Urea nitrogen/Creatinine [Mass ratio] 21.2 mg/mg 10-20 [facility] Work Phone: Laboratory - Hematology and Cell countson 12-29-2021 Erythrocyte distribution width (RBC) [Entitic vol] 49.1 fL 35.1-43.9 [facility] Work Phone: Erythrocyte distribution width (RBC) [Ratio] 14.0 % 11.6-14.6 [facility] Work Phone: Immature granulocytes/100 WBC (Bld) 0.500 % 0.0-0.9 [facility] Work Phone: Comment on above: IG% - Immature Granu locytes (promyelocytes, myelocytes and metamyelocytes) > 1% indicates that a LEFT SHIFT is Present. MCH (RBC) [Entitic mass] 32.2 pg 27.0-32.0 [facility] Work Phone: Nucleated RBC/100 WBC (Bld) [Ratio] 0 % 0-5 [facility] Work Phone: MCHC Auto (RBC) [Mass/Vol]on 12-29-2021 MCHC (RBC) [Mass/Vol] 33.3 g/dL 32-36 [facility] Work Phone: No Panel Informationon 12-29 Estimated GFR (MDRD) Amer 90 mL/min >60 [facility] Work Phone: Comment on above: GFR Calc Estimated GFR (MDRD) Non-Af Amer 75 mL/min >60 [facility] Work Phone: Comment on above: Non- GFR Calc Platelets bldon 12-29-2021 Platelets (Bld) [#/Vol] 243 10*3/uL 150-450 [facility] Work Phone: Serum or plasma albumin jasmine urement (mass/volume)on 12-29-2021 Albumin [Mass/Vol] 3.8 g/dL 3.2-5.0 [facility] Work Phone: Serum or plasma albumin/glob ulin mass ratioon 12-29-2021 Albumin/Globulin [Mass ratio] 1.1 {ratio} 0.9-2.4 [facility] Work Phone: Serum or plasma calcium jasmine urement (mass/volume)on 12-29-2021 Calcium [Mass/Vol] 9.2 mg/dL 8.5-10.1 [facility] Work Phone: Serum or plasma creatinine m easurement (mass/volume)on 12-29-2021 Creatinine [Mass/Vol] 0.80 mg/dL 0.55-1.02 [facility] Work Phone: Comment on above: The validity of the calculated GFR & GFRAA in patients over 70 years has not been determined. Clinical correlation is essential. Serum or plasma urea nitroge n measurement (mass/volume)on 12-29-2021 Urea nitrogen [Mass/Vol] 17 mg/dL 7-18 [facility] Work Phone: Thin prep Papanicolaou smear with manual screeningon 12-29-2021 Thin prep Papanicolaou smear with manual screening 18 U/L 15-37 [facility] Work Phone: Thin prep Papanicolaou smear with manual screening 4 5-15 [facility] Work Phone: CR Spine Cervical 4+ Viewson 11-16-2021 CR Spine Cervical 4+ Views Patient Name: ARIADNA LOBATO Diagnostic Radiology ACCESSION EXAM DATE/TIME PROCEDURE ORDERING PROVIDER [id number] 11/16/2021 10:51 EDT CR Spine Cervical 4+ RYAN CHRISTOPHER CPT code 87624 Reason For Exam (CR Spine Cervical 4+ [...] ALFRED Transcribed Date and Time: 11/17/2021 10:20 Normal [facility] CR Spine Cervical Comp w/ Ob liques/Flexon 11-16-2021 CR Spine Cervical Comp w/ Obliques/Flex Patient Name: ARIADNA LOBATO Diagnostic Radiology ACCESSION EXAM DATE/TIME PROCEDURE ORDERING PROVIDER [id number] 11/16/2021 10:51 EDT CR Spine Cervical Comp BAVIS, RYAN w/ Obliques CPT code 42484 Reason For Exam (CR Spine Cervical Comp [...] Transcribed Date and Time: 11/19/2021 7:45 Normal [facility] Absolute lymphocyte counton 10-16-2021 Lymphocytes Auto (Unsp spec) [#/Vol] 0.98 10*3/uL 0.83-4.51 [facility] Work Phone: Basophil percentageon 2021 Basophils/100 WBC (Bld) 0.6 % 0-1 [facility] Work Phone: Bilirubin [Mass/Vol] 0.40 mg/dL 0.20-1.00 [facility] Work Phone: Comment on above: For patients on eltr ombopag therapy, use of Dimension Gregory TBIL is not recommended. Chloride [Moles/Vol] 101 mmol/L 98-107 [facility] Work Phone: [phone] Eosinophils/100 WBC (Bld) 3.9 % 0-5 [facility] Work Phone: Glucose [Mass/Vol] 108 mg/dL 74-106 [facility] Work Phone: Comment on above: Fasting Glucose resu lt from 100 to 125 mg/dL suggests IMPAIRED HOMEOSTASIS per A.D.A. criteria. Neutrophils (Bld) [#/Vol] 1.9 10*3/uL 2.0-7.7 [facility] Work Phone: Neutrophils/100 WBC (Bld) 56.9 % 47-70 [facility] Work Phone: Potassium [Moles/Vol] 4.2 mmol/L 3.5-5.1 [facility]: Protein [Mass/Vol] 7.4 g/dL 6.4-8.[facility] Work [facility]: Sodium [Moles/Vol] 136 mmol/L 136-145 [facility] Work Phone: WBC (Bld) [#/Vol] 3.3 10*3/uL 4.4-11.0 [facility] Work Phone: Blood erythrocytes count (nu mber/volume)on 10-16-2021 RBC (Bld) [#/Vol] 4.07 10*6/uL 4.2-5.4 [facility] Work Phone: [phone] Blood hemoglobin measurement (mass/volume)on 10-16-2021 Hemoglobin (Bld) [Mass/Vol] 12.8 g/dL 12.0-15.0 [facility] Work Phone: Blood lymphocytes/100 leukoc yteson 10-16-2021 Lymphocytes/100 WBC (Bld) 29.3 % 19-41 [facility] Work Phone: Blood monocytes/100 leukocyt eson 10-16-2021 Monocytes/100 WBC (Bld) 9.0 % 0-10 [facility] Work Phone: Blood platelet mean volumeon 10-16-2021 Platelet mean volume (Bld) [Entitic vol] 10.2 fL 6.2-12.0 [facility] Work Phone: Determination of erythrocyte mean corpuscular volume (MCV)on 10-16-2021 MCV (RBC) [Entitic vol] 95.3 fL 81-99 [facility] Work Phone: Hematocrit Auto (Bld) [Volum e fraction]on 10-16-2021 Hematocrit (Bld) [Volume fraction] 38.8 % 37-47 [facility] Work Phone: Laboratory - Chemistry and C hemistry - challengeon 10-16-2021 ALP [Catalytic activity/Vol] 52 U/L 45-117 [facility] Work Phone: ALT [Catalytic activity/Vol] 26 U/L 13-56 [facility] Work Phone: CO2 [Moles/Vol] 29.0 mmol/L 21.0-32.0 [facility] Work Phone: Globulin (S) [Mass/Vol] 3.4 g/dL 2.2-4.2 [facility] Work Phone: Urea nitrogen/Creatinine [Mass ratio] 23.5 mg/mg 10-20 [facility] Work Phone: Laboratory - Hematology and Cell countson 10-16-2021 Erythrocyte distribution width (RBC) [Entitic vol] 51.6 fL 35.1-43.9 [facility] Work Phone: Erythrocyte distribution width (RBC) [Ratio] 14.9 % 11.6-14.6 [facility] Work Phone: Immature granulocytes/100 WBC (Bld) 0.300 % 0.0-0.9 [facility] Work Phone: Comment on above: IG% - Immature Granu locytes (promyelocytes, myelocytes and metamyelocytes) > 1% indicates that a LEFT SHIFT is Present. MCH (RBC) [Entitic mass] 31.4 pg 27.0-32.0 [facility] Work Phone: Nucleated RBC/100 WBC (Bld) [Ratio] 0 % 0-5 [facility] Work Phone: MCHC Auto (RBC) [Mass/Vol]on 10-16-2021 MCHC (RBC) [Mass/Vol] 33.0 g/dL 32-36 [facility] Work Phone: No Panel Informationon 10-16 Estimated GFR (MDRD) Amer 76 mL/min >60 [facility] Work Phone: Comment on above: GFR Calc Estimated GFR (MDRD) Non-Af Amer 63 mL/min >60 [facility] Work Phone: Comment on above: Non- GFR Calc Platelets bldon 10-16-2021 Platelets (Bld) [#/Vol] 246 10*3/uL 150-450 [facility] Work Phone: Serum or plasma albumin jasmine urement (mass/volume)on 10-16-2021 Albumin [Mass/Vol] 4.0 g/dL 3.2-5.0 [facility] Work Phone: Serum or plasma albumin/glob ulin mass ratioon 10-16-2021 Albumin/Globulin [Mass ratio] 1.2 {ratio} 0.9-2.4 [facility] Work Phone: Serum or plasma calcium jasmine urement (mass/volume)on 10-16-2021 Calcium [Mass/Vol] 9.2 mg/dL 8.5-10.1 [facility] Work Phone: Serum or plasma creatinine m easurement (mass/volume)on 10-16-2021 Creatinine [Mass/Vol] 0.94 mg/dL 0.55-1.02 [facility] Work Phone: Comment on above: The validity of the calculated GFR & GFRAA in patients over 70 years has not been determined. Clinical correlation is essential. Serum or plasma urea nitroge n measurement (mass/volume)on 10-16-2021 Urea nitrogen [Mass/Vol] 22 mg/dL 7-18 [facility] Work Phone: Thin prep Papanicolaou smear with manual screeningon 10-16-2021 Thin prep Papanicolaou smear with manual screening 13 U/L 15-37 [facility] Work Phone: Thin prep Papanicolaou smear with manual screening 6 5-15 [facility] Work Phone: Absolute lymphocyte counton 07-27-2021 Lymphocytes Auto (Unsp spec) [#/Vol] 0.97 10*3/uL 0.83-4.51 [facility] Work Phone: Basophil percentageon 2021 Basophils/100 WBC (Bld) 0.6 % 0-1 [facility] Work Phone: Bilirubin [Mass/Vol] 0.40 mg/dL 0.20-1.00 [facility] Work Phone: Comment on above: For patients on eltr ombopag therapy, use of Dimension Gregory TBIL is not recommended. Chloride [Moles/Vol] 103 mmol/L 98-107 [facility] Work Phone: Eosinophils/100 WBC (Bld) 5.0 % 0-5 [facility] Work Phone: Glucose [Mass/Vol] 102 mg/dL 74-106 [facility] Work Phone: Comment on above: Fasting Glucose resu lt from 100 to 125 mg/dL suggests IMPAIRED HOMEOSTASIS per A.D.A. criteria. Neutrophils (Bld) [#/Vol] 1.8 10*3/uL 2.0-7.7 [facility] Work Phone: Neutrophils/100 WBC (Bld) 55.6 % 47-70 [facility] Work Phone: Potassium [Moles/Vol] 4.3 mmol/L 3.5-5.1 [facility] Work Phone: Protein [Mass/Vol] 7.1 g/dL 6.4-8.2 [facility] Work Phone: Sodium [Moles/Vol] 137 mmol/L 136-145 [facility] Work Phone: WBC (Bld) [#/Vol] 3.2 10*3/uL 4.4-11.0 [facility] Work [facility]: Blood erythrocytes count (nu mber/volume)on 07-27-2021 RBC (Bld) [#/Vol] 4.06 10*6/uL 4.2-5.4 [facility] Work Phone: Blood hemoglobin measurement (mass/volume)on 07-27-2021 Hemoglobin (Bld) [Mass/Vol] 13.0 g/dL 12.0-15.0 [facility] Work Phone: Blood lymphocytes/100 leukoc yteson 07-27-2021 Lymphocytes/100 WBC (Bld) 30.6 % 19-41 [facility] Work Phone: Blood monocytes/100 leukocyt eson 07-27-2021 Monocytes/100 WBC (Bld) 7.9 % 0-10 [facility] Work Phone: Blood platelet mean volumeon 07-27-2021 Platelet mean volume (Bld) [Entitic vol] 10.0 fL 6.2-12.0 [facility] Work Phone: Determination of erythrocyte mean corpuscular volume (MCV)on 07-27-2021 MCV (RBC) [Entitic vol] 94.6 fL 81-99 [facility] Work Phone: Hematocrit Auto (Bld) [Volum e fraction]on 07-27-2021 Hematocrit (Bld) [Volume fraction] 38.4 % 37-47 [facility] Work Phone: Laboratory - Chemistry and C hemistry - challengeon 07-27-2021 ALP [Catalytic activity/Vol] 57 U/L 45-117 [facility] Work Phone: ALT [Catalytic activity/Vol] 23 U/L 13-56 [facility] Work Phone: CO2 [Moles/Vol] 29.0 mmol/L 21.0-32.0 [facility] Work Phone: Globulin (S) [Mass/Vol] 3.3 g/dL 2.2-4.2 [facility] Work Phone: Urea nitrogen/Creatinine [Mass ratio] 15.0 mg/mg 10-20 [facility] Work Phone: Laboratory - Hematology and Cell countson 07-27-2021 Erythrocyte distribution width (RBC) [Entitic vol] 47.1 fL 35.1-43.9 [facility] Work Phone: Erythrocyte distribution width (RBC) [Ratio] 13.5 % 11.6-14.6 [facility] Work Phone: Immature granulocytes/100 WBC (Bld) 0.300 % 0.0-0.9 [facility] Work Phone: Comment on above: IG% - Immature Granu locytes (promyelocytes, myelocytes and metamyelocytes) > 1% indicates that a LEFT SHIFT is Present. MCH (RBC) [Entitic mass] 32.0 pg 27.0-32.0 [facility] Work Phone: Nucleated RBC/100 WBC (Bld) [Ratio] 0 % 0-5 [facility] Work Phone: MCHC Auto (RBC) [Mass/Vol]on 07-27-2021 MCHC (RBC) [Mass/Vol] 33.9 g/dL 32-36 [facility] Work Phone: No Panel Informationon 07-27 Estimated GFR (MDRD) Amer 76 mL/min >60 [facility] Work Phone: Comment on above: GFR Calc Estimated GFR (MDRD) Non-Af Amer 63 mL/min >60 [facility] Work Phone: Comment on above: Non- GFR Calc Platelets bldon 07-27-2021 Platelets (Bld) [#/Vol] 272 10*3/uL 150-450 [facility] Work Phone: Serum or plasma albumin jasmine urement (mass/volume)on 07-27-2021 Albumin [Mass/Vol] 3.8 g/dL 3.2-5.0 [facility] Work Phone: Serum or plasma albumin/glob ulin mass ratioon 07-27-2021 Albumin/Globulin [Mass ratio] 1.2 {ratio} 0.9-2.4 [facility] Work Phone: Serum or plasma calcium jasmine urement (mass/volume)on 07-27-2021 Calcium [Mass/Vol] 9.4 mg/dL 8.5-10.1 [facility] Work Phone: Serum or plasma creatinine m easurement (mass/volume)on 07-27-2021 Creatinine [Mass/Vol] 0.93 mg/dL 0.55-1.02 [facility] Work Phone: Comment on above: The validity of the calculated GFR & GFRAA in patients over 70 years has not been determined. Clinical correlation is essential. Serum or plasma urea nitroge n measurement (mass/volume)on 07-27-2021 Urea nitrogen [Mass/Vol] 14 mg/dL 7-18 [facility] Work Phone: Thin prep Papanicolaou smear with manual screeningon 07-27-2021 Thin prep Papanicolaou smear with manual screening 13 U/L 15-37 [facility] Work Phone: Thin prep Papanicolaou smear with manual screening 5 5-15 [facility] Work Phone: Absolute lymphocyte counton 05-03-2021 Lymphocytes Auto (Unsp spec) [#/Vol] 1.07 10*3/uL 0.83-4.51 [facility] Work Phone: Basophil percentageon 2020 Bilirubin [Mass/Vol] 0.50 mg/dL 0.20-1.00 [facility] Work Phone: Comment on above: For patients on eltr ombopag therapy, use of Dimension Gregory TBIL is not recommended. Chloride [Moles/Vol] 104 mmol/L 98-107 [facility] Work Phone: [phone] Eosinophils/100 WBC (Bld) 4.1 % 0-5 [facility] Work Phone: [phone] Glucose [Mass/Vol] 112 mg/dL 74-106 [facility] Work Phone: [phone] Comment on above: Fasting Glucose resu lt from 100 to 125 mg/dL suggests IMPAIRED HOMEOSTASIS per A.D.A. criteria.Please note revised GLUCOSE reference range effective 2017. Neutrophils (Bld) [#/Vol] 3.1 10*3/uL 2.0-7.7 [facility] Work Phone: [phone] Potassium [Moles/Vol] 4.2 mmol/L 3.5-5.1 [facility] Work Phone: [phone] Protein [Mass/Vol] 7.8 g/dL 6.4-8.2 [facility] Work Phone: [phone] Sodium [Moles/Vol] 138 mmol/L 136-145 [facility] Work Phone: [phone] WBC (Bld) [#/Vol] 4.9 10*3/uL 4.4-11.0 [facility] Work Phone: [phone] Blood erythrocytes count (nu mber/volume)on 05-03-2021 RBC (Bld) [#/Vol] 4.16 10*6/uL 4.2-5.4 [facility] Work Phone: [phone] Blood hemoglobin measurement (mass/volume)on 05-03-2021 Hemoglobin (Bld) [Mass/Vol] 13.3 g/dL 12.0-15.0 [facility] Work Phone: [phone] Blood lymphocytes/100 leukoc yteson 05-03-2021 Lymphocytes/100 WBC (Bld) 21.8 % 19-41 [facility] Work Phone: [phone] Blood monocytes/100 leukocyt eson 05-03-2021 Monocytes/100 WBC (Bld) 9.6 % 0-10 [facility] Work Phone: Blood platelet mean volumeon 05-03-2021 Platelet mean volume (Bld) [Entitic vol] 10.0 fL 6.2-12.0 [facility] Work Phone: Determination of erythrocyte mean corpuscular volume (MCV)on 05-03-2021 MCV (RBC) [Entitic vol] 93.5 fL 81-99 [facility] Work Phone: Hematocrit Auto (Bld) [Volum e fraction]on 05-03-2021 Hematocrit (Bld) [Volume fraction] 38.9 % 37-47 [facility] Work Phone: Laboratory - Chemistry and C hemistry - challengeon 05-03-2021 ALP [Catalytic activity/Vol] 68 U/L 45-117 [facility] Work Phone: ALT [Catalytic activity/Vol] 21 U/L 13-56 [facility] Work Phone: CO2 [Moles/Vol] 29.0 mmol/L 21.0-32.0 [facility] Work Phone: Globulin (S) [Mass/Vol] 3.8 g/dL 2.2-4.2 [facility] Work Phone: Urea nitrogen/Creatinine [Mass ratio] 18.1 mg/mg 10-20 [facility] Work Phone: Laboratory - Hematology and Cell countson 05-03-2021 Basophils/100 WBC (Unsp spec) 0.8 % 0-1 [facility] Work Phone: Erythrocyte distribution width (RBC) [Entitic vol] 47.8 fL 35.1-43.9 [facility] Work Phone: Erythrocyte distribution width (RBC) [Ratio] 14.0 % 11.6-14.6 [facility] Work Phone: Immature granulocytes/100 WBC (Bld) 0.200 % 0.0-0.9 [facility] Work Phone: Comment on above: IG% - Immature Granu locytes (promyelocytes, myelocytes and metamyelocytes) > 1% indicates that a LEFT SHIFT is Present. MCH (RBC) [Entitic mass] 32.0 pg 27.0-32.0 [facility] Work Phone: Neutrophils/100 WBC (Bld) 63.5 % 47-70 [facility] Work Phone: Nucleated RBC/100 WBC (Bld) [Ratio] 0 % 0-5 [facility] Work Phone: MCHC Auto (RBC) [Mass/Vol]on 05-03-2021 MCHC (RBC) [Mass/Vol] 34.2 g/dL 32-36 [facility] Work Phone: No Panel Informationon 05-03 Estimated GFR (MDRD) Amer 75 mL/min >60 [facility] Work Phone: Comment on above: GFR Calc Estimated GFR (MDRD) Non-Af Amer 62 mL/min >60 [facility] Work Phone: Comment on above: Non- GFR Calc Platelets bldon 05-03-2021 Platelets (Bld) [#/Vol] 272 10*3/uL 150-450 [facility] Work Phone: Serum or plasma albumin jasmine urement (mass/volume)on 05-03-2021 Albumin [Mass/Vol] 4.0 g/dL 3.2-5.0 [facility] Work Phone: Serum or plasma albumin/glob ulin mass ratioon 05-03-2021 Albumin/Globulin [Mass ratio] 1.1 {ratio} 0.9-2.4 [facility] Work Phone: Serum or plasma calcium jasmine urement (mass/volume)on 05-03-2021 Calcium [Mass/Vol] 9.3 mg/dL 8.5-10.1 [facility] Work Phone: Serum or plasma creatinine m easurement (mass/volume)on 05-03-2021 Creatinine [Mass/Vol] 0.94 mg/dL 0.55-1.02 [facility] Work Phone: Comment on above: The validity of the calculated GFR & GFRAA in patients over 70 years has not been determined. Clinical correlation is essential. Serum or plasma urea nitroge n measurement (mass/volume)on 05-03-2021 Urea nitrogen [Mass/Vol] 17 mg/dL 7-18 [facility] Work Phone: Thin prep Papanicolaou smear with manual screeningon 05-03-2021 Thin prep Papanicolaou smear with manual screening 14 U/L 15-37 [facility] Work Phone: Thin prep Papanicolaou smear with manual screening 5 5-15 [facility] Work Phone: MRI Brain w/ + w/o Contrasto n 02-08-2021 MRI Brain w/ + w/o Contrast Patient Name: ARIADNA LOBATO Magnetic Resonance Imaging ACCESSION EXAM DATE/TIME PROCEDURE ORDERING PROVIDER [id number] 02/08/2021 14:59 EDT MRI Brain w/ + w/o RYAN CHRISTOPHER Contrast CPT code 89708 Reason For Exam (MRI Brain w/ + [...] J Transcribed Date and Time: 02/10/2021 5:34 [facility] LACERATION REPAIROrdered By: Aries Barrios on [...] to verify the correct patient, procedure, equipment, systems support specialist and site/side marked as required. [...] the procedure well with no immediate complications [facility] Office Visit: suture removal on 02-19-2017 Alcoholism counseling (procedure) no Invalid Interpretation Code [facility] Work Phone: Documentation of current medications (procedure) Done Invalid Interpretation Code [facility] Work Phone: Fall risk assessment No Invalid Interpretation Code [facility] Work Phone: Protein mass conc Done Invalid Interpretation Code [facility] Work Phone: Protein mass conc no Invalid Interpretation Code [facility] Work Phone: Tobacco smoking status NHIS Never Invalid Interpretation Code [facility] Work Phone: Tobacco smoking status NHIS Never smoker Invalid Interpretation Code [facility] Work Phone: Tobacco use CPHS Never smoker Invalid Interpretation Code [facility] Work Phone: Office Visit: Post Op Excisi on of cyst X2on 02-13-2017 Fall risk assessment No Invalid Interpretation Code [facility] Work Phone: Protein mass conc Done Invalid Interpretation Code [facility] Work Phone: Protein mass conc no Invalid Interpretation Code [facility] Work Phone: Tobacco smoking status NHIS Never Invalid Interpretation Code [facility] Work Phone: Tobacco smoking status MOIS Never smoker Invalid Interpretation Code [facility] Work Phone: Office Visit: excision cyst abdomen and upper backon 02-07-2017 Alcoholism counseling (procedure) no Invalid Interpretation Code [facility] Work Phone: Documentation of current medications (procedure) Done Invalid Interpretation Code [facility] Work Phone: Fall risk assessment No Invalid Interpretation Code [facility] Work Phone: Tobacco smoking status NHIS Never Invalid Interpretation Code [facility] Work Phone: Tobacco use CPHS Never smoker Invalid Interpretation Code [facility] Work Phone: Office Visiton 01-01-2017 Alcoholism counseling (procedure) no Invalid Interpretation Code [facility] Work Phone: Documentation of current medications (procedure) Done Invalid Interpretation Code [facility] Work Phone: Tobacco smoking status NHIS Never Invalid Interpretation Code [facility] Work Phone: Tobacco use CPHS Never smoker Invalid Interpretation Code [facility] Work Phone: Vital Signs Date Time Vital Sign Value Performing Clinician Facility 10-22-2024 10:08-0400 Body height 160.[address] Kelley Maldonado MD Work Phone: [facility] 10-22-2024 10:08-0400 Body mass index (BMI) [Ratio] 25.1 kg/m2 Dr. Kelley Maldonado MD Work Phone: [facility] 10-22-2024 10:08-0400 Body temperature 97.5 [degF] Dr. Kelley Maldonado MD Work Phone: [facility] 10-22-2024 10:08-0400 Body weight 64.[address] Kelley Maldonado MD Work Phone: [facility] 10-22-2024 10:08-0400 Diastolic blood pressure 82 mm[Hg] Dr. Kelley Maldonado MD Work Phone: [facility] 10-22-2024 10:08-0400 Heart rate 60 /min Dr. Kelley Maldonado MD Work Phone: [facility] 10-22-2024 10:08-0400 Respiratory rate 16 /min Dr. Kelley Maldonado MD Work Phone: [facility] 10-22-2024 10:08-0400 SaO2% (BldA) [Mass fraction] 99 % Dr. Kelley Maldonado MD Work Phone: [facility] 10-22-2024 10:08-0400 Systolic blood pressure 126 mm[Hg] Dr. Kelley Maldonado MD Work Phone: [facility] 09-30-2024 11:34-0400 Body height 157.5 cm Og David [employer] Work Phone: [email or web address] 09-30-2024 11:34-0400 Body mass index (BMI) [Ratio] 26.19 kg/m2 Og David [employer] Work Phone: [facility] [email or web address] 09-30-2024 11:34-0400 Body weight 64.95 kg Og David [employer] - [employer] Work Phone: [facility] [email or web address] 09-30-2024 11:34-0400 Diastolic blood pressure 81 mm[Hg] Og David [employer] - [employer] Work Phone: [facility] [email or web address] 09-30-2024 11:34-0400 Heart rate 60 /min Og David [employer] Work Phone: [facility] [email or web address] 09-30-2024 11:34-0400 Systolic blood pressure 129 mm[Hg] Og David [employer] - [employer] Work Phone: [facility] [email or web address] 07-03-2024 10:49-0500 Body height 157.5 cm Og David CLE[employer] - [employer] Work Phone: [facility] [email or web address] 07-03-2024 10:49-0500 Body mass index (BMI) [Ratio] 26.52 kg/m2 Og David [employer] Work Phone: [facility] [email or web address] 07-03-2024 10:49-0500 Body weight 65.77 kg Og David [employer] - [employer] Work Phone: [facility] [email or web address] 07-03-2024 10:49-0500 Diastolic blood pressure 65 mm[Hg] Og David [employer] - [employer] Work Phone: [facility] [email or web address] 07-03-2024 10:49-0500 Heart rate 61 /min Og David CLE[employer]ER AND [employer] - [employer] Work Phone: [facility] 07-03-2024 10:49-0500 Systolic blood pressure 98 mm[Hg] Og Johnson APRN - FRONT DESK [employer]OST Work Phone: [facility] 04-14-2024 09:53-0500 Body height 160.[address] Kelley Maldonado MD Work Phone: [facility] 04-14-2024 09:53-0500 Body mass index (BMI) [Ratio] 25.7 kg/m2 Dr. Kelley Maldonado MD Work Phone: [facility] 04-14-2024 09:53-0500 Body temperature 97.5 [degF] Dr. Kelley Maldonado MD Work Phone: [facility] 04-14-2024 09:53-0500 Body weight 65.[address] Kelley Maldonado MD Work Phone: [facility] 04-14-2024 09:53-0500 Diastolic blood pressure 84 mm[Hg] Dr. Kelley Maldonado MD Work Phone: [facility] 04-14-2024 09:53-0500 Heart rate 59 /min Dr. Kelley Maldonado MD Work Phone: [facility] 04-14-2024 09:53-0500 Respiratory rate 14 /min Dr. Kleley Maldonado MD Work Phone: [facility] 04-14-2024 09:53-0500 SaO2% (BldA) [Mass fraction] 95 % Dr. Kelley Maldonado MD Work Phone: [facility] 04-14-2024 09:53-0500 Systolic blood pressure 132 mm[Hg] Dr. Kelley Maldonado MD Work Phone: [facility] 02-06-2024 12:31-0400 Body height 157.5 cm Og Johnson APRN - FRONT DESK HOST Work Phone: [facility] 02-06-2024 12:31-0400 Body mass index (BMI) [Ratio] 26.63 kg/m2 Og Johnson [employer] - [employer] Work Phone: [facility] [email or web address] 02-06-2024 12:31-0400 Body weight 66.04 kg Og Johnson [employer] AND [employer]ER - [employer] Work Phone: [facility] [email or web address] 02-06-2024 12:31-0400 Diastolic blood pressure 67 mm[Hg] Og Johnson CLE[employer]ER AND [employer]ER - [employer] Work Phone: [facility] [email or web address] 02-06-2024 12:31-0400 Heart rate 62 /min Og Johnson CLE[employer]ER AND [employer]ER - [employer] Work Phone: [facility] [email or web address] 02-06-2024 12:31-0400 Systolic blood pressure 126 mm[Hg] Og Johnson CLE[employer] AND [employer]ER - [employer] Work Phone: [facility] [email or web address] 11-07-2023 12:59-0400 Body height 157.5 cm Ryan Christopher MD Work Phone: [facility] [email or web address] 11-07-2023 12:59-0400 Body mass index (BMI) [Ratio] 26.92 kg/m2 Ryan Christopher MD Work Phone: [facility] [email or web address] 11-07-2023 12:59-0400 Body weight 66.77 kg Ryan Christopher MD Work Phone: [facility] [email or web address] 11-07-2023 12:59-0400 Diastolic blood pressure 71 mm[Hg] Ryan Christopher MD Work Phone: [facility] [email or web address] 11-07-2023 12:59-0400 Heart rate 60 /min Ryan Christopher MD Work Phone: [facility] [email or web address] 11-07-2023 12:59-0400 Systolic blood pressure 127 mm[Hg] Ryan Christopher MD Work Phone: [facility] [email or web address] 04-08-2023 09:29-0500 Body height 157.[address] Kelley Maldonado Work Phone: [facility] 04-08-2023 09:29-0500 Body mass index (BMI) [Ratio] 26.9 kg/m2 Dr. Kelley Maldonado Work Phone: [facility] 04-08-2023 09:29-0500 Body temperature 97.4 [degF] Dr. Kelley Maldonado Work Phone: [facility] 04-08-2023 09:29-0500 Body weight 66.[address] Kelley Maldonado Work Phone: [facility] 04-08-2023 09:29-0500 Diastolic blood pressure 74 mm[Hg] Dr. Kelley Maldonado Work Phone: [facility] 04-08-2023 09:29-0500 Heart rate 73 /min Dr. Kelley Maldonado Work Phone: [facility] 04-08-2023 09:29-0500 Respiratory rate 14 /min Dr. Kelley Maldonado Work Phone: [facility] 04-08-2023 09:29-0500 SaO2% (BldA) [Mass fraction] 99 % Dr. Kelley Maldonado Work Phone: [facility] 04-08-2023 09:29-0500 Systolic blood pressure 110 mm[Hg] Dr. Kelley Maldonado Work Phone: [facility] 02-28-2023 08:04-0400 Body height 157.[address] Kelley Maldonado Work Phone: [facility] 02-28-2023 08:04-0400 Body mass index (BMI) [Ratio] 26.9 kg/m2 Dr. Kelley Maldonado Work Phone: [facility] 02-28-2023 08:04-0400 Body weight 66.[address] Kelley Maldonado Work Phone: [facility] 02-28-2023 08:04-0400 Diastolic blood pressure 76 mm[Hg] Dr. Kelley Maldonado Work Phone: [facility] 02-28-2023 08:04-0400 Systolic blood pressure 138 mm[Hg] Dr. Kelley Maldonado Work Phone: [facility] 02-14-2023 10:02-0400 Body mass index (BMI) [Ratio] 26.6 kg/m2 Dr. Kelley Maldonado Work Phone: [facility] 02-14-2023 10:02-0400 Body temperature 95 [degF] Dr. Kelley Maldonaod Work Phone: [facility] 02-14-2023 10:02-0400 Body weight 65.[address] Kelley Maldonado Work Phone: [facility] 02-14-2023 10:02-0400 Diastolic blood pressure 82 mm[Hg] Dr. Kelley Maldonado Work Phone: [facility] 02-14-2023 10:02-0400 Heart rate 61 /min Dr. Kelley Maldonado Work Phone: [facility] 02-14-2023 10:02-0400 Respiratory rate 18 /min Dr. Kelley Maldonado Work Phone: [facility] 02-14-2023 10:02-0400 SaO2% (BldA) [Mass fraction] 99 % Dr. Kelley Maldonado Work Phone: [facility] 02-14-2023 10:02-0400 Systolic blood pressure 116 mm[Hg] Dr. Kelley Maldonado Work Phone: [facility] 11-06-2022 13:30-0400 Body mass index (BMI) [Ratio] 25.97 kg/m2 Ryan Christopher MD Work Phone: [facility] [email or web address] 11-06-2022 13:30-0400 Body weight 64.41 kg Ryan Christopher MD Work Phone: [facility] 11-06-2022 13:30-0400 Diastolic blood pressure 86 mm[Hg] Ryan Christopher MD Work Phone: [facility] 11-06-2022 13:30-0400 Heart rate 56 /min Ryan Christopher MD Work Phone: [facility] 11-06-2022 13:30-0400 Systolic blood pressure 141 mm[Hg] Ryan Christopher MD Work Phone: [facility] 09-05-2022 10:13-0400 Body height 157.5 cm Ryan Christopher MD Work Phone: [facility] 09-05-2022 10:13-0400 Body mass index (BMI) [Ratio] 25.97 kg/m2 Ryan Christopher MD Work Phone: [facility] 09-05-2022 10:13-0400 Body weight 64.41 kg Ryan Christopher MD Work Phone: [facility] 09-05-2022 10:13-0400 Diastolic blood pressure 70 mm[Hg] Ryan Christopher MD Work Phone: [facility] 09-05-2022 10:13-0400 Heart rate 63 /min Ryan Christopher MD Work Phone: [facility] 09-05-2022 10:13-0400 Systolic blood pressure 127 mm[Hg] Ryan Christopher MD Work Phone: [facility] 08-09-2022 08:59-0400 Body mass index (BMI) [Ratio] 26.2 kg/m2 Dr. Eamon Kelly Work Phone: [facility] 08-09-2022 08:59-0400 Body temperature 96 [degF] Dr. Eamon Kelly Work Phone: [facility] 08-09-2022 08:59-0400 Body weight 64.[address] Eamon Kelly Work Phone: [facility] 08-09-2022 08:59-0400 Diastolic blood pressure 86 mm[Hg] Dr. Eamon Kelly Work Phone: [facility] 08-09-2022 08:59-0400 Heart rate 60 /min Dr. Eamon Kelly Work Phone: [facility] 08-09-2022 08:59-0400 Respiratory rate 18 /min Dr. Eamon Kelly Work Phone: [facility] 08-09-2022 08:59-0400 SaO2% (BldA) [Mass fraction] 99 % Dr. Eamon Kelly Work Phone: [facility] 08-09-2022 08:59-0400 Systolic blood pressure 130 mm[Hg] Dr. Eamon Kelly Work Phone: [facility] 07-05-2022 11:55-0500 Diastolic blood pressure 86 mm[Hg] Dr. Eamon Kelly Work Phone: [facility] 07-05-2022 11:55-0500 Systolic blood pressure 142 mm[Hg] Dr. Eamon Kelly Work Phone: [facility] 07-05-2022 08:51-0500 Body mass index (BMI) [Ratio] 25.9 kg/m2 Dr. Eamon Kelly Work Phone: [facility] 07-05-2022 08:51-0500 Body temperature 97.1 [degF] Dr. Eamon Kelly Work Phone: [facility] 07-05-2022 08:51-0500 Body weight 64.[address] Eamon Kelly Work Phone: [facility] 07-05-2022 08:51-0500 Heart rate 62 /min Dr. Eamon Kelly Work Phone: [facility] 07-05-2022 08:51-0500 Respiratory rate 18 /min Dr. Eamon Kelly Work Phone: [facility] 07-05-2022 08:51-0500 SaO2% (BldA) [Mass fraction] 99 % Dr. Eamon Kelly Work Phone: [facility] 02-26-2022 08:45-0400 Body height 157.[address] Eamon Kelly Work Phone: [facility] 09-28-2020 15:08-0400 Body height 157.5 cm Aries Barrios MD Work Phone: [facility] 09-28-2020 15:08-0400 Body mass index (BMI) [Ratio] 25.61 kg/m2 Aries Barrios MD Work Phone: [facility] 09-28-2020 15:08-0400 Body temperature 98.49 [degF] Aries Barrios MD Work Phone: [facility] 09-28-2020 15:08-0400 Body weight 63.5 kg Aries Barrios MD Work Phone: [facility] 09-28-2020 15:08-0400 Diastolic blood pressure 92 mm[Hg] Aries Barrios MD Work Phone: [facility] 09-28-2020 15:08-0400 Heart rate 76 /min Aries Barrios MD Work Phone: [facility] 09-28-2020 15:08-0400 Respiratory rate 18 /min Aries Barrios MD Work Phone: [facility] 09-28-2020 15:08-0400 SaO2% (BldA) [Mass fraction] 98 % Aries Barrios MD Work Phone: [facility] 09-28-2020 15:08-0400 Systolic blood pressure 150 mm[Hg] Aries Barrios MD Work Phone: [facility] 01-01-2017 14:48-0400 BMI (Body Mass Index) 31.21 kg/m2 Talat Forrester MD [facility] Work Phone: 01-01-2017 14:48-0400 BP Diastolic 64 mm[Hg] Talat Forrester MD [facility] Work Phone: 01-01-2017 14:48-0400 BP Systolic 100 mm[Hg] Talat Forrester MD [facility] Work Phone: 01-01-2017 14:48-0400 Height 161.29 cm Talat Forrester MD [facility] Work Phone: 01-01-2017 14:48-0400 Pulse (Heart Rate) 70 /min Talat Forrester MD [facility] Work Phone: 01-01-2017 14:48-0400 Respiratory Rate 18 /min Talat Forrester MD [facility] Work Phone: 01-01-2017 14:48-0400 Weight 81.19 kg Talat Forrester MD [facility] Work Phone: 07-12-2011 08:09-0500 Body Temperature 98.1 [degF] Talat Forrester MD [facility] Work Phone: Encounters Encounter Date Encounter Type Care Provider Facility Start: 10-22-2024 End: 10-22-[address] Kelley Maldonado MD -[facility] Work Phone: Start: 10-22-2024 End: 10-22-[address] Kelley Maldonado MD Work Phone: [facility] Work Phone: Start: 10-21-2024 End: 10-21-[address] Kelley Maldonado MD Work Phone: [facility] Work Phone: Start: 10-21-2024 End: 10-21-[address] Trudy Trejo MD -[facility] Work Phone: Start: 10-21-2024 End: 10-21-2024 ambulatory Trudy Trejo Facility:[facility] Start: 09-30-2024 End: 09-30-2024 Office outpatient visit 15 minutes Og Johnson APRN [facility] Work Phone: [facility] Comment on above: Essential tremor (Pr imary Dx); Restless legs syndrome Start: 09-30-2024 End: 09-30-2024 ambulatory KELLEY MALDONADO [facility] Start: 07-23-2024 End: 07-23-[address] Kelley Maldonado MD Work Phone: [facility] Work Phone: Start: 07-23-2024 End: 07-23-[address] Trudy Trejo MD -[facility] [place] Work Phone: Start: 07-23-2024 End: 07-23-2024 ambulatory [facility] Facility:[facility] Start: 07-03-2024 End: 07-03-2024 Office outpatient visit 25 minutes Og Johnson [employer] Work Phone: [facility] Comment on above: Essential tremor (Pr imary Dx); Restless legs syndrome Start: 07-03-2024 End: 07-03-2024 ambulatory OG JOHNSON [facility] Start: 05-11-2024 End: 05-11-[address] Richard Moore MD -[facility] Work Phone: Start: 05-11-2024 End: 05-11-2024 ambulatory Kelley Maldonado Facility:[facility] Start: 04-21-2024 End: 04-21-2024 Refill Og Johnson [employer] Work Phone: [facility] Start: 04-21-2024 End: 04-21-[address] Trudy Trejo MD -[facility] [place] Work Phone: Start: 04-21-2024 End: 04-21-2024 ambulatory [facility] Facility:[facility] Start: 04-14-2024 End: 04-14-[address] Kelley Maldonado MD -[facility] Work Phone: Start: 04-14-2024 End: 04-14-2024 ambulatory Kelley Joel Facility:[facility] Start: 03-30-2024 Encounter for gynecological examination (general) (routine[facility] Start: 03-30-[facility]24 Encounter for gynecological examination (general) (routine) without abnormal findings Kiana Giraldo [facility] Start: 03-30-2024 End: 03-30-2024 ambulatory Kelley Joel Facility:[facility] Start: 03-20-2024 End: 03-20-2024 ambulatory Kelley [place] Facility:[facility] Start: 03-10-2024 End: 03-10-2024 ambulatory Kelley Joel Facility:[facility] Start: 03-10-2024 End: 03-10-2024 ambulatory Kelley Joel Facility:[facility] Start: 02-06-2024 End: 02-06-2024 Office outpatient visit [address] CNP Work Phone: [facility] Comment on above: Essential tremor (Pr imary Dx); Restless legs syndrome; Iron deficiency Start: 02-06-2024 End: 02-06-2024 ambulatory OG JOHNSON [facility] Start: 01-30-2024 End: 01-30-2024 ambulatory Trudy Trejo Facility:[facility] Start: 11-07-2023 End: 11-07-2023 Office outpatient visit 25 minutes Ryan Christopher MD Work Phone: [facility] Comment on above: Essential tremor (Pr imary Dx); Restless legs syndrome Start: 11-07-2023 End: 11-07-[address] [facility] Start: 10-25-2023 Refdiego Christopher MD Work Phone: [facility] Start: 09-08-2023 Refill Ryan Christopher MD Work Phone: [facility] Comment on above: Essential tremor Start: 08-25-2023 Refdiego Christopher MD Work Phone: [facility] Start: 08-06-2023 End: 08-06-[address] Kelley Maldonado Work Phone: [facility] Work Phone: Start: 08-06-2023 End: 08-06-[address] Kelley Maldonado Work Phone: [facility] Work Phone: Start: 05-16-2023 End: 05-16-[address] Kelley Maldonado Work Phone: [facility] Work Phone: Start: 05-16-2023 End: 05-16-[address] Kelley Maldonado Work Phone: [facility] Work Phone: Start: 04-30-2023 End: 04-30-[address] Kelley Maldonado Work Phone: [facility] Work Phone: Start: 04-12-2023 Refill Ryan Christopher MD Work Phone: [facility] Comment on above: Restless legs syndro me Start: 04-08-2023 End: 04-08-[address] Kelley Maldonado Work Phone: [facility] Work Phone: Start: 03-19-2023 End: 03-19-[address] Kelley Maldonado Work Phone: [facility] Work Phone: Start: 03-19-2023 End: 03-19-[address] Kelley Maldonado Work Phone: [facility] Work Phone: Start: 02-28-2023 End: 02-28-[address] Kelley Maldonado Work Phone: [facility] Start: 02-28-2023 End: 02-28-[address] Kelley Maldonado Work Phone: [facility] Work Phone: Start: 02-22-2023 End: 02-22-[address] Kelley Maldonado Work Phone: [facility] Work Phone: Start: 02-14-2023 End: 02-14-[address] Kelley Maldonado Work Phone: [facility] Work Phone: Start: 11-29-2022 End: 11-29-[address] Kelley Maldonado Work Phone: [facility] Work Phone: Start: 11-06-2022 End: 11-06-2022 Office outpatient visit 25 minutes Ryan Christopher MD Work Phone: [facility] Comment on above: Essential tremor (Pr imary Dx); Restless legs syndrome Start: 10-15-2022 Telephone encounter Ryan laguerre MD Work Phone: [facility] Comment on above: Discuss Medications Start: 09-05-2022 End: 09-05-2022 Office outpatient visit 25 minutes Ryan Christopher MD Work Phone: [facility] Comment on above: Restless legs syndro me (Primary Dx); Essential tremor Start: 09-04-2022 End: 09-04-[address] Eamon Kelly Work Phone: [facility] Work Phone: Start: 09-04-2022 End: 09-04-[address] Eamon Kelly Work Phone: [facility] Start: 08-09-2022 End: 08-09-[address] Eamon Kelly Work Phone: [facility] Work Phone: Start: 08-09-2022 End: 08-09-[address] Eamon Kelly Work Phone: [facility] Start: 07-05-2022 End: 07-05-[address] Eamon Kelly Work Phone: [facility] Start: 06-15-2022 End: 06-15-[address] Eamon Kelly Work Phone: [facility] Work Phone: Start: 06-15-2022 End: 06-15-[address] Eamon Kelly Work Phone: [facility] Start: 03-23-2022 End: 03-23-[address] Eamon Kelly Work Phone: [facility] Work Phone: Start: 03-23-2022 End: 03-23-[address] Eamon Kelly Work Phone: [facility] Start: 03-19-2022 End: 03-19-[address] Eamon Kelly Work Phone: [facility] Work Phone: Start: 03-19-2022 End: 03-19-[address] Eamon Kelly Work Phone: [facility] Start: 02-26-2022 End: 02-26-[address] Eamon Kelly Work Phone: [facility] Start: 02-22-2022 End: 02-22-[address] Eamon Kelly Work Phone: [facility] Start: 12-29-2021 End: 12-29-2021 ambulatory [facility] Work Phone: Start: 12-29-2021 End: 12-29-2021 Patient encounter procedure [facility] Start: 11-16-2021 End: 11-16-2021 Subsequent hospital visit by physician Ryan Christopher MD Work Phone: [facility] Radiology Comment on above: Cervicalgia of occip bge-mfuajwy-zkhmu region Start: 10-16-2021 End: 10-16-2021 Patient encounter procedure [facility] Start: 07-27-2021 End: 07-27-2021 Patient encounter procedure [facility] Start: 05-03-2021 Patient encounter procedure [facility] Start: 02-08-2021 End: 02-08-2021 Subsequent hospital visit by physician Ryan Christopher MD Work Phone: [address] Comment on above: Ataxia; Essential tremor Start: 09-28-2020 End: 09-28-2020 Emergency department patient visit ARIES BARRIOS [facility] Start: 09-28-2020 End: 09-28-2020 Emergency department patient visit Aries Barrios MD Work Phone: [facility] Emergency Department Procedures Date Procedure Procedure Detail Performing Clinician Start: 10-21-2024 Vitamin D, 25-hydrox y measurement Dr. Kelley Maldonado MD Work Phone: Comment on above: Vitamin D StatusDefi ciency: <20 ng/mL (50nmol/L)Insufficiency: 20-30 ng/mL (50-75 nmol/L)Sufficiency: 30-100 ng/mL (75-250 nmol/L)Toxicity: >100 ng/mL (>250 nmol/L) Start: 03-19-2023 Dual energy X-ray absorptiometry Dr. Kelley Maldonado Work Phone: Start: 03-19-2023 End: 03-19-[address] Kelley Maldonado Work Phone: Start: 02-22-2022 End: 02-22-[address] Eamon Kelly Work Phone: Start: 09-28-2020 Procedure on wound Carlota ett Crescencio Dany Barrios MD Work Phone: Start: 02-07-2017 End: 02-07-2017 Repair intermediate s/a/t/e 2.6-7.5 cm Talat Forrester MD Work Phone: Start: 02-07-2017 End: 02-07-2017 Intmd wnd repair s/tr/ext Talat Forrester MD Work Phone: Plan of Treatment Date Care Activity Detail Author Start: 09-28-2030 DTaP/Tdap/Td vaccine (3 - Td or Tdap) DTaP/Tdap/Td vaccine (3 - Td or Tdap) [facility] Start: 09-28-2030 DTaP/Tdap/Td Vaccine s (3 - Td or Tdap) DTaP/Tdap/Td Vaccines (3 - Td or Tdap) [facility] Start: 04-02-2025 End: 04-02-2025 Patient encounter procedure 04/02/2025 11:30 AM EST Office Visit [facility] [address] [place] [address] Og Johnson APRN - JOSE E [address] [place] [address] [facility] Start: 10-22-2024 Cobalamin (Vitamin B 12) [Mass/volume] in Serum or Plasma [facility] Start: 10-22-2024 Hemoglobin A1c/Hemoglobin.total in Blood [facility] Start: 10-22-2024 Thyroid stimulating hormone measurement [facility] Start: 10-22-2024 Vitamin D, 25-hydrox y measurement [facility] Start: 09-30-2024 End: 09-30-2024 Patient encounter procedure 09/30/2024 11:30 AM EDT Office Visit [facility] [address] [place] [id number] Og Johnson APRN - FRONT DESK HOST [address] [place] [address] [facility] Start: 2024 RSV Immunization for Adults (1 - 1-dose 75+ series) RSV Immunization for Adults (1 - 1-dose 75+ series) [facility] Start: 05-22-2024 End: 05-22-2024 Patient encounter procedure 05/22/2024 11:00 AM EST Office Visit [facility] [address] [facility] [place] [address] Og Johnson APRN - FRONT DESK HOST [address] [place] [address] [facility] Start: 05-13-2024 Medicare Advantage Annual Wellness Visit Medicare Advantage Annual Wellness Visit [facility] Start: 04-07-2024 End: 04-07-2024 Patient encounter procedure 04/07/2024 11:00 AM EST Office Visit [facility] [address] [facility] [place] [address] Og Johnson APRN - FRONT DESK HOST [address] [place] [address] [facility] Start: 03-19-2024 Screening for malign ant neoplasm of breast Mammogram [facility] Start: 02-06-2024 End: 02-05-2025 Ferritin [Mass/volume] in Serum or Plasma [facility] Lab Routine Restless legs syndrome Iron deficiency Expected: 02/06/2024 (Approximate), Expires: 02/05/2025 [facility] Work Phone: Comment on above: Expected: 02/06/2024 (Approximate), Expires: 02/05/2025 Start: 02-06-2024 End: 02-05-2025 Iron and Iron binding capacity panel - Serum or Plasma Iron and TIBC Lab Routine Restless legs syndrome Iron deficiency Expected: 02/06/2024 (Approximate), Expires: 02/05/2025 [facility] Comment on above: Expected: 02/06/2024 (Approximate), Expires: 02/05/2025 Start: 02-06-2024 End: 02-06-2024 Patient encounter procedure 02/06/2024 12:30 PM EDT Office Visit [facility] [address] [facility] [address] [place] [address] Og Johnson, FEDE - FRONT DESK HOST [address] [facility] [address] [place] [address] [facility] Start: 01-12-2024 COVID-19 Vaccine ( season) COVID-19 Vaccine ( season) [facility] Start: 01-12-2024 COVID-19 Vaccine ( season) COVID-19 Vaccine ( season) [facility] Start: 01-12-2024 Influenza vaccination [facility] Start: 11-07-2023 End: 11-07-2023 Patient encounter procedure 11/07/2023 1:00 PM EDT Office Visit [facility] [address] [facility] [address] [place] [address] Ryan Christopher MD [address] [facility] [address] [place], [place] [id number] [facility] Start: 05-13-2023 Medicare Advantage Annual Wellness Visit Medicare Advantage Annual Wellness Visit [facility] Start: 02-22-2023 Screening for malign ant neoplasm of breast Mammogram [facility] Start: 01-11-2023 COVID-19 Vaccine ( season) COVID-19 Vaccine ( season) [facility] Start: 01-11-2023 Influenza vaccination S [facility] Start: 11-06-2022 End: 11-06-2022 Patient encounter procedure 11/06/2022 Office Visit Neurology Ryan Christopher MD [address] [place] [address] [facility] Start: 01-11-2022 Influenza vaccination Flu vaccine (# 1) [facility] Start: 11-22-2021 End: 11-22-2021 Patient encounter procedure 11/22/2021 Office Visit Neurology Ryan Christopher MD [address] [place] [address] [facility] [place] Start: 09-05-2021 Shingles vaccine (3 of 3) Shingles vaccine (3 of 3) [facility] Start: 02-24-2021 End: 02-24-2021 Patient encounter procedure 02/24/2021 Office Visit Neurology Ryan Christopher MD [address] [address] [phone] [facility] [place] Start: 12-29-2019 Pneumococcal Vaccine : 50+ Years (3 of 3 - PCV20 or PCV21) Pneumococcal Vaccine: 50+ Years (3 of 3 - PCV20 or PCV21) [facility] Start: 12-29-2019 Pneumococcal Vaccine : 65+ Years (3 - PPSV23 or PCV20) Pneumococcal Vaccine: 65+ Years (3 - PPSV23 or PCV20) [facility] Start: 12-29-2019 Pneumococcal Vaccine : 65+ Years (3 of 3 - PPSV23 or PCV20) Pneumococcal Vaccine: 65+ Years (3 of 3 - PPSV23 or PCV20) [facility] Start: 09-08-2017 Pneumococcal 65+ yea rs Vaccine (2 - PPSV23 or PCV20) Pneumococcal 65+ years Vaccine (2 - PPSV23 or PCV20) [facility] Start: 09-08-2017 Pneumococcal Vaccine : 65+ Years (#3) Pneumococcal Vaccine: 65+ Years (#3) [facility] Start: 09-08-2017 Pneumococcal Vaccine : 65+ Years (3 - PPSV23 if available, else PCV20) Pneumococcal Vaccine: 65+ Years (3 - PPSV23 if available, else PCV20) [facility] Start: 02-19-2017 End: 02-19-2017 Appointment Appointment [facility] Work Phone: Start: 02-13-2017 End: 02-13-2017 Appointment Appointment [facility] Work Phone: Start: 02-13-2017 End: 02-13-2017 Appointment Appointment [facility] Work Phone: Start: 02-07-2017 End: 02-07-2017 Exc b9 lesion mrgn xcp sk tg t/a/l 1.1-2.0 cm Excision Benign Lesion Trunk/Arm/Leg 1.1-2.0 cm [facility] Work Phone: Start: 02-07-2017 End: 02-07-2017 Appointment Appointment [facility] Work Phone: Start: 02-07-2017 End: 02-07-2017 Exc tr-ext b9+aj 1.1-2 cm Excision Benign Lesion Trunk/Arm/Leg 1.1-2.0 cm [facility] Work Phone: Start: 01-23-2017 End: 01-23-2017 Appointment Appointment [facility] Work Phone: Start: 01-01-2017 End: 01-01-2017 Appointment Appointment [facility] Work Phone: Start: 2014 Pneumococcal 65+ yea rs Vaccine (2 of 2 - PPSV23) Pneumococcal 65+ years Vaccine (2 of 2 - PPSV23) [facility] Work Phone: Start: 03-18-2012 Shingles Vaccine (2 of 3) Shingles Vaccine (2 of 3) [facility] Work Phone: Start: 2009 RSV Immunization age d 60 or older (1 - 1-dose 60+ series) RSV Immunization aged 60 or older (1 - 1-dose 60+ series) [facility] Start: 2004 Screening for osteoporosis DEXA (modify frequency per FRAX score) [facility] Start: 09-21-1999 Screening for malign ant neoplasm of breast Breast cancer screen [facility] Start: 1994 Screening for malign ant neoplasm of colon [facility] Start: 1989 Lipid panel [facility] Start: 1968 Urine screening for protein Diabetes: Urine Protein Screening [facility] Start: 09-21-1967 Diabetes: Estimated Glomerular Filtration Rate for Kidney Health Diabetes: Estimated Glomerular Filtration Rate for Kidney Health [facility] Start: 09-21-1967 Diabetes: Urine Albumin-Creatinine Ratio for Kidney Health Diabetes: Urine Albumin-Creatinine Ratio for Kidney Health [facility] Start: 09-21-1967 Hepatitis C screening S [facility] Start: 1961 Depression Monitoring Depression Mon itoring [facility] Start: 1961 Depression Screen Depression Screen [facility] Start: 1961 Depression Screening Depression Scre ening [facility] Start: 09-21-1959 Diabetic foot examination Diabetes: Foot Exam [facility] Start: 09-21-1959 Glaucoma screening Diabetes: R etinopathy Screening [facility] Start: 09-21-1959 Preventive dental service Diabetes: Dental Exam [facility] Start: 1954 COVID-19 Vaccine (1) COVID-19 Vaccin e (1) [facility] Start: 1949 Hemoglobin A1c measurement Diabetes: Hemoglobin A1C [facility] Start: 1949 Hepatitis B Vaccines (1 of 3 - 3-dose series) Hepatitis B Vaccines (1 of 3 - 3-dose series) [facility] Start: 1949 Hepatitis C screening Hepatitis C sc reen [facility] Work Phone: Start: 1949 Lipid panel Lipid Panel [facility] Start: 1949 Medicare Advantage Annual Wellness Visit (AWV) Medicare Advantage Annual Wellness Visit (AWV) [facility] Start: 1949 Screening for malign ant neoplasm of colon [facility] Start: 1949 Screening for osteoporosis Bone Density Scan [facility] Start: 1949 Thyroid stimulating hormone measurement TSH Level [facility] Cobalamin (Vitamin B 12) [Mass/volume] in Serum or Plasma [facility] Hemoglobin A1c/Hemoglobin.total in Blood [facility] End: 02-08-2021 MRI BRAIN W WO CONTRAST MRI BRAIN W WO CONTRAST Imaging Routine Ataxia Essential tremor 1 Occurrences starting 02/08/2021 until 02/08/2021 [facility] Work Phone: Comment on above: 1 Occurrences starti ng 02/08/2021 until 02/08/2021 MRI BRAIN W WO CONTRAST MRI BRAI N W WO CONTRAST Imaging Routine Ataxia Essential tremor 02/08/2021 2:59 PM EDT [facility] Work Phone: Thyroid stimulating hormone measurement [facility] Vitamin D, 25-hydrox y measurement [facility] End: 11-16-2021 XR CERVICAL SPINE (4-5 VIEWS) [facility] Work Phone: Comment on above: 1 Occurrences starti ng 11/16/2021 until 11/16/2021 End: 11-16-2021 XR CERVICAL SPINE W OBLIQUES FLEXION AND EXTENSION [facility] Work Phone: Comment on above: 1 Occurrences starti ng 11/16/2021 until 11/16/2021 Immunizations Immunization Date Immunization Notes Care Provider [facility] 02-06-2024 influenza, high dose seasonal, preservative-free Dr. Kelley Maldonado MD Work Phone: [facility] 01-21-2024 Covid (Spikevax) Dr. Kelley Maldonado MD Work Phone: [facility] 09-03-2023 Covid (Spikevax) Dr. Kelley Maldonado MD Work Phone: [facility] 04-23-2023 RSV Adult Recombinan t (Arexvy) Dr. Kelley Maldonado MD Work Phone: [facility] 09-04-2022 Covid Moderna Bivale nt Booster Dr. Kelley Maldonado Work Phone: [facility] 04-10-2022 Covid Moderna Bivale nt Booster Dr. Kelley Maldonado Work Phone: [facility] 11-14-[address] Eamon Kelly Work Phone: [facility] 08-11-2021 Covid (Moderna) Dr. Eamon mathew Work Phone: [facility] 07-11-[address] Eamon Kelly Work Phone: [facility] 03-07-2021 Covid (Moderna) Dr. Eamon mathew Work Phone: [facility] 01-12-2021 Influenza, high dose seasonal Dr. Kelley Maldonado MD Work Phone: [facility] 01-12-2021 influenza, high dose seasonal, preservative-free Dr. Eamon Kelly Work Phone: [facility] 01-12-2021 influenza, injectabl e, quadrivalent, preservative free Dr. Kelley Maldonado Work Phone: [facility] 01-12-2021 influenza virus vaccine, unspecified formulation Ryan Christopher MD Work Phone: [facility] 09-28-2020 tetanus toxoid, redu claude diphtheria toxoid, and acellular pertussis vaccine, adsorbed Aries Barrios MD Work Phone: [facility] 07-21-2020 Covid (Moderna) Dr. Eamon mathew Work Phone: [facility] 06-23-2020 Covid (Moderna) Dr. Eamon mathew Work Phone: [facility] 01-28-2019 Influenza, high dose seasonal Dr. Kelley Maldonado MD Work Phone: [facility] 01-28-2019 influenza, high dose seasonal, preservative-free Dr. Eamon Kelly Work Phone: [facility] 03-22-2015 influenza, injectabl e, quadrivalent, preservative free Dr. Kelley Maldonado Work Phone: [facility] 03-22-2015 influenza, seasonal, injectable Dr. Eamon Kelly Work Phone: [facility] 12-28-2014 pneumococcal conjuga te vaccine, [address] Eamon Kelly Work Phone: [facility] 03-31-2014 influenza, injectabl e, quadrivalent, preservative free Dr. Kelley Maldonado Work Phone: [facility] 03-31-2014 influenza, seasonal, injectable Dr. Eamon Kelly Work Phone: [facility] Payers Date Payer Category Payer Self-pay [id number] 2020 Medicare [facility] AD[facility] CHOICE PPO [id number] 2020-Present [id number] 2018 Medicare HU[employer]NA MEDICARE ADVANTAGE HU[employer] MEDICARE [id number] 2018-Present [address] [address] [place] [address] Medicare HMO [id number] 2018 Medicare HMO [id number] 2014 Medicare [id number] 1950 Unknown [id number] Unknown [id number] Unknown [id number] Unknown [id number] Unknown [id number] Unknown [id number] Unknown [id number] Unknown [id number] Unknown [id number] Unknown [id number] Unknown [id number] Unknown [id number] Social History Date Type Detail Facility Start: 09-28-2020 End: 10-22-2024 Tobacco smoking status NHIS Never smoker [facility] Start: 09-28-2020 End: 11-10-2020 Tobacco use and exposure Never used [facility] Start: 09-28-2020 End: 09-30-2024 Alcohol intake Ex-drinker (finding) [facility] Start: 1950 Sex Assigned At Not on file [facility] Start: 08-26-2022 End: 11-06-2022 Exposure to SARS-CoV-2 (event) Not sure [facility] Start: 01-11-2021 End: 09-05-2022 Alcohol intake Current [facility] (finding[facility]: Start: 11-10-2020 Alcohol Comment rarely [facility] Work Phone: Start: 02-21-2021 End: 04-30-2023 Tobacco smoking status MOIS Unknown if ever smoked [facility] Start: 1950 Sex Assigned At Female [facility] Start: 09-05-2022 End: 09-30-2024 History of Social function [facility] Start: 09-05-2022 End: 09-30-2024 Tobacco use panel [facility] Start: 12-11-2021 End: 08-03-2024 Sex Female (finding) [facility] Clinical Notes 09-28-2020 to 10-22-2024 Note Date & Type Note Facility 10-22-2024 Evaluation note Diagnosis Onset Date Resolution Essential tremor acute October 9:52am Osteopenia acute October 22 9:52am Psoriatic arthritis acute October 22, 2024 9:52am Acquired hypothyroidism noneactive J 2024 9:52am Fatigue noneactive October 22 9:52am Mixed hyperlipidemia noneactive October 22, 2024 9:52am RLS (restless legs syndrome) noneactive October 22, 2024 9:52am Anxiety and depression noneactive 2024 9:52am [facility] Work Phone: 1(919) 874-980305-21-2025 History of Present illness Narrative* Og Johnson, FEDE - FRONT DESK HOST - 09/30/2024 11:30 AM EDT Visit type: Established Patient Reason for [...] to be affected. Tremor in head and legsalso Writing is getting harder. No issues with [...] TSH VITAMIN B12: No results found for: [id number] No results found for: PHENYTOIN, PHENOBARB, VALPROATE, CBMZ No components found for: TOPIRA @RESULTINGLABINFO@ FERRITIN Date Value Ref Range Status 02/06/2024 108 16 - 288 ng/mL Final No results found for: ANNA, IMMUNOGLOBUL, OLIGOBANDS No results found for: [id number], HEPCAB No results found for: CRP, ANATITER, ANCA FERRITIN: Lab Results Component Value Date FERRITIN 108 02/06/2024 ---- XR CERVICAL SPINE W OBLIQUES FLEXION AND EXTENSION Narrative: Patient Name: ARIADNA LOBATO Diagnostic Radiology ACCESSION EXAM DATE/TIME PROCEDURE ORDERING PROVIDER [id number] 11/16/2021 10:51 EDT CR Spine Cervical Comp RYAN CHRISTOPHER w/ Obliques CPT code 57346 Reason For Exam (CR Spine Cervical Comp [...] and arranging for studies. Electronically signed by @MEMDNR@ on @TDNR@ at @NOWNR@ I, Og Johnson, CLEANER AND PREPARER - FRONT DESK HOST, furnish ongoing care related to Ariadna arambula, serious and complex condition(s) Tremor. I assume responsibility for the patient's ongoing medical care of this condition. [1] Allergies Allergen Reactions Ropinirole Nausea Only [place] weird as well as nauseous. [2] Current [...] Problem Relation Name Age of Onset Other (05586) Maternal Grandfather Other ([id number]) Mother documented in this [facility]05-21-2025 Instructions* Patient Instructions* FEDE Parker CNP - 09/30/2024 11:30 AM EDT Continue Primidone 200mg twice daily, Propranolol 60mg twice daily and Sinemet 25/100 1 tab four times daily Continue to stay physically active We did discuss referral to [facility] for DBS. She declines at this time documented in this [facility]05-21-2025 NoteContinue Primidone 200mg twice daily, Propranolol 60mg twice daily and Sinemet 25/100 1 tab four times daily Continue to stay physically active We did discuss referral to [facility] for DBS. She declines at this [facility]02-21-2025 History of Present illness Narrative* FEDE Parker CNP - 07/03/2024 11:00 AM EST Visit type: Established Patient Reason for Visit: [...] Negative. Allergies Allergen Reactions Ropinirole Nausea Only [place] weird as well as nauseous. Outpatient Medications [...] Problem Relation Name Age of Onset Other (70100) Maternal Grandfather Other (88131) Mother Objective Vitals: BP 98/65 (BP Location: [...] TSH VITAMIN B12: No results found for: [id number] No results found for: PHENYTOIN, PHENOBARB, VALPROATE, CBMZ No components found for: TOPIRA @RESULTINGLABINFO@ FERRITIN Date Value Ref Range Status 02/06/2024 108 16 - 288 ng/mL Final No results found for: ANNA, IMMUNOGLOBUL, OLIGOBANDS No results found for: [id number], HEPCAB No results found for: CRP, ANATITER, ANCA FERRITIN: Lab Results Component Value Date FERRITIN 108 02/06/2024 ---- XR CERVICAL SPINE W OBLIQUES FLEXION AND EXTENSION Narrative: Patient Name: ARIADNA LOBATO Diagnostic Radiology ACCESSION EXAM DATE/TIME PROCEDURE ORDERING PROVIDER [id number] 11/16/2021 10:51 EDT CR Spine Cervical Comp RYAN CHRISTOPHER w/ Obliques CPT code 64503 Reason For Exam (CR Spine Cervical Comp [...] on @TDNR@ at @NOWNR@ documented in this [facility]02-21-2025 Instructions* Patient Instructions* FEDE Parker CNP - 07/03/2024 11:00 AM EST Continue Primidone 200mg twice daily and Propranolol 60mg twice daily Increase Sinemet 25/100 to 1 tablet 4 times daily Continue with exercise documented in this [facility]12-03-2024 Evaluation note* Diagnosis Onset Date Resolution Status Admit Date Essential tremor acute April 14, 2024 9:47am Osteopenia acute April 14, 2024 9:47am Psoriatic arthritis acute Decem royce 2023 9:47am Abrasion of oral cavity noneactive D ecember 2023 9:47am Acquired hypothyroidism noneactive D ecember 2023 9:47am Mixed hyperlipidemia noneactive Dece mber 2023 9:47am RLS (restless legs syndrome) noneact yanni April 14, 2024 9:47am Anxiety and depression noneactive De cember 2023 9:47am Osteopenia acute May 11, 2024 12:49pm [facility] Work Phone: 1(809) 591-552709-26-2024 History of Present illness Narrative* FEDE Parker [...] Negative. Allergies Allergen Reactions Ropinirole Nausea Only [place] weird as well as nauseous. Outpatient Medications [...] Problem Relation Name Age of Onset Other (74288) Maternal Grandfather Other ([id number]) Mother Objective Vitals: BP 126/67 (BP Location: [...] TSH VITAMIN B12: No results found for: [id number] No results found for: PHENYTOIN, PHENOBARB, VALPROATE, CBMZ No components found for: TOPIRA @RESULTINGLABINFO@ No results found for: LEVETIRACETA, FERRITIN, CRP, ERVIN, ANCA No results found for: ANNA, IMMUNOGLOBUL, OLIGOBANDS No results found for: [id number], HEPCAB No results found for: CRP, ANATITER, ANCA FERRITIN: No results found for: FERRITIN ---- XR CERVICAL SPINE W OBLIQUES FLEXION AND EXTENSION Narrative: Patient Name: ARIADNA LOBATO Diagnostic Radiology ACCESSION EXAM DATE/TIME PROCEDURE ORDERING PROVIDER [id number] 11/16/2021 10:51 EDT CR Spine Cervical Comp RYAN CHRISTOPHER w/ Obliques CPT code 42769 Reason For Exam (CR Spine Cervical Comp [...] & Plan notes found for this encounter. FEDE Sanchez CNP I spent 30 minutes caring for this patient today, reviewing labs, records, seeing the patient, documenting in the record and arranging for studies. Electronically signed by @MEMDNR@ on @TDNR@ at @NOWNR@ documented in this [facility]09-26-2024 Instructions* Patient Instructions* FEDE Parker CNP - 02/06/2024 12:30 PM EDT Continue Primidone 200mg twice daily and Propranolol 60mg twice daily Stop taking Lamictal as it is not helping Start Sinemet (Carbidopa/Levodopa) 1-2 tabs in the evening If able take 1 tab prior to supper and if needed later in the evening Continue with exercise documented in this [facility]06-27-2024 History of Present illness Narrative* Ryan Christopher MD - 11/07/2023 1:00 PM EDT Images from the original note were not included. [facility] [address] [facility] [address] [facility] [address] Dept: [phone] Dept Loc: [phone] Visit type: Established Patient Reason for Visit: [...] mouth every evening., Starting Peggy 11/07/2023, Until 02/05/2024, Normal Subjective HPI: She reports that she [...] ideas. Allergies Allergen Reactions Ropinirole Nausea Only [place] weird as well as nauseous. Current Outpatient [...] Problem Relation Name Age of Onset Other (14251) Maternal Grandfather Other (31784) Mother Objective Vitals: BP 127/71 (BP Location: [...] TSH VITAMIN B12: No results found for: [id number] No results found for: PHENYTOIN, PHENOBARB, VALPROATE, CBMZ No components found for: TOPIRA @RESULTINGLABINFO@ No results found for: LEVETIRACETA, FERRITIN, CRP, ERVIN, ANCA No results found for: ANNA, IMMUNOGLOBUL, OLIGOBANDS No results found for: [id number], HEPCAB No results found for: CRP, ANATITER, ANCA FERRITIN: No results found for: FERRITIN ---- XR CERVICAL SPINE W OBLIQUES FLEXION AND EXTENSION Narrative: Patient Name: ARIADNA LOBATO Diagnostic Radiology ACCESSION EXAM DATE/TIME PROCEDURE ORDERING PROVIDER [id number] 11/16/2021 10:51 EDT CR Spine Cervical Comp RYAN CHRISTOPHER w/ Obliques CPT code 11662 Reason For Exam (CR Spine Cervical Comp [...] arranging for studies. @SIGNATURE@ documented in this [facility]06-17-2024 Telephone encounter Note* Telephone Encounter - Marizol Herrera MA - 10/28/2023 7:25 AM EDT Last ov- 11/06/22 Next [facility]11/07/23 [id number] Miscellaneous Notes* Telephone Encounter - Marizol Herrera MA - 10/28/2023 7:25 AM EDT Last ov- 11/06/22 Next ov11/07/23 documented in this [facility]04-29-2024 Telephone encounter Note* Telephone Encounter - Marizol Herrera MA - 09/09/2023 7:19 AM EDT Last ov- 11/06/22 Next ov-11/07/23 [address]Sfqlbh52-18-5029 Miscellaneous Notes* Telephone Encounter - Marizol Herrera MA - 09/09/2023 7:19 AM EDT Last ov- 11/06/22 Next ov-11/07/23 documented in this [place] [address]-15-2024 Telephone encounter Note* Telephone Encounter - Surinder So LPN - 08/26/2023 3:38 PM EDT Forwarding to provider for review and advice. LV- 11/06/2022 Next OV11/07/2023 [address]Erbits04-08-6001 Miscellaneous Notes* Telephone Encounter - Surinder So LPN - 08/26/2023 3:38 PM EDT Forwarding to provider for review and advice. LV- 11/06/2022 Next OV11/07/2023 documented in this [facility]12-01-2023 Telephone encounter Note* Telephone Encounter - Marizol Herrera MA - 04/12/2023 8:02 AM EST Last ov- 11/06/22 Next ov11/07/23 [address]Lphaln72-53-7492 Miscellaneous Notes* Telephone Encounter - Marizol Herrera MA - 04/12/2023 8:02 AM EST Last ov- 11/06/22 Next ov11/07/23 documented in this [facility]06-27-2023 History of Present illness Narrative* Ryan Christopher MD - 11/06/2022 1:30 PM EDT Images from the original note were not included. [facility]UROSCIENCE [address] [place] [address] [facility] [address] Dept: [phone] Dept Loc: [phone] Visit type: Established Patient Reason for Visit: [...] ideas. Allergies Allergen Reactions Ropinirole Nausea Only [place] weird as well as nauseous. Current Outpatient [...] 10/18/2022 90 270 tablet Ryan Christopher MD [facility] Mail D... Primidone Dispensed Days Supply Quantity Provider Pharmacy primidone 50 mg tablet 09/05/2022 90 450 tablet Ryan Christopher MD [facility] Mail D... primidone 50 mg tablet 06/27/2022 90 360 tablet Ryan Christopher MD [facility] Ma... primidone 50 mg tablet 04/15/2022 90 360 tablet Ryan Christopher MD [facility] Mail D... primidone 50 mg tablet 02/06/2022 90 360 tablet Ryan Christopher MD [facility] Mail D... PRIMIDONE 50 MG TABLET 11/23/2021 90 450 each Ryan Christopher MD [facility]/pharmacy #[id number] - W... Propranolol HCl Dispensed Days Supply Quantity Provider Pharmacy propranolol 60 mg tablet 09/05/2022 90 180 tablet Ryan Christopher MD [facility] Mail D... propranolol 60 mg tablet 05/30/2022 90 180 tablet Ryan Christopher MD [facility] Ma... propranolol 60 mg tablet 02/14/2022 90 180 tablet Ryan Christopher MD [facility] Mail D... propranolol 60 mg tablet 12/06/2021 90 180 tablet Ryan Christopher MD [facility] Ma... Sertraline HCl buPROPion HCl clonazePAM Dispensed Days Supply Quantity Provider Pharmacy CLONAZEPAM 0.25 MG ODT 09/13/2022 14 14 each Ryan Christopher MD [facility]/pharmacy #[id number] - W... CLONAZEPAM 1 MG TABLET 08/30/2022 30 15 each Kelley Maldonado MD [facility]/pharmacy #[id number] - W... clonazepam 1 mg tablet 08/01/2022 30 15 tablet [facility] Ma... clonazepam 1 mg tablet 06/27/2022 30 15 tablet [facility] Ma... clonazepam 1 mg tablet 05/30/2022 30 15 tablet [facility] Ma... clonazepam 1 mg tablet 04/29/2022 30 15 tablet [facility] Ma... clonazepam 1 mg tablet 02/08/2022 30 15 tablet [facility] Ma... clonazepam 1 mg tablet 12/06/2021 30 30 tablet [facility] Ma... rOPINIRole HCl Dispensed Days Supply Quantity Provider Pharmacy ropinirole 1 mg tablet 09/05/2022 90 270 tablet Ryan Christopher MD [facility] Pharm[facility] Mail D... Showing 1-15 of 17 Items View 15 Items of 2 Filled Written Sold ID Drug QTY Days Prescriber RX # Dispenser Refill Daily Dose* Pymt Type BRAND DEVELOPMENT MANAGER 09/13/2022 09/05/2022 2 Clonazepam 0.25 Mg Odt 14.00 14 Christiano Lechuga [id number] [place] (0912) 0 0.50 [place] 08/30/2022 08/30/2022 2 Clonazepam 1 Mg Tablet 15.00 30 Al Fin [id number] [place] (0912) 0 1.00 [place] 08/02/2022 02/07/2022 1 Clonazepam 1 Mg Tablet 15.00 30 [facility] [phone] [facility] (9851) 4 1.00 [place] 06/28/2022 02/07/2022 1 Clonazepam 1 Mg Tablet 15.00 30 [facility] [id number] [facility] (9851) 3 1.00 [place] 05/31/2022 02/07/2022 1 Clonazepam 1 Mg Tablet 15.00 30 Sc Kwong [id number] [facility] (9851) 2 1.00 [place] 04/30/2022 02/07/2022 1 Clonazepam 1 Mg Tablet 15.00 30 [facility] [phone] [facility] (9851) 1 1.00 LME Past Medical History: Diagnosis Date Anxiety Psoriatic arthritis (HCC) Restless leg Thyroid disorder Social History Tobacco Use Smoking status: Never Smokeless tobacco: Never Substance Use Topics Alcohol use: Yes Past Surgical History: Procedure Laterality Date CATARACT EXTRACTION GALLBLADDER SURGERY KNEE SURGERY TOTAL ABDOMINAL HYSTERECTOMY Family History Problem Relation Name Age of Onset Other (36678) Maternal Grandfather Other (62965) Mother Objective Vitals: BP (!) 141/86 (BP [...] TSH VITAMIN B12: No results found for: [id number] No results found for: PHENYTOIN, PHENOBARB, VALPROATE, CBMZ No components found for: TOPIRA @RESULTINGLABINFO@ No results found for: LEVETIRACETA, FERRITIN, CRP, ERVIN, ANCA No results found for: ANNA, IMMUNOGLOBUL, OLIGOBANDS No results found for: KLF40EI, HEPCAB No results found for: CRP, ANATITER, ANCA, ANCA FERRITIN: No results found for: FERRITIN ---- XR CERVICAL SPINE W OBLIQUES FLEXION AND EXTENSION Narrative: Patient Name: ARIADNA LOBATO Diagnostic Radiology ACCESSION EXAM DATE/TIME PROCEDURE ORDERING PROVIDER [id number] 11/16/2021 10:51 EDT CR Spine Cervical Comp RYAN CHRISTOPHER w/ Obliques CPT code 17410 Reason For Exam (CR Spine Cervical Comp [...] arranging for studies. @SIGNATURE@ documented in this encounterSU[facility] HospitalAabnve66-80-2468 Telephone encounter Note* Telephone Encounter - Jaja Gunderson - 10/16/2022 8:12 AM EDT [facility]. [id number] Miscellaneous Notes* Telephone Encounter - Jaja Gunderson - 10/16/2022 8:12 AM EDT Pt notified. * Telephone Encounter - Ryan Christopher MD - 10/15/2022 5:52 PM EDT I sent in a prescription of pramipexole to replace the ropinirole. * Telephone Encounter - Angela Wallis - 10/15/2022 9:04 AM EDT Name of caller: Ariadna Contact phone number: [phone] Relationship to Patient: patient Provider: Candi Practice: Neurology Chief Complaint/Reason for Call: patient called in, on their last appointment on 09/05/22 the provider prescribed rOPINIRole (Requip) 1 MG tablet [[id number]] The patient is experiencing nauseous after an hour after taking this medication. The patient would like to know what the next step should be sothey arent feeling this way. Patient would like a callback at the offices earliest convenience. The new medication needs to be sent to [facility] pharmacy at [address] [facility] [facility] [address] Store number: [phone] Near the intersection of: [address] Please advise and thank you Best time of day caller can be reached: any Patient advised that office/PCP has 24-48 business hours to return their call: Yes documented in this encounterSUC [facility] HospitalHcjnlp48-26-9566 Telephone encounter Note* Telephone Encounter - Ryan Christopher MD - 10/15/2022 5:52 PM EDT I sent in a prescription of pramipexole to replace the ropinirole. [facility]zs51-[facility]-0186 Telephone encounter Note* Telephone Encounter - Angela Wallis - 10/15/2022 9:04 AM EDT Name of caller: Ariadna Contact phone number: [phone] Relationship to Patient: patient Provider: Candi Practice: Neurology Chief Complaint/Reason for Call: patient called in, on their last appointment on 09/05/22 the provider prescribed rOPINIRole (Requip) 1 MG tablet [[id number]] The patient is experiencing nauseous after an hour after taking this medication. The patient would like to know what the next step should be sothey arent feeling this way. Patient would like a callback at the offices earliest convenience. The new medication needs to be sent to [facility] pharmacy at [address] [facility]. [facility] [address] Store number: [phone] Near the intersection of: [address] Please advise and thank you Best time of day caller can be reached: any Patient advised that office/PCP has 24-48 business hours to return their call: Yes [facility]Kosnxo28-89-0704 History of Present illness Narrative* Ryan Christopher MD - 09/05/2022 10:00 AM EDT Images from the original note were not included. [facility]ENCE [address] [facility] [address] Dept: [phone] Dept Loc: [phone] Visit type: Established Patient Reason for Visit: [...] not start before September 13, 2022., Starting Sat09/13/2022, Until Sat09/27/2022, Normal 2. Essential tremor - propranolol (Inderal) [...] # Dispenser Refill Daily Dose* Pymt Type BRAND DEVELOPMENT MANAGER 08/30/2022 08/30/2022 2 Clonazepam 1 Mg Tablet 15.00 30 Al Fin [id number] [place] (0912) 0 1.00 [place] 08/02/2022 02/07/2022 1 Clonazepam 1 Mg Tablet 15.00 30 [facility] [id number] [facility] (9851) 4 1.00 [place] 06/28/2022 02/07/2022 1 Clonazepam 1 Mg Tablet 15.00 30 Sc Kwong [id number] [facility] (9851) 3 1.00 [place] 05/31/2022 02/07/2022 1 Clonazepam 1 Mg Tablet 15.00 30 Sc Kwong [id number] [facility] (9851) 2 1.00 [place] 04/30/2022 02/07/2022 1 Clonazepam 1 Mg Tablet 15.00 30 [facility] [id number] [facility] (9851) 1 1.00 [place] 02/08/2022 02/07/2022 1 Clonazepam 1 Mg Tablet 15.00 30 Sc Kwong [id number] [facility] (9851) 0 1.00 [place]ME [place] Past Medical History: Diagnosis Date Anxiety Psoriatic arthritis (HCC) Restless leg Thyroid disorder Social History Tobacco Use Smoking status: Never Smokeless tobacco: Never Substance Use Topics Alcohol use: Yes Past Surgical History: Procedure Laterality Date CATARACT EXTRACTION GALLBLADDER SURGERY KNEE SURGERY TOTAL ABDOMINAL HYSTERECTOMY Family History Problem Relation Name Age of Onset Other (79376) Maternal Grandfather Other (29034) Mother Objective Vitals: BP 127/70 (BP Location: [...] TSH VITAMIN B12: No results found for: [id number] No results found for: PHENYTOIN, PHENOBARB, VALPROATE, CBMZ No components found for: TOPIRA @RESULTINGLABINFO@ No results found for: LEVETIRACETA, FERRITIN, CRP, ERVIN, ANCA No results found for: ANNA, IMMUNOGLOBUL, OLIGOBANDS No results found for: [id number], HEPCAB No results found for: CRP, ANATITER, ANCA, ANCA FERRITIN: No results found for: FERRITIN ---- XR CERVICAL SPINE W OBLIQUES FLEXION AND EXTENSION Narrative: Patient Name: ARIADNA LOBATO Diagnostic Radiology ACCESSION EXAM DATE/TIME PROCEDURE ORDERING PROVIDER [id number] 11/16/2021 10:51 EDT CR Spine Cervical Comp RYAN CHRISTOPHER w/ Obliques CPT code 32585 Reason For Exam (CR Spine Cervical Comp [...] arranging for studies. @SIGNATURE@ documented in this [facility]05-19-2021 Emergency department Note* Aries Barrios MD - 09/28/2020 3:16 PM EDT Associated Order(s): Lac Repair ED PROVIDER NOTE [facility] EMERGENCY DEPARTMENT NAME: Aridana Lobato AGE: 70 y.o. : 1950 VISIT DATE: 09/28/2020 CSN: [id number] PCP: No primary care provider on file. [...] Social Gatherings with Friends and Family: Attends Alevism Services: Active Member of Clubs or Organizations: [...] to verify the correct patient, procedure, equipment, systems support specialist and site/side marked as required. [...] bridge of nose, incident approx 2 hr SKATE HOP. Denies any LOC. Denies any bloodthinners documented in this [id number] Hospital Discharge instructions * Instructions* Aries Barrios [...] sent through Care Everywhere. * Lacerations: Adhesives (Portuguese) documented in this encounterMichiganHealthEvaluation note* Diagnosis Facial laceration, initial encounter- Primary [facility]* Diagnosis Ataxia Lack of coordination Essential tremor Essential and other specified forms of tremor documented in this encounter [facility] Work Phone: Evaluation noteNo assessment information available [facility] Work Phone: Evaluation note* Diagnosis Cervicalgia of ytzlwhju-rvpzsbh-jizky region documented in this encounter [facility] Work Phone: Evaluation note* Diagnosis Onset Date Resolution Status Depression acute Osteopenia acute [id number] noneactive Encounter for routine gynecological examination noneactive [facility] Work Phone: Evaluation note* Diagnosis Onset Date Resolution Status Essential tremor acute Prediabetes acute Psoriatic arthritis acute Acquired hypothyroidism none active Establishing care with new doctor, encounter for noneactive Anxiety and depression nonea ctive Essential tremor acute Prediabetes acute Psoriatic arthritis acute Acquired hypothyroidism none active Anxiety and depression nonea ctive [facility] Work Phone: Evaluation note* Diagnosis Restless legs syndrome- Primary Restless legs syndrome (RLS) Essential tremor [facility] Diagnosis Essential tremor- Primary Restless legs syndrome Restless legs syndrome (RLS) documented [facility]* Diagnosis Onset Date Resolution Status Essential tremor acute Prediabetes acute Psoriatic arthritis acute Acquired hypothyroidism none active Mixed hyperlipidemia noneact yanni RLS (restless legs syndrome) noneactive Anxiety and depression nonea ctive Depression acute Osteopenia acute [id number] noneactive [facility] Work Phone: Evaluation note* Diagnosis Restless legs syndrome Restless legs syndrome (RLS) documented in this encounter [facility]* Diagnosis Onset Date Resolution Status Essential tremor acute Prediabetes acute Psoriatic arthritis acute Acquired hypothyroidism none active Mixed hyperlipidemia noneact yanni RLS (restless legs syndrome) noneactive Anxiety and depression nonea ctive Depression acute Osteopenia acute [id number] noneactive Osteopenia acute Osteopenia acute [facility] Work Phone: Evaluation note* Diagnosis Onset Date Resolution Status Osteopenia acute [facility] Work Phone: Evaluation note* Diagnosis Essential tremor [facility] Diagnosis Restless legs syndrome- Primary Restless legs syndrome (RLS) [facility]* Diagnosis Essential tremor- Primary Restless legs syndrome Restless legs syndrome (RLS) [facility]* Diagnosis Essential tremor- Primary Restless legs syndrome Restless legs syndrome (RLS) Iron deficiency Disorders of iron metabolism [facility]* Diagnosis Essential tremor- Primary Restless legs syndrome Restless legs syndrome (RLS) documented in this encounter [facility].comEvalusaint franc[facility] healthcare note* Diagnosis Onset Date Resolution Status Admit Date Essential tremor acute October 9:52am Osteopenia acute October 22 9:52am Psoriatic arthritis acute October 22, 2024 9:52am Acquired hypothyroidism noneactive J 2024 9:52am Fatigue noneactive October 22 9:52am Mixed hyperlipidemia noneactive October 22, 2024 9:52am RLS (restless legs syndrome) noneact yanni October 22, 2024 9:52am Anxiety and depression noneactive 2024 9:52am [facility] Work Phone: Reason for referral (narrative)No reason for referral information availableWOhioHealth Work Phone: Advance Directives No Advanced Directives Records FoundDocuments on File Type Date Recorded Patient Licensing Specialist Expl anation Advance Directives and Livin g Will 09/28/2020 3:51 PM Advance Directive Response Recorded Date/ Time Living Will No November 20, 2014 2:47pm Power of Attorney At Law No November 20 2:47pm Documents on File Type Date Recorded Patient Licensing Specialist Expl anation ACP-Advance Directive 02/08/2021 12:00 AM Advance Directive Response Recorded Date/ Time Living Will No November 20, 2014 1:47pm Power of Attorney At Law No November 20 1:47pm Advance Directive Response Recorded Date/ Time Living Will No August 09, 2022 10:14am Power of Attorney At Law No August 09 10:14am Advance Directive Response Recorded Date/ Time Living Will No August 09, 2022 9:14am Power of Attorney At Law No August 09 9:14am Documents on File Type Date Recorded Patient Licensing Specialist Expl anation Power of Attorney At Law 02/06/2024 12:34 PM [facility] POA Advance Directives and Living Will 02/06/2024 12:31 PM Living Will Declaration Advance Directive Response Recorded Date/ Time Living Will No August 09, 2022 10:14am Do you have a Healthcare Power of Attorney At Law? 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) , Osteopenia, Medicare pt SCREENING Reason for Visit Essential tremor Prediabetes Psoriatic arthritis Acquired hypothyroidism Mixed hyperlipidemia RLS (restless legs syndrome) Anxiety and depression Depression Osteopenia [id number] Chief Complaint 6 M FU S/O- PAIN- COPY PCP 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) , Osteopenia, Medicare pt SCREENING FOLLOW UP FROM BONE DENSITY SCAN PROLIA SHOT S/O- PAIN- COPY PCP Reason for Visit Essential tremor Prediabetes Psoriatic arthritis Acquired hypothyroidism Mixed hyperlipidemia RLS (restless legs syndrome) Anxiety and depression Depression Osteopenia [id number] Osteopenia Osteopenia Chief Complaint PROLIA SHOT S/O- [...] 14 9:47am Osteopenia May 11, 2024 12:49pm Chief Complaint Admit Date S/O- PAIN- COPY PCP October 21, 2024 12:4 4pm 6 M FU October 22, 2024 9:52 am Reason for Visit Admit Date Essential tremor October 22, 2024 9:52 am Osteopenia October 22, 2024 9:52 am Psoriatic arthritis October 22, 2024 9:52 am Acquired hypothyroidism October 22, 2024 9:52am Fatigue October 22, 2024 9:52 am Mixed hyperlipidemia October 22, 2024 9:5 2am RLS (restless legs syndrome) October 22, 2024 9:52am Anxiety and depression October 22, 2024 9 :52am Additional Source Comments Reason for Visit (unrecogniz [...] DATE CREATED AUTHOR AUTHOR'S ORGANIZ ATION 02/13/2021 [facility] DATE CREATED AUTHOR AUTHOR'S ORGANIZ ATION 11/29/2021 [facility] DATE CREATED AUTHOR AUTHOR'S ORGANIZ ATION 10/07/2024 [facility] DATE CREATED AUTHOR AUTHOR'S ORGANIZ ATION 10/31/2024 [facility] Goals (unrecognized section and content) Goals may [...] Care Teams (unrecognized sec tion and content) Team Status: Active Member Role Status Dates Dr. Kelley Maldonado [...] July 23, 2024 End: July 23, 2024 Team Status: Active Member Role Status Dates Dr. Kelley Maldonado MD Primary Care Provider Active Start: October 21, 2024 Dr. Trudy Trejo MD Attending Provider Active Start: October 21, 2024 Dr. Trudy Trejo MD Referring Provider Active Start: October 21, 2024 Team Status: Inactive Member Role Status Dates Dr. Kelley Maldonado MD Primary Care Provider Active Start: October 22, 2024 End: October 22, 2024 Dr. Kelley Maldonado MD Attending Provider Active Start: October 22, 2024 End: October 22, 2024 Dr. Kelley Maldonado MD Referring Provider Active Start: October 22, 2024 End: October 22, 2024 [employer] Relationship Specialty Start Date End Date Eamon Kelly [address] [place] [id number] PCP - General Family Medicine 11/10/20 Team [...] Dates Dr. Kelley Maldonado MD Primary Care Pro vider, Attending Provider, Referring Provider Active Team Status: Inactive Member Role Status Dates Dr. Kelley Maldonado MD Primary Care Provider, Attendi ng Provider Active [employer] Relationship Specialty Start Date End Date Kelley Maldonado MD [address] [place], [place] [address] PCP - General 09/05/22 [employer] Relationship Specialty Start Date End Date Kelley Maldonado MD [address] [place], [place] [address] PCP - General 09/05/22 Team Status: Inactive Member Role Status Dates Dr. Kiana Giraldo MD Attending Provider Active Dr. Kelley Maldonado MD Primary Care Provider, Referri ng Provider Active Team Status: Inactive Member Role Status Dates Dr. Kelley Maldonado MD Primary Care Provider Active Beverly Cooper INDEPENDENT DRIVER, INDEPENDENT DRIVER-C Attending Provider, Referring Provider Active Team Status: Inactive Member Role Status Dates Dr. Kelley Maldonado MD Primary Care Provider Active Dr. Trudy Trejo MD Attending Provider Active [employer] Relationship Specialty Start Date End Date Kelley Maldonado MD [address] [place] [address] PCP - General 09/05/22 [employer] Relationship Specialty Start Date End Date Kelley Maldonado MD [address] [place] [address] PCP - General 09/05/22 [employer] Relationship Specialty Start Date End Date Kelley Maldonado MD [address] [place] [address] PCP - General 09/05/22 [employer] Relationship Specialty Start Date End Date Kelley Maldonado MD [address] [place], [place] [id number] PCP - General 09/05/22 [employer] Relationship Specialty Start Date End Date Kelley Maldonado MD [address] [place] [address] PCP - General 09/05/22 [employer] Relationship Specialty Start Date End Date Kelley Maldonado MD [address] [place], [place] [id number] PCP - General 09/05/22 [employer] Relationship Specialty Start Date End Date Kelley Maldonado MD [address] [place], [place] [id number] PCP - General 09/05/22 [employer] Relationship Specialty Start Date End Date Kelley Maldonado MD [address] [place] [address] PCP - General 09/05/22 Team Status: Inactive [...] Maldonado MD Primary Care Provider Active Start: October 21, 2024 End: October 21, 2024 Dr. Trudy Trejo MD Attending Provider Active Start: October 21, 2024 End: October 21, 2024 Dr. Trudy Trejo MD Referring Provider Active Start: October 21, 2024 End: October 21, 2024 FOR RECORDS PERTAINING TO PATIENTS WHO [...] BE BASED ON THE PRIMARY CLINICAL RECORDS. [employer] [facility]. provides no warranty or guarantee of the accuracy or completeness of information in this document.
== END | disposition home or self-care (01) ==
LOC: MTLAB 13:49
PROVIDERS: PCP Internal Medicine; Referring Provider Internal Medicine Rheumatology; Visit Provider Internal Medicine Rheumatology
DX: L40.59 Other psoriatic arthropathy (principal); Z79.899 Other long term (current) drug therapy
CPT/HCPCS: 36415; 80053; 85025

== ENCOUNTER → 2025-03-22 | Outpatient (CLI) | payer MEDICARE, SELFPAY ==
--- NOTE | 2025-03-22 07:45 | BI_ITS ---
EXAM: SCRN MAMM (CAD)W/SRIRAM BILAT DATE: 03/22/2025 CLINICAL HISTORY: F, Age 74 y/o , SCREENING TECHNIQUE: Procedure Code: [id number] Modality: MG Procedure: SCRN MAMM (CAD)W/SRIRAM BILAT COMPARISON: Prior exam(s) dated 03/20/2024 and 03/19/2023. FINDINGS: TISSUE DENSITY: The breasts are extremely dense, which lowers the sensitivity of mammography. Bilateral Breast Mammographic Findings: No significant masses, calcifications or other abnormalities are identified. Benign-appearing macrocalcifications, secretory type calcifications and round microcalcifications are seen in both breasts. BI/SCRN MAMM (CAD)W/SRIRAM BILAT IMPRESSION: Benign screening mammogram OVERALL FINAL ASSESSMENT BI-RADS 2: BENIGN RECOMMENDATION: Routine annual follow-up in 1 Year Additional Recommendation none A letter with findings and recommendations will be mailed to the patient. Reading Location: [id number]
== END | disposition home or self-care (01) ==
PROVIDERS: PCP Internal Medicine; Referring Provider Obstetrics & Gynecology; Visit Provider Obstetrics & Gynecology
DX: Z12.31 Encounter for screening mammogram for malignant neoplasm of breast (principal)
CPT/HCPCS: 77063; 77067

== ENCOUNTER → 2025-04-15 | Outpatient (CLI) | payer MEDICARE, SELFPAY ==
[2025-04-15 15:30] LABS: Hematocrit 36.8 % (37-47); Hemoglobin 12.2 g/dL (12.0-15.0); Immature Granulocytes Count 0.010 X10^3/uL (0.0-0.0); Mean Corp Hgb Conc 33.2 g/dL (32-36); Mean Corpuscular Volume 97.9 fL (81-99); Mean Platelet Vol. 10.0 fl (6.2-12.0); NRBC Flagged by Analyzer 0 % (0-5); POSITIVE DIFFERENTIAL YES; Platelet Count 203 K/mm3 (150-450); RBC Distribution Width CV 15.3 % (11.6-14.6); RBC Distribution Width SD 54.5 fl (35.1-43.9); Red Blood Count 3.76 M/mm3 (4.2-5.4); White Blood Count 5.3 K/mm3 (4.4-11.0)
[2025-04-15 15:43] LABS: Albumin, Serum 4.7 g/dL (3.4-4.8); BUN 16 mg/dL (4-19); BUN/Creat Ratio 21.2 RATIO (10-20); Glucose 105 mg/dL (70-99)
[2025-04-15 15:44] LABS: AST(SGOT) 15 U/L (<=31); Alanine Aminotransfer ALT/SGPT 7 U/L (<=34); Alkaline Phosphatase 47 U/L (35-104); Anion Gap 12 (5-15); Calcium,Total 9.5 mg/dL (7.6-11.0); Carbon Dioxide 26.4 mmol/L (21.0-32.0); Chloride 100 mmol/L (98-108); Globulin 2.5 g/dL (2.2-4.2); Potassium 3.7 mmol/L (3.3-5.1)
== END | disposition home or self-care (01) ==
PROVIDERS: PCP Internal Medicine; Referring Provider Internal Medicine Rheumatology; Visit Provider Internal Medicine Rheumatology
DX: L40.59 Other psoriatic arthropathy (principal); Z79.899 Other long term (current) drug therapy
CPT/HCPCS: 36415; 80053; 85025